=== PATIENT | male | born 1950 | race Caucasian/White ===

== ENCOUNTER → 2018-08-10 | Outpatient (CLI) | payer MEDICARE, OTHER ==
[~2018-08-10] MED LIST: ASPIRIN81 MG PO; CLOPIDOGREL75 MG PO; COMBIVENT RESPIM4 GM INH; COUMADIN3 MG PO; COUMADIN5 MG PO; DOXYCYCLINE HY100 MG PO; ELEQUIS PO; ISOSORBIDE DINI20 MG PO; LEVOTHYROXINE0.5 GM PO; LEVOTHYROXINE125 MCG PO; LOSARTAN POTASS25 MG PO; LYRICA25 MG PO; METFORMIN HCL500 MG PO; METOCLOPRAMIDE10 MG PO; METOPROLOL TART50 MG PO; MULTI-VITAMIN1 EACH PO; NORVASC5 MG PO; PANTOPRAZOLE SO40 MG PO; PLAVIX75 MG PO; POTASSIUM 25 M25 MEQ PO; POTASSIUM GLUCONATE PO; RAPAFLO8 MG PO; SIMVASTATIN20 MG PO; SPIRIVA18 MCG INH; VITAMIN D34000 UNIT PO; WARFARIN SODIUM5 MG PO
--- NOTE | 2018-08-10 15:03 | Diagnostic Imaging Report ---
EXAMINATION: Renal ultrasound. CLINICAL HISTORY :Hematuria COMPARISON: July 29 2016 TECHNIQUE: Grayscale and color Doppler evaluation of the kidneys and bladder was performed in transverse and longitudinal planes. DISCUSSION: RIGHT KIDNEY: The right kidney measures 12 cm in length and shows normal echogenicity. No hydronephrosis, shadowing calculi or solid mass lesions. LEFT KIDNEY: The left kidney measures 13.4 cm in length and shows normal echogenicity. No hydronephrosis. Left renal 2.4 cm hypoechoic lesion in the interpolar region is indeterminate. Does not appear simple and not present on prior CT of the abdomen and pelvis. BLADDER: Unremarkable. IMPRESSION: Left renal 2.4 cm indeterminate hypoechoic lesion. Recommend CT or MRI of the abdomen with and without contrast. Signed by: Dr. Dereje Elias M.D. on 08/10/2018 3:00 PM
== END ==
LOC: US 11:14
PROVIDERS: ATTEND Urology
DX: R31.29 Other microscopic hematuria (principal)
CPT/HCPCS: 76770

== ENCOUNTER → 2018-08-24 | Outpatient (CLI) | payer MEDICARE, OTHER ==
[~2018-08-24] MED LIST changes: +IOPAMIDOL 370 MG/ML 200 ML INFUS..BTL INJ ONE; +SODIUM CHLORIDE 0.9% 50ML 50 ML ONE
[2018-08-24 09:26] LABS: BLOOD UREA NITROGEN 16 mg/dL (8-26); BUN/CREATININE RATIO 20 (6-25); CREATININE, SERUM 0.8 mg/dL (0.9-1.3); EST GLOMERULAR FILTRATION RATE > 60 ML/MIN (60-)
--- NOTE | 2018-08-24 11:19 | Diagnostic Imaging Report ---
EXAM: CT Abdomen and Pelvis WITHOUT and WITH contrast INDICATION: Indeterminate left renal mass on recent ultrasound examination. COMPARISON: Correlation with ultrasound kidneys dated 08/10/2018. TECHNIQUE: Abdomen and pelvis were scanned utilizing a multidetector helical scanner from the lung base to the pubic symphysis before and after administration of IV contrast. Coronal and sagittal reformations were obtained. Renal mass protocol was performed. Scan was performed pre-, nephrographic, and 4 minute delayed phase. IV CONTRAST: 100 cc Isovue-300 ORAL CONTRAST: Water RADIATION DOSE: Total DLP: 1693.48 mGy*cm Estimated effective dose: (DLP x 0.015 x size factor) mSv COMPLICATIONS: None FINDINGS: LINES and TUBES: None. LOWER THORAX: Irregular density in the right middle lobe anterolaterally and to lesser degree lingula, suggestive of pleural parenchymal scarring. HEPATOBILIARY: No focal hepatic lesions. No biliary ductal dilation. GALLBLADDER: No radio-opaque stones or sludge. No wall thickening. SPLEEN: No splenomegaly. PANCREAS: No focal masses or ductal dilatation. ADRENALS: No adrenal nodules KIDNEYS/URETERS: Kidneys enhance symmetrically. No hydronephrosis. No cystic or solid mass lesions, in particular, there is no mass lesion in the lower pole of the left kidney to correspond to finding of the ultrasound examination. There is however a normal variation of venous drainage of the left kidney, with venous branches draining the lower pole, extending to the left lower pole as seen on sagittal image 60. Coronal No stones. GI TRACT: No abnormal distention, wall thickening, or evidence of bowel obstruction. Scattered descending sigmoid colon diverticula without CT evidence of diverticulitis. Appendix is not visualized possibly out of field of view. 5.0 cm diverticulum off the second portion of the duodenum. PELVIC ORGANS/BLADDER: Unremarkable. LYMPH NODES: No lymphadenopathy. VESSELS: There is moderate atherosclerotic disease in the aorta and major arterial branches. PERITONEUM / RETROPERITONEUM: No free air or fluid. BONES: No suspicious lesions. SOFT TISSUES: Unremarkable. IMPRESSION: 1. No renal mass identified, particularly in the lower pole of the left kidney as suspected on prior ultrasound examination. 2. Colonic diverticulosis without diverticulitis. Signed by: Dr. Shankar Hogan M.D. on 08/24/2018 11:16 AM
== END ==
LOC: CT 07:11
PROVIDERS: ATTEND Urology
DX: N28.89 Other specified disorders of kidney and ureter (principal)
CPT/HCPCS: 36415; 74170; 82565; 84520; Q9967

== ENCOUNTER → 2018-12-01 | Day surgery (SDC) | payer MEDICARE, OTHER ==
[2018-11-25 10:38] LABS: BASOPHILS % 0.5 % (0.0-1.0); EOSINOPHILS # (AUTO) 0.1 (0.0-0.4); EOSINOPHILS % 2.4 % (0.0-6.0); HEMATOCRIT 38.8 % (38.2-49.6); HEMOGLOBIN 13.1 g/dL (14.0-18.0); LYMPHOCYTES # (AUTO) 1.1 (1.0-3.2); MEAN CORPUSCULAR HEMOGLOBIN 31.1 pg (28-32); MEAN CORPUSCULAR HGB CONC 33.8 g/dL (31-35); MEAN CORPUSCULAR VOLUME 92.2 fL (81-99); MONOCYTES # (AUTO) 0.4 (0.2-0.8); MONOCYTES % 11.9 % (4.4-11.3); NEUTROPHILS % 54.7 % (38.7-80.0); PLATELET COUNT 152 x10e3/uL (140-360); RED BLOOD COUNT 4.21 x10e6/uL (4.3-5.7); RED CELL DISTRIBUTION WIDTH 14.6 % (11.7-14.4)
[~2018-12-01] MED LIST changes: -IOPAMIDOL 370 MG/ML 200 ML INFUS..BTL INJ ONE; +KETAMINE HCL INJ 50 MG/ML 10 ML VIAL ONE; +LIDOCAINE HCL 2% LOCAL INJ 5 ML SDV VIAL INJ ONE; +PROPOFOL IV EMULSION 10 MG/ML 50 ML VIAL ONE; -SODIUM CHLORIDE 0.9% 50ML 50 ML ONE
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
--- OUTSIDE RECORDS SUMMARY | 2018-12-01 05:52 | XMS REPORT | Continuity of Care Document ---
Author Author [facility] Interface Address Unknown Phone Unavailable Problems Problem Status Onset Date Classification Date Reported Comments Source LUMBAR RADICULOPATHY Active 11/12/2018 [facility] DISORDERS OF SACRUM, LUMBOSACRAL SPONDYL Active 09/29/2018 [facility] DISORDER OF SACRUM Active 08/13/2018 [facility] SPONDYLOSIS OF LUMBOSACRAL REGION WITHOU Active 06/08/2018 [facility] LUMBAR SPONDYLOSIS OF LUMBOSACRAL REGION Active 05/31/2018 [facility] 2 WEEKS FOLLOW UP Active 11/26/2017 [facility] CCL/PFO CLOSURE Active 11/17/2017 [facility] PFO Active 07/20/2017 [facility] M54.16 RADICULOPATHY, LUMBAR REGION Active 07/17/2017 [facility] GAMMUNEX 56 GMS / [id number] / [id number] / DX: G6 Active 06/26/2017 [facility] 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 Active 08/14/2016 [facility] SOB Active 07/25/2016 [facility] G89.4 - CHRONIC PAIN SYNDROME Active 03/04/2016 [facility] M25.512 - PAIN IN LEFT SHOULDER Active 10/29/2015 [facility] Discharge Diagnosis: Bite from dog 07/17/2015 07/20/2015 [facility] Discharge Diagnosis: Acute foreign body of hand 07/17/2015 07/20/2015 [facility] BITES - DOG Active 07/17/2015 [facility] UNK Active 05/15/2015 [facility] R13.10 R10.13 Active 05/15/2015 [facility] CHEST PAIN Active 04/23/2015 [facility] Discharge Diagnosis: Acute low back pain 02/10/2015 02/14/2015 [facility] BACK PAIN Active 02/10/2015 [facility] Discharge Diagnosis: Back pain 02/04/2015 02/07/2015 [facility] Discharge Diagnosis: Muscle spasm 02/04/2015 02/07/2015 [facility] Discharge Diagnosis: Hemarthrosis 11/21/2014 11/24/2014 [facility] ELBOW INJURY Active 11/21/2014 [facility] MEDICATION REACTION Active 02/22/2014 [facility] INTENSE MUSCLE PAIN, SPASM, CONCERN FOR Active 02/22/2014 [facility] Discharge Diagnosis: Acute neck pain 11/20/2013 11/22/2013 [facility] NECK PAIN Active 11/20/2013 [facility] 723.0 Active 10/25/2013 [facility] 723.0-LAMINECTOMY Active 10/25/2013 [facility] FEVER, SEPSIS Active 10/02/2013 [facility] Acute CHF Resolved Problem 04/26/2015 [facility] acid reflux Active Problem 03/02/2014 [facility] atrial fibrillation Resolved Problem 03/02/2014 [facility] COPD Active Problem 03/02/2014 [facility] heart attack Resolved Problem 03/02/2014 [facility] hypercholesteremia Active Problem 03/02/2014 [facility] hypertension Active Problem 03/02/2014 [facility] hyperthyroid Active Problem 03/02/2014 [facility] numbness,weakness of legs Active Problem 03/02/2014 [facility] stroke Resolved Problem 03/02/2014 [facility] PE (<span ID="[id number]">Confirmed</span>) Resolved Problem 03/17/2015 [facility] PE (<span ID="[id number]">Confirmed</span>) Resolved Problem 04/26/2015 [facility] Acute CHF Resolved Problem 11/20/2017 [facility], [facility] CAD (<span ID="[id number]">Confirmed</span>) Resolved Problem 11/20/2017 [facility], [facility] Cervical myelopathy Active Problem 11/20/2017 [facility] [place], [facility] [place] Hypertension Active Problem 11/20/2017 [facility], [facility] [place], [facility] Neuropathy Active Problem 11/20/2017 [facility] [place], [facility] [place], [facility] PE (<span [id number]">Confirmed</span>) Resolved Problem 11/20/2017 [facility], [facility] [place] SOBOE - Shortness of breath on exertion Active Problem 11/20/2017 [facility] [place], [facility] [place],[facility] Heart Failure Acute CHF Resolved Problem 12/11/2017 [facility], [facility] [place],[facility] CAD (<span ID="[id number]">Confirmed</span>) Resolved Problem 12/11/2017 [facility] [place], [facility] [place],[facility] Cervical myelopathy Active Problem 12/11/2017 [facility], [facility] [place], [facility] [place],[facility] Hypertension Active Problem 12/11/2017 [facility], [facility] [place], [facility] [place],[facility] Neuropathy Active Problem 12/11/2017 [facility], [facility] [place], [facility] [place],[facility] PE (<span ID="[id number]">Confirmed</span>) Resolved Problem 12/11/2017 [facility], [facility] [place],[facility] SOBOE - Shortness of breath on exertion Active Problem 12/11/2017 [facility], [facility] [place], [facility] [place],[facility] Acute CHF Resolved Problem 11/27/2018 [facility], [facility] [place], [facility] CAD (<span ID="[id number]">Confirmed</span>) Resolved Problem 11/27/2018 [facility], [facility] [place], [facility] [place], [facility] Stroke<sup>1</sup> Resolved Problem 11/27/2018 X2 2008,2009 [facility] Cervical myelopathy Active Problem 11/27/2018 [facility], [facility] [place], [facility] [place], [facility] 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>) Active Problem 11/27/2018 [facility] COPD (<span ID="[id number]">Confirmed</span>) Active Problem 11/27/2018 [facility] Diabetes Active Problem 11/27/2018 [facility] GERD (<span ID="[id number]">Confirmed</span>) Active Problem 11/27/2018 [facility] Hypertension Active Problem 11/27/2018 [facility], [facility] [place], [facility] [place], [facility] Hyperthyroidism Active Problem 11/27/2018 [facility] Enlarged prostate Active Problem 11/27/2018 [facility] Heart attack<sup>2, 3</sup> Resolved Problem 11/27/2018 [facility] Neuropathy Active Problem 11/27/2018 [facility], [facility] [place], [facility] PE (<span ID="[id number]">Confirmed</span>) Resolved Problem 11/27/2018 [facility], [facility] [place], [facility] SOBOE - Shortness of breath on exertion Active Problem 11/27/2018 [facility], [facility] [place], [facility] TIA (<span ID="[id number]">Confirmed</span>) Resolved Problem 11/27/2018 [facility] CERVICAL SPINAL STENOSIS Active [facility] FEVER NOS Active [facility] SEPTICEMIA NOS Active [facility] PAIN IN LIMB Active [facility] LOW BACK PAIN Active [facility] DYSPHAGIA, UNSPECIFIED Active [facility] EPIGASTRIC PAIN Active [facility] PAIN Active [facility] SECONDARY POLYCYTHEMIA Active [facility] RADICULOPATHY, LUMBAR REGION Active [facility] Medications Medication Details Route Status Patient Instructions Ordering Provider Order Date Source Heparin Lock 100 units/mL INJ solution 500 unit, 5 mL, Route: INJ, Drug Form: INJ, Dosing Weight 112.727, kg, ONCE, PRN Other -See Comment, Start date: 11/25/18 13:58:00 CDTNotes: (Same as: Heparin Lock Flush) Inactive 11/25/2018 [facility] Lactated Ringers IV 1,000 mL 1,000 mL, Rate: 40 ml/hr, Infuse over: 25 hr, Route: IV, Dosing Weight 112.727 kg, Total Volume: 1,000, Start date: 11/25/18 12:27:00 CDT, Duration: 30 day, Stop date: 12/25/18 12:26:00 CDT, 2.52, m2 No Longer Active 11/25/2018 [facility] Lactated Ringers IV 1,000 mL 1,000 mL, Rate: 40 ml/hr, Infuse over: 25 hr, Route: IV, Dosing Weight 112.727 kg, Total Volume: 1,000, Start date: 10/07/18 16:08:00 CDT, Duration: 30 day, Stop date: 11/06/18 16:07:00 CDT, 2.52, m2 No Longer Active 10/07/2018 [facility] Lactated Ringers IV 1,000 mL 1,000 mL, Rate: 40 ml/hr, Infuse over: 25 hr, Route: IV, Dosing Weight 110.909 kg, Total Volume: 1,000, Start date: 09/02/18 13:38:00 PATIENT OFFICE REP, Duration: 30 day, Stop date: 10/02/18 13:37:00 CDT, 2.5, m2 No Longer Active 09/02/2018 [facility] clopidogrel 75 mg oral tablet 75 mg=1 tab, PO, Daily, # 90 tab, 0 Refill(s) Active 11/26/2017 [facility] clopidogrel 75 mg, 1 tab, Route: PO, Drug form: TAB, Daily, Dosing Weight 109.545, kg, Start date: 11/26/17 9:00:00 CDT, Duration: 30 day, Stop date: 12/25/17 9:00:00 CDTNotes: (Same As: Plavix) Inactive 11/26/2017 [facility] Aspirin 81 mg, 1 tab, Route: PO, Drug form: ECTAB, Daily, Dosing Weight 109.545, kg, Start date: 11/26/17 9:00:00 CDT, Duration: 30 day, Stop date: 12/25/17 9:00:00 CDTNotes: Do not crush or chew. (Same As: Ecotrin) Inactive 11/26/2017 [facility] Fentanyl 25 microgram, Route: IV, Drug form: ERFILM, ONCE, Dosing Weight 109.545, kg, Start date: 11/26/17 2:48:00 CDT, Stop date: 11/26/17 2:48:00 CDTNotes: (Same as: Duragesic) Check for product integrity. Ap ply to intact skin "Remove old patch before application of new patch" Inactive 11/26/2017 [facility] Acetaminophen 325 MG / Hydrocodone Bitartrate 5 MG Oral Tablet [Estero 5/325] 1 tab, Route: PO, Drug Form: TAB, Dosing Weight 109.545, kg, Q6H, PRN Pain Score 1-3, Start date: 11/25/17 19:21:00 CDT, Duration: 30 day, Stop date: 12/25/17 19:20:00 CDTNotes: (Same as: Estero 325/5) Do not exceed 4gm/day of acetaminophen. No Longer Active 11/26/2017 [facility] Fentanyl 50 microgram, 1 mL, Route: IV, Drug form: INJ, ONCE, Dosing Weight 109.545, kg, Start date: 11/25/17 19:21:00 CDT, Stop date: 11/25/17 19:21:00 CDTNotes: (Same as: Sublimaze) Preservative free. Inactive 11/26/2017 [facility] Fentanyl 50 microgram, Route: IV, ONCE, Dosing Weight 109.545, kg, Start date: 11/25/17 17:04:00 CDT, Stop date: 11/25/17 17:04:00 CDT Inactive 11/25/2017 [facility] Aspirin 81 MG Enteric Coated Tablet 81 mg, Route: PO, Drug form: ECTAB, ONCE, Dosing Weight 109.545, kg, Start date: 11/25/17 16:07:00 CDT, Stop date: 11/25/17 16:07:00 CDT Inactive 11/25/2017 [facility] Plavix 300 mg, Route: PO, Drug form: TAB, ONCE, Dosing Weight 109.545, kg, Start date: 11/25/17 16:07:00 CDT, Stop date: 11/25/17 16:07:00 CDT Inactive 11/25/2017 [facility] Sodium Chloride 0.9% IV 750 mL 750 mL, Rate: 75 ml/hr, Infuse over: 10 hr, Route: IV, Dosing Weight 109.545 kg, Total Volume: 750, Start date: 11/25/17 15:20:00 CDT, Duration: 10 hr, Stop date: 11/26/17 1:19:00 CDT, 2.49, m2 No Longer Active 11/25/2017 [facility] Amoxicillin 875 MG / Clavulanate 125 MG Oral Tablet [Augmentin 875-mg] 875 mg=1 tab, PO, Q12H, X 7 day, # 14 tab, 0 Refill(s) Active 07/17/2015 [facility] Morphine 4 mg, Route: IM, Drug form: INJ, ONCE, Dosing Weight 77.273, kg, Priority: STAT, Start date: 07/17/15 16:27:00, Stop date: 07/17/15 16:27:00 Inactive 07/17/2015 [facility] Thyroxine Daily, 0 Refill(s) Active 05/23/2015 [facility] [place] PO, Daily, 0 Refill(s) Active 05/23/2015 [facility] Metformin PO, 0 Refill(s) Active 05/23/2015 [facility] Acetaminophen 325 MG / Hydrocodone Bitartrate 10 MG Oral Tablet [Estero 10/325] 1 tab, Route: PO, Drug Form: TAB, Dosing Weight 114.545, kg, ONCE, STAT, Start date: 02/10/15 19:27:00, Stop date: 02/10/15 19:27:00 Inactive 02/11/2015 [facility] Dilaudid 1 mg, Route: IVP, ONCE, Dosing Weight 114.545, kg, Priority: STAT, Start date: 02/10/15 15:06:00, Stop date: 02/10/15 15:06:00 Inactive 02/10/2015 [facility] Ondansetron 4 mg, Route: IVP, Drug form: INJ, ONCE, Dosing Weight 114.545, kg, Priority: STAT, Start date: 02/10/15 10:48:00, Stop date: 02/10/15 10:48:00 Inactive 02/10/2015 [facility] Dilaudid 1 mg, Route: IVP, ONCE, Dosing Weight 114.545, kg, Priority: STAT, Start date: 02/10/15 10:48:00, Stop date: 02/10/15 10:48:00 Inactive 02/10/2015 [facility] POLYETHYLENE GLYCOL 3350 142 MG/ML Oral Solution [Miralax] 17 gm, PO, Daily, X 15 day, # 255 gm, 0 Refill(s) Active 02/04/2015 [facility] Cyclobenzaprine hydrochloride 10 MG Oral Tablet [Flexeril] 10 mg, PO, TID, PRN Muscle Spasm, X 10 day, # 30 tab, 0 Refill(s) Active 02/04/2015 [facility] Ketorolac 30 mg, 1 mL, Route: IVP, Drug form: INJ, ONCE, Dosing Weight 114.545, kg, Priority: STAT, Start date: 02/04/15 14:08:00, Stop date: 02/04/15 14:08:00Notes: (Same as:Toradol) IV bolus must be given >15 seconds. Give IM administration slowly and deeply into the muscle. Not for use > 4 days MEDICATION WASTE Product Size: 30 mg Product Wasted: ___ mg Inactive 02/04/2015 [facility] Dilaudid 0.5 mg, Route: IVP, ONCE, Dosing Weight 114.545, kg, Priority: STAT, Start date: 02/04/15 11:35:00, Stop date: 02/04/15 11:35:00 Inactive 02/04/2015 [facility] Flexeril 10 mg, 1 tab, Route: PO, Drug form: TAB, ONCE, Dosing Weight 114.545, kg, Priority: STAT, Start date: 02/04/15 10:07:00, Stop date: 02/04/15 10:07:00Notes: (Same As: Flexeril) Inactive 02/04/2015 [facility] Acetaminophen 325 MG / Hydrocodone Bitartrate 5 MG Oral Tablet 1 tab, Route: PO, Drug Form: TAB, Dosing Weight 114.545, kg, ONCE, STAT, Start date: 02/04/15 10:06:00, Stop date: 02/04/15 10:06:00Notes: (Same as: [place] 325/5) Do not exceed 4gm/day of acetaminophen. Inactive 02/04/2015 [facility] Ondansetron 4 MG Oral Tablet [Zofran] 4 mg=1 tab, PO, TID, X 5 day, # 15 tab, 0 Refill(s) Active 11/22/2014 [facility] Acetaminophen 325 MG / Hydrocodone Bitartrate 10 MG Oral Tablet 1 tab, PO, Q4H, PRN Pain, X 3 day, # 18 tab, 0 Refill(s) Active 11/22/2014 [facility] Zofran 4 mg, Route: IVP, Drug form: INJ, ONCE, Dosing Weight 121.818, kg, Priority: STAT, Start date: 11/21/14 21:35:00, Stop date: 11/21/14 21:35:00 Inactive 11/22/2014 [facility] Potassium Chloride 20 MEQ Extended Release Tablet 40 mEq, 2 tab, Route: PO, Drug form: ERTAB, ONCE, Dosing Weight 121.818, kg, Priority: STAT, Start date: 11/21/14 21:15:00, Stop date: 11/21/14 21:15:00 Inactive 11/22/2014 [facility] potassium chloride 10 mEq, 100 mL, Route: IVPB, Drug form: INJ, Q1H, Start date: 11/21/14 20:00:00, Duration: 4 doses or times, Stop date: 11/21/14 23:00:00Notes: Infuse at a rate of 10 mEq/hr. (Same as: KCL) Inactive 11/22/2014 [facility] Calcium Chloride 1,000 mg, 10 mL, Route: IVP, Drug form: INJ, ONCE, Dosing Weight 121.818, kg, Priority: STAT, Start date: 11/21/14 19:53:00, Stop date: 11/21/14 19:53:00Notes: calcium CHLORIDE calcium CHLORIDE calcium CHLORIDE Inactive 11/22/2014 [facility] potassium chloride 40 mEq, Route: IVPB, ONCE, Dosing Weight 121.818, kg, Start date: 11/21/14 19:50:00, Stop date: 11/21/14 19:50:00 Inactive 11/22/2014 [facility] Zofran 4 mg, Route: IVP, Drug form: INJ, ONCE, Dosing Weight 121.818, kg, Priority: STAT, Start date: 11/21/14 18:30:00, Stop date: 11/21/14 18:30:00 Inactive 11/21/2014 [facility] Morphine 4 mg, 2 mL, Route: IVP, Drug form: INJ, ONCE, Dosing Weight 121.818, kg, Priority: STAT, Start date: 11/21/14 18:30:00, Stop date: 11/21/14 18:30:00Notes: (Same as:MORPhine Sulfate) Inactive 11/21/2014 [facility] Zofran ODT 4 mg, Route: PO, Drug form: TABDIS, ONCE, Dosing Weight 121.818, kg, Priority: STAT, Start date: 11/21/14 18:09:00, Stop date: 11/21/14 18:09:00 Inactive 11/21/2014 [facility] Acetaminophen 325 MG / Hydrocodone Bitartrate 10 MG Oral Tablet [Estero 10/325] 1 tab, Route: PO, Drug Form: TAB, Dosing Weight 121.818, kg, ONCE, STAT, Start date: 11/21/14 17:47:00, Stop date: 11/21/14 17:47:00 Inactive 11/21/2014 [facility] sodium chloride 10 mL, Route: IVP, Start date: 03/01/14 0:00:00, Duration: 30 day, Stop date: 03/30/14 16:00:00Notes: preservative free. No Longer Active 03/01/2014 [facility] heparin flush 500 unit, 5 mL, Route: IVP, Drug form: SOLN, Q30D, PRN Other -See Comment, Start date: 02/28/14 18:54:00, Duration: 30 day, Stop date: 03/30/14 18:53:00Notes: (Same as: Heparin Lock Flush) Inactive 02/28/2014 [facility] sodium chloride 20 mL, Route: IVP, Start date: 02/28/14 18:53:00, Duration: 30 day, Stop date: 03/30/14 18:52:00, PRN Other -See CommentNotes: preservative free. Inactive 02/28/2014 [facility] sodium chloride 20 mL, Route: IVP, Start date: 02/28/14 17:06:00, Duration: 30 day, Stop date: 03/30/14 17:05:00, PRN Other -See CommentNotes: preservative free. Inactive 02/28/2014 [facility] sodium chloride 10 mL, Route: IVP, Start date: 02/28/14 17:05:00, Duration: 30 day, Stop date: 03/30/14 17:04:00, PRN Line FlushNotes: preservative free. Inactive 02/28/2014 [facility] methocarbamol 500 mg oral tablet 500 mg=1 tab, PO, TID, Spasm, # 30 tab, 0 Refill(s) Active 02/28/2014 [facility] Acetaminophen 325 MG / Hydrocodone Bitartrate 10 MG Oral Tablet 1 tab, PO, Q4H, Pain Score 4-6, # 10 tab, 0 Refill(s) Active 02/28/2014 [facility] levothyroxine 125 mcg (0.125 mg) oral tablet 125 microgram=1 tab, PO, Daily, # 30 tab, 0 Refill(s) Active 02/28/2014 [facility] Thyroxine 125 microgram, 1 tab, Route: PO, Drug form: TAB, Daily, Dosing Weight 125.028, kg, Start date: 02/28/14 9:00:00, Duration: 30 day, Stop date: 03/29/14 9:00:00Notes: Take 1 hour before or 2 hours after meal; Enteral feeds may interefere with the absorption of this medication. (Same as:Levothroid) Inactive 02/28/2014 [facility] Insulin, Aspart, Human 4 unit, 0.04 mL, Route: SUB-Q, Drug form: SOLN, TID-Before Meals, Dosing Weight 125.028, kg, PRN Blood Glucose Results, Start date: 02/24/14 7:48:00, Duration: 30 day, Stop date: 03/26/14 7:47:00Notes: Roll in palms of hands gently; Do not shake vigorously. (Same as: NovoLOG) "single patient use only" Stable for 28 days at room temperature. Expires in days from Date No Longer Active 02/24/2014 [facility] Glucagon 1 mg, Route: IM, Drug form: PDR/INJ, PRN, Dosing Weight 125.028, kg, PRN Blood Glucose Results, Start date: 02/24/14 7:48:00, Duration: 30 day, Stop date: 03/26/14 7:47:00 No Longer Active 02/24/2014 [facility] Dextrose 50% Syringe 12.5 gm, 25 mL, Route: IVP, Drug Form: INJ, Dosing Weight 125.028, kg, PRN, PRN Blood Glucose Results, Start date: 02/24/14 7:48:00, Duration: 30 day, Stop date: 03/26/14 7:47:00 No Longer Active 02/24/2014 [facility] Temazepam 15 mg, 1 cap, Route: PO, Drug form: CAP, Bedtime, Dosing Weight 125.028, kg, PRN Sleep, Start date: 02/23/14 19:30:00, Duration: 30 day, Stop date: 03/25/14 19:29:00Notes: (Same As: Restoril) No Longer Active 02/24/2014 [facility] normal saline 0.9% IV 1,000 mL 1,000 mL, Rate: 100 ml/hr, Infuse over: 10 hr, Route: IV, Dosing Weight 125.028 kg, Total Volume: 1,000, Start date: 02/23/14 19:30:00, Duration: 30 day, Stop date: 03/25/14 19:29:00 No Longer Active 02/24/2014 [facility] metoprolol tartrate 25 mg, 1 tab, Route: PO, Drug form: TAB, QPM, Dosing Weight 125.028, kg, Start date: 02/23/14 17:00:00, Duration: 30 day, Stop date: 03/24/14 17:00:00Notes: (Same as: Lopressor) No Longer Active 02/23/2014 [facility] Coumadin 5 mg, 1 tab, Route: PO, Drug form: TAB, Daily, Dosing Weight 125.028, kg, Start date: 02/23/14 17:00:00, Duration: 30 day, Stop date: 03/24/14 17:00:00Notes: Nurse to ensure documentation of patient edu cation per anticoagulation policy. Avoid large intake of vitamin-K containing foods diet. (Same As: Coumadin) No Longer Active 02/23/2014 [facility] Methocarbamol 500 mg, 1 tab, Route: PO, Drug form: TAB, TID, Dosing Weight 125.028, kg, PRN Spasm, Start date: 02/23/14 15:01:00, Duration: 30 day, Stop date: 03/25/14 15:00:00Notes: (Same as:Robaxin) No Longer Active 02/23/2014 [facility] Methylprednisolone 1 gm, Route: IV, Drug form: INJ, ONCE, Dosing Weight 125.028, kg, Start date: 02/23/14 15:00:00, Stop date: 02/23/14 15:00:00Notes: (Same as:Solu-MEDROL, A-Methapred) Inactive 02/23/2014 [facility] albuterol-ipratropium 1 puff, Route: INHALER, Drug Form: AERO, QID, Start date: 02/23/14 13:00:00, Duration: 30 day, Stop date: 03/25/14 9:00:00 No Longer Active 02/23/2014 [facility] multivitamin 1 tab, Route: PO, Drug Form: TAB, Daily, Start date: 02/23/14 11:00:00, Duration: 30 day, Stop date: 03/25/14 9:00:00Notes: (Same as:One Tab Daily, Tab-A-Eb + Beta Carotene) Give with food. No Longer Active 02/23/2014 [facility] metoprolol tartrate 50 mg, 1 tab, Route: PO, Drug form: TAB, QAM, Dosing Weight 125.028, kg, Start date: 02/23/14 9:00:00, Duration: 30 day, Stop date: 03/24/14 9:00:00Notes: (Same as: Lopressor) No Longer Active 02/23/2014 [facility] Hydrochlorothiazide 12.5 MG Oral Capsule 12.5 mg, 1 cap, Route: PO, Drug form: CAP, Daily, Dosing Weight 125.028, kg, Start date: 02/23/14 9:00:00, Duration: 30 day, Stop date: 03/24/14 9:00:00Notes: (Same as: Microzide) With food. No Longer Active 02/23/2014 [facility] clopidogrel 75 mg, 1 tab, Route: PO, Drug form: TAB, Daily, Dosing Weight 125.028, kg, Start date: 02/23/14 9:00:00, Duration: 30 day, Stop date: 03/24/14 9:00:00Notes: (Same As: Plavix) No Longer Active 02/23/2014 [facility] Cholecalciferol 4,000 IntlUnit, 4 tab, Route: PO, Drug form: TAB, Daily, Dosing Weight 125.028, kg, Start date: 02/23/14 9:00:00, Duration: 30 day, Stop date: 03/24/14 9:00:00Notes: Same as : Vitamin D3 No Longer Active 02/23/2014 [facility] Aspirin 81 MG Enteric Coated Tablet 81 mg, 1 tab, Route: PO, Drug form: ECTAB, Daily, Dosing Weight 125.028, kg, Start date: 02/23/14 9:00:00, Duration: 30 day, Stop date: 03/24/14 9:00:00Notes: Do not crush or chew. (Same As: Ecotrin) No Longer Active 02/23/2014 [facility] 200 ACTUAT Albuterol 0.09 MG/ACTUAT / Ipratropium [place] 0.018 MG/ACTUAT Metered Dose Inhaler [Combivent] 2 puff, Route: INHALATION, Drug Form: AERO/A, Dosing Weight 125.028, kg, QID, Start date: 02/23/14 9:00:00, Duration: 30 day, Stop date: 03/24/14 21:00:00 Inactive 02/23/2014 [facility] Enoxaparin 40 mg, Route: SUB-Q, Drug form: INJ, [id number], Dosing Weight 125.028, kg, Start date: 02/23/14 9:00:00, Duration: 30 day, Stop date: 03/24/14 9:00:00 Inactive 02/23/2014 [facility] Warfarin 5 mg, 1 tab, Route: PO, Drug form: TAB, Daily, Dosing Weight 125.028, kg, Start date: 02/23/14 9:00:00, Duration: 30 day, Stop date: 03/24/14 9:00:00Notes: Nurse to ensure documentation of patient education per anticoagulation policy. Avoid large intake of vitamin-K containing foods diet. (Same As: Coumadin) Inactive 02/23/2014 [facility] tiotropium 0.018 MG/ACTUAT Inhalant Powder [Spiriva] 18 microgram, 1 inhalation, Route: PO, Drug form: CAP, Daily, Dosing Weight 125.028, kg, Start date: 02/23/14 9:00:00, Duration: 30 day, Stop date: 03/24/14 9:00:00Notes: (Same As: Spiriva). No Longer Active 02/23/2014 [facility] tamsulosin 0.4 mg, 1 cap, Route: PO, Drug form: CAP, Daily, Dosing Weight 125.028, kg, Start date: 02/23/14 9:00:00, Duration: 30 day, Stop date: 03/24/14 9:00:00Notes: (Same As: Flomax) "Do Not Crush" No Longer Active 02/23/2014 [facility] Propylthiouracil 50 mg, 1 tab, Route: PO, Drug form: TAB, Daily, Dosing Weight 125.028, kg, Start date: 02/23/14 9:00:00, Duration: 30 day, Stop date: 03/24/14 9:00:00Notes: Propylthiouracil is associated with risk of serious liver damage. Patient should be monitored for symptoms of liver injury. No Longer Active 02/23/2014 [facility] Lyrica 100 mg, 2 cap, Route: PO, Drug form: CAP, TID, Dosing Weight 125.028, kg, Start date: 02/23/14 9:00:00, Duration: 30 day, Stop date: 03/24/14 17:00:00Notes: Same as Lyrica No Longer Active 02/23/2014 [facility] pantoprazole 40 mg, 1 tab, Route: PO, Drug form: ECTAB, Daily, Dosing Weight 125.028, kg, Start date: 02/23/14 9:00:00, Duration: 30 day, Stop date: 03/24/14 9:00:00Notes: Tablet should not be chewed or crushed. (Same as: Protonix) No Longer Active 02/23/2014 [facility] Potassium gluconate 550 mg, Route: PO, Drug form: TAB, Daily, Dosing Weight 125.028, kg, Start date: 02/23/14 9:00:00, Duration: 30 day, Stop date: 03/24/14 9:00:00 Inactive 02/23/2014 [facility] Ascorbic Acid / Biotin / Folic Acid / Niacin / pantothenate / pyridoxine / Riboflavin / Thiamine / Vitamin B 12 1 tab, Route: PO, Drug Form: TAB, Dosing Weight 125.028, kg, Daily, Start date: 02/23/14 9:00:00, Duration: 30 day, Stop date: 03/24/14 9:00:00 Inactive 02/23/2014 [facility] Hydromorphone 1 mg, 1 mL, Route: IV, Drug form: INJ, Q2H, Dosing Weight 125.028, kg, PRN as needed for pain, Start date: 02/23/14 4:07:00, Duration: 30 day, Stop date: 03/25/14 4:06:00 No Longer Active 02/23/2014 [facility] Docusate 100 mg, 1 cap, Route: PO, Drug form: CAP, BID, Dosing Weight 122.727, kg, PRN Constipation, Start date: 02/23/14 0:14:00, Duration: 30 day, Stop date: 03/25/14 0:13:00Notes: (Same as: Colace) (Do Not Crush) No Longer Active 02/23/2014 [facility] Acetaminophen 325 MG / Hydrocodone Bitartrate 10 MG Oral Tablet 1 tab, Route: PO, Drug Form: TAB, Dosing Weight 122.727, kg, Q4H, PRN Pain Score 4-6, Start date: 02/23/14 0:14:00, Duration: 30 day, Stop date: 03/25/14 0:13:00Notes: Do not exceed 4gm/day of acetaminophen. (Same as: [place] 325/10) No Longer Active 02/23/2014 [facility] Ondansetron 4 mg, 2 mL, Route: IVP, Drug form: INJ, Q8H, Dosing Weight 122.727, kg, PRN Nausea & Vomiting, Start date: 02/23/14 0:14:00, Duration: 30 day, Stop date: 03/25/14 0:13:00Notes: (Same as: Zofran) No Longer Active 02/23/2014 [facility] tamsulosin 0.4 mg oral capsule 0.4 mg=1 cap, PO, Daily, 0 Refill(s) Active 02/23/2014 [facility] warfarin 5 mg oral tablet 5 mg=1 tab, PO, Daily, 0 Refill(s) Active 02/23/2014 [facility] metoprolol tartrate 25 mg oral tablet 50 mg=2 tab, PO, QAM Active 02/23/2014 [facility] clopidogrel 75 mg oral tablet 75 mg=1 tab, PO, Daily Active 02/23/2014 [facility] Aspirin 81 MG Enteric Coated Tablet 81 mg=1 tab, PO, Daily Active 02/23/2014 [facility] Dilaudid 1 mg, 1 mL, Route: IVP, Drug form: INJ, Q2H, Dosing Weight 122.727, kg, Priority: STAT, Start date: 02/22/14 21:23:00, Duration: 2 doses or times, Stop date: 02/22/14 23:23:00 Inactive 02/23/2014 [facility] Benadryl 25 mg, 0.5 mL, Route: IVP, Drug form: INJ, ONCE, Dosing Weight 122.727, kg, Priority: STAT, Start date: 02/22/14 19:07:00, Stop date: 02/22/14 19:07:00Notes: (Same as: Benadryl) Inactive 02/23/2014 [facility] Dexamethasone 8 mg, 2 mL, Route: IVP, Drug form: INJ, ONCE, Dosing Weight 122.727, kg, Priority: STAT, Start date: 02/22/14 19:06:00, Stop date: 02/22/14 19:06:00Notes: Concentration: 4mg/ml Inactive 02/23/2014 [facility] Pepcid 40 mg, 2 tab, Route: PO, Drug form: TAB, ONCE, Dosing Weight 122.727, kg, Start date: 02/22/14 19:06:00, Stop date: 02/22/14 19:06:00Notes: (Same as: Pepcid) Inactive 02/23/2014 [facility] Sodium Chloride 0.154 MEQ/ML Injectable Solution 1,000 mL, 1,000 ml/hr, Infuse Over: 1 hr, Route: IV, 1,000, Drug form: INJ, ONCE, Priority: STAT, Dosing Weight 122.727 kg, Start date: 02/22/14 19:05:00, Duration: 1 doses or times, Stop date: 02/22/14 19:05:00 Inactive 02/23/2014 [facility] Dilaudid 0.5 mg, Route: IV, ONCE, Dosing Weight 120.455, kg, Start date: 11/20/13 18:49:00, Stop date: 11/20/13 18:49:00 Inactive 11/20/2013 [facility] heparin flush 500 unit, 5 mL, Route: IVP, Drug form: SOLN, Q30D, Start date: 11/01/13 12:00:00, Duration: 30 day, Stop date: 12/01/13 9:00:00Notes: (Same as: Heparin Lock Flush) Inactive 11/01/2013 [facility] sodium chloride 20 mL, Route: IVP, Start date: 11/01/13 11:11:00, Duration: 30 day, Stop date: 12/01/13 11:10:00, PRN Line FlushNotes: preservative free. Inactive 11/01/2013 [facility] sodium chloride 10 mL, Route: IVP, Start date: 11/01/13 11:10:00, Duration: 30 day, Stop date: 12/01/13 11:09:00, PRN Line FlushNotes: preservative free. Inactive 11/01/2013 [facility] clopidogrel 75 mg oral tablet 75 mg=1 tab, PO, Daily, # 60 tab, 1 Refill(s) Active 10/31/2013 [facility] pantoprazole 40 mg, Route: PO, Drug form: TAB, Daily, Dosing Weight 122.727, kg, Start date: 10/31/13 9:00:00, Duration: 30 day, Stop date: 11/29/13 9:00:00 No Longer Active 10/31/2013 [facility] clopidogrel 75 mg, 1 tab, Route: PO, Drug form: TAB, Daily, Dosing Weight 122.727, kg, Start date: 10/31/13 9:00:00, Duration: 30 day, Stop date: 11/29/13 9:00:00Notes: (Same As: Plavix) No Longer Active 10/31/2013 [facility] Saline Flush 0.9% 5 ml, Route: IVP, Drug Form: INJ, Dosing Weight 122.727, kg, Q12H, Start date: 10/30/13 21:00:00, Duration: 30 day, Stop date: 11/29/13 9:00:00Notes: preservative free. No Longer Active 10/31/2013 [facility] Sodium Chloride 0.154 MEQ/ML Injectable Solution 1,000 mL, Rate: 50 ml/hr, Infuse over: 20 hr, Route: IV, Dosing Weight 122.727 kg, Total Volume: 1,000, Start date: 10/30/13 12:08:00, Duration: 6 hr, Stop date: 10/30/13 18:07:00 Inactive 10/30/2013 [facility] Saline Flush 0.9% 5 ml, Route: IVP, Drug Form: INJ, Dosing Weight 122.727, kg, PRN, PRN Line Flush, Start date: 10/30/13 12:08:00, Duration: 30 day, Stop date: 11/29/13 12:07:00Notes: preservative free. No Longer Active 10/30/2013 [facility] Acetaminophen 650 mg, 2 tab, Route: PO, Drug form: TAB, Q4H, Dosing Weight 122.727, kg, PRN Headache 1-5, Start date: 10/30/13 12:08:00, Duration: 30 day, Stop date: 11/29/13 12:07:00Notes: Do not exceed 4 gm/day. (Same as: Tylenol) No Longer Active 10/30/2013 [facility] Ondansetron 4 mg, 1 tab, Route: PO, Drug form: TAB, Q8H, Dosing Weight 122.727, kg, PRN Nausea & Vomiting, Start date: 10/30/13 12:08:00, Duration: 30 day, Stop date: 11/29/13 12:07:00Notes: (Same as: Zofran) No Longer Active 10/30/2013 [facility] Morphine 2 mg, 1 mL, Route: IVP, Drug form: INJ, Q15Min, Dosing Weight 122.727, kg, PRN Chest Pain, Start date: 10/30/13 12:08:00, Duration: 2 doses or times, Stop date: Limited # of timesNotes: (Same as:MORP ainsley Sulfate) No Longer Active 10/30/2013 [facility] aspirin 325 mg tablet 325 mg, 1 tab, Route: PO, Drug form: TAB, ONCE, Dosing Weight 122.727, kg, Start date: 10/30/13 12:08:00, Stop date: 10/30/13 12:08:00Notes: Take with food. Inactive 10/30/2013 [facility] Nitroglycerin 0.4 mg, 1 tab, Route: SL, Drug form: TAB, Q5Min, Dosing Weight 122.727, kg, PRN Chest Pain, Start date: 10/30/13 12:08:00, Duration: 3 doses or times, Stop date: Limited # of timesNotes: (Same as:Nitroquick, Nitrostat) "Do Not Crush" Sublingual tablet No Longer Active 10/30/2013 [facility] Furosemide 40 MG Oral Tablet [Lasix] 40 mg, 1 tab, Route: PO, Drug form: TAB, Daily, Dosing Weight 122.727, kg, Start date: 10/30/13 9:00:00, Duration: 30 day, Stop date: 11/28/13 9:00:00Notes: (Same as: Lasix) May cause GI upset. Give with food or milk. No Longer Active 10/30/2013 [facility] Nitroglycerin 0.4 MG Sublingual Tablet [Nitrostat] 0.4 mg, 1 tab, Route: SL, Drug form: TAB, Q5Min, Dosing Weight 122.727, kg, PRN Chest Pain, Start date: 10/30/13 8:19:00, Duration: 3 doses or times, Stop date: Limited # of timesNotes: (Same as:Nitroquick, Nitrostat) "Do Not Crush" Sublingual tablet Inactive 10/30/2013 [facility] Lasix 40 mg, 4 mL, Route: IVP, Drug form: INJ, ONCE, Dosing Weight 122.727, kg, Start date: 10/29/13 16:46:00, Stop date: 10/29/13 16:46:00Notes: (Same as: Lasix) Inactive 10/29/2013 [facility] 24 HR Metoprolol Tartrate 50 MG Extended Release Tablet [Toprol] 50 mg, 1 tab, Route: PO, Drug form: ERTAB, Daily, Start date: 10/29/13 9:00:00, Duration: 30 day, Stop date: 11/27/13 9:00:00Notes: (Same as: Toprol XL) May split tab, but do not crush. No Longer Active 10/29/2013 [facility] tiotropium 0.018 MG/ACTUAT Inhalant Powder [Spiriva] 18 microgram, 1 inhalation, Route: INHALATION, Drug form: CAP, Daily, Dosing Weight 122.727, kg, Start date: 10/29/13 9:00:00, Duration: 30 day, Stop date: 11/27/13 9:00:00Notes: (Same As: Spiriva). No Longer Active 10/29/2013 [facility] Cyclobenzaprine hydrochloride 10 MG Oral Tablet [Flexeril] 10 mg, PO, TID, Muscle Spasm, # 60 tab, 2 Refill(s) Active 10/29/2013 [facility] Acetaminophen 325 MG / Hydrocodone Bitartrate 10 MG Oral Tablet 1 tab, PO, Q4H, Pain, # 60 tab, 2 Refill(s) Active 10/29/2013 [facility] Simvastatin 40 mg, 1 tab, Route: PO, Drug form: TAB, Bedtime, Dosing Weight 122.727, kg, Start date: 10/28/13 21:00:00, Duration: 30 day, Stop date: 11/26/13 21:00:00Notes: (Same as: Zocor) No Longer Active 10/29/2013 [facility] Docusate Sodium 100 MG Oral Capsule 100 mg, 1 cap, Route: PO, Drug form: CAP, BID, Dosing Weight 122.727, kg, Start date: 10/28/13 17:00:00, Duration: 30 day, Stop date: 11/27/13 9:00:00Notes: (Same as: Colace) (Do Not Crush) No Longer Active 10/28/2013 [facility] 200 ACTUAT Albuterol 0.09 MG/ACTUAT / Ipratropium [place] 0.018 MG/ACTUAT Metered Dose Inhaler [Combivent] 2 puff, Route: INHALATION, Drug Form: AERO, Dosing Weight 122.727, kg, QID, Start date: 10/28/13 17:00:00, Duration: 30 day, Stop date: 11/27/13 13:00:00Notes: Same as: Combivent Respimat No Longer Active 10/28/2013 [facility] Lyrica 100 mg, 2 cap, Route: PO, Drug form: CAP, TID, Dosing Weight 122.727, kg, Start date: 10/28/13 17:00:00, Duration: 30 day, Stop date: 11/27/13 13:00:00Notes: Same as Lyrica No Longer Active 10/28/2013 [facility] pantoprazole 40 mg, 1 tab, Route: PO, Drug form: ECTAB, Before Dinner, Dosing Weight 122.727, kg, Start date: 10/28/13 16:30:00, Duration: 30 day, Stop date: 11/26/13 16:30:00Notes: Tablet should not be chewed or crushed. (Same as: Protonix) No Longer Active 10/28/2013 [facility] ceFAZolin + Sodium Chloride 0.9% IV 100 mL 1 gm, Route: IVPB, [id number], Start date: 10/28/13 16:00:00, Duration: 2 doses or times, Stop date: 10/29/13 0:00:00Notes: (Same As: Ancef, Kefzol) No Longer Active 10/28/2013 [facility] Propylthiouracil 50 mg, 1 tab, Route: PO, Drug form: TAB, Q8H, Dosing Weight 122.727, kg, Start date: 10/28/13 16:00:00, Duration: 30 day, Stop date: 11/27/13 8:00:00Notes: Propylthiouracil is associated with risk of serious liver damage. Patient should be monitored for symptoms of liver injury. No Longer Active 10/28/2013 [facility] Clonidine Hydrochloride 0.1 MG Oral Tablet 0.1 mg, 1 tab, Route: PO, Drug form: TAB, Q8H, Dosing Weight 122.727, kg, PRN Other -See Comment, Start date: 10/28/13 14:58:00, Duration: 30 day, Stop date: 11/27/13 14:57:00, SBP >160Notes: (Same As: Catapres) No Longer Active 10/28/2013 [facility] Zofran 4 mg, 2 mL, Route: IVP, Drug form: INJ, Q8H, Dosing Weight 122.727, kg, PRN as needed for nausea/vomiting, Priority: STAT, Start date: 10/28/13 14:57:00, Duration: 30 day, Stop date: 11/27/13 14:56:00Notes: (Same as: Zofran) No Longer Active 10/28/2013 [facility] NS 1,000 mL 1,000 mL, Rate: 100 ml/hr, Infuse over: 10 hr, Route: IV, Dosing Weight 122.727 kg, Total Volume: 1,000, Start date: 10/28/13 14:57:00, Duration: 30 day, Stop date: 11/27/13 14:56:00 No Longer Active 10/28/2013 [facility] Phenergan + Sodium Chloride 0.9% IV 50 mL 25 mg, 1 mL, Route: IVPB, Q4H, PRN Nausea & Vomiting, Start date: 10/28/13 14:49:00, Duration: 30 day, Stop date: 11/27/13 14:48:00Notes: Do not give IV push. (Same as: Phenergan) No Longer Active 10/28/2013 [facility] acetaminophen-hydrocodone 325 mg-10 mg oral tablet 2 tab, Route: PO, Drug Form: TAB, Q4H, PRN Pain, Start date: 10/28/13 14:49:00, Duration: 30 day, Stop date: 11/27/13 14:48:00Notes: Do not exceed 4gm/day of acetaminophen. (Same as: [place] 325/10) No Longer Active 10/28/2013 [facility] acetaminophen-hydrocodone 325 mg-10 mg oral tablet 1 tab, Route: PO, Drug Form: TAB, Q4H, PRN Pain, Start date: 10/28/13 14:48:00, Duration: 30 day, Stop date: 11/27/13 14:47:00Notes: Do not exceed 4gm/day of acetaminophen. (Same as: [place] 325/10) No Longer Active 10/28/2013 [facility] morphine Sulfate 4 mg, 2 mL, Route: IV, Drug form: INJ, Q2H, PRN Severe Pain, Start date: 10/28/13 14:48:00, Duration: 30 day, Stop date: 11/27/13 14:47:00Notes: (Same as:MORPhine Sulfate) No Longer Active 10/28/2013 [facility] morphine Sulfate 2 mg, 1 mL, Route: IV, Drug form: INJ, Q2H, PRN Severe Pain, Start date: 10/28/13 14:47:00, Duration: 30 day, Stop date: 11/27/13 14:46:00Notes: (Same as:MORPhine Sulfate) No Longer Active 10/28/2013 [facility] Reglan 10 mg, Route: IVP, Drug form: INJ, ONCE, Dosing Weight 122.727, kg, Start date: 10/28/13 13:26:00, Stop date: 10/28/13 13:26:00 Inactive 10/28/2013 [facility] Acetaminophen 325 MG / Hydrocodone Bitartrate 10 MG Oral Tablet [Estero 10/325] 1 tab, Route: PO, Drug Form: TAB, Dosing Weight 122.727, kg, Q4H, PRN Pain, Start date: 10/28/13 11:07:00, Duration: 30 day, Stop date: 11/27/13 11:06:00 Inactive 10/28/2013 [facility] Ofirmev 1,000 mg, Route: IV, Drug form: INJ, ONCE, Dosing Weight 122.727, kg, PRN Pain, for > or=50 kg, Start date: 10/28/13 11:07:00 Inactive 10/28/2013 [facility] Ondansetron 4 mg, Route: IVP, ONCE, Dosing Weight 122.727, kg, PRN Nausea & Vomiting, Start date: 10/28/13 11:07:00 Inactive 10/28/2013 [facility] Hydromorphone 0.5 mg, Route: IVP, Q5Min, Dosing Weight 122.727, kg, PRN Pain Score 7-10, Start date: 10/28/13 11:07:00, Duration: 4 doses or times, Stop date: Limited # of times Inactive 10/28/2013 [facility] Oxycodone 5 mg, Route: PO, Drug form: TAB, Q4H, Dosing Weight 122.727, kg, PRN Pain Score 4-6, Start date: 10/28/13 11:07:00, Duration: 30 day, Stop date: 11/27/13 11:06:00 Inactive 10/28/2013 [facility] Naloxone 0.04 mg, Route: IVP, Q2MIN, Dosing Weight 122.727, kg, PRN Narcotic Reversal, Start date: 10/28/13 11:07:00, Duration: 8 doses or times, Stop date: Limited # of times Inactive 10/28/2013 [facility] Meperidine 12.5 mg, Route: IVP, Q30Min, Dosing Weight 122.727, kg, PRN Other -See Comment, For shivering, Start date: 10/28/13 11:07:00, Duration: 2 doses or times, Stop date: Limited # of times Inactive 10/28/2013 [facility] Flumazenil 0.2 mg, Route: IVP, PRN, Dosing Weight 122.727, kg, PRN Benzodiazepine Reversal, Initial dose, Start date: 10/28/13 11:07:00, Duration: 30 day, Stop date: 11/27/13 11:06:00 Inactive 10/28/2013 [facility] Fentanyl 25 microgram, Route: IVP, Q5Min, Dosing Weight 122.727, kg, PRN Pain Score 4-6, Start date: 10/28/13 11:07:00, Duration: 4 doses or times, Stop date: Limited # of times Inactive 10/28/2013 [facility] Ancef 2 gm, 100 mL, Route: IVPB, Drug form: INJ, ONCE, Dosing Weight 122.727, kg, Start date: 10/28/13 8:57:00, Stop date: 10/28/13 8:57:00Notes: Same as: Ancef Inactive 10/28/2013 [facility] Lactated Ringers IV 500 mL 500 mL, Rate: 25 ml/hr, Infuse over: 20 hr, Route: IV, Dosing Weight 122.727 kg, Total Volume: 500, Start date: 10/28/13 8:49:00, Duration: 1 day, Stop date: 10/29/13 8:48:00 No Longer Active 10/28/2013 [facility] Calcium Chloride 0.0014 MEQ/ML / Potassium Chloride 0.004 MEQ/ML / Sodium Chloride 0.103 MEQ/ML / Sodium Lactate 0.028 MEQ/ML Injectable Solution 500 mL, Rate: 25 ml/hr, Infuse over: 20 hr, Route: IV, Dosing Weight 122.727 kg, Total Volume: 500, Start date: 10/28/13 7:31:00, Duration: 1 day, Stop date: 10/29/13 7:30:00 Inactive 10/28/2013 [facility] Aspirin Low Dose 81 mg oral tablet =1 tab, PO, Daily, 0 Refill(s) Active 10/26/2013 [facility] hydrochlorothiazide 12.5 mg oral tablet 12.5 mg=1 tab, PO, Daily, # 30 tab, 0 Refill(s) Active 10/26/2013 [facility] sodium chloride 20 mL, Route: IVP, Start date: 10/05/13 13:05:00, Duration: 30 day, Stop date: 11/04/13 13:04:00, PRN Line Flushpreservative free. Inactive 10/05/2013 [facility] heparin flush 500 unit, 5 mL, Route: IVP, Drug form: SOLN, Q30D, PRN Line Flush, Start date: 10/05/13 13:05:00, Duration: 30 day, Stop date: 11/04/13 13:04:00(Same as: Heparin Lock Flush) Inactive 10/05/2013 [facility] sodium chloride 10 mL, Route: IVP, Start date: 10/05/13 13:04:00, Duration: 30 day, Stop date: 11/04/13 13:03:00, PRN Line Flushpreservative free. Inactive 10/05/2013 [facility] NS 1,000 mL 1,000 mL, Rate: 100 ml/hr, Infuse over: 10 hr, Route: IV, Dosing Weight 125.142 kg, Total Volume: 1,000, Start date: 10/04/13 16:54:00, Duration: 30 day, Stop date: 11/03/13 16:53:00 No Longer Active 10/04/2013 [facility] Ambien 5 mg, 1 tab, Route: PO, Drug form: TAB, Bedtime, Dosing Weight 125.142, kg, PRN Insomnia, Start date: 10/04/13 7:31:00, Duration: 30 day, Stop date: 11/03/13 7:30:00(Same As: Ambien) No Longer Active 10/04/2013 [facility] Protonix 40 mg, 1 tab, Route: PO, Drug form: ECTAB, Before Breakfast, Start date: 10/04/13 7:30:00, Duration: 30 day, Stop date: 11/02/13 7:30:00Tablet should not be chewed or crushed. (Same as: Protonix) No Longer Active 10/04/2013 [facility] Azithromycin 500 mg, Route: IVPB, [id number], Dosing Weight 127.273, kg, Priority: Routine, Start date: 10/04/13 2:00:00, Duration: 30 day, Stop date: 11/02/13 2:00:00(Same As: Zithromax IV) No Longer Active 10/04/2013 [facility] Ceftriaxone 1 gm, Route: IVPB, [id number], Dosing Weight 127.273, kg, Priority: Routine, Start date: 10/04/13 1:00:00, Duration: 30 day, Stop date: 11/02/13 1:00:00(Same As: Rocephin). Use with 100ml NS mini-bag PLUS and infuse over 30 min No Longer Active 10/04/2013 [facility] Simvastatin 20 mg, 1 tab, Route: PO, Drug form: TAB, Bedtime, Dosing Weight 125.142, kg, Start date: 10/03/13 21:00:00, Duration: 30 day, Stop date: 11/01/13 21:00:00(Same as: Zocor) No Longer Active 10/04/2013 [facility] metoprolol tartrate 25 mg, 1 tab, Route: PO, Drug form: TAB, Q12H, Dosing Weight 125.142, kg, Start date: 10/03/13 9:00:00, Duration: 30 day, Stop date: 11/01/13 21:00:00(Same as: Lopressor) No Longer Active 10/03/2013 [facility] Lyrica 100 mg, 2 cap, Route: PO, Drug form: CAP, TID, Dosing Weight 125.142, kg, Start date: 10/03/13 9:00:00, Duration: 30 day, Stop date: 11/01/13 21:00:00Same as Lyrica No Longer Active 10/03/2013 [facility] Lisinopril 5 mg, 1 tab, Route: PO, Drug form: TAB, BID, Dosing Weight 125.142, kg, Start date: 10/03/13 9:00:00, Duration: 30 day, Stop date: 11/01/13 17:00:00(Same as: Prinivil, Zestril) No Longer Active 10/03/2013 [facility] Docusate Sodium 100 MG Oral Capsule 100 mg, 1 cap, Route: PO, Drug form: CAP, BID, Dosing Weight 125.142, kg, Start date: 10/03/13 9:00:00, Duration: 30 day, Stop date: 11/01/13 17:00:00(Same as: Colace) (Do Not Crush) No Longer Active 10/03/2013 [facility] 200 ACTUAT Albuterol 0.09 MG/ACTUAT / Ipratropium [place] 0.018 MG/ACTUAT Metered Dose Inhaler [Combivent] 1 puff, Route: INHALATION, Drug Form: AERO, Dosing Weight 125.142, kg, QID, Start date: 10/03/13 9:00:00, Duration: 30 day, Stop date: 11/01/13 21:00:00Same as: Combivent Respimat No Longer Active 10/03/2013 [facility] pantoprazole 40 mg, Route: IVP, Drug form: INJ, Daily, Dosing Weight 125.142, kg, Priority: Routine, Start date: 10/03/13 9:00:00, Duration: 30 day, Stop date: 11/01/13 9:00:00For IV push reconstitute with 10 ml 0.9% sodium chloride and push over 2 minutes. (Same as: Protonix) Inactive 10/03/2013 [facility] Propylthiouracil 50 mg, 1 tab, Route: PO, Drug form: TAB, Q8H, Dosing Weight 125.142, kg, Start date: 10/03/13 8:00:00, Duration: 30 day, Stop date: 11/02/13 0:00:00Propylthiouracil is associated with risk of serious liver damage. Patient should be monitored for symptoms of liver injury. No Longer Active 10/03/2013 [facility] Lovenox 40 mg, 0.4 mL, Route: SUB-Q, Drug form: INJ, Q24H, Dosing Weight 125.142, kg, Start date: 10/03/13 7:00:00, Duration: 30 day, Stop date: 11/01/13 7:00:00(Same as: Lovenox) No Longer Active 10/03/2013 [facility] Aspirin 325 MG Enteric Coated Tablet 325 mg, 1 tab, Route: PO, Drug form: ECTAB, Q24H, Dosing Weight 125.142, kg, Start date: 10/03/13 5:00:00, Duration: 30 day, Stop date: 11/01/13 5:00:00(Do Not Crush) Do not crush or chew. No Longer Active 10/03/2013 [facility] Morphine 4 mg, 2 mL, Route: IVP, Drug form: INJ, Q4H, Dosing Weight 125.142, kg, PRN Pain Score 7-10, Start date: 10/03/13 4:42:00, Duration: 30 day, Stop date: 11/02/13 4:41:00(Same as:MORPhine Sulfate) No Longer Active 10/03/2013 [facility] Simvastatin 20 mg, 1 tab, Route: PO, Drug form: TAB, ONCE, Dosing Weight 125.142, kg, Start date: 10/03/13 4:37:00, Stop date: 10/03/13 4:37:00(Same as: Zocor) Inactive 10/03/2013 [facility] Ativan 1 mg, 0.5 mL, Route: IV, Drug form: INJ, Q4H, Dosing Weight 125.142, kg, PRN as needed for anxiety, Start date: 10/03/13 4:33:00, Duration: 30 day, Stop date: 11/02/13 4:32:00(Same as: Ativan) No Longer Active 10/03/2013 [facility] Morphine 4 mg, 2 mL, Route: IV, Drug form: INJ, Q3H, Dosing Weight 125.142, kg, PRN Pain Score 7-10, Start date: 10/03/13 4:33:00, Duration: 30 day, Stop date: 11/02/13 4:32:00(Same as:MORPhine Sulfate) Inactive 10/03/2013 [facility] Acetaminophen 325 MG / Hydrocodone Bitartrate 7.5 MG Oral Tablet [Estero 7.5/325] 1 tab, Route: PO, Drug Form: TAB, Dosing Weight 125.142, kg, Q4H, PRN Pain Score 4-6, Start date: 10/03/13 4:32:00, Duration: 30 day, Stop date: 11/02/13 4:31:00Same as [place] 325-7.5mg Do not exceed 4gm/day of acetaminophen. No Longer Active 10/03/2013 [facility] Zofran 4 mg, 2 mL, Route: IV, Drug form: INJ, Q4H, Dosing Weight 125.142, kg, PRN as needed for nausea/vomiting, Start date: 10/03/13 4:32:00, Duration: 30 day, Stop date: 11/02/13 4:31:00(Same as: Zofran) No Longer Active 10/03/2013 [facility] Acetaminophen 650 mg, 2 tab, Route: PO, Drug form: TAB, Q6H, Dosing Weight 125.142, kg, PRN Pain, Start date: 10/03/13 4:32:00, Duration: 30 day, Stop date: 11/02/13 4:31:00Do not exceed 4 gm/day. (Same as: Tylenol) No Longer Active 10/03/2013 [facility] Saline Flush 0.9% 5 ml, Route: IVP, Drug Form: INJ, Dosing Weight 127.273, kg, PRN, PRN Line Flush, Start date: 10/03/13 2:34:00, Duration: 30 day, Stop date: 11/02/13 2:33:00Same as: BD Posiflush Sterile No Longer Active 10/03/2013 [facility] Sodium Chloride 0.154 MEQ/ML Injectable Solution 1,000 mL, Rate: 90 ml/hr, Infuse over: 11.1 hr, Route: IV, Dosing Weight 127.273 kg, Total Volume: 1,000, Start date: 10/03/13 2:34:00, Duration: 30 day, Stop date: 11/02/13 2:33:00 Inactive 10/03/2013 [facility] Albuterol 0.83 MG/ML Inhalant Solution 2.49 mg, 3 mL, Route: NEB, Drug form: SOLN, PRN, Dosing Weight 127.273, kg, PRN Respiratory Protocol, Start date: 10/03/13 2:34:00, Duration: 30 day, Stop date: 11/02/13 2:33:00SEE RT DOCUMENTATION (Same as: Proventil) No Longer Active 10/03/2013 [facility] Ondansetron 4 mg, 2 mL, Route: IVP, Drug form: INJ, Q6H, Dosing Weight 127.273, kg, PRN Nausea & Vomiting, Start date: 10/03/13 2:34:00, Duration: 30 day, Stop date: 11/02/13 2:33:00(Same as: Zofran) No Longer Active 10/03/2013 [facility] Guaifenesin 200 mg, 10 mL, Route: PO, Drug form: LIQ, Q4H, Dosing Weight 127.273, kg, PRN Cough, Start date: 10/03/13 2:34:00, Duration: 30 day, Stop date: 11/02/13 2:33:00(Same as: Robitussin) No Longer Active 10/03/2013 [facility] Ativan 1 mg, Route: IVP, Drug form: INJ, ONCE, Dosing Weight 127.273, kg, PRN Anxiety, Start date: 10/03/13 1:16:00 Inactive 10/03/2013 [facility] Morphine 2 mg, Route: IVP, ONCE, Dosing Weight 127.273, kg, Start date: 10/03/13 1:16:00, Stop date: 10/03/13 1:16:00 Inactive 10/03/2013 [facility] Azithromycin 500 mg, Route: IVPB, ONCE, Dosing Weight 127.273, kg, Priority: STAT, Start date: 10/02/13 23:43:00, Stop date: 10/02/13 23:43:00 No Longer Active 10/03/2013 [facility] Lyrica 100 mg, 2 cap, Route: PO, Drug form: CAP, ONCE, Dosing Weight 127.273, kg, Start date: 10/02/13 23:42:00, Stop date: 10/02/13 23:42:00Same as Lyrica No Longer Active 10/03/2013 [facility] Morphine 2 mg, Route: IVP, Drug form: INJ, ONCE, Dosing Weight 127.273, kg, Priority: STAT, Start date: 10/02/13 23:18:00, Stop date: 10/02/13 23:18:00 Inactive 10/03/2013 [facility] Ceftriaxone 1 gm, Route: IVPB, ONCE, Dosing Weight 127.273, kg, Priority: STAT, Start date: 10/02/13 22:30:00, Stop date: 10/02/13 22:30:00(Same As: Rocephin). Use with 100ml NS mini-bag PLUS and infuse over 30 min No Longer Active 10/03/2013 [facility] Morphine 4 mg, Route: IVP, Drug form: INJ, ONCE, Dosing Weight 127.273, kg, Priority: STAT, Start date: 10/02/13 20:58:00, Stop date: 10/02/13 20:58:00 Inactive 10/03/2013 [facility] Tylenol 650 mg, 2 tab, Route: PO, Drug form: TAB, ONCE, Dosing Weight 127.273, kg, Priority: STAT, Start date: 10/02/13 19:01:00, Stop date: 10/02/13 19:01:00Do not exceed 4 gm/day. (Same as: Tylenol) Inactive 10/03/2013 [facility] Zofran 4 mg, 2 mL, Route: IVP, Drug form: INJ, ONCE, Dosing Weight 127.273, kg, Priority: STAT, Start date: 10/02/13 19:01:00, Stop date: 10/02/13 19:01:00(Same as: Zofran) No Longer Active 10/03/2013 [facility] Sodium Chloride 0.9% (Bolus) IV 500 mL 500 mL, Rate: 500 ml/hr, Infuse over: 1 hr, Route: IV, Dosing Weight 127.273 kg, Total Volume: 500, Priority: STAT, Start date: 10/02/13 19:01:00, Duration: 1 doses or times, Stop date: 10/02/13 20:00:00, Bolus DoseBolus Dose Inactive 10/03/2013 [facility] Ondansetron 4 mg, Route: IVP, ONCE, Dosing Weight 127.273, kg, Priority: STAT, Start date: 10/02/13 18:54:00, Stop date: 10/02/13 18:54:00 Inactive 10/02/2013 [facility] Saline Flush 0.9% 5 mL, Route: IVP, Drug Form: INJ, Dosing Weight 127.273, kg, PRN, PRN Line Flush, Start date: 10/02/13 18:54:00, Duration: 30 day, Stop date: 11/01/13 18:53:00Same as: BD Posiflush Sterile No Longer Active 10/02/2013 [facility] Allergies, Adverse Reactions, Alerts Substance Category Reaction Severity Reaction type Status Date Reported Comments Source CODEINE Assertion nausea, vomitting,fever Drug allergy Active [facility] Immunizations Immunization Date Given Site Status Last Updated Comments Source diphtheria/pertussis, acel/tetanus adult 07/17/2015 Right deltoid completed [facility], [facility] Heart Failure diphtheria/pertussis, acel/tetanus adult 07/17/2015 Right deltoid completed [facility] diphtheria/pertussis, acel/tetanus adult 07/17/2015 Right deltoid completed [facility], [facility] influenza virus vaccine, inactivated 04/07/2013 Right Deltoid completed [facility] influenza virus vaccine, inactivated 04/07/2013 Right Deltoid completed [facility] influenza virus vaccine, inactivated 04/07/2013 Right Deltoid completed [facility], [facility] pneumococcal 23-valent vaccine 03/24/2008 Left Arm completed [facility] pneumococcal 23-valent vaccine 03/24/2008 Left Arm completed [facility] pneumococcal 23-valent vaccine 03/24/2008 Left Arm completed [facility], [facility] Results Order Name Results Value Reference Range Date Interpretation Comments Source HEMATOLOGY INR 0.98 0.85 - 1.17 11/25/2018 [facility] HEMATOLOGY PROTIME 12.8 s 12.0 - 14.7 11/25/2018 [facility] HEMATOLOGY aPTT 37.0 s 22.9 - 35.8 11/25/2018 [facility] CHEM PANEL eGFR 83 mL/min/1.73m2 11/26/2017 Result Comment: The eGFR is calculated using the [...] from the National Kidney Disease Education Program (NKDEP) which additionally recommends that when the eGFR is used in patients with extremes of body mass index for purposes of drug dosing, the eGFR should be multiplied by the estimated BMI. [facility] CHEM PANEL Creatinine Lvl 0.95 mg/dL 0.50 - 1.40 11/26/2017 [facility] CHEM PANEL Glucose Lvl 159 mg/dL 70 - 99 11/26/2017 [facility] CHEM PANEL BUN 18 mg/dL 7 - 22 11/26/2017 [facility] CHEM PANEL CO2 27 meq/L 24 - 32 11/26/2017 [facility] CHEM PANEL Calcium Lvl 8.6 mg/dL 8.5 - 10.5 11/26/2017 [facility] CHEM PANEL Chloride Lvl 109 meq/L 95 - 109 11/26/2017 [facility] CHEM PANEL Potassium Lvl 4.2 meq/L 3.5 - 5.1 11/26/2017 [facility] CHEM PANEL Sodium Lvl 141 meq/L 135 - 145 11/26/2017 [facility] CHEM PANEL AGAP 9.2 meq/L 10.0 - 20.0 11/26/2017 [facility] HEMATOLOGY Hgb 11.1 g/dL 14.0 - 18.0 11/26/2017 [facility] Chest 2 views DX Chest 2 views DX EXAM: XR CHEST 2 VIEWS DATE: 11/26/2017 3:00 AM CDT INDICATION: Chest pain - Status post PFO/ASD Closure COMPARISON: 11/21/2014 TECHNIQUE: AP and lateral chest radiographs IMPRESSION: 1. Status post Amplatzer closure device placement for closure of PFO or ASD. Cardiomediastinal silhouette is normal for technique. Aortic atherosclerotic disease. 2. Left subclavian Port-A-Cath with tip projects over the distal SVC. 3. Implantable loop recorder is seen overlaying the left chest wall. 4. Lungs are clear. 5. Costophrenic sulci are sharp. 6. Osseous structures are stable. 11/26/2017 - - Read by: Ck Miller MD Dictated Date/time: 11/26/17 09:46 Electronically Signed by: Ck Miller MD 11/26/17 09:48 FINAL REPORT [facility] CHEM PANEL Magnesium Lvl 2.0 mg/dL 1.8 - 2.4 11/25/2017 [facility] CHEM PANEL eGFR 89 mL/min/1.73m2 11/25/2017 Result Comment: The eGFR is calculated using the [...] from the National Kidney Disease Education Program (NKDEP) which additionally recommends that when the eGFR is used in patients with extremes of body mass index for purposes of drug dosing, the eGFR should be multiplied by the estimated BMI. [facility] CHEM PANEL Sodium Lvl 142 meq/L 135 - 145 11/25/2017 [facility] CHEM PANEL Creatinine Lvl 0.89 mg/dL 0.50 - 1.40 11/25/2017 [facility] CHEM PANEL Potassium Lvl 3.8 meq/L 3.5 - 5.1 11/25/2017 [facility] CHEM PANEL Chloride Lvl 107 meq/L 95 - 109 11/25/2017 [facility] CHEM PANEL Calcium Lvl 9.5 mg/dL 8.5 - 10.5 11/25/2017 [facility] CHEM PANEL CO2 26 meq/L 24 - 32 11/25/2017 [facility] CHEM PANEL BUN 16 mg/dL 7 - 22 11/25/2017 [facility] CHEM PANEL Glucose Lvl 95 mg/dL 70 - 99 11/25/2017 [facility] CHEM PANEL AGAP 12.8 meq/L 10.0 - 20.0 11/25/2017 [facility] CHEM PANEL Phosphorus 4.0 mg/dL 2.5 - 4.5 11/25/2017 [facility] HEMATOLOGY INR 1.11 0.85 - 1.17 11/25/2017 [facility] HEMATOLOGY PT 14.3 s 12.0 - 14.7 11/25/2017 [facility] HEMATOLOGY PTT 25.9 s 22.9 - 35.8 11/25/2017 [facility] HEMATOLOGY MPV 8.2 fL 7.4 - 10.4 11/25/2017 [facility] HEMATOLOGY Platelet 134 K/CMM 133 - 450 11/25/2017 [facility] HEMATOLOGY RBC 4.19 M/CMM 4.70 - 6.10 11/25/2017 [facility] HEMATOLOGY WBC 4.4 K/CMM 3.7 - 10.4 11/25/2017 [facility] HEMATOLOGY Hgb 12.3 g/dL 14.0 - 18.0 11/25/2017 [facility] HEMATOLOGY MCHC 33.6 g/dL 32.0 - 36.0 11/25/2017 [facility] HEMATOLOGY RDW 15.1 % 11.5 - 14.5 11/25/2017 [facility] HEMATOLOGY Hct 36.5 % 42.0 - 54.0 11/25/2017 [facility] HEMATOLOGY MCH 29.2 pg 27.0 - 31.0 11/25/2017 [facility] HEMATOLOGY MCV 87.1 fL 80.0 - 94.0 11/25/2017 [facility] HEMATOLOGY Segs-Bands # 2.6 K/CMM 1.5 - 8.1 11/25/2017 [facility] HEMATOLOGY Basophils 0.4 % 0.0 - 1.0 11/25/2017 [facility] HEMATOLOGY Eosinophils 1.9 % 0.0 - 4.0 11/25/2017 [facility] HEMATOLOGY Monocytes 8.4 % 2.0 - 12.0 11/25/2017 [facility] HEMATOLOGY Eosinophils # 0.1 K/CMM 0.0 - 0.5 11/25/2017 [facility] HEMATOLOGY Monocytes # 0.4 K/CMM 0.0 - 0.8 11/25/2017 [facility] HEMATOLOGY Lymphocytes # 1.3 K/CMM 1.0 - 5.5 11/25/2017 [facility] HEMATOLOGY Lymphocytes 29.2 % 20.0 - 40.0 11/25/2017 [facility] HEMATOLOGY Segs 60.1 % 45.0 - 75.0 11/25/2017 [facility] Shoulder wo contrast MRI Shoulder wo contrast MRI MR LEFT SHOULDER WITHOUT CONTRAST HISTORY: M25.512 Pain in left shoulder, 65-year-old male reports left shoulder pain, mechanical symptoms, stiffness, and weakness for approximately 2 weeks after shoulder injury during fall, painful range of motion, history of rotator cuff repair 20 years ago COMPARISON: None available TECHNIQUE: Axial, oblique coronal, and oblique sagittal MR images of the shoulder. FINDINGS: ROTATOR CUFF: 1. Moderate to severe tendinopathy of the distal supraspinatus insertion anteriorly. Low-grade concealed intrasubstance tear in the supraspinatus myotendinous junction measures approximately 4 x 8 mm in sagittal cross section and 12 mm in length (sagittal series 7 image 12). No high-grade supraspinatus tear or supraspinatus retraction. 2. Normal infraspinatus. 3. Normal subscapularis. 4. No rotator cuff muscle atrophy. 5. Mild subacromial/subdeltoid bursitis. LABRUM AND BICEPS TENDON: 6. SLAP tear of the superior labrum with posterior extension. 7. Postoperative changes in the anterior glenoid likely related to prior anterior labral repair. 8. Abnormal signal at the base of the anterior inferior glenoid labrum may represent postoperative scarring or possible anterior-inferior labral tear. 9. Long head of the biceps tendon is not visualized compatible with tear and retraction. OSSEOUS/ARTICULAR: 10. Mild hypertrophic acromioclavicular arthropathy with minimal inferior spurring. 11. Glenohumeral joint cartilage grossly preserved. 12. No fracture or bone contusion. IMPRESSION: 1. Moderate to severe tendinopathy of the supraspinatus insertion anteriorly. 2. Low-grade concealed intrasubstance tear in the distal supraspinatus myotendinous junction. 3. No high-grade rotator cuff tear or tendon retraction. 4. Surgical changes in the anterior glenoid likely related to prior labral repair. 5. SLAP tear of the superior labrum with posterior extension. 6. Abnormal signal at the base of the anterior inferior labrum may represent postoperative scarring or tear. If indicated, MR arthrography of the shoulder may provide further evaluation. 7. Complete tear of the long head of the biceps tendon with retraction. Thank you referring your patient to [facility] and [facility]. SL: [id number] 11/02/2015 - - Read by: Dereje Bowers MD Dictated Date/time: 11/02/15 16:01 Electronically Signed by: Dereje Bowers MD 11/02/15 16:11 FINAL REPORT [facility] [place] Hand 3 views DX Hand 3 views DX NAME: SIVAN PETERSON : 1950 SEX: M Ordering Physician: Max Santacruz Three-view examination of the left hand : Jul 17, 2015 04:40:00 PM. CLINICAL INDICATION: Left hand pain and swelling. Comparison Examination: None. FINDINGS: Soft tissue swelling seen about the left hand. There appear to be foci of air in the dorsal soft tissues at the level of the metacarpals that may represent infectious change within this soft tissue swelling. There is a 4 mm rounded density dorsal to the mid shafts of the metacarpals that may represent nonspecific calcification or small radiopaque foreign body. Small radiopaque foreign body is noted just ulnar to the mid shaft of the left first proximal phalanx. Old healed fracture of the left distal ulnar diaphyseal and metaphyseal region noted. No acute fracture or dislocation. SL: 14 07/17/2015 - - Read by: Dave Adams MD Dictated Date/time: 07/17/15 16:46 Electronically Signed by: Dave Adams MD 07/17/15 16:50 FINAL REPORT [facility] Hip 2 views DX Hip 2 views DX PROCEDURE: Hip min 2 views CLINICAL INFORMATION M16.9 Osteoarthritis of hip, unspecified COMPARISON: None. Two views right. Maintained right femoral acetabular joint. Maintained right femoral head contour. No displaced fracture or aggressive osseous process. SL: 13 05/31/2015 - - Read by: Sher Guardado MD Dictated Date/time: 05/31/15 15:17 Electronically Signed by: Sher Guardado MD 05/31/15 15:19 FINAL REPORT [facility] Spine lumbar wo contrast MRI Spine lumbar wo contrast MRI MR LUMBAR SPINE INDICATION: Backache TECHNIQUE: Sagittal T1,T2 FRFSE and axial T1 and T2 FSE sequences are obtained. Oblique axial T2 slices are obtained through the lumbar disc spaces. FINDINGS: L5-S1: Mild generalized is bulge. No significant stenosis. L4-L5: Mild disc bulges associated with some facet arthropathy and hypertrophy result in moderate bilateral foraminal stenoses at L4-L5. Thickening of the ligamentum flavum contributes to foraminal narrowings. There is facet arthropathy with hypertrophy bilaterally at this level. Mild generalized is bulge. Axial view suggests a small focal herniation into the lateral aspect of the right-sided L4-L5 neural foramen (series 7 image 13). L3-L4: Mild facet arthropathy. No significant stenosis. L2-L3: Unremarkable. L1-L2: Unremarkable. The conus is visualized and is grossly normal. IMPRESSION: 1. Bilateral foraminal narrowings at L4-L5 due to combination of disc bulge, endplate spurring, thickening of the ligamentum flavum and bilateral facet arthropathy with hypertrophy. 2. Small herniation also suspected in the lateral aspect of the neural foramen at the L4-L5 level on the right. 3. Lesser degenerative changes at L3-L4 and L5-S1 associated with facet arthropathy and mild spondylosis. SL: 02/10/2015 - - Read by: Vineet Naqvi MD Dictated Date/time: 02/10/15 19:12 Electronically Signed by: Vineet Naqvi MD 02/10/15 19:18 FINAL REPORT [facility] Spine Thoracic wo contrast MRI Spine Thoracic wo contrast MRI MRI THORACIC SPINE: HISTORY: Backache TECHNIQUE: A multiplanar MRI of the thoracic spine was performed on a 1.5 travis magnet. Multiple imaging sequences were obtained including sagittal T1, sagittal T2 FSE fat-suppressed and axial T2 FSE. FINDINGS: There is mild spondylosis in the thoracic region and mild signal loss intervertebral disc spaces. There is no evidence of compression deformity or compromise the spinal canal. No significant foraminal obstruction identified. IMPRESSION: Unremarkable MRI thoracic spine. SL: 02/10/2015 - - Read by: Vineet Naqvi MD Dictated Date/time: 02/10/15 18:31 Electronically Signed by: Vineet Naqvi MD 02/10/15 18:35 FINAL REPORT [facility] ELECTROLYTES AGAP 10.9 meq/L 10.0 - 20.0 02/10/2015 [facility] ELECTROLYTES eGFR 71 mL/min/1.73m2 02/10/2015 Result Comment: The eGFR is calculated using the [...] from the National Kidney Disease Education Program (NKDEP) which additionally recommends that when the eGFR is used in patients with extremes of body mass index for purposes of drug dosing, the eGFR should be multiplied by the estimated BMI. [facility] ELECTROLYTES Calcium Lvl 8.8 mg/dL 8.5 - 10.5 02/10/2015 [facility] ELECTROLYTES CO2 25 meq/L 24 - 32 02/10/2015 [facility] ELECTROLYTES Chloride Lvl 107 meq/L 95 - 109 02/10/2015 [facility] ELECTROLYTES Glucose Lvl 88 mg/dL 70 - 99 02/10/2015 [facility] ELECTROLYTES BUN 24 mg/dL 7 - 22 02/10/2015 [facility] ELECTROLYTES Sodium Lvl 139 meq/L 135 - 145 02/10/2015 [facility] ELECTROLYTES Creatinine Lvl 1.1 mg/dL 0.5 - 1.4 02/10/2015 [facility] ELECTROLYTES Potassium Lvl 3.9 meq/L 3.5 - 5.1 02/10/2015 [facility] PTT 28.4 s 22.9 - 35.8 02/10/2015 [facility] INR 1.36 0.85 - 1.17 02/10/2015 [facility] PT 16.9 s 12.0 - 14.7 02/10/2015 [facility] Hgb 16.1 g/dL 14.0 - 18.0 02/10/2015 [facility] Hct 47.6 % 42.0 - 54.0 02/10/2015 [facility] RDW 17.1 % 11.5 - 14.5 02/10/2015 [facility] MCH 29.9 pg 27.0 - 31.0 02/10/2015 [facility] MCHC 33.9 g/dL 32.0 - 36.0 02/10/2015 [facility] MCV 88.2 fL 80.0 - 94.0 02/10/2015 [facility] WBC 6.0 K/CMM 3.7 - 10.4 02/10/2015 [facility] RBC 5.39 M/CMM 4.70 - 6.10 02/10/2015 [facility] Platelet 136 K/CMM 133 - 450 02/10/2015 [facility] MPV 8.4 fL 7.4 - 10.4 02/10/2015 [facility] Eosinophils # 0.1 K/CMM 0.0 - 0.5 02/10/2015 [facility] HEMATOLOGY Lymphocytes # 1.3 K/CMM 1.0 - 5.5 02/10/2015 [facility] HEMATOLOGY Basophils 0.4 % 0.0 - 1.0 02/10/2015 [facility] HEMATOLOGY Segs-Bands # 4.1 K/CMM 1.5 - 8.1 02/10/2015 [facility] HEMATOLOGY Monocytes # 0.6 K/CMM 0.0 - 0.8 02/10/2015 [facility] HEMATOLOGY Segs 68.0 % 45.0 - 75.0 02/10/2015 [facility] HEMATOLOGY Lymphocytes 20.8 % 20.0 - 40.0 02/10/2015 [facility] HEMATOLOGY Monocytes 9.6 % 2.0 - 12.0 02/10/2015 [facility] HEMATOLOGY Eosinophils 1.2 % 0.0 - 4.0 02/10/2015 [facility] URINE AND STOOL UA Urobilinogen <=1.0 mg/dL 0.1 - 1.0 02/10/2015 [facility]INE [facility] STOOL UA Sq Epi None Seen 02/10/2015 [facility]INE [facility]A Bacteria Occasional /HPF None Seen /HPF 02/10/2015 [facility]INE [facility] STO[facility] UA RBC 3 /HPF 0 - 2 02/10/2015 [facility]INE [facility] STOOL UA WBC null 0 - 5 02/10/2015 [facility]INE [facility] STOOL UA Leuk Est Negative (02/10/15 12:00 PM) Negative 02/10/2015 [facility] URINE AND STOOL UA Nitrite Negative (02/10/15 12:00 PM) Negative 02/10/2015 [facility] URINE AND STOOL UA Bili Negative *NA* (02/10/15 12:00 PM) Negative 02/10/2015 [facility] URINE AND STOOL UA Ketones Negative mg/dL Negative mg/dL 02/10/2015 [facility]INE AND STOOL UA Blood Negative (02/10/15 12:00 PM) Negative 02/10/2015 [facility] URINE AND STOOL UA Color Yellow *NA* (02/10/15 12:00 PM) Yellow 02/10/2015 [facility] URINE AND STOOL UA Spec Grav 1.018 <=1.030 02/10/2015 [facility] URINE AND STOOL UA Turbidity Clear (02/10/15 12:00 PM) Clear 02/10/2015 [facility] URINE AND STOOL UA pH 6.0 5.0 - 8.0 02/10/2015 [facility] URINE AND STOOL UA Glucose Negative mg/dL Negative mg/dL 02/10/2015 [facility] URINE AND STOOL UA Protein Negative mg/dL Negative mg/dL 02/10/2015 [facility] CARDIAC ENZYMES Total CK 88 unit/L 12 - 191 02/04/2015 [facility] CARDIAC ENZYMES CK MB 1.5 ng/mL 0.5 - 3.6 02/04/2015 [facility] CARDIAC ENZYMES Troponin-I null 0.00 - 0.40 02/04/2015 [facility] CARDIAC ENZYMES CK MB Index 1.7 0.0 - 2.5 02/04/2015 [facility] CHEM PANEL Magnesium Lvl 2.0 mg/dL 1.8 - 2.4 02/04/2015 [facility] CHEM PANEL Phosphorus 2.4 mg/dL 2.5 - 4.5 02/04/2015 [facility] CHEM PANEL Amylase Lvl 55 unit/L 25 - 115 02/04/2015 [facility] CHEM PANEL Lipase Lvl 120 unit/L 73 - 393 02/04/2015 [facility] ELECTROLYTES Chloride Lvl 105 meq/L 95 - 109 02/04/2015 [facility] ELECTROLYTES Sodium Lvl 140 meq/L 135 - 145 02/04/2015 [facility] ELECTROLYTES Potassium Lvl 3.9 meq/L 3.5 - 5.1 02/04/2015 [facility] ELECTROLYTES eGFR 64 mL/min/1.73m2 02/04/2015 Result Comment: The eGFR is calculated using the [...] from the National Kidney Disease Education Program (NKDEP) which additionally recommends that when the eGFR is used in patients with extremes of body mass index for purposes of drug dosing, the eGFR should be multiplied by the estimated BMI. [facility] ELECTROLYTES Creatinine Lvl 1.2 mg/dL 0.5 - 1.4 02/04/2015 [facility] ELECTROLYTES CO2 25 meq/L 24 - 32 02/04/2015 [facility] ELECTROLYTES Bili Total 1.4 mg/dL 0.2 - 1.3 02/04/2015 [facility] ELECTROLYTES Alk Phos 58 unit/L 39 - 136 02/04/2015 [facility] ELECTROLYTES ALT 36 unit/L 0 - 65 02/04/2015 [facility] ELECTROLYTES AST 23 unit/L 0 - 37 02/04/2015 [facility] ELECTROLYTES BUN 21 mg/dL 7 - 22 02/04/2015 [facility] ELECTROLYTES Glucose Lvl 109 mg/dL 70 - 99 02/04/2015 [facility] ELECTROLYTES A/G Ratio 0.9 0.7 - 1.6 02/04/2015 [facility] ELECTROLYTES Albumin Lvl 3.5 g/dL 3.5 - 5.0 02/04/2015 [facility] ELECTROLYTES Total Protein 7.5 g/dL 6.4 - 8.4 02/04/2015 [facility] ELECTROLYTES Calcium Lvl 8.9 mg/dL 8.5 - 10.5 02/04/2015 [facility] ELECTROLYTES B/C Ratio 18 6 - 25 02/04/2015 [facility] ELECTROLYTES AGAP 13.9 meq/L 10.0 - 20.0 02/04/2015 [facility] ELECTROLYTES Globulin 4.0 g/dL 2.0 - 4.0 02/04/2015 [facility] HEMATOLOGY MPV 8.2 fL 7.4 - 10.4 02/04/2015 [facility] HEMATOLOGY Platelet 128 K/CMM 133 - 450 02/04/2015 [facility] HEMATOLOGY RDW 16.8 % 11.5 - 14.5 02/04/2015 [facility] HEMATOLOGY MCHC 33.7 g/dL 32.0 - 36.0 02/04/2015 [facility] HEMATOLOGY Hgb 16.1 g/dL 14.0 - 18.0 02/04/2015 [facility] HEMATOLOGY MCH 29.4 pg 27.0 - 31.0 02/04/2015 [facility] HEMATOLOGY MCV 87.4 fL 80.0 - 94.0 02/04/2015 [facility] HEMATOLOGY Hct 47.8 % 42.0 - 54.0 02/04/2015 [facility] HEMATOLOGY WBC 5.4 K/CMM 3.7 - 10.4 02/04/2015 [facility] HEMATOLOGY RBC 5.47 M/CMM 4.70 - 6.10 02/04/2015 [facility] HEMATOLOGY PTT 35.4 s 22.9 - 35.8 02/04/2015 [facility] HEMATOLOGY PT 19.9 s 12.0 - 14.7 02/04/2015 [facility] HEMATOLOGY INR 1.66 0.85 - 1.17 02/04/2015 [facility] HEMATOLOGY Eosinophils # 0.1 K/CMM 0.0 - 0.5 02/04/2015 [facility] HEMATOLOGY Segs-Bands # 3.5 K/CMM 1.5 - 8.1 02/04/2015 [facility] HEMATOLOGY Lymphocytes # 1.4 K/CMM 1.0 - 5.5 02/04/2015 [facility] HEMATOLOGY Eosinophils 1.4 % 0.0 - 4.0 02/04/2015 [facility] HEMATOLOGY Basophils 0.4 % 0.0 - 1.0 02/04/2015 [facility] HEMATOLOGY Monocytes # 0.5 K/CMM 0.0 - 0.8 02/04/2015 [facility] HEMATOLOGY Segs 63.8 % 45.0 - 75.0 02/04/2015 [facility] HEMATOLOGY Lymphocytes 25.4 % 20.0 - 40.0 02/04/2015 [facility] HEMATOLOGY Monocytes 9.0 % 2.0 - 12.0 02/04/2015 [facility] URINE AND STOOL UA Leuk Est Negative (02/04/15 10:24 AM) Negative 02/04/2015 [facility] URINE AND STOOL UA Nitrite Negative (02/04/15 10:24 AM) Negative 02/04/2015 [facility] URINE AND STOOL UA Urobilinogen 0.2 EU/dL 0.1 - 1.0 02/04/2015 [facility] URINE AND STOOL UA Sq Epi None Seen (02/04/15 10:24 AM) Few 02/04/2015 [facility] URINE AND STOOL UA Ketones Negative *NA* (02/04/15 10:24 AM) Negative 02/04/2015 [facility] URINE AND STOOL UA Bili Negative *NA* (02/04/15 10:24 AM) Negative 02/04/2015 [facility] URINE AND STOOL UA Blood Trace *ABN* (02/04/15 10:24 AM) Negative 02/04/2015 [facility] URINE AND STOOL UA Color Yellow *NA* (02/04/15 10:24 AM) Yellow 02/04/2015 [facility] URINE AND STOOL UA Spec Grav 1.010 <=1.030 02/04/2015 [facility] URINE AND STOOL UA Glucose Negative (02/04/15 10:24 AM) Negative 02/04/2015 [facility] URINE AND STOOL UA pH 6.5 5.0 - 8.0 02/04/2015 [facility] URINE AND STOOL UA Protein Negative (02/04/15 10:24 AM) Negative 02/04/2015 [facility] URINE AND STOOL UA Turbidity Clear (02/04/15 10:24 AM) Clear 02/04/2015 [facility] URINE AND STOOL UA WBC null 0 - 5 02/04/2015 [facility] URINE AND STOOL UA RBC 3 /HPF 0 - 2 02/04/2015 [facility] Spine lumbar 2 or 3 views DX Spine lumbar 2 or 3 views DX Examination: Lumbar spine, 3 views History: Backache Comparison: None. Findings: Multiple views of the lumbar spine show 5 nonrib bearing lumbar vertebra. No acute compression fracture or subluxation is seen. Mild marginal osteophytes with mild disc height loss throughout the lumbar spine are seen, compatible with mild degenerative disc disease. Arterial calcifications are seen. Small amount of contrast in the renal collecting systems, ureters, and bladder are seen. IMPRESSION: Mild degenerative change of the lumbar spine without acute bony abnormality. SL: 16 02/04/2015 - - Read by: Tony Barrett MD Dictated Date/time: 02/04/15 14:14 Electronically Signed by: Tony Barrett MD 02/04/15 14:15 FINAL REPORT [facility] ED Abdomen/Pelvis IV contrast only CT ED Abdomen/Pelvis IV contrast only CT I. CT SCAN of the ABDOMEN with CONTRAST II. CT SCAN of the PELVIS with CONTRAST HISTORY: Abdominal pain. A prior study of 10/03/[address] SCAN of the ABDOMEN with CONTRAST TECHNIQUE: Helical CT images were obtained from the domes the diaphragms to the iliac crests following the administration of nonionic iodinated intravenous contrast. Oral contrast was not provided. II. CT SCAN of the PELVIS with CONTRAST TECHNIQUE: Helical CT images were obtained from the iliac crests to the pubic symphysis following the administration of nonionic iodinated intravenous contrast. Oral contrast was not provided. Sagittal and coronal reconstructions were provided. FINDINGS: There is no free intraperitoneal gas, abscess, focal inflammation, or other evidence of an acute intra-abdominal process. The liver, spleen, pancreas, and adrenal glands are normal in appearance. The kidneys show good, symmetrical excretion without hydronephrosis. The kidneys are normal in size. There is a tiny right upper pole renal calculus which is unchanged. There is extensive sigmoid diverticulosis. There is moderate diverticulosis of the descending colon. There is no evidence of diverticulitis. There is a moderate amount of fecal material within the colon (constipation). The gastrointestinal structures are otherwise unremarkable. There is no evidence of obstruction or ileus. The appendix is not definitely visualized. There is no evidence of appendicitis. Evaluation the gastrointestinal structures is limited due to lack of oral contrast. No mass or adenopathy is seen within the abdomen or pelvis. There is no ascites or other fluid collection. There are extensive vascular calcifications about the abdominal aorta and iliac arteries. There is no aneurysm. The inguinal rings are slightly prominent, greater on the right probable small inguinal hernias. This is unchanged the prior study. There are very mild scattered degenerative changes involving the lumbar spine. The osseous structures are otherwise unremarkable. No blastic or destructive lesions are seen. CONCLUSION: 1. No evidence of an acute intra-abdominal process. 2. Extensive sigmoid diverticulosis. There is also moderate diverticulosis of the descending colon. There is no evidence of diverticulitis. 3. Constipation. 4. Tiny right upper pole renal calculus. 5. Atherosclerosis. 6. Prominent inguinal rings, probable small inguinal hernias, unchanged the prior study. Coding: Abdomen/Pelvis w contrast CT SL: 13 Dickson Yanez M.D. 02/04/2015 - - Read by: Dickson Yanez MD Dictated Date/time: 02/04/15 12:55 Electronically Signed by: Dickson Yanez MD 02/04/15 13:03 FINAL REPORT [facility] CARDIAC ENZYMES Troponin-I 0.02 ng/mL 0.00 - 0.40 11/21/2014 [facility] CARDIAC ENZYMES CK MB 3.7 ng/mL 0.5 - 3.6 11/21/2014 [facility] ELECTROLYTES Sodium Lvl 142 meq/L 135 - 145 11/21/2014 [facility] ELECTROLYTES Chloride Lvl 116 meq/L 95 - 109 11/21/2014 [facility] ELECTROLYTES Potassium Lvl 3.0 meq/L 3.5 - 5.1 11/21/2014 1Result Comment: Critical Result(s) called to enedelia mane at 11/21/2014 19:36_ byAN_. Read back OK. [facility] ELECTROLYTES eGFR 80 mL/min/1.73m2 11/21/2014 2Result Comment: The eGFR is calculated using [...] from the National Kidney Disease Education Program (NKDEP) which additionally recommends that when the eGFR is used in patients with extremes of body mass index for purposes of drug dosing, the eGFR should be multiplied by the estimated BMI. [facility] ELECTROLYTES BUN 15 mg/dL 7 - 22 11/21/2014 [facility] ELECTROLYTES Creatinine Lvl 1.0 mg/dL 0.5 - 1.4 11/21/2014 [facility] ELECTROLYTES CO2 19 meq/L 24 - 32 11/21/2014 [facility] ELECTROLYTES Calcium Lvl 6.7 mg/dL 8.5 - 10.5 11/21/2014 4Result Comment: Critical Result(s) called to KORI MANE at 11/21/2014 19:48 by CV. Read back OK. [facility] ELECTROLYTES AGAP 10.0 meq/L 10.0 - 20.0 11/21/2014 [facility] ELECTROLYTES Glucose Lvl 66 mg/dL 70 - 99 11/21/2014 3Interpretive Data: Adult reference range values reflect the clinical guidelines of the [place] [employer]. [facility] HEMATOLOGY Lymphocytes 20.2 % 20.0 - 40.0 11/21/2014 [facility] HEMATOLOGY Segs 67.2 % 45.0 - 75.0 11/21/2014 [facility] HEMATOLOGY Basophils 0.4 % 0.0 - 1.0 11/21/2014 [facility] HEMATOLOGY Eosinophils 1.2 % 0.0 - 4.0 11/21/2014 [facility] HEMATOLOGY Monocytes 11.0 % 2.0 - 12.0 11/21/2014 [facility] HEMATOLOGY Lymphocytes # 1.2 K/CMM 1.0 - 5.5 11/21/2014 [facility] HEMATOLOGY Segs-Bands # 4.0 K/CMM 1.5 - 8.1 11/21/2014 [facility] HEMATOLOGY Eosinophils # 0.1 K/CMM 0.0 - 0.5 11/21/2014 [facility] HEMATOLOGY Monocytes # 0.7 K/CMM 0.0 - 0.8 11/21/2014 [facility] INR 2.06 0.85 - 1.17 11/21/2014 5Interpretive Data: RECOMMENDED RANGES FOR PROTIME INR: 2.0-3.0 for most medical and surgical thromboembolic states. 2.5-3.5 for artificial heart valves and recurrent embolism. INR SHOULD BE USED ONLY FOR PATIENTS ON STABLE ANTICOAGULANT THERAPY. [facility] PT 23.8 s 12.0 - 14.7 11/21/2014 [facility] PTT 39.2 s 22.9 - 35.8 11/21/2014 6Interpretive Data: Heparin Therapeutic Range: 57 - 92 Seconds [facility] RBC 5.15 M/CMM 4.70 - 6.10 11/21/2014 [facility] Hgb 15.5 g/dL 14.0 - 18.0 11/21/2014 [facility] Hct 46.0 % 42.0 - 54.0 11/21/2014 [facility] WBC 6.0 K/CMM 3.7 - 10.4 11/21/2014 [facility] MCH 30.2 pg 27.0 - 31.0 11/21/2014 [facility] MCHC 33.8 g/dL 32.0 - 36.0 11/21/2014 [facility] MCV 89.4 fL 80.0 - 94.0 11/21/2014 [facility] Platelet 135 K/CMM 133 - 450 11/21/2014 [facility] MPV 9.1 fL 7.4 - 10.4 11/21/2014 [facility] RDW 14.6 % 11.5 - 14.5 11/21/2014 [facility] Elbow 3 views DX Elbow 3 views DX EXAM: Right elbow HISTORY: Pain and swelling right elbow, possible effusion. COMPARISON: None. TECHNIQUE: Three views right elbow FINDINGS: Moderate to marked soft tissue swelling of the elbow may reflect olecranon bursitis. No fracture is seen. SL: 14 11/21/2014 - - Read by: Mello Madrigal MD Dictated Date/time: 11/21/14 18:40 Electronically Signed by: Mello Madrigal MD 11/21/14 18:42 FINAL REPORT [facility] Chest 1view DX Chest 1view DX EXAM: Portable chest x-ray. HISTORY: Chest pain. COMPARISON: 02/22/2014 at 1950 hours. TECHNIQUE: Portable frontal view of the chest. FINDINGS: COPD. No appreciable pneumonia, edema or pleural effusion. Heart size upper normal. Stable right subclavian Port-A-Cath. SL: 14 11/21/2014 - - Read by: Mello Madrigal MD Dictated Date/time: 11/21/14 18:42 Electronically Signed by: Mello Madrigal MD 11/21/14 18:46 FINAL REPORT [facility] ELECTROLYTES AGAP 9.7 meq/L 10.0 - 20.0 02/27/2014 [facility] ELECTROLYTES eGFR 80 mL/min/1.73m2 02/27/2014 1Result Comment: The eGFR is calculated using [...] from the National Kidney Disease Education Program (NKDEP) which additionally recommends that when the eGFR is used in patients with extremes of body mass index for purposes of drug dosing, the eGFR should be multiplied by the estimated BMI. [facility] ELECTROLYTES BUN 20 mg/dL 7 - 22 02/27/2014 [facility] ELECTROLYTES Creatinine Lvl 1.0 mg/dL 0.5 - 1.4 02/27/2014 [facility] ELECTROLYTES Sodium Lvl 136 meq/L 135 - 145 02/27/2014 [facility] ELECTROLYTES Potassium Lvl 3.7 meq/L 3.5 - 5.1 02/27/2014 [facility] ELECTROLYTES CO2 30 meq/L 24 - 32 02/27/2014 [facility] ELECTROLYTES Chloride Lvl 100 meq/L 95 - 109 02/27/2014 [facility] ELECTROLYTES Calcium Lvl 9.0 mg/dL 8.5 - 10.5 02/27/2014 [facility] ELECTROLYTES Glucose Lvl 120 mg/dL 70 - 99 02/27/2014 4Interpretive Data: Adult reference range values reflect the clinical guidelines of the [place] [employer]. [facility] HEMATOLOGY Platelet 133 K/CMM 133 - 450 02/27/2014 [facility] HEMATOLOGY MPV 7.6 fL 7.4 - 10.4 02/27/2014 [facility] RDW 17.5 % 11.5 - 14.5 02/27/2014 [facility] RBC 5.34 M/CMM 4.70 - 6.10 02/27/2014 [facility] Hgb 15.7 g/dL 14.0 - 18.0 02/27/2014 [facility] WBC 6.6 K/CMM 3.7 - 10.4 02/27/2014 [facility] MCV 87.6 fL 80.0 - 94.0 02/27/2014 [facility] MCH 29.3 pg 27.0 - 31.0 02/27/2014 [facility] Hct 46.8 % 42.0 - 54.0 02/27/2014 [facility] MCHC 33.5 g/dL 32.0 - 36.0 02/27/2014 [facility] INR 2.27 0.85 - 1.17 02/27/2014 7Interpretive Data: RECOMMENDED RANGES FOR PROTIME INR: 2.0-3.0 for most medical and surgical thromboembolic states. 2.5-3.5 for artificial heart valves and recurrent embolism. INR SHOULD BE USED ONLY FOR PATIENTS ON STABLE ANTICOAGULANT THERAPY. [facility] PT 24.6 s 12.0 - 14.7 02/27/2014 [facility] Monocytes # 0.5 K/CMM 0.0 - 0.8 02/27/2014 [facility] HEMATOLOGY Eosinophils # 0.3 K/CMM 0.0 - 0.5 02/27/2014 [facility] Eosinophils 4.0 % 0.0 - 4.0 02/27/2014 [facility] Lymphocytes # 1.3 K/CMM 1.0 - 5.5 02/27/2014 [facility] Monocytes 8.1 % 2.0 - 12.0 02/27/2014 [facility] HEMATOLOGY Segs 68.1 % 45.0 - 75.0 02/27/2014 [facility] Lymphocytes 19.4 % 20.0 - 40.0 02/27/2014 [facility] Segs-Bands # 4.5 K/CMM 1.5 - 8.1 02/27/2014 [facility] Basophils 0.4 % 0.0 - 1.0 02/27/2014 [facility] THYROID PANEL TSH 9.650 uIU/mL 0.360 - 3.740 02/27/2014 [facility] HEMATOLOGY PT 25.7 s 12.0 - 14.7 02/26/2014 [facility] HEMATOLOGY INR 2.40 0.85 - 1.17 02/26/2014 8Interpretive Data: RECOMMENDED RANGES FOR PROTIME INR: 2.0-3.0 for most medical and surgical thromboembolic states. 2.5-3.5 for artificial heart valves and recurrent embolism. INR SHOULD BE USED ONLY FOR PATIENTS ON STABLE ANTICOAGULANT THERAPY. [facility] CHEM PANEL eGFR 64 mL/min/1.73m2 02/25/2014 2Result Comment: The eGFR is calculated using [...] from the National Kidney Disease Education Program (NKDEP) which additionally recommends that when the eGFR is used in patients with extremes of body mass index for purposes of drug dosing, the eGFR should be multiplied by the estimated BMI. [facility] CHEM PANEL Potassium Lvl 3.8 meq/L 3.5 - 5.1 02/25/2014 [facility] CHEM PANEL Glucose Lvl 152 mg/dL 70 - 99 02/25/2014 5Interpretive Data: Adult reference range values reflect the clinical guidelines of the [place] [employer]. [facility] CHEM PANEL BUN 24 mg/dL 7 - 22 02/25/2014 [facility] CHEM PANEL Creatinine Lvl 1.2 mg/dL 0.5 - 1.4 02/25/2014 [facility] CHEM PANEL Sodium Lvl 137 meq/L 135 - 145 02/25/2014 [facility] CHEM PANEL Chloride Lvl 104 meq/L 95 - 109 02/25/2014 [facility] CHEM PANEL CO2 27 meq/L 24 - 32 02/25/2014 [facility] CHEM PANEL AGAP 9.8 meq/L 10.0 - 20.0 02/25/2014 [facility] CHEM PANEL Calcium Lvl 8.9 mg/dL 8.5 - 10.5 02/25/2014 [facility] HEMATOLOGY INR 3.13 0.85 - 1.17 02/25/2014 9Interpretive Data: RECOMMENDED RANGES FOR PROTIME INR: 2.0-3.0 for most medical and surgical thromboembolic states. 2.5-3.5 for artificial heart valves and recurrent embolism. INR SHOULD BE USED ONLY FOR PATIENTS ON STABLE ANTICOAGULANT THERAPY. [facility] PT 31.5 s 12.0 - 14.7 02/25/2014 [facility] Lymphocytes 13.0 % 20.0 - 40.0 02/25/2014 [facility] Monocytes 9.0 % 2.0 - 12.0 02/25/2014 [facility] HEMATOLOGY Segs 77.9 % 45.0 - 75.0 02/25/2014 [facility] Lymphocytes # 1.3 K/CMM 1.0 - 5.5 02/25/2014 [facility] Basophils 0.1 % 0.0 - 1.0 02/25/2014 [facility] Segs-Bands # 7.9 K/CMM 1.5 - 8.1 02/25/2014 [facility] Monocytes # 0.9 K/CMM 0.0 - 0.8 02/25/2014 [facility] WBC 10.1 K/CMM 3.7 - 10.4 02/25/2014 [facility] RBC 5.03 M/CMM 4.70 - 6.10 02/25/2014 [facility] Hgb 14.7 g/dL 14.0 - 18.0 02/25/2014 [facility] MCH 29.1 pg 27.0 - 31.0 02/25/2014 [facility] MCV 88.1 fL 80.0 - 94.0 02/25/2014 [facility] Hct 44.3 % 42.0 - 54.0 02/25/2014 [facility] RDW 18.0 % 11.5 - 14.5 02/25/2014 [facility] MCHC 33.1 g/dL 32.0 - 36.0 02/25/2014 [facility] Platelet 141 K/CMM 133 - 450 02/25/2014 [facility] MPV 8.3 fL 7.4 - 10.4 02/25/2014 [facility] CARDIAC ENZYMES Total CK 172 unit/L 12 - 191 02/24/2014 [facility] CHEM PANEL eGFR 58 mL/min/1.73m2 02/24/2014 3Result Comment: The eGFR is calculated using the [...] from the National Kidney Disease Education Program (NKDEP) which additionally recommends that when the eGFR is used in patients with extremes of body mass index for purposes of drug dosing, the eGFR should be multiplied by the estimated BMI. [facility] CHEM PANEL CO2 27 meq/L 24 - 32 02/24/2014 [facility] CHEM PANEL Calcium Lvl 9.1 mg/dL 8.5 - 10.5 02/24/2014 [facility] CHEM PANEL Glucose Lvl 275 mg/dL 70 - 99 02/24/2014 6Interpretive Data: Adult reference range values reflect the clinical guidelines of the [place] [employer]. [facility] CHEM PANEL BUN 22 mg/dL 7 - 22 02/24/2014 [facility] CHEM PANEL Creatinine Lvl 1.3 mg/dL 0.5 - 1.4 02/24/2014 [facility] CHEM PANEL Potassium Lvl 4.1 meq/L 3.5 - 5.1 02/24/2014 [facility] CHEM PANEL Sodium Lvl 135 meq/L 135 - 145 02/24/2014 [facility] CHEM PANEL Chloride Lvl 102 meq/L 95 - 109 02/24/2014 [facility] CHEM PANEL AGAP 10.1 meq/L 10.0 - 20.0 02/24/2014 [facility] HEMATOLOGY Hct 46.5 % 42.0 - 54.0 02/24/2014 [facility] MCH 29.7 pg 27.0 - 31.0 02/24/2014 [facility] MCV 88.1 fL 80.0 - 94.0 02/24/2014 [facility] RDW 17.8 % 11.5 - 14.5 02/24/2014 [facility] MCHC 33.7 g/dL 32.0 - 36.0 02/24/2014 [facility] WBC 6.4 K/CMM 3.7 - 10.4 02/24/2014 [facility] Hgb 15.7 g/dL 14.0 - 18.0 02/24/2014 [facility] RBC 5.28 M/CMM 4.70 - 6.10 02/24/2014 [facility] Platelet 146 K/CMM 133 - 450 02/24/2014 [facility] MPV 8.2 fL 7.4 - 10.4 02/24/2014 [facility] HEMATOLOGY Segs 85.9 % 45.0 - 75.0 02/24/2014 [facility] Monocytes 2.7 % 2.0 - 12.0 02/24/2014 [facility] Monocytes # 0.2 K/CMM 0.0 - 0.8 02/24/2014 [facility] Lymphocytes # 0.7 K/CMM 1.0 - 5.5 02/24/2014 [facility] Lymphocytes 11.3 % 20.0 - 40.0 02/24/2014 [facility] Basophils 0.1 % 0.0 - 1.0 02/24/2014 [facility] Segs-Bands # 5.5 K/CMM 1.5 - 8.1 02/24/2014 [facility] PTT 31.7 s 22.9 - 35.8 02/23/2014 10Interpretive Data: Heparin Therapeutic Range: 57 - 92 Seconds [facility] CARDIAC ENZYMES Total CK 392 unit/L 12 - 191 02/23/2014 [facility] CARDIAC ENZYMES Troponin-I null 0.00 - 0.40 02/23/2014 [facility] CHEM PANEL Magnesium Lvl 2.1 mg/dL 1.8 - 2.4 02/23/2014 [facility] Eosinophils 0.9 % 0.0 - 4.0 02/23/2014 [facility] Chest 2 views Chest 2 views CHEST, TWO VIEWS HISTORY: Chest pain. COMPARISON: 10/02/2013 FINDINGS: Port-A-Cath remains in place. The lungs are clear. No pleural effusion. No pneumothorax. Heart size normal. No acute osseous abnormality. SL: 14 02/22/2014 - - Read by: Dereje Bowers MD Dictated Date/time: 02/22/14 20:13 Electronically Signed by: Dereje Bowers MD 02/22/14 20:13 FINAL REPORT [facility] CHEM PANEL eGFR 64 mL/min/1.73m2 11/20/2013 1Result Comment: The eGFR is calculated using [...] from the National Kidney Disease Education Program (NKDEP) which additionally recommends that when the eGFR is used in patients with extremes of body mass index for purposes of drug dosing, the eGFR should be multiplied by the estimated BMI. [facility] CHEM PANEL Potassium Lvl 3.5 meq/L 3.5 - 5.1 11/20/2013 [facility] CHEM PANEL AST 24 unit/L 0 - 37 11/20/2013 [facility] CHEM PANEL ALT 28 unit/L 0 - 65 11/20/2013 [facility] CHEM PANEL Albumin Lvl 3.7 g/dL 3.5 - 5.0 11/20/2013 [facility] CHEM PANEL Alk Phos 52 unit/L 39 - 136 11/20/2013 [facility] CHEM PANEL Total Protein 7.5 g/dL 6.4 - 8.4 11/20/2013 [facility] CHEM PANEL BUN 14 mg/dL 7 - 22 11/20/2013 [facility] CHEM PANEL CO2 25 meq/L 24 - 32 11/20/2013 [facility] CHEM PANEL Chloride Lvl 104 meq/L 95 - 109 11/20/2013 [facility] CHEM PANEL Creatinine Lvl 1.2 mg/dL 0.5 - 1.4 11/20/2013 [facility] CHEM PANEL Sodium Lvl 138 meq/L 135 - 145 11/20/2013 [facility] CHEM PANEL Glucose Lvl 132 mg/dL 70 - 99 11/20/2013 2Interpretive Data: Adult reference range values reflect the clinical guidelines of the [place] [employer]. [facility] CHEM PANEL Calcium Lvl 8.8 mg/dL 8.5 - 10.5 11/20/2013 [facility] CHEM PANEL Bili Total 0.8 mg/dL 0.2 - 1.3 11/20/2013 [facility] CHEM PANEL Globulin 3.8 g/dL 2.0 - 4.0 11/20/2013 [facility] CHEM PANEL B/C Ratio 12 6 - 25 11/20/2013 [facility] CHEM PANEL AGAP 12.5 meq/L 10.0 - 20.0 11/20/2013 [facility] CHEM PANEL A/G Ratio 1.0 0.7 - 1.6 11/20/2013 [facility] HEMATOLOGY Sed Rate 17 mm/h 0 - 15 11/20/2013 [facility] HEMATOLOGY Basophils # 0.0 K/CMM 0.0 - 0.2 11/20/2013 [facility] HEMATOLOGY Eosinophils # 0.1 K/CMM 0.0 - 0.5 11/20/2013 [facility] HEMATOLOGY Segs-Bands # 3.7 K/CMM 1.5 - 8.1 11/20/2013 [facility] HEMATOLOGY Lymphocytes # 1.6 K/CMM 1.0 - 5.5 11/20/2013 [facility] HEMATOLOGY Monocytes # 0.5 K/CMM 0.0 - 0.8 11/20/2013 [facility] HEMATOLOGY Eosinophils 2.0 % 0.0 - 4.0 11/20/2013 [facility] HEMATOLOGY Basophils 0.4 % 0.0 - 1.0 11/20/2013 [facility] Monocytes 9.2 % 2.0 - 12.0 11/20/2013 [facility] Lymphocytes 26.9 % 20.0 - 40.0 11/20/2013 [facility] Segs 61.5 % 45.0 - 75.0 11/20/2013 [facility] RDW 16.7 % 11.5 - 14.5 11/20/2013 [facility] Platelet 175 K/CMM 133 - 450 11/20/2013 [facility] MCHC 33.6 g/dL 32.0 - 36.0 11/20/2013 [facility] MPV 8.2 fL 7.4 - 10.4 11/20/2013 [facility] RBC 5.25 M/CMM 4.70 - 6.10 11/20/2013 [facility] WBC 6.0 K/CMM 3.7 - 10.4 11/20/2013 [facility] HEMATOLOGY MCV 85.5 fL 80.0 - 94.0 11/20/2013 [facility] HEMATOLOGY Hct 44.9 % 42.0 - 54.0 11/20/2013 [facility] Hgb 15.1 g/dL 14.0 - 18.0 11/20/2013 [facility] HEMATOLOGY MCH 28.7 pg 27.0 - 31.0 11/20/2013 [facility] IMMUNOLOGY C-REACTIVE PROTEIN 7.6 mg/L <=2.9 mg/L 11/20/2013 [facility] CHEM PANEL eGFR 72 mL/min/1.73m2 10/31/2013 1Result Comment: The eGFR is calculated using [...] from the National Kidney Disease Education Program (NKDEP) which additionally recommends that when the eGFR is used in patients with extremes of body mass index for purposes of drug dosing, the eGFR should be multiplied by the estimated BMI. [facility] CHEM PANEL BUN 16 mg/dL 7 - 22 10/31/2013 [facility] CHEM PANEL Creatinine Lvl 1.1 mg/dL 0.5 - 1.4 10/31/2013 [facility] CHEM PANEL Sodium Lvl 141 meq/L 135 - 145 10/31/2013 [facility] CHEM PANEL Glucose Lvl 118 mg/dL 70 - 99 10/31/2013 4Interpretive Data: Adult reference range values reflect the clinical guidelines of the [place] [employer]. [facility] CHEM PANEL AGAP 11.1 meq/L 10.0 - 20.0 10/31/2013 [facility] CHEM PANEL Calcium Lvl 8.2 mg/dL 8.5 - 10.5 10/31/2013 [facility] CHEM PANEL Chloride Lvl 107 meq/L 95 - 109 10/31/2013 [facility] CHEM PANEL Potassium Lvl 4.1 meq/L 3.5 - 5.1 10/31/2013 [facility] CHEM PANEL CO2 27 meq/L 24 - 32 10/31/2013 [facility] HEMATOLOGY Eosinophils 1.3 % 0.0 - 4.0 10/31/2013 [facility] HEMATOLOGY Basophils 0.4 % 0.0 - 1.0 10/31/2013 [facility] HEMATOLOGY Monocytes 9.5 % 2.0 - 12.0 10/31/2013 [facility] HEMATOLOGY Segs 70.1 % 45.0 - 75.0 10/31/2013 [facility] HEMATOLOGY Lymphocytes 18.7 % 20.0 - 40.0 10/31/2013 [facility] HEMATOLOGY Lymphocytes # 1.5 K/CMM 1.0 - 5.5 10/31/2013 [facility] HEMATOLOGY Basophils # 0.0 K/CMM 0.0 - 0.2 10/31/2013 [facility] HEMATOLOGY Monocytes # 0.8 K/CMM 0.0 - 0.8 10/31/2013 [facility] HEMATOLOGY Eosinophils # 0.1 K/CMM 0.0 - 0.5 10/31/2013 [facility] HEMATOLOGY Segs-Bands # 5.7 K/CMM 1.5 - 8.1 10/31/2013 [facility] HEMATOLOGY Hct 45.4 % 42.0 - 54.0 10/31/2013 [facility] HEMATOLOGY MCV 87.0 fL 80.0 - 94.0 10/31/2013 [facility] Hgb 15.3 g/dL 14.0 - 18.0 10/31/2013 [facility] WBC 8.1 K/CMM 3.7 - 10.4 10/31/2013 [facility] RBC 5.22 M/CMM 4.70 - 6.10 10/31/2013 [facility] Platelet 145 K/CMM 133 - 450 10/31/2013 [facility] MPV 8.0 fL 7.4 - 10.4 10/31/2013 [facility] RDW 16.3 % 11.5 - 14.5 10/31/2013 [facility] MCH 29.2 pg 27.0 - 31.0 10/31/2013 [facility] MCHC 33.6 g/dL 32.0 - 36.0 10/31/2013 [facility] CARDIAC ENZYMES Troponin-I null 0.00 - 0.40 10/30/2013 [facility] CARDIAC ENZYMES CK MB Index 1.2 0.0 - 2.5 10/30/2013 [facility] CARDIAC ENZYMES CK MB 1.2 ng/mL 0.5 - 3.6 10/30/2013 [facility] CARDIAC ENZYMES Total CK 97 unit/L 12 - 191 10/30/2013 [facility] CHEM PANEL Globulin 3.5 g/dL 2.0 - 4.0 10/30/2013 [facility] CHEM PANEL A/G Ratio 1.0 0.7 - 1.6 10/30/2013 [facility] CHEM PANEL AGAP 9.0 meq/L 10.0 - 20.0 10/30/2013 [facility] CHEM PANEL B/C Ratio 16 6 - 25 10/30/2013 [facility] CHEM PANEL ALT 27 unit/L 0 - 65 10/30/2013 [facility] CHEM PANEL Albumin Lvl 3.4 g/dL 3.5 - 5.0 10/30/2013 [facility] CHEM PANEL AST 22 unit/L 0 - 37 10/30/2013 [facility] CHEM PANEL Bili Total 0.8 mg/dL 0.2 - 1.3 10/30/2013 [facility] CHEM PANEL Total Protein 6.9 g/dL 6.4 - 8.4 10/30/2013 [facility] CHEM PANEL CO2 28 meq/L 24 - 32 10/30/2013 [facility] CHEM PANEL Calcium Lvl 8.3 mg/dL 8.5 - 10.5 10/30/2013 [facility] CHEM PANEL Potassium Lvl 4.0 meq/L 3.5 - 5.1 10/30/2013 [facility] CHEM PANEL Chloride Lvl 104 meq/L 95 - 109 10/30/2013 [facility] CHEM PANEL Creatinine Lvl 1.1 mg/dL 0.5 - 1.4 10/30/2013 [facility] CHEM PANEL Sodium Lvl 137 meq/L 135 - 145 10/30/2013 [facility] CHEM PANEL Alk Phos 45 unit/L 39 - 136 10/30/2013 [facility] CHEM PANEL Glucose Lvl 181 mg/dL 70 - 99 10/30/2013 5Interpretive Data: Adult reference range values reflect the clinical guidelines of the [place] [employer]. [facility] CHEM PANEL BUN 18 mg/dL 7 - 22 10/30/2013 [facility] CHEM PANEL eGFR 72 mL/min/1.73m2 10/30/2013 2Result Comment: The eGFR is calculated using [...] from the National Kidney Disease Education Program (NKDEP) which additionally recommends that when the eGFR is used in patients with extremes of body mass index for purposes of drug dosing, the eGFR should be multiplied by the estimated BMI. [facility] HEMATOLOGY Basophils # 0.0 K/CMM 0.0 - 0.2 10/30/2013 [facility] HEMATOLOGY Lymphocytes # 1.4 K/CMM 1.0 - 5.5 10/30/2013 [facility] HEMATOLOGY Eosinophils # 0.1 K/CMM 0.0 - 0.5 10/30/2013 [facility] Monocytes # 0.8 K/CMM 0.0 - 0.8 10/30/2013 [facility] Lymphocytes 15.7 % 20.0 - 40.0 10/30/2013 [facility] Monocytes 8.8 % 2.0 - 12.0 10/30/2013 [facility] HEMATOLOGY Segs-Bands # 6.7 K/CMM 1.5 - 8.1 10/30/2013 [facility] Eosinophils 0.7 % 0.0 - 4.0 10/30/2013 [facility] Basophils 0.5 % 0.0 - 1.0 10/30/2013 [facility] Segs 74.3 % 45.0 - 75.0 10/30/2013 [facility] INR 1.00 0.85 - 1.17 10/30/2013 7Interpretive Data: RECOMMENDED RANGES FOR PROTIME INR: 2.0-3.0 for most medical and surgical thromboembolic states. 2.5-3.5 for artificial heart valves and recurrent embolism. INR SHOULD BE USED ONLY FOR PATIENTS ON STABLE ANTICOAGULANT THERAPY. [facility] PT 13.1 s 12.0 - 14.7 10/30/2013 [facility] WBC 9.0 K/CMM 3.7 - 10.4 10/30/2013 [facility] RBC 5.10 M/CMM 4.70 - 6.10 10/30/2013 [facility] Hgb 15.1 g/dL 14.0 - 18.0 10/30/2013 [facility] RDW 15.9 % 11.5 - 14.5 10/30/2013 [facility] Platelet 154 K/CMM 133 - 450 10/30/2013 [facility] MCV 86.7 fL 80.0 - 94.0 10/30/2013 [facility] MCH 29.5 pg 27.0 - 31.0 10/30/2013 [facility] Hct 44.3 % 42.0 - 54.0 10/30/2013 [facility] MPV 8.0 fL 7.4 - 10.4 10/30/2013 [facility] HEMATOLOGY MCHC 34.0 g/dL 32.0 - 36.0 10/30/2013 [facility] CARDIAC ENZYMES Troponin-I null 0.00 - 0.40 10/30/2013 [facility] CARDIAC ENZYMES CK MB 1.4 ng/mL 0.5 - 3.6 10/30/2013 [facility] CARDIAC ENZYMES Total CK 126 unit/L 12 - 191 10/30/2013 [facility] CARDIAC ENZYMES CK MB Index 1.1 0.0 - 2.5 10/30/2013 [facility] Chest w contrast CT Chest w contrast CT HISTORY: Shortness of breath. Chest CT with IV contrast. No CT evidence for pulmonary embolus. No aortic aneurysm or dissection. Heart is enlarged. Pulmonary vasculature appears to be congested. Mild basilar atelectasis. There is right perihilar upper lobe infiltrate as well. Correlate clinically for superimposed pneumonia. No pleural or pericardial effusion. Right chest MediPort with the catheter in the superior vena cava. IMPRESSION: No CT evidence for pulmonary embolus. Consider CHF, volume overload. Correlate clinically for superimposed pneumonia. SL: 14 10/29/2013 - - Read by: Ronald Amador Dictated Date/time: 10/29/13 16:19 Electronically Signed by: Ronald Amador MD 10/29/13 16:22 FINAL REPORT [facility] ELECTROLYTES AGAP 10.2 meq/L 10.0 - 20.0 10/29/2013 [facility] ELECTROLYTES eGFR 72 mL/min/1.73m2 10/29/2013 3Result Comment: The eGFR is calculated using the [...] from the National Kidney Disease Education Program (NKDEP) which additionally recommends that when the eGFR is used in patients with extremes of body mass index for purposes of drug dosing, the eGFR should be multiplied by the estimated BMI. [facility] ELECTROLYTES Calcium Lvl 9.1 mg/dL 8.5 - 10.5 10/29/2013 [facility] ELECTROLYTES CO2 27 meq/L 24 - 32 10/29/2013 [facility] ELECTROLYTES Creatinine Lvl 1.1 mg/dL 0.5 - 1.4 10/29/2013 [facility] ELECTROLYTES Chloride Lvl 104 meq/L 95 - 109 10/29/2013 [facility] ELECTROLYTES Potassium Lvl 4.2 meq/L 3.5 - 5.1 10/29/2013 [facility] ELECTROLYTES Glucose Lvl 123 mg/dL 70 - 99 10/29/2013 6Interpretive Data: Adult reference range values reflect the clinical guidelines of the [place] [employer]. [facility] ELECTROLYTES Sodium Lvl 137 meq/L 135 - 145 10/29/2013 [facility] ELECTROLYTES BUN 19 mg/dL 7 - 22 10/29/2013 [facility] HEMATOLOGY Basophils 0.1 % 0.0 - 1.0 10/29/2013 [facility] HEMATOLOGY Monocytes 8.1 % 2.0 - 12.0 10/29/2013 [facility] HEMATOLOGY Segs-Bands # 6.8 K/CMM 1.5 - 8.1 10/29/2013 [facility] HEMATOLOGY Lymphocytes # 1.0 K/CMM 1.0 - 5.5 10/29/2013 [facility] HEMATOLOGY Monocytes # 0.7 K/CMM 0.0 - 0.8 10/29/2013 [facility] HEMATOLOGY Eosinophils # 0.0 K/CMM 0.0 - 0.5 10/29/2013 [facility] HEMATOLOGY Basophils # 0.0 K/CMM 0.0 - 0.2 10/29/2013 [facility] Lymphocytes 11.8 % 20.0 - 40.0 10/29/2013 [facility] HEMATOLOGY Eosinophils 0.0 % 0.0 - 4.0 10/29/2013 [facility] HEMATOLOGY Segs 80.0 % 45.0 - 75.0 10/29/2013 [facility] Hgb 15.3 g/dL 14.0 - 18.0 10/29/2013 [facility] HEMATOLOGY Hct 45.8 % 42.0 - 54.0 10/29/2013 [facility] MCV 87.9 fL 80.0 - 94.0 10/29/2013 [facility] MCHC 33.3 g/dL 32.0 - 36.0 10/29/2013 [facility] Platelet 150 K/CMM 133 - 450 10/29/2013 [facility] MCH 29.3 pg 27.0 - 31.0 10/29/2013 [facility] RDW 16.3 % 11.5 - 14.5 10/29/2013 [facility] MPV 8.1 fL 7.4 - 10.4 10/29/2013 [facility] RBC 5.21 M/CMM 4.70 - 6.10 10/29/2013 [facility] WBC 8.6 K/CMM 3.7 - 10.4 10/29/2013 [facility] INR 1.19 0.85 - 1.17 10/26/2013 8Interpretive Data: RECOMMENDED RANGES FOR PROTIME INR: 2.0-3.0 for most medical and surgical thromboembolic states. 2.5-3.5 for artificial heart valves and recurrent embolism. INR SHOULD BE USED ONLY FOR PATIENTS ON STABLE ANTICOAGULANT THERAPY. [facility] PT 15.0 s 12.0 - 14.7 10/26/2013 [facility] PTT 28.6 s 22.9 - 35.8 10/26/2013 9Interpretive Data: Heparin Therapeutic Range: 57 - 92 Seconds [facility] CHEM PANEL eGFR 80 mL/min/1.73m2 10/05/2013 1Result Comment: The eGFR is calculated using [...] from the National Kidney Disease Education Program (NKDEP) which additionally recommends that when the eGFR is used in patients with extremes of body mass index for purposes of drug dosing, the eGFR should be multiplied by the estimated BMI. [facility] CHEM PANEL Calcium Lvl 8.6 mg/dL 8.5 - 10.5 10/05/2013 [facility] CHEM PANEL CO2 27 meq/L 24 - 32 10/05/2013 [facility] CHEM PANEL Creatinine Lvl 1.0 mg/dL 0.5 - 1.4 10/05/2013 [facility] CHEM PANEL Chloride Lvl 109 meq/L 95 - 109 10/05/2013 [facility] CHEM PANEL BUN 12 mg/dL 7 - 22 10/05/2013 [facility] CHEM PANEL Glucose Lvl 115 mg/dL 70 - 99 10/05/2013 4Interpretive Data: Adult reference range values reflect the clinical guidelines of the [place] [employer]. [facility] CHEM PANEL Potassium Lvl 3.5 meq/L 3.5 - 5.1 10/05/2013 [facility] CHEM PANEL Sodium Lvl 141 meq/L 135 - 145 10/05/2013 [facility] CHEM PANEL AGAP 8.5 meq/L 10.0 - 20.0 10/05/2013 [facility] HEMATOLOGY Eosinophils # 0.1 K/CMM 0.0 - 0.5 10/05/2013 [facility] HEMATOLOGY Basophils # 0.0 K/CMM 0.0 - 0.2 10/05/2013 [facility] HEMATOLOGY Monocytes # 0.4 K/CMM 0.0 - 0.8 10/05/2013 [facility] HEMATOLOGY Lymphocytes # 1.0 K/CMM 1.0 - 5.5 10/05/2013 [facility] HEMATOLOGY Segs-Bands # 2.3 K/CMM 1.5 - 8.1 10/05/2013 [facility] HEMATOLOGY Basophils 0.7 % 0.0 - 1.0 10/05/2013 [facility] HEMATOLOGY Eosinophils 3.8 % 0.0 - 4.0 10/05/2013 [facility] HEMATOLOGY Segs 60.1 % 45.0 - 75.0 10/05/2013 [facility] HEMATOLOGY Monocytes 10.7 % 2.0 - 12.0 10/05/2013 [facility] Lymphocytes 24.7 % 20.0 - 40.0 10/05/2013 [facility] HEMATOLOGY MPV 8.4 fL 7.4 - 10.4 10/05/2013 [facility] Platelet 145 K/CMM 133 - 450 10/05/2013 [facility] HEMATOLOGY RDW 16.1 % 11.5 - 14.5 10/05/2013 [facility] HEMATOLOGY Hct 42.0 % 42.0 - 54.0 10/05/2013 [facility] MCH 29.1 pg 27.0 - 31.0 10/05/2013 [facility] HEMATOLOGY MCV 88.4 fL 80.0 - 94.0 10/05/2013 [facility] HEMATOLOGY WBC X 10x3 3.9 K/CMM 3.7 - 10.4 10/05/2013 [facility] Hgb 13.8 g/dL 14.0 - 18.0 10/05/2013 [facility] HEMATOLOGY RBC X 10x6 4.75 M/CMM 4.70 - 6.10 10/05/2013 [facility] HEMATOLOGY MCHC 32.9 g/dL 32.0 - 36.0 10/05/2013 [facility] CHEM PANEL Phosphorus 2.3 mg/dL 2.5 - 4.5 10/04/2013 [facility] CHEM PANEL Magnesium Lvl 2.1 mg/dL 1.8 - 2.4 10/04/2013 [facility] HEMATOLOGY Sed Rate 20 mm/h 0 - 15 10/03/2013 [facility] CHEM PANEL A/G Ratio 1.1 0.7 - 1.6 10/03/2013 [facility] CHEM PANEL B/C Ratio 15 6 - 25 10/03/2013 [facility] CHEM PANEL Globulin 3.1 g/dL 2.0 - 4.0 10/03/2013 [facility] CHEM PANEL AGAP 12.6 meq/L 10.0 - 20.0 10/03/2013 [facility] CHEM PANEL eGFR 58 mL/min/1.73m2 10/03/2013 2Result Comment: The eGFR is calculated using [...] from the National Kidney Disease Education Program (NKDEP) which additionally recommends that when the eGFR is used in patients with extremes of body mass index for purposes of drug dosing, the eGFR should be multiplied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
--- OUTSIDE RECORDS SUMMARY | 2018-12-01 05:52 | XMS REPORT | Summary of Care ---
Author Author [facility] Organization [facility] Address Unknown Phone Unavailable Encounter TOM Quinn(NICOLE) [id number] Date(s): 11/25/18 - 11/25/18 [facility] Orthopedic [facility] Spine [address] [address]- [phone] Discharge Disposition: Home or Self Care Attending Physician: Ted Erwin MD Referring Physician: Ted Erwin MD Vital Signs 1 2 3 Most recent to oldest [Reference Range]: 203.2 cm (11/15/18 3:39 PM) Height 124/73 mmHg (11/25/18 1:27 PM) 110/63 mmHg (11/25/18 1:14 PM) 150/73 mmHg *HI* (11/25/18 12:19 PM) Blood Pressure [90-140/60-90 mmHg] 16 BRMIN (11/25/18 1:27 PM) 16 BRMIN (11/25/18 1:14 PM) 18 BRMIN (11/25/18 12:19 PM) Respiratory Rate [14-20 BRMIN] 112.727 kg (11/15/18 3:39 PM) Weight 27.3 m2 (11/15/18 3:39 PM) Body Mass Index Problem List Condition [...] TIA (transient Resolved ischemic attack)(Confirmed) 1X2 2008,2010 73683 3X2 Allergies, Adverse Reactions, Alerts Substance Reaction Severity Status CODEINE nausea, vomitting,fever Active Medications Heparin Lock 100 units/mL INJ solution 500 unit, 5 mL, Route: INJ, Drug Form: INJ, Dosing Weight 112.727, kg, ONCE, PRN Other -See Comment, Start date: 11/25/18 13:58:00 CDT Notes: (Same as: Heparin Lock Flush) Start Date: 11/25/18 Stop Date: 11/25/18 Status: Completed Lactated Ringers IV 1,000 mL 1,000 mL, Rate: 40 ml/hr, Infuse over: 25 hr, Route: IV, Dosing Weight 112.727 k g, Total Volume: 1,000, Start date: 11/25/18 12:27:00 CDT, Duration: 30 day, Sto p date: 12/25/18 12:26:00 CDT, 2.52, m2 Start Date: 11/25/18 Stop Date: 11/26/18 Status: Discontinued Results Most recent to 1 oldest [Reference Range]: INR [0.85-1.17] 0.98 (11/25/18 12:28 PM) PT [12.0-14.7 12.8 seconds seconds] (11/25/18 12:28 PM) PTT [22.9-35.8 37.0 seconds seconds] *HI* (11/25/18 12:28 PM) Immunizations Given and Recorded Vaccine Date Status Refusal Reason diphtheria/pertussis, acel/tetanus adult 07/17/15 Given influenza virus vaccine, inactivated 04/07/13 Given pneumococcal 23-valent vaccine 03/24/08 Given Procedures Procedure Date Related Diagnosis Body Site Status 2012 Completed Appendectomy Completed Arthroscopy of knee2 Completed [...] Number of years: 51; 1 entered on: 11/25/18 1Quit smoking 7 years ago Assessment and Plan Extracted from: Title: Clinical Document Author: Ted Erwin MD Date: 11/25/18 LUMBAR/SACRAL TRANSFORAMINAL EPIDURAL STEROID INJECTION PROCEDURE: 1) Right L5/S1 transforaminal epidural steroid injection 2) Right S1 transforaminal epidural steroid injection 3) Fluoroscopic needle guidance OPERATIVE DIAGNOSIS: Lumbar radiculopathy PHYSICIAN: Ted Erwin MD MEDICATIONS INJECTED: 1 mL of Kennalog (40 mg/ml)+ 1 ml of 1% lidocaine + 3 ml normal saline per level ESTIMATED BLOOD LOSS: None COMPLICATIONS: None TECHNIQUE: Time-out was taken to identify the correct patient, procedure and side prior to starting the procedure. Lying in a prone position, the patient was prepped and draped in the usual sterile fashion using DuraPrep and a fenestrated drape. The area to be injected was determined under fluoroscopic guidance. Local anesthetic was given by raising a skin wheal and going down to the hub of a 27-gauge 1.25-inch needle. The 3.5-inch 25-gauge Quincke needle was advanced toward the 6 o clock position of the pedicle at each above-named nerve root level. The needle was advanced to the final position via a lateral fluoroscopic intermittent image. Omnipaque 240 was injected and showed epidural spread and there was no vascular runoff. After a negative aspiration, the medication was then injected. The procedure was completed without complications and was tolerated well. The patient was monitored after the procedure. The patient (or responsible alliance party) was given post-procedure and discharge instructions to follow at home. The patient was discharged in stable condition. A follow-up appointment was made.
--- OUTSIDE RECORDS SUMMARY | 2018-12-01 05:52 | XMS REPORT | Summary of Care ---
Author Author [facility] Organization [facility] Address Unknown Phone Unavailable Encounter TOM Quinn(NICOLE) [id number] Date(s): 11/16/17 - 11/17/17 [facility] [address], [address] [place], [place] [address] Vital Signs No data available for this [...]
--- OUTSIDE RECORDS SUMMARY | 2018-12-01 05:52 | XMS REPORT | Summary of Care ---
Author Author [facility] Organization [facility] Address Unknown Phone Unavailable Encounter TOM Quinn(NICOLE) [id number] Date(s): 11/02/17 - 11/02/17 [facility] [address], [address] [place], [place] [address] Discharge Disposition: Home or Self Care Attending Physician: Uzma Prince MD Referring Physician: Uzma Prince MD Vital Signs Most recent to 1 oldest [Reference Range]: Height 203.2 cm (11/02/17 8:33 AM) Blood Pressure 116/71 mmHg [90-140/60-90 mmHg] (11/02/17 8:33 AM) Respiratory Rate 18 BRMIN [14-20 BRMIN] (11/02/17 8:33 AM) Peripheral Pulse 70 bpm Rate [60-100 bpm] (11/02/17 8:33 AM) Weight 112.727 kg (11/02/17 8:33 AM) Body Mass Index 27.3 m2 (11/02/17 8:33 AM) Problem List Condition Effective Dates Status Health Status Informant Acute CHF(Confirmed) Resolved CAD (coronary artery Resolved disease)(Confirmed) Cervical Active myelopathy(Confirmed ) Hypertension(Confirm Active ed) Neuropathy(Confirmed Active ) PE (pulmonary Resolved embolism)(Confirmed) SOBOE - Shortness of Active breath on exertion(Confirmed) Allergies, Adverse Reactions, Alerts Substance Reaction Severity Status CODEINE Active Medications No Known Medications Results No data available for this section [...]
--- OUTSIDE RECORDS SUMMARY | 2018-12-01 05:52 | XMS REPORT | Summary of Care ---
Author Author [facility] Organization [facility] Address Unknown Phone Unavailable Encounter TOM Quinn(NICOLE) [id number] Date(s): 12/08/17 - 12/08/17 [facility] [address], [address] [place], [place] [address] Discharge Disposition: Home or Self Care Attending Physician: Uzma Prince MD Referring Physician: Uzma Prince MD Vital Signs Most recent to 1 oldest [Reference Range]: Height 203.2 cm (12/08/17 2:22 PM) Temperature Oral 97.5 DegF [96.4-99.1 DegF] (12/08/17 2:22 PM) Blood Pressure 124/70 mmHg [90-140/60-90 mmHg] (12/08/17 2:22 PM) Respiratory Rate 18 BRMIN [14-20 BRMIN] (12/08/17 2:22 PM) Peripheral Pulse 78 bpm Rate [60-100 bpm] (12/08/17 2:22 PM) Weight 109.773 kg (12/08/17 2:22 PM) Body Mass Index 26.59 m2 (12/08/17 2:22 PM) Problem List Condition Effective Dates Status Health [...] Number of years: 50; 1 entered on: 12/08/17 1Quit smoking 7 years ago Assessment and Plan No data available for this section
--- OUTSIDE RECORDS SUMMARY | 2018-12-01 05:53 | XMS REPORT | Summary of Care ---
Author Organization Unknown Address Unknown Phone Unavailable Encounter HQ Kai(NICOLE) [id number] Date(s): 11/20/13 - 11/20/13 [facility] [address] [address] - [facility] Discharge Diagnosis: Acute neck pain Discharge Disposition: Home Physician Attending: Anshu Lundberg MD Reason for Visit NECK PAIN Vital Signs 1 2 3 Most recent to oldest [Reference Range]: 203.2 cm (11/20/13 3:09 PM) Height 97.8 DegF (11/20/13 11:30 PM) 97.5 DegF (11/20/13 8:30 PM) 97.8 DegF (11/20/13 3:09 PM) Temperature Oral [96.4-99.1 DegF] 146 mmHg *HI* (11/20/13 11:30 PM) 147 mmHg *HI* (11/20/13 8:30 PM) 145 mmHg *HI* (11/20/13 3:09 PM) Systolic Blood Pressure [90-140 mmHg] 83 mmHg (11/20/13 11:30 PM) 85 mmHg (11/20/13 8:30 PM) 91 mmHg *HI* (11/20/13 3:09 PM) Diastolic Blood Pressure [60-90 mmHg] 20 BRMIN (11/20/13 11:30 PM) 24 BRMIN *HI* (11/20/13 8:30 PM) 20 BRMIN (11/20/13 3:09 PM) Respiratory Rate [14-20 BRMIN] 76 bpm (11/20/13 11:30 PM) 84 bpm (11/20/13 8:30 PM) 89 bpm (11/20/13 3:09 PM) Peripheral Pulse Rate [60-100 bpm] 120.455 kg (11/20/13 3:09 PM) Weight 29.17 m2 (11/20/13 3:09 PM) Body Mass Index Problem List Condition Effective Dates Status Health Status Informant acid Active reflux(Confirmed) Acute CHF(Confirmed) Resolved atrial Resolved fibrillation(Confirm ed) CAD (coronary artery Resolved disease)(Confirmed) Cervical Active myelopathy(Confirmed ) COPD(Confirmed) Active heart Resolved attack(Confirmed) hypercholesteremia(C Active onfirmed) hypertension(Confirm Active ed) Hypertension(Confirm Active ed) hyperthyroid(Confirm Active ed) Neuropathy(Confirmed Active ) numbness,weakness of Active legs(Confirmed) PE (pulmonary Resolved embolism)(Confirmed) SOBOE - Shortness of Active breath on exertion(Confirmed) stroke(Confirmed) Resolved Allergies, Adverse Reactions, Alerts Substance Reaction Severity Status CODEINE Active Medications Dilaudid 0.5 mg, Route: IV, ONCE, Dosing Weight 120.455, kg, Start date: 11/20/13 18:49:0 0, Stop date: 11/20/13 18:49:00 Start Date: 11/20/13 Stop Date: 11/20/13 Status: Completed Results ELECTROLYTES Most recent to 1 oldest [Reference Range]: Sodium Lvl [135-145 138 mEq/L mEq/L] (11/20/13 6:45 PM) Potassium Lvl 3.5 mEq/L [3.5-5.1 mEq/L] (11/20/13 6:45 PM) Chloride Lvl [95-109 104 mEq/L mEq/L] (11/20/13 6:45 PM) CO2 [24-32 mEq/L] 25 mEq/L (11/20/13 6:45 PM) AGAP [10.0-20.0 12.5 mEq/L mEq/L] (11/20/13 6:45 PM) CHEM PANEL Most recent to 1 oldest [Reference Range]: Creatinine Lvl 1.2 mg/dL [0.5-1.4 mg/dL] (11/20/13 6:45 PM) eGFR 64 mL/min/1.73m2 1 *NA* (11/20/13 6:45 PM) BUN [7-22 mg/dL] 14 mg/dL (11/20/13 6:45 PM) B/C Ratio [6-25] 12 (11/20/13 6:45 PM) Glucose Lvl [70-99 132 mg/dL 2 mg/dL] *HI* (11/20/13 6:45 PM) Total Protein 7.5 g/dL [6.4-8.4 g/dL] (11/20/13 6:45 PM) Albumin Lvl [3.5-5.0 3.7 g/dL g/dL] (11/20/13 6:45 PM) Globulin [2.0-4.0 3.8 g/dL g/dL] (11/20/13 6:45 PM) A/G Ratio [0.7-1.6] 1.0 (11/20/13 6:45 PM) Calcium Lvl 8.8 mg/dL [8.5-10.5 mg/dL] (11/20/13 6:45 PM) ALT [0-65 unit/L] 28 unit/L (11/20/13 6:45 PM) AST [0-37 unit/L] 24 unit/L (11/20/13 6:45 PM) Alk Phos [39-136 52 unit/L unit/L] (11/20/13 6:45 PM) Bili Total [0.2-1.3 0.8 mg/dL mg/dL] (11/20/13 6:45 PM) 1Result Comment: The eGFR is calculated [...] be mul tiplied by the estimated BMI. 2Interpretive Data: Adult reference range values reflect the clinical guidelines of the [place] [employer]. IMMUNOLOGY Most recent to 1 oldest [Reference Range]: CRP [<=2.9 mg/L] 7.6 mg/L *HI* (11/20/13 6:45 PM) HEMATOLOGY Most recent to 1 oldest [Reference Range]: WBC [3.7-10.4 K/CMM] 6.0 K/CMM (11/20/13 6:45 PM) RBC [4.70-6.10 5.25 M/CMM M/CMM] (11/20/13 6:45 PM) Hgb [14.0-18.0 g/dL] 15.1 g/dL (11/20/13 6:45 PM) Hct [42.0-54.0 %] 44.9 % (11/20/13 6:45 PM) MCV [80.0-94.0 fL] 85.5 fL (11/20/13 6:45 PM) MCH [27.0-31.0 pg] 28.7 pg (11/20/13 6:45 PM) MCHC [32.0-36.0 33.6 g/dL g/dL] (11/20/13 6:45 PM) RDW [11.5-14.5 %] 16.7 % *HI* (11/20/13 6:45 PM) Platelet [133-450 175 K/CMM K/CMM] (11/20/13 6:45 PM) MPV [7.4-10.4 fL] 8.2 fL (11/20/13 6:45 PM) Segs [45.0-75.0 %] 61.5 % (11/20/13 6:45 PM) Lymphocytes 26.9 % [20.0-40.0 %] (11/20/13 6:45 PM) Monocytes [2.0-12.0 9.2 % %] (11/20/13 6:45 PM) Eosinophils [0.0-4.0 2.0 % %] (11/20/13 6:45 PM) Basophils [0.0-1.0 0.4 % %] (11/20/13 6:45 PM) Segs-Bands # 3.7 K/CMM [1.5-8.1 K/CMM] (11/20/13 6:45 PM) Lymphocytes # 1.6 K/CMM [1.0-5.5 K/CMM] (11/20/13 6:45 PM) Monocytes # [0.0-0.8 0.5 K/CMM K/CMM] (11/20/13 6:45 PM) Eosinophils # 0.1 K/CMM [0.0-0.5 K/CMM] (11/20/13 6:45 PM) Basophils # [0.0-0.2 0.0 K/CMM K/CMM] (11/20/13 6:45 PM) Sed Rate [0-15 17 mm/hr mm/hr] *HI* (11/20/13 6:45 PM) Medications Administered During Your Visit No data available for this section Immunizations Vaccine Date Refusal Reason influenza virus vaccine, inactivated 04/07/13 pneumococcal 23-valent vaccine 03/24/08 Social History Social History Type Response Substance Abuse Use: Past, Type: Cocaine, Route Inhaled, IV drug use: No, Has drug use interfered with your work or home life? Yes, Ready to change: Yes, Concerns about substance abuse in household: No, Drug Cessation Education Provided Yes Sexual Sexually active: Yes Exercise Times per week: Daily, Self assessment: Excellent condition, Exercise type: Walking Alcohol Use: Past, Has alcohol use interfered with work or home life? No, Do you ever drink more than intended? No, Has anyone been hurt or at risk by your drinking? No, Ready to change: No, Concerns about alcohol use in household: No Smoking Status Former smoker, Previous treatment: None, Ready to change: Yes, Exposure to Tobacco Smoke None, Cigarette Smoking Last 365 Days Yes, Reg Smoking Cessation Counseling Yes
--- OUTSIDE RECORDS SUMMARY | 2018-12-01 05:53 | XMS REPORT | Summary of Care ---
Author Author Organization Address Unknown Phone Unavailable Encounter HQ Kai(NICOLE) [id number] Date(s): 02/04/15 - 02/04/15 [address] [place] [address]- Discharge Diagnosis: Back pain Discharge Diagnosis: Muscle spasm Discharge Disposition: Home Attending Physician: Regina Hawk DO Vital Signs 1 2 3 Most recent to oldest [Reference Range]: 203.2 cm (02/04/15 9:41 AM) Height 1 2 3 Most recent to oldest [Reference Range]: 97.8 DegF (02/04/15 3:07 PM) 97.8 DegF (02/04/15 1:22 PM) 97.8 DegF (02/04/15 9:49 AM) Temperature Oral [96.4-99.1 DegF] 1 2 3 Most recent to oldest [Reference Range]: 139/79 mmHg (02/04/15 3:07 PM) 137/85 mmHg (02/04/15 1:22 PM) Blood Pressure [90-140/60-90 mmHg] 170 mmHg *HI* (02/04/15 9:49 AM) Systolic Blood Pressure [90-140 mmHg] 1 2 3 Most recent to oldest [Reference Range]: 93 mmHg *HI* (02/04/15 9:49 AM) Diastolic Blood Pressure [60-90 mmHg] 1 2 3 Most recent to oldest [Reference Range]: 18 BRMIN (02/04/15 3:07 PM) 18 BRMIN (02/04/15 1:22 PM) 18 BRMIN (02/04/15 9:49 AM) Respiratory Rate [14-20 BRMIN] 1 2 3 Most recent to oldest [Reference Range]: 81 bpm (02/04/15 3:07 PM) 66 bpm (02/04/15 1:22 PM) 75 bpm (02/04/15 9:49 AM) Peripheral Pulse Rate [60-100 bpm] 1 2 3 Most recent to oldest [Reference Range]: 114.545 kg (02/04/15 9:41 AM) Weight 1 2 3 Most recent to oldest [Reference Range]: 27.74 m2 (02/04/15 9:41 AM) Body Mass Index Problem List Condition Effective Dates Status Health Status Informant Acute CHF(Confirmed) Resolved CAD (coronary artery Resolved disease)(Confirmed) Cervical Active myelopathy(Confirmed ) Hypertension(Confirm Active ed) Neuropathy(Confirmed Active ) PE (pulmonary Resolved embolism)(Confirmed) SOBOE - Shortness of Active breath on exertion(Confirmed) Allergies, Adverse Reactions, Alerts Substance Reaction Severity Status CODEINE Active Medications acetaminophen-hydrocodone 325 mg-5 mg oral tablet 1 tab, Route: PO, Drug Form: TAB, Dosing Weight 114.545, kg, ONCE, STAT, Start d ate: 02/04/15 10:06:00, Stop date: 02/04/15 10:06:00 Notes: (Same as: Warren 325/5) Do not exceed 4gm/day of acetaminophen. Start Date: 02/04/15 Stop Date: 02/04/15 Status: Completed Dilaudid 0.5 mg, Route: IVP, ONCE, Dosing Weight 114.545, kg, Priority: STAT, Start date: 02/04/15 11:35:00, Stop date: 02/04/15 11:35:00 Start Date: 02/04/15 Stop Date: 02/04/15 Status: Completed Flexeril 10 mg, 1 tab, Route: PO, Drug form: TAB, ONCE, Dosing Weight 114.545, kg, Priori ty: STAT, Start date: 02/04/15 10:07:00, Stop date: 02/04/15 10:07:00 Notes: (Same As: Flexeril) Start Date: 02/04/15 Stop Date: 02/04/15 Status: Completed Flexeril 10 mg oral tablet 10 mg, PO, TID, PRN Muscle Spasm, X 10 day, # 30 tab, 0 Refill(s) Start Date: 02/04/15 Stop Date: 02/14/15 Status: Ordered ketOROLAC 30 mg, 1 mL, Route: IVP, Drug form: INJ, ONCE, Dosing Weight 114.545, kg, Priori ty: STAT, Start date: 02/04/15 14:08:00, Stop date: 02/04/15 14:08:00 Notes: (Same as:Toradol) IV bolus must be given >15 seconds. Give IM administration slowly and deeply into the muscle.Not for use > 4 days MEDICATION WASTE Product Size: 30 mgProduct Wasted: ___ mg Start Date: 02/04/15 Stop Date: 02/04/15 Status: Completed MiraLax oral powder for reconstitution 17 gm, PO, Daily, X 15 day, # 255 gm, 0 Refill(s) Start Date: 02/04/15 Stop Date: 02/19/15 Status: Ordered Results ELECTROLYTES Most recent to 1 oldest [Reference Range]: Sodium Lvl [135-145 140 mEq/L mEq/L] (02/04/15 10:37 AM) Potassium Lvl 3.9 mEq/L [3.5-5.1 mEq/L] (02/04/15 10:37 AM) Chloride Lvl [95-109 105 mEq/L mEq/L] (02/04/15 10:37 AM) CO2 [24-32 mEq/L] 25 mEq/L (02/04/15 10:37 AM) AGAP [10.0-20.0 13.9 mEq/L mEq/L] (02/04/15 10:37 AM) CHEM PANEL Most recent to 1 oldest [Reference Range]: Creatinine Lvl 1.2 mg/dL [0.5-1.4 mg/dL] (02/04/15 10:37 AM) eGFR 64 mL/min/1.73m2 1 *NA* (02/04/15 10:37 AM) BUN [7-22 mg/dL] 21 mg/dL (02/04/15 10:37 AM) B/C Ratio [6-25] 18 (02/04/15 10:37 AM) Glucose Lvl [70-99 109 mg/dL mg/dL] *HI* (02/04/15 10:37 AM) Total Protein 7.5 g/dL [6.4-8.4 g/dL] (02/04/15 10:37 AM) Albumin Lvl [3.5-5.0 3.5 g/dL g/dL] (02/04/15 10:37 AM) Globulin [2.0-4.0 4.0 g/dL g/dL] (02/04/15 10:37 AM) A/G Ratio [0.7-1.6] 0.9 (02/04/15 10:37 AM) Calcium Lvl 8.9 mg/dL [8.5-10.5 mg/dL] (02/04/15 10:37 AM) Phosphorus [2.5-4.5 2.4 mg/dL mg/dL] *LOW* (02/04/15 10:37 AM) Magnesium Lvl 2.0 mg/dL [1.8-2.4 mg/dL] (02/04/15 10:37 AM) ALT [0-65 unit/L] 36 unit/L (02/04/15 10:37 AM) AST [0-37 unit/L] 23 unit/L (02/04/15 10:37 AM) Alk Phos [39-136 58 unit/L unit/L] (02/04/15 10:37 AM) Bili Total [0.2-1.3 1.4 mg/dL mg/dL] *HI* (02/04/15 10:37 AM) Amylase Lvl [25-115 55 unit/L unit/L] (02/04/15 10:37 AM) Lipase Lvl [73-393 120 unit/L unit/L] (02/04/15 10:37 AM) 1Result Comment: The eGFR is calculated using [...] be mul tiplied by the estimated BMI. CARDIAC ENZYMES Most recent to 1 oldest [Reference Range]: Total CK [12-191 88 unit/L unit/L] (02/04/15 10:37 AM) CK MB [0.5-3.6 1.5 ng/mL ng/mL] (02/04/15 10:37 AM) CK MB Index 1.7 [0.0-2.5] (02/04/15 10:37 AM) Troponin-I <0.02 ng/mL [0.00-0.40 ng/mL] (02/04/15 10:37 AM) URINE AND STOOL Most recent to 1 oldest [Reference Range]: UA Turbidity [Clear] Clear (02/04/15 10:24 AM) UA Color [Yellow] Yellow *NA* (02/04/15 10:24 AM) UA pH [5.0-8.0] 6.5 (02/04/15 10:24 AM) UA Spec Grav 1.010 [<=1.030] (02/04/15 10:24 AM) UA Glucose Negative [Negative] (02/04/15 10:24 AM) UA Blood [Negative] Trace *ABN* (02/04/15 10:24 AM) UA Ketones Negative [Negative] *NA* (02/04/15 10:24 AM) UA Protein Negative [Negative] (02/04/15 10:24 AM) UA Urobilinogen 0.2 EU/dL [0.1-1.0 EU/dL] (02/04/15 10:24 AM) UA Bili [Negative] Negative *NA* (02/04/15 10:24 AM) UA Leuk Est Negative [Negative] (02/04/15 10:24 AM) UA Nitrite Negative [Negative] (02/04/15 10:24 AM) UA WBC [0-5 /HPF] <1 /HPF (02/04/15 10:24 AM) UA RBC [0-2 /HPF] 3 /HPF *HI* (02/04/15 10:24 AM) UA Sq Epi [Few] None Seen (02/04/15 10:24 AM) HEMATOLOGY Most recent to 1 oldest [Reference Range]: WBC [3.7-10.4 K/CMM] 5.4 K/CMM (02/04/15 10:37 AM) RBC [4.70-6.10 5.47 M/CMM M/CMM] (02/04/15 10:37 AM) Hgb [14.0-18.0 g/dL] 16.1 g/dL (02/04/15 10:37 AM) Hct [42.0-54.0 %] 47.8 % (02/04/15 10:37 AM) MCV [80.0-94.0 fL] 87.4 fL (02/04/15 10:37 AM) MCH [27.0-31.0 pg] 29.4 pg (02/04/15 10:37 AM) MCHC [32.0-36.0 33.7 g/dL g/dL] (02/04/15 10:37 AM) RDW [11.5-14.5 %] 16.8 % *HI* (02/04/15 10:37 AM) Platelet [133-450 128 K/CMM K/CMM] *LOW* (02/04/15 10:37 AM) MPV [7.4-10.4 fL] 8.2 fL (02/04/15 10:37 AM) Segs [45.0-75.0 %] 63.8 % (02/04/15 10:37 AM) Lymphocytes 25.4 % [20.0-40.0 %] (02/04/15 10:37 AM) Monocytes [2.0-12.0 9.0 % %] (02/04/15 10:37 AM) Eosinophils [0.0-4.0 1.4 % %] (02/04/15 10:37 AM) Basophils [0.0-1.0 0.4 % %] (02/04/15 10:37 AM) Segs-Bands # 3.5 K/CMM [1.5-8.1 K/CMM] (02/04/15 10:37 AM) Lymphocytes # 1.4 K/CMM [1.0-5.5 K/CMM] (02/04/15 10:37 AM) Monocytes # [0.0-0.8 0.5 K/CMM K/CMM] (02/04/15 10:37 AM) Eosinophils # 0.1 K/CMM [0.0-0.5 K/CMM] (02/04/15 10:37 AM) PT [12.0-14.7 19.9 seconds seconds] *HI* (02/04/15 10:37 AM) INR [0.85-1.17] 1.66 *HI* (02/04/15 10:37 AM) PTT [22.9-35.8 35.4 seconds seconds] (02/04/15 10:37 AM) Immunizations Vaccine Date Refusal Reason influenza virus vaccine, inactivated 04/07/13 pneumococcal 23-valent vaccine 03/24/08 Procedures Procedure Date Related Diagnosis Body Site Ablation1 Appendectomy Arthroscopy of knee2 Catheterization of both left and right heart3 Colonoscopy Foot reconstruction4 Insertion of Port-a-cath Operation5 Replacement of left knee joint 1cardiac, for atrial fibrillation 2right,with fracture repair [...] alcohol concerns: No. Smoking Status Former smoker; Tobacco use per day: 8; Number of years: 50; Previous treatment: None; Ready to change: Yes; Exposure to Tobacco Smoke None; Cigarette Smoking Last 365 Days Yes; Reg Smoking Cessation Counseling Yes Assessment and Plan No data available for this section
--- OUTSIDE RECORDS SUMMARY | 2018-12-01 05:53 | XMS REPORT | Summary of Care ---
Author Organization Unknown Address Unknown Phone Unavailable Encounter Dates Location Diagnoses Discharge Providers Disposition 10/02/2013 [facility] [place], [facility] [place], [place] 10/05/2013 [id number] [address] , [place] Reason for Visit FEVER, SEPSIS Vital Signs 1 2 3 Most recent to oldest [Reference Range]: 203.2 cm (10/03/2013 03:21:00 /[place]) 187.96 cm (10/02/2013 18:32:00 /[place]) Height 97.6 DegF (10/05/2013 11:52:00 /[place]) 97.6 DegF (10/05/2013 07:45:00 /[place]) 97.5 DegF (10/05/2013 04:00:00 /[place]) Temperature Oral [96.4-99.1 DegF] 110 mmHg (10/05/2013 11:52:00 /[place]) 108 mmHg (10/05/2013 07:45:00 /[place]) 108 mmHg (10/05/2013 04:00:00 /[place]) Systolic Blood Pressure [90-140 mmHg] 67 mmHg (10/05/2013 11:52:00 /[place]) 70 mmHg (10/05/2013 07:45:00 /[place]) 69 mmHg (10/05/2013 04:00:00 /[place]) Diastolic Blood Pressure [60-90 mmHg] 18 BRMIN (10/05/2013 11:52:00 /[place]) 18 BRMIN (10/05/2013 07:45:00 /[place]) 18 BRMIN (10/05/2013 07:31:00 /[place]) Respiratory Rate [14-20 BRMIN] 82 bpm (10/05/2013 11:52:00 /[place]) 71 bpm (10/05/2013 07:45:00 /[place]) 75 bpm (10/05/2013 04:00:00 [facility]) Peripheral Pulse Rate [60-100 bpm] 125.142 kg (10/03/2013 03:21:00 [facility]) 127.273 kg (10/02/2013 18:32:00 [facility]) Weight 30.31 m2 (10/03/2013 03:21:00 [facility]) 36.03 m2 (10/02/2013 18:32:00 [facility]) Body Mass Index Problem List Condition Effective [...] exertion(Confirmed) stroke(Confirmed) Resolved Allergies, Adverse Reactions, Alerts Status Substance Reaction Severity Active CODEINE Medications Medication Instructions Start Date Stop Date Status acetaminophen 650 mg, 2 tab, Route: PO, Drug 10/03/2013 10/05/2013 Discontinued form: TAB, Q6H, Dosing Weight 125.142, kg, PRN Pain, Start date: 10/03/13 4:32:00, Duration: 30 day, Stop date: 11/02/13 4:31:00 Do not exceed 4 gm/day. (Same as: Tylenol) albuterol 0.083% 2.49 mg, 3 mL, Route: NEB, Drug 10/03/2013 10/05/2013 Discontinued inhalation solution form: SOLN, PRN, Dosing Weight 127.273, kg, PRN Respiratory Protocol, Start date: 10/03/13 2:34:00, Duration: 30 day, Stop date: 11/02/13 2:33:00 SEE RT DOCUMENTATION (Same as: Proventil) Ambien 5 mg, 1 tab, Route: PO, Drug form: 10/04/2013 10/05/2013 Discontinued TAB, Bedtime, Dosing Weight 125.142, kg, PRN Insomnia, Start date: 10/04/13 7:31:00, Duration: 30 day, Stop date: 11/03/13 7:30:00 (Same As: Ambien) aspirin 325 mg 325 mg, 1 tab, Route: PO, Drug 10/03/2013 10/05/2013 Discontinued tablet, enteric form: ECTAB, Q24H, Dosing Weight coated 125.142, kg, Start date: 10/03/13 5:00:00, Duration: 30 day, Stop date: 11/01/13 5:00:00 (Do Not Crush) Do not crush or chew. Ativan 1 mg, Route: IVP, Drug form: INJ, 10/03/2013 10/03/2013 Completed ONCE, Dosing Weight 127.273, kg, PRN Anxiety, Start date: 10/03/13 1:16:00 Ativan 1 mg, 0.5 mL, Route: IV, Drug form: 10/03/2013 10/05/2013 Discontinued INJ, Q4H, Dosing Weight 125.142, kg, PRN as needed for anxiety, Start date: 10/03/13 4:33:00, Duration: 30 day, Stop date: 11/02/13 4:32:00 (Same as: Ativan) azithromycin 500 mg, Route: IVPB, ONCE, Dosing 10/02/2013 10/03/2013 Completed Weight 127.273, kg, Priority: STAT, Start date: 10/02/13 23:43:00, Stop date: 10/02/13 23:43:00 azithromycin + 500 mg, Route: IVPB, [id number], 10/04/2013 10/03/2013 Canceled Sodium Chloride 0.9% Dosing Weight 127.273, kg, IV 250 mL Priority: Routine, Start date: 10/04/13 2:00:00, Duration: 30 day, Stop date: 11/02/13 2:00:00 (Same As: Zithromax IV) ceftriaxone + Sodium 1 gm, Route: IVPB, [id number], Dosing 10/04/2013 10/03/2013 Canceled Chloride 0.9% IV 100 Weight 127.273, kg, Priority: mL Routine, Start date: 10/04/13 1:00:00, Duration: 30 day, Stop date: 11/02/13 1:00:00 (Same As: Rocephin). Use with 100ml NS mini-bag PLUS and infuse over 30 min ceftriaxone + Sodium 1 gm, Route: IVPB, ONCE, Dosing 10/02/2013 10/03/2013 Completed Chloride 0.9% IV 100 Weight 127.273, kg, Priority: STAT, mL Start date: 10/02/13 22:30:00, Stop date: 10/02/13 22:30:00 (Same As: Rocephin). Use with 100ml NS mini-bag PLUS and infuse over 30 min Combivent inhalation 1 puff, Route: INHALATION, Drug 10/03/2013 10/05/2013 Discontinued aerosol with adapter Form: AERO, Dosing Weight 125.142, kg, QID, Start date: 10/03/13 9:00:00, Duration: 30 day, Stop date: 11/01/13 21:00:00 Same as: Combivent Respimat docusate sodium 100 100 mg, 1 cap, Route: PO, Drug 10/03/2013 10/05/2013 Discontinued mg oral capsule form: CAP, BID, Dosing Weight 125.142, kg, Start date: 10/03/13 9:00:00, Duration: 30 day, Stop date: 11/01/13 17:00:00 (Same as: Colace) (Do Not Crush) guaifenesin 200 mg, 10 mL, Route: PO, Drug 10/03/2013 10/05/2013 Discontinued form: LIQ, Q4H, Dosing Weight 127.273, kg, PRN Cough, Start date: 10/03/13 2:34:00, Duration: 30 day, Stop date: 11/02/13 2:33:00 (Same as: Robitussin) heparin flush 500 unit, 5 mL, Route: IVP, Drug 10/05/2013 10/05/2013 Discontinued form: SOLN, Q30D, PRN Line Flush, Start date: 10/05/13 13:05:00, Duration: 30 day, Stop date: 11/04/13 13:04:00 (Same as: Heparin Lock Flush) lisinopril 5 mg, 1 tab, Route: PO, Drug form: 10/03/2013 10/05/2013 Discontinued TAB, BID, Dosing Weight 125.142, kg, Start date: 10/03/13 9:00:00, Duration: 30 day, Stop date: 11/01/13 17:00:00 (Same as: Prinivil, Zestril) Lovenox 40 mg, 0.4 mL, Route: SUB-Q, Drug 10/03/2013 10/05/2013 Discontinued form: INJ, Q24H, Dosing Weight 125.142, kg, Start date: 10/03/13 7:00:00, Duration: 30 day, Stop date: 11/01/13 7:00:00 (Same as: Lovenox) Lyrica 100 mg, 2 cap, Route: PO, Drug 10/03/2013 10/05/2013 Discontinued form: CAP, TID, Dosing Weight 125.142, kg, Start date: 10/03/13 9:00:00, Duration: 30 day, Stop date: 11/01/13 21:00:00 Same as Lyrica Lyrica 100 mg, 2 cap, Route: PO, Drug 10/02/2013 10/03/2013 Completed form: CAP, ONCE, Dosing Weight 127.273, kg, Start date: 10/02/13 23:42:00, Stop date: 10/02/13 23:42:00 Same as Lyrica metoprolol tartrate 25 mg, 1 tab, Route: PO, Drug form: 10/03/2013 10/04/2013 Discontinued TAB, Q12H, Dosing Weight 125.142, kg, Start date: 10/03/13 9:00:00, Duration: 30 day, Stop date: 11/01/13 21:00:00 (Same as: Lopressor) morphine Sulfate 4 mg, Route: IVP, Drug form: INJ, 10/02/2013 10/02/2013 Completed ONCE, Dosing Weight 127.273, kg, Priority: STAT, Start date: 10/02/13 20:58:00, Stop date: 10/02/13 20:58:00 morphine Sulfate 4 mg, 2 mL, Route: IVP, Drug form: 10/03/2013 10/05/2013 Discontinued INJ, Q4H, Dosing Weight 125.142, kg, PRN Pain Score 7-10, Start date: 10/03/13 4:42:00, Duration: 30 day, Stop date: 11/02/13 4:41:00 (Same as:MORPhine Sulfate) morphine Sulfate 2 mg, Route: IVP, ONCE, Dosing 10/03/2013 10/03/2013 Completed Weight 127.273, kg, Start date: 10/03/13 1:16:00, Stop date: 10/03/13 1:16:00 morphine Sulfate 4 mg, 2 mL, Route: IV, Drug form: 10/03/2013 10/03/2013 Discontinued INJ, Q3H, Dosing Weight 125.142, kg, PRN Pain Score 7-10, Start date: 10/03/13 4:33:00, Duration: 30 day, Stop date: 11/02/13 4:32:00 (Same as:MORPhine Sulfate) morphine Sulfate 2 mg, Route: IVP, Drug form: INJ, 10/02/2013 10/02/2013 Completed ONCE, Dosing Weight 127.273, kg, Priority: STAT, Start date: 10/02/13 23:18:00, Stop date: 10/02/13 23:18:00 Dannemora 7.5/325 oral 1 tab, Route: PO, Drug Form: TAB, 10/03/2013 10/05/2013 Discontinued tablet Dosing Weight 125.142, kg, Q4H, PRN Pain Score 4-6, Start date: 10/03/13 4:32:00, Duration: 30 day, Stop date: 11/02/13 4:31:00 Same as Dannemora 325-7.5mg Do not exceed 4gm/day of acetaminophen. NS 1,000 mL 1,000 mL, Rate: 100 ml/hr, Infuse 10/04/2013 10/05/2013 Discontinued over: 10 hr, Route: IV, Dosing Weight 125.142 kg, Total Volume: 1,000, Start date: 10/04/13 16:54:00, Duration: 30 day, Stop date: 11/03/13 16:53:00 ondansetron 4 mg, 2 mL, Route: IVP, Drug form: 10/03/2013 10/05/2013 Discontinued INJ, Q6H, Dosing Weight 127.273, kg, PRN Nausea & Vomiting, Start date: 10/03/13 2:34:00, Duration: 30 day, Stop date: 11/02/13 2:33:00 (Same as: Zofran) ondansetron 4 mg, Route: IVP, ONCE, Dosing 10/02/2013 10/02/2013 Completed Weight 127.273, kg, Priority: STAT, Start date: 10/02/13 18:54:00, Stop date: 10/02/13 18:54:00 pantoprazole 40 mg, Route: IVP, Drug form: INJ, 10/03/2013 10/03/2013 Discontinued Daily, Dosing Weight 125.142, kg, Priority: Routine, Start date: 10/03/13 9:00:00, Duration: 30 day, Stop date: 11/01/13 9:00:00 For IV push reconstitute with 10 ml 0.9% sodium chloride and push over 2 minutes. (Same as: Protonix) propylthiouracil 50 mg, 1 tab, Route: PO, Drug form: 10/03/2013 10/05/2013 Discontinued TAB, Q8H, Dosing Weight 125.142, kg, Start date: 10/03/13 8:00:00, Duration: 30 day, Stop date: 11/02/13 0:00:00 Propylthiouracil is associated with risk of serious liver damage. Patient should be monitored for symptoms of liver injury. Protonix 40 mg, 1 tab, Route: PO, Drug form: 10/04/2013 10/05/2013 Discontinued ECTAB, Before Breakfast, Start date: 10/04/13 7:30:00, Duration: 30 day, Stop date: 11/02/13 7:30:00 Tablet should not be chewed or crushed.(Same as: Protonix) Saline Flush 0.9% 5 ml, Route: IVP, Drug Form: INJ, 10/03/2013 10/05/2013 Discontinued Dosing Weight 127.273, kg, PRN, PRN Line Flush, Start date: 10/03/13 2:34:00, Duration: 30 day, Stop date: 11/02/13 2:33:00 Same as: BD Posiflush Sterile Saline Flush 0.9% 5 mL, Route: IVP, Drug Form: INJ, 10/02/2013 10/03/2013 Discontinued Dosing Weight 127.273, kg, PRN, PRN Line Flush, Start date: 10/02/13 18:54:00, Duration: 30 day, Stop date: 11/01/13 18:53:00 Same as: BD Posiflush Sterile simvastatin 20 mg, 1 tab, Route: PO, Drug form: 10/03/2013 10/05/2013 Discontinued TAB, Bedtime, Dosing Weight 125.142, kg, Start date: 10/03/13 21:00:00, Duration: 30 day, Stop date: 11/01/13 21:00:00 (Same as: Zocor) simvastatin 20 mg, 1 tab, Route: PO, Drug form: 10/03/2013 10/03/2013 Completed TAB, ONCE, Dosing Weight 125.142, kg, Start date: 10/03/13 4:37:00, Stop date: 10/03/13 4:37:00 (Same as: Zocor) sodium chloride 20 mL, Route: IVP, Start date: 10/05/2013 10/05/2013 Discontinued 10/05/13 13:05:00, Duration: 30 day, Stop date: 11/04/13 13:04:00, PRN Line Flush preservative free. sodium chloride 10 mL, Route: IVP, Start date: 10/05/2013 10/05/2013 Discontinued 10/05/13 13:04:00, Duration: 30 day, Stop date: 11/04/13 13:03:00, PRN Line Flush preservative free. Sodium Chloride 0.9% 500 mL, Rate: 500 ml/hr, Infuse 10/02/2013 10/02/2013 Completed (Bolus) IV 500 mL over: 1 hr, Route: IV, Dosing Weight 127.273 kg, Total Volume: 500, Priority: STAT, Start date: 10/02/13 19:01:00, Duration: 1 doses or times, Stop date: 10/02/13 20:00:00, Bolus Dose Bolus Dose Sodium Chloride 0.9% 1,000 mL, Rate: 90 ml/hr, Infuse 10/03/2013 10/03/2013 Discontinued IV 1,000 mL over: 11.1 hr, Route: IV, Dosing Weight 127.273 kg, Total Volume: 1,000, Start date: 10/03/13 2:34:00, Duration: 30 day, Stop date: 11/02/13 2:33:00 Tylenol 650 mg, 2 tab, Route: PO, Drug 10/02/2013 10/02/2013 Completed form: TAB, ONCE, Dosing Weight 127.273, kg, Priority: STAT, Start date: 10/02/13 19:01:00, Stop date: 10/02/13 19:01:00 Do not exceed 4 gm/day. (Same as: Tylenol) Zofran 4 mg, 2 mL, Route: IVP, Drug form: 10/02/2013 10/03/2013 Completed INJ, ONCE, Dosing Weight 127.273, kg, Priority: STAT, Start date: 10/02/13 19:01:00, Stop date: 10/02/13 19:01:00 (Same as: Zofran) Zofran 4 mg, 2 mL, Route: IV, Drug form: 10/03/2013 10/05/2013 Discontinued INJ, Q4H, Dosing Weight 125.142, kg, PRN as needed for nausea/vomiting, Start date: 10/03/13 4:32:00, Duration: 30 day, Stop date: 11/02/13 4:31:00 (Same as: Zofran) Results ELECTROLYTES 1 2 3 Most recent to oldest [Reference Range]: 141 mEq/L (10/05/2013 06:30:00 /[place]) 138 mEq/L (10/03/2013 08:32:00 /[place]) 139 mEq/L (10/02/2013 19:50:00 /[place]) Sodium Lvl [135-145 mEq/L] 3.5 mEq/L (10/05/2013 06:30:00 /[place]) 3.6 mEq/L (10/03/2013 08:32:00 /[place]) 4.0 mEq/L (10/02/2013 19:50:00 /[place]) Potassium Lvl [3.5-5.1 mEq/L] 109 mEq/L (10/05/2013 06:30:00 /[place]) 105 mEq/L (10/03/2013 08:32:00 /[place]) 106 mEq/L (10/02/2013 19:50:00 /[place]) Chloride Lvl [95-109 mEq/L] 27 mEq/L (10/05/2013 06:30:00 /[place]) 24 mEq/L (10/03/2013 08:32:00 [facility]) 25 mEq/L (10/02/2013 [facility]50[facility] CO2 [24-32 mEq/L] 8.5 mEq/L *LOW* (10/05/2013 06:30:00 /[place]) 12.6 mEq/L (10/03/2013 08:32:00 /[place]) 12.0 mEq/L (10/02/2013 19:50:00 /[place]) AGAP [10.0-20.0 mEq/L] CHEM PANEL 1 2 3 Most recent to oldest [Reference Range]: 1.0 mg/dL (10/05/2013 06:30:00 /[place]) 1.3 mg/dL (10/03/2013 08:32:00 [facility]) 1.2 mg/dL (10/02/2013 19:50:00 /[place]) Creatinine Lvl [0.5-1.4 mg/dL] 80 mL/min/1.73m2 1 *NA* (10/05/2013 06:30:00 [facility]) 58 mL/min/1.73m2 2 *NA* (10/03/2013 08:32:00 [facility]) 64 mL/min/1.73m2 3 *NA* (10/02/2013 19:50:00 [facility]) eGFR 12 mg/dL (10/05/2013 06:30:00 /[place]) 19 mg/dL (10/03/2013 08:32:00 /[place]) 23 mg/dL *HI* (10/02/2013 19:50:00 [facility]) BUN [7-22 mg/dL] 15 (10/03/2013 08:32:00 /[place]) 19 (10/02/2013 19:50:00 /[place]) B/C Ratio [6-25] 115 mg/dL 4 *HI* (10/05/2013 06:30:00 /[place]) 134 mg/dL 5 *HI* (10/03/2013 08:32:00 /[place]) 106 mg/dL 6 *HI* (10/02/2013 19:50:00 /[place]) Glucose Lvl [70-99 mg/dL] 6.5 g/dL (10/03/2013 08:32:00 /[place]) 7.6 g/dL (10/02/2013 19:50:00 [facility]) Total Protein [6.4-8.4 g/dL] 3.4 g/dL *LOW* (10/03/2013 08:32:00 [facility]) 3.7 g/dL (10/02/2013 19:50:00 [facility]) Albumin Lvl [3.5-5.0 g/dL] 3.1 g/dL (10/03/2013 08:32:00 [facility]) 3.9 g/dL (10/02/2013 19:50:00 [facility]) Globulin [2.0-4.0 g/dL] 1.1 (10/03/2013 08:32:00 [facility]) 0.9 (10/02/2013 19:50:00 [facility]) A/G Ratio [0.7-1.6] 8.6 mg/dL (10/05/2013 06:30:00 [facility]) 7.6 mg/dL *LOW* (10/03/2013 08:32:00 [facility]) 8.5 mg/dL (10/02/2013 19:50:00 [facility]) Calcium Lvl [8.5-10.5 mg/dL] 2.3 mg/dL *LOW* (10/04/2013 07:10:00 [facility]) Phosphorus [2.5-4.5 mg/dL] 2.1 mg/dL (10/04/2013 07:10:00 [facility]) Magnesium Lvl [1.8-2.4 mg/dL] 29 unit/L (10/03/2013 08:32:00 [facility]) 34 unit/L (10/02/2013 19:50:00 [facility]) ALT [0-65 unit/L] 27 unit/L (10/03/2013 08:32:00 [facility]) 32 unit/L (10/02/2013 19:50:00 [facility]) AST [0-37 unit/L] 43 unit/L (10/03/2013 08:32:00 [facility]) 54 unit/L (10/02/2013 19:50:00 [facility]) Alk Phos [39-136 unit/L] 1.5 mg/dL *HI* (10/03/2013 08:32:00 /[place]) 1.2 mg/dL (10/02/2013 19:50:00 /[place]) Bili Total [0.2-1.3 mg/dL] 1.4 mMol/L (10/02/2013 19:50:00 /[place]) Lactic Acid Lvl [0.5-2.2 mMol/L] 1Result Comment: The eGFR is calculated using [...] be mul tiplied by the estimated BMI. 3Result Comment: The eGFR is calculated using [...] be mul tiplied by the estimated BMI. 4Interpretive Data: Adult reference range values reflect the clinical guidelines of the [place] [employer]. 5Interpretive Data: Adult reference range values reflect the clinical guidelines of the [place] [employer]. 6Interpretive Data: Adult reference range values reflect the clinical guidelines of the [place] [employer]. CARDIAC ENZYMES 1 2 3 Most recent to oldest [Reference Range]: 188 unit/L (10/02/2013 19:50:00 /[place]) Total CK [12-191 unit/L] 0.7 ng/mL (10/02/2013 19:50:00 [facility]) CK MB [0.5-3.6 ng/mL] 0.4 (10/02/2013 19:50:00 /[place]) CK MB Index [0.0-2.5] <0.02 ng/mL (10/02/2013 19:50:00 /[place]) Troponin-I [0.00-0.40 ng/mL] LIPIDS 1 2 3 Most recent to oldest [Reference Range]: 3.93 *LOW* (10/03/2013 08:32:00 /[place]) CHD Risk [4.00-7.30] 106 mg/dL (10/03/2013 08:32:00 [facility]) Chol [<=199 mg/dL] 147 mg/dL (10/03/2013 08:32:00 /[place]) Trig [<=149 mg/dL] 27 mg/dL *LOW* (10/03/2013 08:32:00 /[place]) HDL [>=61 mg/dL] 50 mg/dL (10/03/2013 08:32:00 [facility]) LDL (Calculated) [<=99 mg/dL] 29 *NA* (10/03/2013 08:32:00 [facility]) VLDL URINE AND STOOL 1 2 3 Most recent to oldest [Reference Range]: Clear (10/02/2013 23:15:00 [facility]) UA Turbidity [Clear] Yellow *NA* (10/02/2013 23:15:00 [facility]) UA Color [Yellow] 5.0 (10/02/2013 23:15:00 [facility]) UA pH [5.0-8.0] 1.014 (10/02/2013 23:15:00 [facility]) UA Spec Grav [<=1.030] Negative mg/dL *NA* (10/02/2013 23:15:00 [facility]) UA Glucose [Negative mg/dL] Small *ABN* (10/02/2013 23:15:00 [facility]) UA Blood [Negative] Negative mg/dL *NA* (10/02/2013 23:15:00 [facility]) UA Ketones [Negative mg/dL] Negative mg/dL (10/02/2013 23:15:00 [facility]) UA Protein [Negative mg/dL] <=1.0 mg/dL *NA* (10/02/2013 23:15:00 [facility]) UA Urobilinogen [0.1-1.0 mg/dL] Negative *NA* (10/02/2013 23:15:00 [facility]) UA Bili [Negative] Negative (10/02/2013 23:15:00 [facility]) UA Leuk Est [Negative] Negative (10/02/2013 23:15:00 [facility]) UA Nitrite [Negative] <1 /HPF (10/02/2013 23:15:00 [facility]) UA WBC [0-5 /HPF] 10 /HPF *HI* (10/02/2013 23:15:00 [facility]) UA RBC [0-2 /HPF] None Seen *NA* (10/02/2013 23:15:00 [facility]) UA Sq Epi Few /LPF *NA* (10/02/2013 23:15:00 [facility]) UA Mucus [None Seen /LPF] HEMATOLOGY 1 2 3 Most recent to oldest [Reference Range]: 3.9 K/CMM (10/05/2013 06:30:00 [facility]) 8.6 K/CMM (10/03/2013 08:32:00 [facility]) 11.5 K/CMM *HI* (10/02/2013 19:50:00 /[place]) WBC [3.7-10.4 K/CMM] 4.75 M/CMM (10/05/2013 06:30:00 /[place]) 4.99 M/CMM (10/03/2013 08:32:00 /[place]) 5.63 M/CMM (10/02/2013 19:50:00 [facility]) RBC [4.70-6.10 M/CMM] 13.8 g/dL *LOW* (10/05/2013 06:30:00 /[place]) 14.8 g/dL (10/03/2013 08:32:00 /[place]) 16.4 g/dL (10/02/2013 19:50:00 [facility]) Hgb [14.0-18.0 g/dL] 42.0 % (10/05/2013 06:30:00 /[place]) 44.2 % (10/03/2013 08:32:00 [facility]) 48.8 % (10/02/2013 19:50:00 [facility]) Hct [42.0-54.0 %] 88.4 fL (10/05/2013 06:30:00 /[place]) 88.5 fL (10/03/2013 08:32:00 [facility]) 86.7 fL (10/02/2013 19:50:00 [facility]) MCV [80.0-94.0 fL] 29.1 pg (10/05/2013 06:30:00 [facility]) 29.6 pg (10/03/2013 08:32:00 /[place]) 29.2 pg (10/02/2013 19:50:00 [facility]) MCH [27.0-31.0 pg] 32.9 g/dL (10/05/2013 06:30:00 /[place]) 33.4 g/dL (10/03/2013 08:32:00 /[place]) 33.7 g/dL (10/02/2013 19:50:00 [facility]) MCHC [32.0-36.0 g/dL] 16.1 % *HI* (10/05/2013 06:30:00 [facility]) 16.1 % *HI* (10/03/2013 08:32:00 /[place]) 15.8 % *HI* (10/02/2013 19:50:00 /[place]) RDW [11.5-14.5 %] 145 K/CMM (10/05/2013 06:30:00 /[place]) 132 K/CMM *LOW* (10/03/2013 08:32:00 /[place]) 170 K/CMM (10/02/2013 19:50:00 /[place]) Platelet [133-450 K/CMM] 8.4 fL (10/05/2013 06:30:00 /[place]) 8.2 fL (10/03/2013 08:32:00 /[place]) 8.6 fL (10/02/2013 19:50:00 /[place]) MPV [7.4-10.4 fL] 60.1 % (10/05/2013 06:30:00 /[place]) 82.8 % *HI* (10/03/2013 08:32:00 /[place]) 63.0 % (10/02/2013 19:50:00 /[place]) Segs [45.0-75.0 %] 23.0 % *HI* (10/02/2013 19:50:00 /[place]) Bands [0.0-11.0 %] 24.7 % (10/05/2013 06:30:00 /[place]) 7.9 % *LOW* (10/03/2013 08:32:00 /[place]) 8.0 % *LOW* (10/02/2013 19:50:00 /[place]) Lymphocytes [20.0-40.0 %] 2.0 % *HI* (10/02/2013 19:50:00 /[place]) Atypical Lymphs [<=0.0 %] 10.7 % (10/05/2013 06:30:00 /[place]) 9.2 % (10/03/2013 08:32:00 /[place]) 4.0 % (10/02/2013 19:50:00 /[place]) Monocytes [2.0-12.0 %] 3.8 % (10/05/2013 06:30:00 /[place]) 0.0 % (10/03/2013 08:32:00 [facility]/[place]) Eosinophils [0.0-4.0 %] 0.7 % (10/05/2013 06:30:00 [facility]/[place]) 0.1 % (10/03/2013 08:32:00 /[place]) Basophils [0.0-1.0 %] 2.3 K/CMM (10/05/2013 06:30:00 /[place]) 7.2 K/CMM (10/03/2013 08:32:00 /[place]) 9.9 K/CMM *HI* (10/02/2013 19:50:00 /[place]) Segs-Bands # [1.5-8.1 K/CMM] 1.0 K/CMM (10/05/2013 06:30:00 /[place]) 0.7 K/CMM *LOW* (10/03/2013 08:32:00 /[place]) 1.2 K/CMM (10/02/2013 19:50:00 /[place]) Lymphocytes # [1.0-5.5 K/CMM] 0.4 K/CMM (10/05/2013 06:30:00 /[place]) 0.8 K/CMM (10/03/2013 08:32:00 /[place]) 0.5 K/CMM (10/02/2013 19:50:00 /[place]) Monocytes # [0.0-0.8 K/CMM] 0.1 K/CMM (10/05/2013 06:30:00 /[place]) 0.0 K/CMM (10/03/2013 08:32:00 /[place]) Eosinophils # [0.0-0.5 K/CMM] 0.0 K/CMM (10/05/2013 06:30:00 /[place]) 0.0 K/CMM (10/03/2013 08:32:00 /[place]) Basophils # [0.0-0.2 K/CMM] See Note (10/02/2013 19:50:00 /[place]) RBC Morph Slight (10/02/2013 19:50:00 /[place]) Polychrom [None Seen] Normal (10/02/2013 19:50:00 /[place]) Plt Morph 20 mm/hr *HI* (10/03/2013 18:30:10 [facility]) Sed Rate [0-15 mm/hr] 20.3 seconds *HI* (10/02/2013 19:50:00 [facility]) PT [12.0-14.7 seconds] 1.77 7 *HI* (10/02/2013 19:50:00 [facility]) INR [0.85-1.17] 32.7 seconds 8 (10/02/2013 19:50:00 [facility]) PTT [22.9-35.8 seconds] 7Interpretive Data: RECOMMENDED RANGES FOR PROTIME INR: 2.0-3.0 for most medical and surgical thromboembolic states. 2.5-3.5 for artificial heart valves and recurrent embolism. INR SHOULD BE USED ONLY FOR PATIENTS ON STABLE ANTICOAGULANT THERAPY. 8Interpretive Data: Heparin Therapeutic Range: 57 - 92 Seconds VIRAL - SEROLOGY 1 2 3 Most recent to oldest [Reference Range]: Negative (10/03/2013 02:45:12 [facility]) Influ A [Negative] Negative 9 (10/03/2013 02:45:12 [facility]) Influ B [Negative] 9Interpretive Data: Influenza A&B Antigen: Due to the low sensitivity of this test a negative result does not exclude influ parris virus infection. A diagnosis of influenza should be considered based on a p atient's clinical presentation and empiric antiviral treatment should be conside red, if indicated. If more conclusive testing is desired, follow-up confirmatory testing with either viral culture or PCR is warranted. Medications Administered During Your Visit No data available for this section Immunizations Vaccine Date Refusal Reason influenza virus vaccine, inactivated 04/07/2013 pneumococcal 23-valent vaccine 03/24/2008 Procedures Procedure Type Body Site Date of Procedure Related Diagnosis Replacement of left knee joint Social History Social History Type Response Substance [...] No. Household alcohol concerns: No. Smoking Status Use: Former smoker. 8 per day. 50 year(s). Previous treatment: None. Ready to change: Yes. Tobacco smoke exposure: None. Did the Patient Smoke Cigarettes Anytime During the Last 365 Days? Yes. Cessation Counseling Provided? Yes. Assessment and Plan Extracted from: Title: Clinical Document Author: Abhayqwangel, Taras Date: 10/04/2013 Progress Daily [facility] SUBJECTIVE Pt is feeling nauseous and very weak and could not tolerate Physical therapy. denies abdominal pain, or vomiting OBJECTIVE Vitals Signs (last 24 hrs) Last Charted Minimum Maximum Temp 97.5 (OCT 04 07:02)96.9 (OCT 04 00:00)98.3 (OCT 03 11:52) Heart Rate 76 (OCT 04 09:00)74 (OCT 04 06:00)83 (OCT 03 19:00) Resp Rate 14 (OCT 04 09:00)L 12 (OCT 04 00:00)H 21 (OCT 03 13:21) SBP 100 (OCT 04 08:00)92 (OCT 04 06:00)130 (OCT 03 22:00) DBP L 50 (OCT 04 08:00)L 50 (OCT 04 06:00)74 (OCT 03 13:21) Labs (Last four charted values) WBC 8.6(SEP 17)H 11.5(SEP 16) Hgb 14.8(SEP 17)16.4(SEP 16) Hct 44.2(SEP 17)48.8(SEP 16) Plt L 132(SEP 17)170(SEP 16) Na 138(SEP 17)139(SEP 16) K 3.6(SEP 17)4.0(SEP 16) CO2 24(SEP 17)25(SEP 16) Cl 105(SEP 17)106(SEP 16) Cr 1.3(SEP 17)1.2(SEP 16) BUN 19(SEP 17)H 23(SEP 16) Glucose Random H 134(SEP 17)H 106(SEP 16) Mg 2.1(SEP 18) Phos L 2.3(SEP 18) Ca L 7.6(SEP 17)8.5(SEP 16) PT H 20.3(MAR 16) INR H 1.77(OCT 02) PTT 32.7(OCT 02) Troponin <0.02(OCT 02) CK MB 0.7(OCT 02) Total CK 188(OCT 02) Input/Output RecordInOutBal 09/1823hr Tot 2 0 2 09/1723hr Tot [id number] ASSESSMENT & EXAM Gen. Pt is AOX4 in no acute distress HEET: Normocephalic, nontraumatic. NECK: Supple, no JVD or Lymphadenopathy LUNGS: Clear on auscultation B/l with no wheezing or crackles HEART: S1, S2.RRR with no murmurs ABDOMEN: Soft,moderately distended CENTRAL NERVOUS SYSTEM: Patient moving all extremities grossly well. LOWER EXTREMITIES: No C/C/E PLAN & TREATMENT Pt with a hx of multiple CVA admitted with TUTTLE and slurred speech which has since improved -Appreciated Neurology consult -F/u with Brain MRI -F/u PT/OT consult -Will D/c ABX which might be making him nauseous DIAGNOSES & PROBLEMS headache Slurred speech TIA Vs CVA CAD COPD paroxysmal A-fib Hx Atrial thrombus HTN Obesity Scheduled Meds (10):albuterol-ipratropium (Combivent inhalation aerosol with adapter), aspirin (aspirin 325 mg tablet, enteric coated), docusate (docusate sodium 100 mg oral capsule), enoxaparin (Lovenox), lisinopril, metoprolol (metoprolol tartrate), pantoprazole (Protonix), pregabalin (Lyrica), propylthiouracil, simvastatin Unscheduled Meds: None PRN Meds (10):LORazepam (Ativan), acetaminophen-hydrocodone ([place] 7.5/325 oral tablet), acetaminophen, albuterol (albuterol 0.083% inhalation solution), guaifenesin, morphine Sulfate, ondansetron, ondansetron (Zofran), sodium chloride (Saline Flush 0.9%), zolpidem (Ambien) One Time Meds (5):(Completed) azithromycin, (Completed) morphine Sulfate, (Completed) morphine Sulfate, (Completed) pregabalin (Lyrica), (Completed) simvastatin Continuous Infusions: None Extracted from: Title: Neurologic Problem Admission Author: Gustavo Amador Date: 10/03/2013 H&P * Impression and Plan left hemisphere stroke ? 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
--- OUTSIDE RECORDS SUMMARY | 2018-12-01 05:53 | XMS REPORT | Summary of Care ---
Author Author [facility] Organization [facility] Address Unknown Phone Unavailable Encounter TOM Quinn(NICOLE) [id number] Date(s): 09/02/18 - 09/02/[address] [facility] [address] [address]- [phone] Discharge Disposition: Home or Self Care Attending Physician: Ted Erwin MD Referring Physician: Ted Erwin MD Vital Signs 1 2 3 Most recent to oldest [Reference Range]: 203.2 cm (08/18/18 2:35 PM) Height 128/63 mmHg (09/02/18 2:40 PM) 130/60 mmHg (09/02/18 2:30 PM) 132/68 mmHg (09/02/18 2:20 PM) Blood Pressure [90-140/60-90 mmHg] 15 BRMIN (09/02/18 2:40 PM) 14 BRMIN (09/02/18 2:30 PM) 15 BRMIN (09/02/18 2:23 PM) Respiratory Rate [14-20 BRMIN] 60 bpm (09/02/18 2:40 PM) 63 bpm (09/02/18 2:30 PM) 65 bpm (09/02/18 2:23 PM) Peripheral Pulse Rate [60-100 bpm] 110.909 kg (08/18/18 2:35 PM) Weight 26.86 m2 (08/18/18 2:35 PM) Body Mass Index Problem List Condition [...] exertion(Confirmed) TIA (transient Resolved ischemic attack)(Confirmed) 1X2 2008,2009 42245 3X2 Allergies, Adverse Reactions, Alerts Substance Reaction Severity Status CODEINE nausea, vomitting,fever Active Medications Lactated Ringers IV 1,000 mL 1,000 mL, Rate: 40 ml/hr, Infuse over: 25 hr, Route: IV, Dosing Weight 110.909 k g, Total Volume: 1,000, Start date: 09/02/18 13:38:00 [employer], Duration: 30 day, Sto p date: 10/02/18 13:37:00 CDT, 2.5, m2 Start Date: 09/02/18 Stop Date: 09/03/18 Status: Discontinued Results No data available for [...] Number of years: 51; 1 entered on: 09/02/18 1Quit smoking 7 years ago Assessment and Plan Extracted from: Title: Clinical Document Author: Ted Erwin MD Date: 09/02/18 SACROILIAC JOINT INJECTION WITH FLUOROSCOPY PROCEDURE: 1) Right sacroiliac joint injection 2) Fluoroscopic needle guidance REASON FOR PROCEDURE: Sacroiliac joint pain/sacroiliitis; Disorder of sacrum PHYSICIAN: Ted Erwin MD MEDICATIONS INJECTED: 1 mL Kenalog (40 mg) and 1 mL of 0.5% marcaine per side LOCAL ANESTHETIC INJECTED: 4 mL of 1% lidocaine per site ESTIMATED BLOOD LOSS: None COMPLICATIONS: None TECHNIQUE: Time-out was taken to identify the correct patient, procedure and side prior to starting the procedure. With the patient lying in the prone position, the patient was prepped and draped in the usual sterile fashion using DuraPrep and a fenestrated drape. The sacroiliac joint was determined under fluoroscopy. Local anesthetic was given by raising a skin wheal and going down to the hub of a 27-gauge 1.25-inch needle. The 3.5-inch 22-gauge Quincke needle was advanced into the above sacroiliac joint. After a negative aspirate to make sure that there was no intravascular placement, Omnipaque 240 was injected to confirm intraarticular spread, and confirm no vascular runoff. Medication was then injected slowly. The procedure was completed without complications and was tolerated well. The patient was monitored after the procedure. The patient (or responsible alliance party) was given post-procedure and discharge instructions to follow at home. The patient was discharged in stable condition. A follow-up appointment was made.
--- OUTSIDE RECORDS SUMMARY | 2018-12-01 05:53 | XMS REPORT | Summary of Care ---
Author Organization Unknown Address Unknown Phone Unavailable Encounter [facility](NICOLE) [id number] Date(s): 10/28/13 - 11/01/13 [facility] [address] [address] - [facility] Discharge Disposition: Home Physician Attending: Amauri Cadet Physician Admitting: Amauri Cadet Physician_Referring: Amauri Cadet Reason for Visit 723.0-LAMINECTOMY Vital Signs 1 2 3 Most recent to oldest [Reference Range]: 203.2 cm (10/26/13 12:47 PM) Height 97.6 DegF (11/01/13 4:00 PM) 97.6 DegF (11/01/13 12:00 PM) 97.9 DegF (11/01/13 8:00 AM) Temperature Oral [96.4-99.1 DegF] 124 mmHg (11/01/13 4:00 PM) 125 mmHg (11/01/13 12:00 PM) 124 mmHg (11/01/13 8:00 AM) Systolic Blood Pressure [90-140 mmHg] 73 mmHg (11/01/13 4:00 PM) 76 mmHg (11/01/13 12:00 PM) 79 mmHg (11/01/13 8:00 AM) Diastolic Blood Pressure [60-90 mmHg] 20 BRMIN (11/01/13 4:00 PM) 20 BRMIN (11/01/13 12:00 PM) 14 BRMIN (11/01/13 8:40 AM) Respiratory Rate [14-20 BRMIN] 81 bpm (11/01/13 4:00 PM) 82 bpm (11/01/13 12:00 PM) 76 bpm (11/01/13 8:00 AM) Peripheral Pulse Rate [60-100 bpm] 122.727 kg (10/26/13 12:47 PM) Weight 29.72 m2 (10/26/13 12:47 PM) Body Mass Index Problem List Condition [...] Substance Reaction Severity Status CODEINE Active Medications acetaminophen 650 mg, 2 tab, Route: PO, Drug form: TAB, Q4H, Dosing Weight 122.727, kg, PRN He adache 1-5, Start date: 10/30/13 12:08:00, Duration: 30 day, Stop date: 11/29/13 12:07:00 Notes: Do not exceed 4 gm/day. (Same as: Tylenol) Start Date: 10/30/13 Stop Date: 11/01/13 Status: Discontinued acetaminophen-hydrocodone 325 mg-10 mg oral tablet 1 tab, PO, Q4H, Pain, # 60 tab, 2 Refill(s) Start Date: 10/29/13 Status: Ordered acetaminophen-hydrocodone 325 mg-10 mg oral tablet 2 tab, Route: PO, Drug Form: TAB, Q4H, PRN Pain, Start date: 10/28/13 14:49:00, Duration: 30 day, Stop date: 11/27/13 14:48:00 Notes: Do not exceed 4gm/day of acetaminophen. (Same as: [place] 325/10) Start Date: 10/28/13 Stop Date: 11/01/13 Status: Discontinued acetaminophen-hydrocodone 325 mg-10 mg oral tablet 1 tab, Route: PO, Drug Form: TAB, Q4H, PRN Pain, Start date: 10/28/13 14:48:00, Duration: 30 day, Stop date: 11/27/13 14:47:00 Notes: Do not exceed 4gm/day of acetaminophen. (Same as: [place] 325/10) Start Date: 10/28/13 Stop Date: 11/01/13 Status: Discontinued Ancef 2 gm, 100 mL, Route: IVPB, Drug form: INJ, ONCE, Dosing Weight 122.727, kg, Star t date: 10/28/13 8:57:00, Stop date: 10/28/13 8:57:00 Notes: Same as: Ancef Start Date: 10/28/13 Stop Date: 10/28/13 Status: Completed aspirin 325 mg tablet 325 mg, 1 tab, Route: PO, Drug form: TAB, ONCE, Dosing Weight 122.727, kg, Start date: 10/30/13 12:08:00, Stop date: 10/30/13 12:08:00 Notes: Take with food. Start Date: 10/30/13 Stop Date: 10/30/13 Status: Completed Aspirin Low Dose 81 mg oral tablet =1 tab, PO, Daily, 0 Refill(s) Start Date: 10/26/13 Status: Ordered ceFAZolin + Sodium Chloride 0.9% IV 100 mL 1 gm, Route: IVPB, ABXQ8H, Start date: 10/28/13 16:00:00, Duration: 2 doses or t imes, Stop date: 10/29/13 0:00:00 Notes: (Same As: AncefTrevorfzol) Start Date: 10/28/13 Stop Date: 10/29/13 Status: Completed cloNIDine 0.1 mg oral tablet 0.1 mg, 1 tab, Route: PO, Drug form: TAB, Q8H, Dosing Weight 122.727, kg, PRN Ot her -See Comment, Start date: 10/28/13 14:58:00, Duration: 30 day, Stop date: 14:57:00, SBP >160 Notes: (Same As: Catapres) Start Date: 10/28/13 Stop Date: 11/01/13 Status: Discontinued clopidogrel 75 mg, 1 tab, Route: PO, Drug form: TAB, Daily, Dosing Weight 122.727, kg, Start date: 10/31/13 9:00:00, Duration: 30 day, Stop date: 11/29/13 9:00:00 Notes: (Same As: Plavix) Start Date: 10/31/13 Stop Date: 11/01/13 Status: Discontinued clopidogrel 75 mg oral tablet 75 mg=1 tab, PO, Daily, # 60 tab, 1 Refill(s) Start Date: 10/31/13 Status: Ordered Combivent inhalation aerosol with adapter 2 puff, Route: INHALATION, Drug Form: AERO, Dosing Weight 122.727, kg, QID, Star t date: 10/28/13 17:00:00, Duration: 30 day, Stop date: 11/27/13 13:00:00 Notes: Same as: Combivent Respimat Start Date: 10/28/13 Stop Date: 11/01/13 Status: Discontinued docusate sodium 100 mg oral capsule 100 mg, 1 cap, Route: PO, Drug form: CAP, BID, Dosing Weight 122.727, kg, Start date: 10/28/13 17:00:00, Duration: 30 day, Stop date: 11/27/13 9:00:00 Notes: (Same as: Colace) (Do Not Crush) Start Date: 10/28/13 Stop Date: 11/01/13 Status: Discontinued fentaNYL 25 microgram, Route: IVP, Q5Min, Dosing Weight 122.727, kg, PRN Pain Score 4-6, Start date: 10/28/13 11:07:00, Duration: 4 doses or times, Stop date: Limited # of times Start Date: 10/28/13 Stop Date: 10/28/13 Status: Discontinued Flexeril 10 mg oral tablet 10 mg, PO, TID, Muscle Spasm, # 60 tab, 2 Refill(s) Start Date: 10/29/13 Stop Date: 11/28/13 Status: Ordered flumazenil 0.2 mg, Route: IVP, PRN, Dosing Weight 122.727, kg, PRN Benzodiazepine Reversal, Initial dose, Start date: 10/28/13 11:07:00, Duration: 30 day, Stop date: 11/27 11:06:00 Start Date: 10/28/13 Stop Date: 10/28/13 Status: Discontinued heparin flush 500 unit, 5 mL, Route: IVP, Drug form: SOLN, Q30D, Start date: 11/01/13 12:00:00 , Duration: 30 day, Stop date: 12/01/13 9:00:00 Notes: (Same as: Heparin Lock Flush) Start Date: 11/01/13 Stop Date: 11/01/13 Status: Discontinued hydrochlorothiazide 12.5 mg oral tablet 12.5 mg=1 tab, PO, Daily, # 30 tab, 0 Refill(s) Start Date: 10/26/13 Status: Ordered hydromorphone 0.5 mg, Route: IVP, Q5Min, Dosing Weight 122.727, kg, PRN Pain Score 7-10, Start date: 10/28/13 11:07:00, Duration: 4 doses or times, Stop date: Limited # of ti mes Start Date: 10/28/13 Stop Date: 10/28/13 Status: Discontinued Lactated Ringers Injection IV 500 mL 500 mL, Rate: 25 ml/hr, Infuse over: 20 hr, Route: IV, Dosing Weight 122.727 kg, Total Volume: 500, Start date: 10/28/13 7:31:00, Duration: 1 day, Stop date: 7:30:00 Start Date: 10/28/13 Stop Date: 10/28/13 Status: Deleted Lactated Ringers IV 500 mL 500 mL, Rate: 25 ml/hr, Infuse over: 20 hr, Route: IV, Dosing Weight 122.727 kg, Total Volume: 500, Start date: 10/28/13 8:49:00, Duration: 1 day, Stop date: 8:48:00 Start Date: 10/28/13 Stop Date: 10/29/13 Status: Completed Lasix 40 mg, 4 mL, Route: IVP, Drug form: INJ, ONCE, Dosing Weight 122.727, kg, Start date: 10/29/13 16:46:00, Stop date: 10/29/13 16:46:00 Notes: (Same as: Lasix) Start Date: 10/29/13 Stop Date: 10/29/13 Status: Completed Lasix 40 mg oral tablet 40 mg, 1 tab, Route: PO, Drug form: TAB, Daily, Dosing Weight 122.727, kg, Start date: 10/30/13 9:00:00, Duration: 30 day, Stop date: 11/28/13 9:00:00 Notes: (Same as: Lasix) May cause GI upset. Give with food or milk. Start Date: 10/30/13 Stop Date: 11/01/13 Status: Discontinued Lyrica 100 mg, 2 cap, Route: PO, Drug form: CAP, TID, Dosing Weight 122.727, kg, Start date: 10/28/13 17:00:00, Duration: 30 day, Stop date: 11/27/13 13:00:00 Notes: Same as Lyrica Start Date: 10/28/13 Stop Date: 11/01/13 Status: Discontinued meperidine 12.5 mg, Route: IVP, Q30Min, Dosing Weight 122.727, kg, PRN Other -See Comment, For shivering, Start date: 10/28/13 11:07:00, Duration: 2 doses or times, Stop d ate: Limited # of times Start Date: 10/28/13 Stop Date: 10/28/13 Status: Discontinued morphine Sulfate 4 mg, 2 mL, Route: IV, Drug form: INJ, Q2H, PRN Severe Pain, Start date: 4 14:48:00, Duration: 30 day, Stop date: 11/27/13 14:47:00 Notes: (Same as:MORPhine Sulfate) Start Date: 10/28/13 Stop Date: 11/01/13 Status: Discontinued morphine Sulfate 2 mg, 1 mL, Route: IV, Drug form: INJ, Q2H, PRN Severe Pain, Start date: 4 14:47:00, Duration: 30 day, Stop date: 11/27/13 14:46:00 Notes: (Same as:MORPhine Sulfate) Start Date: 10/28/13 Stop Date: 11/01/13 Status: Discontinued morphine Sulfate 2 mg, 1 mL, Route: IVP, Drug form: INJ, Q15Min, Dosing Weight 122.727, kg, PRN C hest Pain, Start date: 10/30/13 12:08:00, Duration: 2 doses or times, Stop date: Limited # of times Notes: (Same as:MORPhine Sulfate) Start Date: 10/30/13 Stop Date: 11/01/13 Status: Discontinued naloxone 0.04 mg, Route: IVP, Q2MIN, Dosing Weight 122.727, kg, PRN Narcotic Reversal, St art date: 10/28/13 11:07:00, Duration: 8 doses or times, Stop date: Limited # of times Start Date: 10/28/13 Stop Date: 10/28/13 Status: Discontinued nitroglycerin SL Tab 0.4 mg, 1 tab, Route: SL, Drug form: TAB, Q5Min, Dosing Weight 122.727, kg, PRN Chest Pain, Start date: 10/30/13 12:08:00, Duration: 3 doses or times, Stop date : Limited # of times Notes: (Same as:Nitroquick, Nitrostat)"Do Not Crush" Sublingual tablet Start Date: 10/30/13 Stop Date: 11/01/13 Status: Discontinued Nitrostat 0.4 mg sublingual tablet 0.4 mg, 1 tab, Route: SL, Drug form: TAB, Q5Min, Dosing Weight 122.727, kg, PRN Chest Pain, Start date: 10/30/13 8:19:00, Duration: 3 doses or times, Stop date: Limited # of times Notes: (Same as:Nitroquick, Nitrostat)"Do Not Crush" Sublingual tablet Start Date: 10/30/13 Stop Date: 10/30/13 Status: Completed [place] 10/325 oral tablet 1 tab, Route: PO, Drug Form: TAB, Dosing Weight 122.727, kg, Q4H, PRN Pain, Star t date: 10/28/13 11:07:00, Duration: 30 day, Stop date: 11/27/13 11:06:00 Start Date: 10/28/13 Stop Date: 10/28/13 Status: Discontinued NS 1,000 mL 1,000 mL, Rate: 100 ml/hr, Infuse over: 10 hr, Route: IV, Dosing Weight 122.727 kg, Total Volume: 1,000, Start date: 10/28/13 14:57:00, Duration: 30 day, Stop d ate: 11/27/13 14:56:00 Start Date: 10/28/13 Stop Date: 11/01/13 Status: Discontinued Ofirmev 1,000 mg, Route: IV, Drug form: INJ, ONCE, Dosing Weight 122.727, kg, PRN Pain, for > or=50 kg, Start date: 10/28/13 11:07:00 Start Date: 10/28/13 Stop Date: 10/28/13 Status: Discontinued ondansetron 4 mg, Route: IVP, ONCE, Dosing Weight 122.727, kg, PRN Nausea & Vomiting, Start date: 10/28/13 11:07:00 Start Date: 10/28/13 Stop Date: 10/28/13 Status: Completed ondansetron 4 mg, 1 tab, Route: PO, Drug form: TAB, Q8H, Dosing Weight 122.727, kg, PRN Naus ea & Vomiting, Start date: 10/30/13 12:08:00, Duration: 30 day, Stop date: 11/29/13 12:07:00 Notes: (Same as: Zofran) Start Date: 10/30/13 Stop Date: 11/01/13 Status: Discontinued oxyCODONE 5 mg, Route: PO, Drug form: TAB, Q4H, Dosing Weight 122.727, kg, PRN Pain Score 4-6, Start date: 10/28/13 11:07:00, Duration: 30 day, Stop date: 11/27/13 11:06: 00 Start Date: 10/28/13 Stop Date: 10/28/13 Status: Discontinued pantoprazole 40 mg, Route: PO, Drug form: TAB, Daily, Dosing Weight 122.727, kg, Start date: 10/31/13 9:00:00, Duration: 30 day, Stop date: 11/29/13 9:00:00 Start Date: 10/31/13 Stop Date: 10/30/13 Status: Deleted pantoprazole 40 mg, 1 tab, Route: PO, Drug form: ECTAB, Before Dinner, Dosing Weight 122.727, kg, Start date: 10/28/13 16:30:00, Duration: 30 day, Stop date: 11/26/13 16:30: 00 Notes: Tablet should not be chewed or crushed.(Same as: Protonix) Start Date: 10/28/13 Stop Date: 11/01/13 Status: Discontinued Phenergan + Sodium Chloride 0.9% IV 50 mL 25 mg, 1 mL, Route: IVPB, Q4H, PRN Nausea & Vomiting, Start date: 10/28/13 14:49:00, Duration: 30 day, Stop date: 11/27/13 14:48:00 Notes: Do not give IV push. (Same as: Phenergan) Start Date: 10/28/13 Stop Date: 11/01/13 Status: Discontinued propylthiouracil 50 mg, 1 tab, Route: PO, Drug form: TAB, Q8H, Dosing Weight 122.727, kg, Start d ate: 10/28/13 16:00:00, Duration: 30 day, Stop date: 11/27/13 8:00:00 Notes: Propylthiouracil is associated with risk of serious liver damage. Patien t should be monitored for symptoms of liver injury. Start Date: 10/28/13 Stop Date: 11/01/13 Status: Discontinued Reglan 10 mg, Route: IVP, Drug form: INJ, ONCE, Dosing Weight 122.727, kg, Start date: 10/28/13 13:26:00, Stop date: 10/28/13 13:26:00 Start Date: 10/28/13 Stop Date: 10/28/13 Status: Completed Saline Flush 0.9% 5 ml, Route: IVP, Drug Form: INJ, Dosing Weight 122.727, kg, PRN, PRN Line Flush , Start date: 10/30/13 12:08:00, Duration: 30 day, Stop date: 11/29/13 12:07:00 Notes: preservative free. Start Date: 10/30/13 Stop Date: 11/01/13 Status: Discontinued Saline Flush 0.9% 5 ml, Route: IVP, Drug Form: INJ, Dosing Weight 122.727, kg, Q12H, Start date: 0 10/30/13 21:00:00, Duration: 30 day, Stop date: 11/29/13 9:00:00 Notes: preservative free. Start Date: 10/30/13 Stop Date: 11/01/13 Status: Discontinued simvastatin 40 mg, 1 tab, Route: PO, Drug form: TAB, Bedtime, Dosing Weight 122.727, kg, Sta rt date: 10/28/13 21:00:00, Duration: 30 day, Stop date: 11/26/13 21:00:00 Notes: (Same as: Zocor) Start Date: 10/28/13 Stop Date: 11/01/13 Status: Discontinued sodium chloride 20 mL, Route: IVP, Start date: 11/01/13 11:11:00, Duration: 30 day, Stop date: 0 12/01/13 11:10:00, PRN Line Flush Notes: preservative free. Start Date: 11/01/13 Stop Date: 11/01/13 Status: Discontinued sodium chloride 10 mL, Route: IVP, Start date: 11/01/13 11:10:00, Duration: 30 day, Stop date: 0 12/01/13 11:09:00, PRN Line Flush Notes: preservative free. Start Date: 11/01/13 Stop Date: 11/01/13 Status: Discontinued Sodium Chloride 0.9% IV 1,000 mL 1,000 mL, Rate: 50 ml/hr, Infuse over: 20 hr, Route: IV, Dosing Weight 122.727 k g, Total Volume: 1,000, Start date: 10/30/13 12:08:00, Duration: 6 hr, Stop date : 10/30/13 18:07:00 Start Date: 10/30/13 Stop Date: 10/30/13 Status: Completed Spiriva 18 mcg inhalation capsule 18 microgram, 1 inhalation, Route: INHALATION, Drug form: CAP, Daily, Dosing Italo ght 122.727, kg, Start date: 10/29/13 9:00:00, Duration: 30 day, Stop date: 11/17 08/02 9:00:00 Notes: (Same As: Spiriva). Start Date: 10/29/13 Stop Date: 11/01/13 Status: Discontinued Toprol-XL 50 mg oral tablet, extended release 50 mg, 1 tab, Route: PO, Drug form: ERTAB, Daily, Start date: 10/29/13 9:00:00, Duration: 30 day, Stop date: 11/27/13 9:00:00 Notes: (Same as: Toprol XL) May split tab, but do not crush. Start Date: 10/29/13 Stop Date: 11/01/13 Status: Discontinued Zofran 4 mg, 2 mL, Route: IVP, Drug form: INJ, Q8H, Dosing Weight 122.727, kg, PRN as n eeded for nausea/vomiting, Priority: STAT, Start date: 10/28/13 14:57:00, Durati on: 30 day, Stop date: 11/27/13 14:56:00 Notes: (Same as: Marinemacho) Start Date: 10/28/13 Stop Date: 11/01/13 Status: Discontinued Results ELECTROLYTES 1 2 3 Most recent to oldest [Reference Range]: 141 mEq/L (10/31/13 5:10 AM) 137 mEq/L (10/30/13 9:27 AM) 137 mEq/L (10/29/13 6:15 AM) Sodium Lvl [135-145 mEq/L] 4.1 mEq/L (10/31/13 5:10 AM) 4.0 mEq/L (10/30/13 9:27 AM) 4.2 mEq/L (10/29/13 6:15 AM) Potassium Lvl [3.5-5.1 mEq/L] 107 mEq/L (10/31/13 5:10 AM) 104 mEq/L (10/30/13 9:27 AM) 104 mEq/L (10/29/13 6:15 AM) Chloride Lvl [95-109 mEq/L] 27 mEq/L (10/31/13 5:10 AM) 28 mEq/L (10/30/13 9:27 AM) 27 mEq/L (10/29/13 6:15 AM) CO2 [24-32 mEq/L] 11.1 mEq/L (10/31/13 5:10 AM) 9.0 mEq/L *LOW* (10/30/13 9:27 AM) 10.2 mEq/L (10/29/13 6:15 AM) AGAP [10.0-20.0 mEq/L] CHEM PANEL 1 2 3 Most recent to oldest [Reference Range]: 1.1 mg/dL (10/31/13 5:10 AM) 1.1 mg/dL (10/30/13 9:27 AM) 1.1 mg/dL (10/29/13 6:15 AM) Creatinine Lvl [0.5-1.4 mg/dL] 72 mL/min/1.73m2 1 *NA* (10/31/13 5:10 AM) 72 mL/min/1.73m2 2 *NA* (10/30/13 9:27 AM) 72 mL/min/1.73m2 3 *NA* (10/29/13 6:15 AM) eGFR 16 mg/dL (10/31/13 5:10 AM) 18 mg/dL (10/30/13 9:27 AM) 19 mg/dL (10/29/13 6:15 AM) BUN [7-22 mg/dL] 16 (10/30/13 9:27 AM) B/C Ratio [6-25] 118 mg/dL 4 *HI* (10/31/13 5:10 AM) 181 mg/dL 5 *HI* (10/30/13 9:27 AM) 123 mg/dL 6 *HI* (10/29/13 6:15 AM) Glucose Lvl [70-99 mg/dL] 6.9 g/dL (10/30/13 9:27 AM) Total Protein [6.4-8.4 g/dL] 3.4 g/dL *LOW* (10/30/13 9:27 AM) Albumin Lvl [3.5-5.0 g/dL] 3.5 g/dL (10/30/13 9:27 AM) Globulin [2.0-4.0 g/dL] 1.0 (10/30/13 9:27 AM) A/G Ratio [0.7-1.6] 8.2 mg/dL *LOW* (10/31/13 5:10 AM) 8.3 mg/dL *LOW* (10/30/13 9:27 AM) 9.1 mg/dL (10/29/13 6:15 AM) Calcium Lvl [8.5-10.5 mg/dL] 27 unit/L (10/30/13 9:27 AM) ALT [0-65 unit/L] 22 unit/L (10/30/13 9:27 AM) AST [0-37 unit/L] 45 unit/L (10/30/13 9:27 AM) Alk Phos [39-136 unit/L] 0.8 mg/dL (10/30/13 9:27 AM) Bili Total [0.2-1.3 mg/dL] 1Result Comment: The eGFR is calculated using [...] values reflect the clinical guidelines of the [place] [employer]. 5Interpretive Data: Adult reference range values reflect the clinical guidelines of the [place] [employer]. 6Interpretive Data: Adult reference range values reflect the clinical guidelines of the [place] [employer]. CARDIAC ENZYMES 1 2 3 Most recent to oldest [Reference Range]: 97 unit/L (10/30/13 3:13 PM) 126 unit/L (10/30/13 8:19 AM) Total CK [12-191 unit/L] 1.2 ng/mL (10/30/13 3:13 PM) 1.4 ng/mL (10/30/13 8:19 AM) CK MB [0.5-3.6 ng/mL] 1.2 (10/30/13 3:13 PM) 1.1 (10/30/13 8:19 AM) CK MB Index [0.0-2.5] <0.02 ng/mL (10/30/13 3:13 PM) <0.02 ng/mL (10/30/13 8:19 AM) Troponin-I [0.00-0.40 ng/mL] HEMATOLOGY 1 2 3 Most recent to oldest [Reference Range]: 8.1 K/CMM (10/31/13 5:10 AM) 9.0 K/CMM (10/30/13 9:27 AM) 8.6 K/CMM (10/29/13 6:15 AM) WBC [3.7-10.4 K/CMM] 5.22 M/CMM (10/31/13 5:10 AM) 5.10 M/CMM (10/30/13 9:27 AM) 5.21 M/CMM (10/29/13 6:15 AM) RBC [4.70-6.10 M/CMM] 15.3 g/dL (10/31/13 5:10 AM) 15.1 g/dL (10/30/13 9:27 AM) 15.3 g/dL (10/29/13 6:15 AM) Hgb [14.0-18.0 g/dL] 45.4 % (10/31/13 5:10 AM) 44.3 % (10/30/13 9:27 AM) 45.8 % (10/29/13 6:15 AM) Hct [42.0-54.0 %] 87.0 fL (10/31/13 5:10 AM) 86.7 fL (10/30/13 9:27 AM) 87.9 fL (10/29/13 6:15 AM) MCV [80.0-94.0 fL] 29.2 pg (10/31/13 5:10 AM) 29.5 pg (10/30/13 9:27 AM) 29.3 pg (10/29/13 6:15 AM) MCH [27.0-31.0 pg] 33.6 g/dL (10/31/13 5:10 AM) 34.0 g/dL (10/30/13 9:27 AM) 33.3 g/dL (10/29/13 6:15 AM) MCHC [32.0-36.0 g/dL] 16.3 % *HI* (10/31/13 5:10 AM) 15.9 % *HI* (10/30/13 9:27 AM) 16.3 % *HI* (10/29/13 6:15 AM) RDW [11.5-14.5 %] 145 K/CMM (10/31/13 5:10 AM) 154 K/CMM (10/30/13 9:27 AM) 150 K/CMM (10/29/13 6:15 AM) Platelet [133-450 K/CMM] 8.0 fL (10/31/13 5:10 AM) 8.0 fL (10/30/13 9:27 AM) 8.1 fL (10/29/13 6:15 AM) MPV [7.4-10.4 fL] 70.1 % (10/31/13 5:10 AM) 74.3 % (10/30/13 9:27 AM) 80.0 % *HI* (10/29/13 6:15 AM) Segs [45.0-75.0 %] 18.7 % *LOW* (10/31/13 5:10 AM) 15.7 % *LOW* (10/30/13 9:27 AM) 11.8 % *LOW* (10/29/13 6:15 AM) Lymphocytes [20.0-40.0 %] 9.5 % (10/31/13 5:10 AM) 8.8 % (10/30/13 9:27 AM) 8.1 % (10/29/13 6:15 AM) Monocytes [2.0-12.0 %] 1.3 % (10/31/13 5:10 AM) 0.7 % (10/30/13 9:27 AM) 0.0 % (10/29/13 6:15 AM) Eosinophils [0.0-4.0 %] 0.4 % (10/31/13 5:10 AM) 0.5 % (10/30/13 9:27 AM) 0.1 % (10/29/13 6:15 AM) Basophils [0.0-1.0 %] 5.7 K/CMM (10/31/13 5:10 AM) 6.7 K/CMM (10/30/13 9:27 AM) 6.8 K/CMM (10/29/13 6:15 AM) Segs-Bands # [1.5-8.1 K/CMM] 1.5 K/CMM (10/31/13 5:10 AM) 1.4 K/CMM (10/30/13 9:27 AM) 1.0 K/CMM (10/29/13 6:15 AM) Lymphocytes # [1.0-5.5 K/CMM] 0.8 K/CMM (10/31/13 5:10 AM) 0.8 K/CMM (10/30/13 9:27 AM) 0.7 K/CMM (10/29/13 6:15 AM) Monocytes # [0.0-0.8 K/CMM] 0.1 K/CMM (10/31/13 5:10 AM) 0.1 K/CMM (10/30/13 9:27 AM) 0.0 K/CMM (10/29/13 6:15 AM) Eosinophils # [0.0-0.5 K/CMM] 0.0 K/CMM (10/31/13 5:10 AM) 0.0 K/CMM (10/30/13 9:27 AM) 0.0 K/CMM (10/29/13 6:15 AM) Basophils # [0.0-0.2 K/CMM] 13.1 seconds (10/30/13 9:27 AM) 15.0 seconds *HI* (10/26/13 1:30 PM) PT [12.0-14.7 seconds] 1.00 7 (10/30/13 9:27 AM) 1.19 8 *HI* (10/26/13 1:30 PM) INR [0.85-1.17] 28.6 seconds 9 (10/26/13 1:30 PM) PTT [22.9-35.8 seconds] 7Interpretive Data: RECOMMENDED RANGES FOR PROTIME INR: 2.0-3.0 for most medical and surgical thromboembolic states. 2.5-3.5 for artificial heart valves and recurrent embolism. INR SHOULD BE USED ONLY FOR PATIENTS ON STABLE ANTICOAGULANT THERAPY. 8Interpretive Data: RECOMMENDED RANGES FOR PROTIME INR: 2.0-3.0 for most medical and surgical thromboembolic states. 2.5-3.5 for artificial heart valves and recurrent embolism. INR SHOULD BE USED ONLY FOR PATIENTS ON STABLE ANTICOAGULANT THERAPY. 9Interpretive Data: Heparin Therapeutic Range: 57 - 92 Seconds Medications Administered During Your Visit No data [...] Days Yes, Reg Smoking Cessation Counseling Yes Assessment and Plan Extracted from: Title: Orthopedic Surgery Progress Author: Amauri Cadet Date: 11/01/13 Note Impression and Plan Appreciate cardiology and medicine input OK to DC from cardiology standpoint Continue current care Awaiting PT clearance for DC Dispo per medicine
--- OUTSIDE RECORDS SUMMARY | 2018-12-01 05:53 | XMS REPORT | Summary of Care ---
Author Organization Unknown Address Unknown Phone Unavailable Encounter TOM Quinn(NICOLE) [id number] Date(s): 02/22/14 - 02/28/14 [facility] [id number] [address] - [facility] Discharge Disposition: Home Physician Attending: Yash Shepherd MD Physician Admitting: Yash Shepherd MD Reason for Visit INTENSE MUSCLE PAIN, SPASM, CONCERN FOR FALLS AT HOME Vital Signs 1 2 3 Most recent to oldest [Reference Range]: 203.2 cm (02/23/14 1:24 AM) 203.2 cm (02/22/14 5:49 PM) Height 98.6 DegF (02/28/14 4:00 PM) 97.8 DegF (02/28/14 12:00 PM) 97 DegF (02/28/14 8:00 AM) Temperature Oral [96.4-99.1 DegF] 145 mmHg *HI* (02/28/14 4:00 PM) 165 mmHg *HI* (02/28/14 12:00 PM) 168 mmHg *HI* (02/28/14 8:00 AM) Systolic Blood Pressure [90-140 mmHg] 81 mmHg (02/28/14 4:00 PM) 83 mmHg (02/28/14 12:00 PM) 88 mmHg (02/28/14 8:00 AM) Diastolic Blood Pressure [60-90 mmHg] 18 BRMIN (02/28/14 4:00 PM) 20 BRMIN (02/28/14 12:00 PM) 16 BRMIN (02/28/14 8:00 AM) Respiratory Rate [14-20 BRMIN] 75 bpm (02/28/14 4:00 PM) 77 bpm (02/28/14 12:00 PM) 77 bpm (02/28/14 8:00 AM) Peripheral Pulse Rate [60-100 bpm] 125.028 kg (8/7/14 1:24 AM) 122.727 kg (02/22/14 5:49 PM) Weight 30.28 m2 (02/23/14 1:24 AM) 29.72 m2 (02/22/14 5:49 PM) Body Mass Index Problem List Condition [...] Severity Status CODEINE Active Medications acetaminophen-hydrocodone 325 mg-10 mg oral tablet 1 tab, Route: PO, Drug Form: TAB, Dosing Weight 122.727, kg, Q4H, PRN Pain Score 4-6, Start date: 02/23/14 0:14:00, Duration: 30 day, Stop date: 03/25/14 0:13:00 Notes: Do not exceed 4gm/day of acetaminophen. (Same as: [place] 325/10) Start Date: 02/23/14 Stop Date: 02/28/14 Status: Discontinued acetaminophen-hydrocodone 325 mg-10 mg oral tablet 1 tab, PO, Q4H, Pain Score 4-6, # 10 tab, 0 Refill(s) Start Date: 02/28/14 Status: Ordered albuterol-ipratropium 1 puff, Route: INHALER, Drug Form: AERO, QID, Start date: 02/23/14 13:00:00, Dur ation: 30 day, Stop date: 03/25/14 9:00:00 Start Date: 02/23/14 Stop Date: 02/28/14 Status: Discontinued aspirin 81 mg tablet, enteric coated 81 mg, 1 tab, Route: PO, Drug form: ECTAB, Daily, Dosing Weight 125.028, kg, Sta rt date: 02/23/14 9:00:00, Duration: 30 day, Stop date: 03/24/14 9:00:00 Notes: Do not crush or chew.(Same As: Ecotrin) Start Date: 02/23/14 Stop Date: 02/28/14 Status: Discontinued aspirin 81 mg tablet, enteric coated 81 mg=1 tab, PO, Daily Start Date: 02/22/14 Status: Ordered Benadryl 25 mg, 0.5 mL, Route: IVP, Drug form: INJ, ONCE, Dosing Weight 122.727, kg, Prio rity: STAT, Start date: 02/22/14 19:07:00, Stop date: 02/22/14 19:07:00 Notes: (Same as: Benadryl) Start Date: 02/22/14 Stop Date: 02/22/14 Status: Completed cholecalciferol 4,000 IntlUnit, 4 tab, Route: PO, Drug form: TAB, Daily, Dosing Weight 125.028, kg, Start date: 02/23/14 9:00:00, Duration: 30 day, Stop date: 03/24/14 9:00:00 Notes: Same as : Vitamin D3 Start Date: 02/23/14 Stop Date: 02/28/14 Status: Discontinued clopidogrel 75 mg, 1 tab, Route: PO, Drug form: TAB, Daily, Dosing Weight 125.028, kg, Start date: 02/23/14 9:00:00, Duration: 30 day, Stop date: 03/24/14 9:00:00 Notes: (Same As: Plavix) Start Date: 02/23/14 Stop Date: 02/28/14 Status: Discontinued clopidogrel 75 mg oral tablet 75 mg=1 tab, PO, Daily Start Date: 02/22/14 Status: Ordered Combivent inhalation aerosol with adapter 2 puff, Route: INHALATION, Drug Form: AERO/A, Dosing Weight 125.028, kg, QID, St art date: 02/23/14 9:00:00, Duration: 30 day, Stop date: 03/24/14 21:00:00 Start Date: 02/23/14 Stop Date: 02/23/14 Status: Deleted Coumadin 5 mg, 1 tab, Route: PO, Drug form: TAB, Daily, Dosing Weight 125.028, kg, Start date: 02/23/14 17:00:00, Duration: 30 day, Stop date: 03/24/14 17:00:00 Notes: Nurse to ensure documentation of patient education per anticoagulation po licy.Avoid large intake of vitamin-K containing foods diet.(Same As: Coumadin) Start Date: 02/23/14 Stop Date: 02/28/14 Status: Discontinued dexamethasone 8 mg, 2 mL, Route: IVP, Drug form: INJ, ONCE, Dosing Weight 122.727, kg, Priorit y: STAT, Start date: 02/22/14 19:06:00, Stop date: 02/22/14 19:06:00 Notes: Concentration: 4mg/ml Start Date: 02/22/14 Stop Date: 02/22/14 Status: Completed Dextrose 50% Syringe 12.5 gm, 25 mL, Route: IVP, Drug Form: INJ, Dosing Weight 125.028, kg, PRN, PRN Blood Glucose Results, Start date: 02/24/14 7:48:00, Duration: 30 day, Stop date : 03/26/14 7:47:00 Start Date: 02/24/14 Stop Date: 02/28/14 Status: Discontinued Dextrose 50% Syringe 25 gm, 50 mL, Route: IVP, Drug Form: INJ, Dosing Weight 125.028, kg, PRN, PRN Bl ood Glucose Results, Start date: 02/24/14 7:48:00, Duration: 30 day, Stop date: 03/26/14 7:47:00 Start Date: 02/24/14 Stop Date: 02/28/14 Status: Discontinued Dilaudid 1 mg, 1 mL, Route: IVP, Drug form: INJ, Q2H, Dosing Weight 122.727, kg, Priority : STAT, Start date: 02/22/14 21:23:00, Duration: 2 doses or times, Stop date: 23:23:00 Start Date: 02/22/14 Stop Date: 02/22/14 Status: Completed docusate 100 mg, 1 cap, Route: PO, Drug form: CAP, BID, Dosing Weight 122.727, kg, PRN Co nstipation, Start date: 02/23/14 0:14:00, Duration: 30 day, Stop date: 03/25/14 0:13:00 Notes: (Same as: Colace) (Do Not Crush) Start Date: 02/23/14 Stop Date: 02/28/14 Status: Discontinued enoxaparin 40 mg, Route: SUB-Q, Drug form: INJ, [id number], Dosing Weight 125.028, kg, Start date: 02/23/14 9:00:00, Duration: 30 day, Stop date: 03/24/14 9:00:00 Start Date: 02/23/14 Stop Date: 02/23/14 Status: Deleted glucagon 1 mg, Route: IM, Drug form: PDR/INJ, PRN, Dosing Weight 125.028, kg, PRN Blood G lucose Results, Start date: 02/24/14 7:48:00, Duration: 30 day, Stop date: 03/26 7:47:00 Start Date: 02/24/14 Stop Date: 02/28/14 Status: Discontinued heparin flush 500 unit, 5 mL, Route: IVP, Drug form: SOLN, Q30D, PRN Other -See Comment, Start date: 02/28/14 18:54:00, Duration: 30 day, Stop date: 03/30/14 18:53:00 Notes: (Same as: Heparin Lock Flush) Start Date: 02/28/14 Stop Date: 02/28/14 Status: Discontinued hydrochlorothiazide 12.5 mg oral capsule 12.5 mg, 1 cap, Route: PO, Drug form: CAP, Daily, Dosing Weight 125.028, kg, Sta rt date: 02/23/14 9:00:00, Duration: 30 day, Stop date: 03/24/14 9:00:00 Notes: (Same as: Microzide) With food. Start Date: 02/23/14 Stop Date: 02/28/14 Status: Discontinued hydromorphone 1 mg, 1 mL, Route: IV, Drug form: INJ, Q2H, Dosing Weight 125.028, kg, PRN as ne eded for pain, Start date: 02/23/14 4:07:00, Duration: 30 day, Stop date: 4:06:00 Start Date: 02/23/14 Stop Date: 02/28/14 Status: Discontinued insulin aspart 4 unit, 0.04 mL, Route: SUB-Q, Drug form: SOLN, TID-Before Meals, Dosing Weight 125.028, kg, PRN Blood Glucose Results, Start date: 02/24/14 7:48:00, Duration: 30 day, Stop date: 03/26/14 7:47:00 Notes: Roll in palms of hands gently; Do not shake vigorously. (Same as: NovoLO G)"single patient use only" Stable for 28 days at room temperature.Expires in _ ____ days from Date Start Date: 02/24/14 Stop Date: 02/28/14 Status: Discontinued insulin aspart 2 unit, 0.02 mL, Route: SUB-Q, Drug form: SOLN, TID-Before Meals, Dosing Weight 125.028, kg, PRN Blood Glucose Results, Start date: 02/24/14 7:48:00, Duration: 30 day, Stop date: 03/26/14 7:47:00 Notes: Roll in palms of hands gently; Do not shake vigorously. (Same as: NovoLO G)"single patient use only" Stable for 28 days at room temperature.Expires in _ ____ days from Date Start Date: 02/24/14 Stop Date: 02/28/14 Status: Discontinued insulin aspart 10 unit, 0.1 mL, Route: SUB-Q, Drug form: SOLN, TID-Before Meals, Dosing Weight 125.028, kg, PRN Blood Glucose Results, Start date: 02/24/14 7:48:00, Duration: 30 day, Stop date: 03/26/14 7:47:00 Notes: Roll in palms of hands gently; Do not shake vigorously. (Same as: NovoLO G)"single patient use only" Stable for 28 days at room temperature.Expires in _ ____ days from Date Start Date: 02/24/14 Stop Date: 02/28/14 Status: Discontinued insulin aspart 6 unit, 0.06 mL, Route: SUB-Q, Drug form: SOLN, TID-Before Meals, Dosing Weight 125.028, kg, PRN Blood Glucose Results, Start date: 02/24/14 7:48:00, Duration: 30 day, Stop date: 03/26/14 7:47:00 Notes: Roll in palms of hands gently; Do not shake vigorously. (Same as: NovoLO G)"single patient use only" Stable for 28 days at room temperature.Expires in _ ____ days from Date Start Date: 02/24/14 Stop Date: 02/28/14 Status: Discontinued insulin aspart 8 unit, 0.08 mL, Route: SUB-Q, Drug form: SOLN, TID-Before Meals, Dosing Weight 125.028, kg, PRN Blood Glucose Results, Start date: 02/24/14 7:48:00, Duration: 30 day, Stop date: 03/26/14 7:47:00 Notes: Roll in palms of hands gently; Do not shake vigorously. (Same as: NovoLO G)"single patient use only" Stable for 28 days at room temperature.Expires in _ ____ days from Date Start Date: 02/24/14 Stop Date: 02/28/14 Status: Discontinued levothyroxine 125 microgram, 1 tab, Route: PO, Drug form: TAB, Daily, Dosing Weight 125.028, k g, Start date: 02/28/14 9:00:00, Duration: 30 day, Stop date: 03/29/14 9:00:00 Notes: Take 1 hour before or 2 hours after meal; Enteral feeds may interefere wi th the absorption of this medication. (Same as:Levothroid) Start Date: 02/28/14 Stop Date: 02/28/14 Status: Discontinued levothyroxine 125 mcg (0.125 mg) oral tablet 125 microgram=1 tab, PO, Daily, # 30 tab, 0 Refill(s) Start Date: 02/28/14 Status: Ordered Lyrica 100 mg, 2 cap, Route: PO, Drug form: CAP, TID, Dosing Weight 125.028, kg, Start date: 02/23/14 9:00:00, Duration: 30 day, Stop date: 03/24/14 17:00:00 Notes: Same as Lyrica Start Date: 02/23/14 Stop Date: 02/28/14 Status: Discontinued methocarbamol 500 mg, 1 tab, Route: PO, Drug form: TAB, TID, Dosing Weight 125.028, kg, PRN Sp asm, Start date: 02/23/14 15:01:00, Duration: 30 day, Stop date: 03/25/14 15:00: 00 Notes: (Same as:Robaxin) Start Date: 02/23/14 Stop Date: 02/28/14 Status: Discontinued methocarbamol 500 mg oral tablet 500 mg=1 tab, PO, TID, Spasm, # 30 tab, 0 Refill(s) Start Date: 02/28/14 Status: Ordered methylPREDNISolone + Sodium Chloride 0.9% IV 250 mL 1 gm, Route: IV, Drug form: INJ, ONCE, Dosing Weight 125.028, kg, Start date: 15:00:00, Stop date: 02/23/14 15:00:00 Notes: (Same as:Solu-MEDROL, A-Methapred) Start Date: 02/23/14 Stop Date: 02/23/14 Status: Completed metoprolol tartrate 25 mg, 1 tab, Route: PO, Drug form: TAB, QPM, Dosing Weight 125.028, kg, Start d ate: 02/23/14 17:00:00, Duration: 30 day, Stop date: 03/24/14 17:00:00 Notes: (Same as: Lopressor) Start Date: 02/23/14 Stop Date: 02/28/14 Status: Discontinued metoprolol tartrate 50 mg, 1 tab, Route: PO, Drug form: TAB, QAM, Dosing Weight 125.028, kg, Start d ate: 02/23/14 9:00:00, Duration: 30 day, Stop date: 03/24/14 9:00:00 Notes: (Same as: Lopressor) Start Date: 02/23/14 Stop Date: 02/28/14 Status: Discontinued metoprolol tartrate 25 mg oral tablet 50 mg=2 tab, PO, QAM Start Date: 02/22/14 Status: Ordered metoprolol tartrate 25 mg oral tablet 25 mg=1 tab, PO, QPM Start Date: 02/22/14 Status: Ordered multivitamin 1 tab, Route: PO, Drug Form: TAB, Daily, Start date: 02/23/14 11:00:00, Duration : 30 day, Stop date: 03/25/14 9:00:00 Notes: (Same as:One Tab Daily, Tab-A-Eb + Beta Carotene) Give with food. Start Date: 02/23/14 Stop Date: 02/28/14 Status: Discontinued multivitamin 1 tab, Route: PO, Drug Form: TAB, Dosing Weight 125.028, kg, Daily, Start date: 02/23/14 9:00:00, Duration: 30 day, Stop date: 03/24/14 9:00:00 Start Date: 02/23/14 Stop Date: 02/23/14 Status: Deleted normal saline 0.9% IV 1,000 mL 1,000 mL, Rate: 100 ml/hr, Infuse over: 10 hr, Route: IV, Dosing Weight 125.028 kg, Total Volume: 1,000, Start date: 02/23/14 19:30:00, Duration: 30 day, Stop d ate: 03/25/14 19:29:00 Start Date: 02/23/14 Stop Date: 02/28/14 Status: Discontinued NS (Bolus) IV 1,000 mL, 1,000 ml/hr, Infuse Over: 1 hr, Route: IV, 1,000, Drug form: INJ, ONCE , Priority: STAT, Dosing Weight 122.727 kg, Start date: 02/22/14 19:05:00, Durat ion: 1 doses or times, Stop date: 02/22/14 19:05:00 Start Date: 02/22/14 Stop Date: 02/22/14 Status: Completed ondansetron 4 mg, 2 mL, Route: IVP, Drug form: INJ, Q8H, Dosing Weight 122.727, kg, PRN Naus ea & Vomiting, Start date: 02/23/14 0:14:00, Duration: 30 day, Stop date: 03/25/14 0:13:00 Notes: (Same as: Zofran) Start Date: 02/23/14 Stop Date: 02/28/14 Status: Discontinued pantoprazole 40 mg, 1 tab, Route: PO, Drug form: ECTAB, Daily, Dosing Weight 125.028, kg, Sta rt date: 02/23/14 9:00:00, Duration: 30 day, Stop date: 03/24/14 9:00:00 Notes: Tablet should not be chewed or crushed.(Same as: Protonix) Start Date: 02/23/14 Stop Date: 02/28/14 Status: Discontinued Pepcid 40 mg, 2 tab, Route: PO, Drug form: TAB, ONCE, Dosing Weight 122.727, kg, Start date: 02/22/14 19:06:00, Stop date: 02/22/14 19:06:00 Notes: (Same as: Pepcid) Start Date: 02/22/14 Stop Date: 02/22/14 Status: Completed potassium gluconate 550 mg, Route: PO, Drug form: TAB, Daily, Dosing Weight 125.028, kg, Start date: 02/23/14 9:00:00, Duration: 30 day, Stop date: 03/24/14 9:00:00 Start Date: 02/23/14 Stop Date: 02/23/14 Status: Deleted propylthiouracil 50 mg, 1 tab, Route: PO, Drug form: TAB, Daily, Dosing Weight 125.028, kg, Start date: 02/23/14 9:00:00, Duration: 30 day, Stop date: 03/24/14 9:00:00 Notes: Propylthiouracil is associated with risk of serious liver damage. Patien t should be monitored for symptoms of liver injury. Start Date: 02/23/14 Stop Date: 02/28/14 Status: Discontinued sodium chloride 10 mL, Route: IVP, Start date: 02/28/14 17:05:00, Duration: 30 day, Stop date: 0 03/30/14 17:04:00, PRN Line Flush Notes: preservative free. Start Date: 02/28/14 Stop Date: 02/28/14 Status: Deleted sodium chloride 10 mL, Route: IVP, Start date: 03/01/14 0:00:00, Duration: 30 day, Stop date: 16:00:00 Notes: preservative free. Start Date: 03/01/14 Stop Date: 02/28/14 Status: Deleted sodium chloride 20 mL, Route: IVP, Start date: 02/28/14 18:53:00, Duration: 30 day, Stop date: 0 03/30/14 18:52:00, PRN Other -See Comment Notes: preservative free. Start Date: 02/28/14 Stop Date: 02/28/14 Status: Discontinued sodium chloride 20 mL, Route: IVP, Start date: 02/28/14 17:06:00, Duration: 30 day, Stop date: 0 03/30/14 17:05:00, PRN Other -See Comment Notes: preservative free. Start Date: 02/28/14 Stop Date: 02/28/14 Status: Deleted sodium chloride 10 mL, Route: IVP, Start date: 02/28/14 18:53:00, Duration: 30 day, Stop date: 0 03/30/14 18:52:00, PRN Other -See Comment Notes: preservative free. Start Date: 02/28/14 Stop Date: 02/28/14 Status: Discontinued Spiriva 18 mcg inhalation capsule 18 microgram, 1 inhalation, Route: PO, Drug form: CAP, Daily, Dosing Weight 125. 028, kg, Start date: 02/23/14 9:00:00, Duration: 30 day, Stop date: 03/24/14 9:0 0:00 Notes: (Same As: Spiriva). Start Date: 02/23/14 Stop Date: 02/28/14 Status: Discontinued tamsulosin 0.4 mg, 1 cap, Route: PO, Drug form: CAP, Daily, Dosing Weight 125.028, kg, Star t date: 02/23/14 9:00:00, Duration: 30 day, Stop date: 03/24/14 9:00:00 Notes: (Same As: Flomax) "Do Not Crush" Start Date: 02/23/14 Stop Date: 02/28/14 Status: Discontinued tamsulosin 0.4 mg oral capsule 0.4 mg=1 cap, PO, Daily, 0 Refill(s) Start Date: 02/22/14 Status: Ordered temazepam 15 mg, 1 cap, Route: PO, Drug form: CAP, Bedtime, Dosing Weight 125.028, kg, PRN Sleep, Start date: 02/23/14 19:30:00, Duration: 30 day, Stop date: 03/25/14 19: 29:00 Notes: (Same As: Restoril) Start Date: 02/23/14 Stop Date: 02/28/14 Status: Discontinued warfarin 5 mg, 1 tab, Route: PO, Drug form: TAB, Daily, Dosing Weight 125.028, kg, Start date: 02/23/14 9:00:00, Duration: 30 day, Stop date: 03/24/14 9:00:00 Notes: Nurse to ensure documentation of patient education per anticoagulation po licy.Avoid large intake of vitamin-K containing foods diet.(Same As: Coumadin) Start Date: 02/23/14 Stop Date: 02/23/14 Status: Deleted warfarin 5 mg oral tablet 5 mg=1 tab, PO, Daily, 0 Refill(s) Start Date: 02/22/14 Status: Ordered Results ELECTROLYTES 1 2 3 Most recent to oldest [Reference Range]: 136 mEq/L (02/27/14 5:38 AM) 137 mEq/L (02/25/14 4:30 AM) 135 mEq/L (02/24/14 5:00 AM) Sodium Lvl [135-145 mEq/L] 3.7 mEq/L (02/27/14 5:38 AM) 3.8 mEq/L (02/25/14 4:30 AM) 4.1 mEq/L (02/24/14 5:00 AM) Potassium Lvl [3.5-5.1 mEq/L] 100 mEq/L (02/27/14 5:38 AM) 104 mEq/L (02/25/14 4:30 AM) 102 mEq/L (02/24/14 5:00 AM) Chloride Lvl [95-109 mEq/L] 30 mEq/L (02/27/14 5:38 AM) 27 mEq/L (02/25/14 4:30 AM) 27 mEq/L (02/24/14 5:00 AM) CO2 [24-32 mEq/L] 9.7 mEq/L *LOW* (02/27/14 5:38 AM) 9.8 mEq/L *LOW* (02/25/14 4:30 AM) 10.1 mEq/L (02/24/14 5:00 AM) AGAP [10.0-20.0 mEq/L] CHEM PANEL 1 2 3 Most recent to oldest [Reference Range]: 1.0 mg/dL (02/27/14 5:38 AM) 1.2 mg/dL (02/25/14 4:30 AM) 1.3 mg/dL (02/24/14 5:00 AM) Creatinine Lvl [0.5-1.4 mg/dL] 80 mL/min/1.73m2 1 *NA* (02/27/14 5:38 AM) 64 mL/min/1.73m2 2 *NA* (02/25/14 4:30 AM) 58 mL/min/1.73m2 3 *NA* (02/24/14 5:00 AM) eGFR 20 mg/dL (02/27/14 5:38 AM) 24 mg/dL *HI* (02/25/14 4:30 AM) 22 mg/dL (02/24/14 5:00 AM) BUN [7-22 mg/dL] 120 mg/dL 4 *HI* (02/27/14 5:38 AM) 152 mg/dL 5 *HI* (02/25/14 4:30 AM) 275 mg/dL 6 *HI* (02/24/14 5:00 AM) Glucose Lvl [70-99 mg/dL] 9.0 mg/dL (02/27/14 5:38 AM) 8.9 mg/dL (02/25/14 4:30 AM) 9.1 mg/dL (02/24/14 5:00 AM) Calcium Lvl [8.5-10.5 mg/dL] 2.1 mg/dL (02/22/14 8:10 PM) Magnesium Lvl [1.8-2.4 mg/dL] 1Result Comment: The eGFR is calculated [...] values reflect the clinical guidelines of the [place] [employer]. 5Interpretive Data: Adult reference range values reflect the clinical guidelines of the [place] [employer]. 6Interpretive Data: Adult reference range values reflect the clinical guidelines of the [place] [employer]. CARDIAC ENZYMES 1 2 3 Most recent to oldest [Reference Range]: 172 unit/L (02/24/14 5:19 AM) 392 unit/L *HI* (02/22/14 8:10 PM) Total CK [12-191 unit/L] <0.02 ng/mL (02/22/14 8:10 PM) Troponin-I [0.00-0.40 ng/mL] THYROID PANEL 1 2 3 Most recent to oldest [Reference Range]: 9.650 uIU/mL *HI* (02/27/14 5:28 AM) TSH [0.360-3.740 uIU/mL] HEMATOLOGY 1 2 3 Most recent to oldest [Reference Range]: 6.6 K/CMM (02/27/14 5:38 AM) 10.1 K/CMM (02/25/14 4:30 AM) 6.4 K/CMM (02/24/14 5:00 AM) WBC [3.7-10.4 K/CMM] 5.34 M/CMM (02/27/14 5:38 AM) 5.03 M/CMM (02/25/14 4:30 AM) 5.28 M/CMM (02/24/14 5:00 AM) RBC [4.70-6.10 M/CMM] 15.7 g/dL (02/27/14 5:38 AM) 14.7 g/dL (02/25/14 4:30 AM) 15.7 g/dL (02/24/14 5:00 AM) Hgb [14.0-18.0 g/dL] 46.8 % (02/27/14 5:38 AM) 44.3 % (02/25/14 4:30 AM) 46.5 % (02/24/14 5:00 AM) Hct [42.0-54.0 %] 87.6 fL (02/27/14 5:38 AM) 88.1 fL (02/25/14 4:30 AM) 88.1 fL (02/24/14 5:00 AM) MCV [80.0-94.0 fL] 29.3 pg (02/27/14 5:38 AM) 29.1 pg (02/25/14 4:30 AM) 29.7 pg (02/24/14 5:00 AM) MCH [27.0-31.0 pg] 33.5 g/dL (02/27/14 5:38 AM) 33.1 g/dL (02/25/14 4:30 AM) 33.7 g/dL (02/24/14 5:00 AM) MCHC [32.0-36.0 g/dL] 17.5 % *HI* (02/27/14 5:38 AM) 18.0 % *HI* (02/25/14 4:30 AM) 17.8 % *HI* (02/24/14 5:00 AM) RDW [11.5-14.5 %] 133 K/CMM (02/27/14 5:38 AM) 141 K/CMM (02/25/14 4:30 AM) 146 K/CMM (02/24/14 5:00 AM) Platelet [133-450 K/CMM] 7.6 fL (02/27/14 5:38 AM) 8.3 fL (02/25/14 4:30 AM) 8.2 fL (02/24/14 5:00 AM) MPV [7.4-10.4 fL] 68.1 % (02/27/14 5:38 AM) 77.9 % *HI* (02/25/14 4:30 AM) 85.9 % *HI* (02/24/14 5:00 AM) Segs [45.0-75.0 %] 19.4 % *LOW* (02/27/14 5:38 AM) 13.0 % *LOW* (02/25/14 4:30 AM) 11.3 % *LOW* (02/24/14 5:00 AM) Lymphocytes [20.0-40.0 %] 8.1 % (02/27/14 5:38 AM) 9.0 % (02/25/14 4:30 AM) 2.7 % (02/24/14 5:00 AM) Monocytes [2.0-12.0 %] 4.0 % (02/27/14 5:38 AM) 0.9 % (02/22/14 8:10 PM) Eosinophils [0.0-4.0 %] 0.4 % (02/27/14 5:38 AM) 0.1 % (02/25/14 4:30 AM) 0.1 % (02/24/14 5:00 AM) Basophils [0.0-1.0 %] 4.5 K/CMM (02/27/14 5:38 AM) 7.9 K/CMM (02/25/14 4:30 AM) 5.5 K/CMM (02/24/14 5:00 AM) Segs-Bands # [1.5-8.1 K/CMM] 1.3 K/CMM (02/27/14 5:38 AM) 1.3 K/CMM (02/25/14 4:30 AM) 0.7 K/CMM *LOW* (02/24/14 5:00 AM) Lymphocytes # [1.0-5.5 K/CMM] 0.5 K/CMM (02/27/14 5:38 AM) 0.9 K/CMM *HI* (02/25/14 4:30 AM) 0.2 K/CMM (02/24/14 5:00 AM) Monocytes # [0.0-0.8 K/CMM] 0.3 K/CMM (02/27/14 5:38 AM) Eosinophils # [0.0-0.5 K/CMM] 24.6 seconds *HI* (02/27/14 5:38 AM) 25.7 seconds *HI* (02/26/14 5:50 AM) 31.5 seconds *HI* (02/25/14 4:30 AM) PT [12.0-14.7 seconds] 2.27 7 *HI* (02/27/14 5:38 AM) 2.40 8 *HI* (02/26/14 5:50 AM) 3.13 9 *HI* (02/25/14 4:30 AM) INR [0.85-1.17] 31.7 seconds 10 (02/23/14 9:47 AM) PTT [22.9-35.8 seconds] 7Interpretive Data: RECOMMENDED RANGES [...] PATIENTS ON STABLE ANTICOAGULANT THERAPY. 9Interpretive Data: RECOMMENDED RANGES FOR PROTIME INR: 2.0-3.0 for most medical and surgical thromboembolic states. 2.5-3.5 for artificial heart valves and recurrent embolism. INR SHOULD BE USED ONLY FOR PATIENTS ON STABLE ANTICOAGULANT THERAPY. 10Interpretive Data: Heparin Therapeutic Range: 57 - [...] Yes Assessment and Plan Extracted from: Title: Clinical Document Author: Ashley Wolf Date: 02/28/14 [place] Internal Medicine Progress Note [facility] SUBJECTIVE No acute events. Pt denies TUTTLE, dizziness, dysphagia, neck stiffness, CP, SOB, hemoptysis, N/V/D/C, hematemesis, hematochezia, hematuria, dysuria, skin rash. Pt reports continued generalized pain, says he is unable to walk OBJECTIVE Vital Signs (last 24 hrs) Last Charted Minimum Maximum Temp97.5 (FEB 28 04:00)97.5 (FEB 28 04:00)97.8 (FEB 28 00:00) Heart Rate71 (FEB 28 04:00)71 (FEB 27:10)79 (FEB 28 00:00) Resp Rate 16 (FEB 28 04:00)16 (FEB 27 12:10)16 (FEB 27 12:10) SBPH 164 (FEB 28 04:00)132 (FEB 27 16:34)H 166 (FEB 27 20:00) DBP89 (FEB 28 04:00)80 (FEB 27 16:34)H 94 (FEB 28 00:00) Labs (Last four charted values) WBC 6.6(FEB 27)10.1(FEB 25)6.4(FEB 24)5.4(FEB 22) Hgb 15.7(FEB 27)14.7(FEB 25)15.7(FEB 24)16.4(FEB 22) Hct 46.8(FEB 27)44.3(FEB 25)46.5(FEB 24)48.5(FEB 22) Plt 133(FEB 27)141(FEB 25)146(FEB 24)143(FEB 22) Na 136(FEB 27)137(FEB 25)135(FEB 24)137(FEB 23) K 3.7(FEB 27)3.8(FEB 25)4.1(FEB 24)4.3(FEB 23) CO2 30(FEB 27)27(FEB 25)27(FEB 24)25(FEB 23) Cl 100(FEB 27)104(FEB 25)102(FEB 24)104(FEB 23) Cr 1.0(FEB 27)1.2(FEB 25)1.3(FEB 24)1.2(FEB 23) BUN 20(FEB 27)H 24(FEB 25)22(FEB 24)19(FEB 23) Glucose Random H 120(FEB 27)H 152(FEB 25)H 275(FEB 24)H 190(FEB 23) Mg 2.1(FEB 22) Ca 9.0(FEB 27)8.9(FEB 25)9.1(FEB 24)8.8(FEB 23) PT H 24.6(FEB 27)H 25.7(FEB 26)H 31.5(FEB 25)H 31.4(FEB 24) INR H 2.27(FEB 27)H 2.40(FEB 26)H 3.13(FEB 25)H 3.12(FEB 24) PTT 31.7(FEB 23) Troponin <0.02(FEB 22) Total CK 172(FEB 24)H 392(FEB 22) Scheduled Meds (15):albuterol-ipratropium, aspirin (aspirin 81 mg tablet, enteric coated), cholecalciferol, clopidogrel, hydrochlorothiazide (hydrochlorothiazide 12.5 mg oral capsule), levothyroxine, metoprolol (metoprolol tartrate), metoprolol (metoprolol tartrate), multivitamin, pantoprazole, pregabalin (Lyrica), propylthiouracil, tamsulosin, tiotropium (Spiriva 18 mcg inhalation capsule), warfarin (Coumadin) Unscheduled Meds: None PRN Meds (13):Dextrose 50% in Water IV (Dextrose 50% Syringe), Dextrose 50% in Water IV (Dextrose 50% Syringe), acetaminophen-hydrocodone (acetaminophen- hydrocodone 325 mg-10 mg oral tablet), docusate, glucagon, insulin aspart, insulin aspart, insulin aspart, insulin aspart, insulin aspart, methocarbamol, ondansetron, temazepam One Time Meds: None Continuous Infusions (1):Sodium Chloride 0.9% IV 1,000 mL (normal saline 0.9% IV 1,000 mL) Physical Exam Gen: Pt resting comfortably, A&Ox3, NAD HEENT: PERRLA, EOMI, normocephalic, atraumatic, no thyromegaly, no neck stiffness Chest: RRR, no M/R/G, CTAB, no rhonchi wheezes or rales Abd: Bowel sounds present in 4 quads, soft, ND, NTTP Ext: No cyanosis or edema Skin: No rash noted ASSESSMENT & PLAN 1. Muscle spasms. 2. Rhabdomyolysis. 3. Delayed allergic reaction due to medications. 4. Chronic inflammatory demyelinating polyneuropathy. 6. Chronic pulmonary disease. Initial plan was for pt to be d/c to SNF to continue PT/OT. However, after discussion with CM and SW today, they confirm that pt's insurance does not include SNF or rehab benefits. 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 Given pt's Hx of drug addiction and the fact that he is being d/c home, his IV Dilaudid was d/c this morning and he has been encouraged to use the PO [place] and other pain meds. I explained to pt that his insurance does not cover SNF or rehab and that he was still welcome to be d/c there, but would have to pay santo. Pt said that he would not. I explained that pt will be d/c home today with HH to continue PT/OT just like he has been here in the hospital. Pt became very angry and stated that I was d/c'ing him when he is unable to walk, is in extreme pain, and his hypothyroidism is not being treated. I explained that I cannot keep pt in the hospital for pain mgt, he will continue PT/OT at home just like here, and I have already started him on an initial dose of levothyroxine. 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 Pt picked up his phone and stated that he was calling a pvc monitor. I excused myself from the room at this time. I discussed all of this with Dr. Barajas, who agrees with plan to d/c today with HH. Pt will be d/c with Rx for PO [place], levothyroxine, and Robaxin.
--- OUTSIDE RECORDS SUMMARY | 2018-12-01 05:54 | XMS REPORT ---
Author Author [facility] Address Unknown Phone Unavailable Care Team Providers Care Endocrinology Teacher Name Role Phone MARBIN ECHEVARRIA Unavailable Unavailable Ankur FRAIRE Unavailable Unavailable Payers Payer Name Policy Type Policy Number Effective Date Expiration Date Problems This patient has no known problems. Allergies, Adverse Reactions, Alerts Allergy Name Allergy Type Status Severity Reaction(s) Onset Date Inactive Date Treating Clinician Comments codeine DA Active SV 2012-04-19 00:00:00 Medications This patient has no known medications. Encounters Start Date/Time End Date/Time Encounter Type Admission Type Attending Clinicians Care Facility Care Department Encounter ID 2018-11-25 11:40:00 2018-11-25 11:40:00 Outpatient [facility] 7527 Results Test Description Test Time Test Comments Text Results Atomic Results Result Comments CT ABDOMEN WOW 2018-08-24 10:36:00 [facility] [address] [place], [place] [address] Patient Name: SIVAN PETERSON MR #: [id number] : 1950 Age/Sex: 68/M Req #: [id number] Adm Physician: Ordered by: MARBIN ECHEVARRIA MD Report #: [id number] Location: [place] Room/Bed: Procedure: [id number] CT/CT ABDOMEN WOW Exam Date: 08/24/18 Exam Time: 1011 REPORT STATUS: Signed EXAM: CT Abdomen and Pelvis WITHOUT and WITH contrast IND ICATION: Indeterminate left renal mass on recent ultrasound examination. COMPARISON: Correlation with ultrasound kidneys dated 08/10/2018. TECHNIQUE: Abdomen and pelvis were scanned utilizing a multidetector helical scanner from the lung base to the pubic symphysis before and after administration of IV contrast. Coronal and sagittal reformations were obtained. Renal mass protocol was performed. Scan was performed pre-, nephrographic, and 4 minute delayed phase. IV CONTRAST: 100 cc Isovue-300 ORAL CONTRAST: Water RADIATION DOSE: Total DLP: 1693.48 mGy*cm Estimated effective dose: (DLP x 0.015 x size factor) mSv COMPLICATIONS: None FINDINGS: LINES and TUBES: None. LOWER THORAX: Irregular density in the right middle lobe anterolaterally and to lesser degree lingula, suggestive of pleural parenchymal scarring. HEPATOBILIARY: No focal hepatic lesions. No biliary ductal dilation. GALLBLADDER: No radio-opaque stones or sludge. No wall thickening. SPLEEN: No splenomegaly. PANCREAS: No focal masses or ductal dilatation. ADRENALS: No adrenal nodules KIDNEYS/URETERS: Kidneys enhance symmetrically. No hydronephrosis. No cystic or solid mass lesions, in particular, there is no mass lesion in the lower pole of the left kidney to correspond to finding of the ultrasound examination. There is however a normal variation of venous drainage of the left kidney, with venous branches draining the lower pole, extending to the left lower pole as seen on sagittal image 60. Coronal No stones. GI TRACT: No abnormal distention, wall thickening, or evidence of bowel obstruction. Scattered descending sigmoid colon diverticula without CT evidence of diverticulitis. Appendix is not visualized possibly out of field of view. 5.0 cm diverticulum off the second portion of the duodenum. PELVIC ORGANS/BLADDER: Unremarkable. LYMPH NODES: No lymphadenopathy. VESSELS: There is moderate atherosclerotic disease in the aorta and major arterial branches. PERITONEUM / RETROPERITONEUM: No free air or fluid. BONES: No suspicious lesions. SOFT TISSUES: Unremarkable. IMPRESSION: 1. No renal mass identified, particularly in the lower pole of the left kidney as suspected on prior ultrasound examination. 2. Colonic diverticulosis without diverticulitis. Signed by: Dr. Shankar Falcon M.D. on 08/24/2018 11:16 AM Dictated By: MULUGETA FALCON MD, MD 1116 Transcribed By: KERI on 08/24/18 1116 COPY TO: MARBIN ECHEVARRIA MD US RENAL RETROPERITONEAL COMP 2018-08-10 14:56:00 [place] [address] Patient Name: SIVAN PETERSON MR #: [id number] : 1950 Age/Sex: 68/M Req #: [id number] Adm Physician: Ordered by: MARBIN ECHEVARRIA MD Report #: [id number] Location: US Room/Bed: Procedure: [id number] US/US RENAL RETROPERITONEAL COMP Exam Date: 08/10/18 Exam Time: 1150 REPORT STATUS: Signed EXAMINATION: Renal ultrasound. CLINICAL H ISTORY :Hematuria COMPARISON: July 29 2016 TECHNIQUE: Grayscale and color Doppler evaluation of the kidneys and bladder was performed in transverse and longitudinal planes. DISCUSSION: RIGHT KIDNEY: The right kidney measures 12 cm in length and shows normal echogenicity. No hydronephrosis, shadowing calculi or solid mass lesions. LEFT KIDNEY: The left kidney measures 13.4 cm in length and shows normal echogenicity. No hydronephrosis. Left renal 2.4 cm hypoechoic lesion in the interpolar region is indeterminate. Does not appear simple and not present on prior CT of the abdomen and pelvis. BLADDER: Unremarkable. IMPRESSION: Left renal 2.4 cm indeterminate hypoechoic lesion. Recommend CT or MRI of the abdomen with and without contrast. Signed by: Dr. Erica Welch M.D. on 08/10/2018 3:00 PM Dictated By: ERICA WELCH MD 99 Transcribed By: KERI on 08/10/181499 COPY TO: MARBIN ECHEVARRIA MD CHEST SINGLE (PORTABLE) [place] [address] Patient Name: SIVAN PETERSON MR #: [id number] : 1950 Age/Sex: 67/M Req #: [id number] Adm Physician: ALEAH FRAIRE MD Ordered by: ROSA MANN MD Report #: [id number] Location: MED/SURG3 Room/Bed: [facility] Procedure: [id number] DX/CHEST SINGLE (PORTABLE) Exam Date: 06/08/17 Exam Time: 1650 REPORT STATUS: Signed PROCEDURE: A single AP view of the chest. COMPARISON: [facility], DX, CHEST XRAY LINE PLACEMENT, 06/01/2017, 17:08. INDICATIONS: LINE PLACEMENT FINDINGS: Lines/tubes: There is a right-sided PICC with the tip terminating near the cavoatrial junction. A left-sided subclavian chest port has been placed. There is no pneumothorax. The previously visualized right chest port has been removed. Lungs: The lungs are well inflated and clear. There is no evidence of pneumonia or pulmonary edema. Perihilar opacities likely represents atelectasis. Pleura: There is no pleural effusion or pneumothorax. Heart and mediastinum: The heart and the mediastinum are unremarkable. Bones: No acute bony abnormality. IMPRESSION: 1. No acute cardiopulmonary disease. 2. Lines as described above. Edison Dumont D.O. Dictated by: Edison Dumont D.O. on 06/08/2017 at 17:17 Electronically approved by: Edison Dumont D.O. on 06/08/2017 at 17:17 Dictated By: EDISON DUMONT DO 16 Transcribed By: CARTER on 06/08/171716 COPY TO: ROSA MANN MD SP LUMBAR AP LATERAL 2-3VWS [place] [address] Patient Name: SIVAN PETERSON MR #: [id number] : 1950 Age/Sex: 67/M Req #: [id number] Adm Physician: ALEAH FRAIRE MD Ordered by: ALEAH FRAIRE MD Report #: [id number] Location: MED/SURG3 Room/Bed: [facility] Procedure: [id number] DX/SP LUMBAR AP LATERAL 2-3VWS Exam Date: 06/06/17 Exam Time: 1620 REPORT STATUS: Signed Lumbar spine, complete. History: Pain. Comparison: None. Discussion: There are 5 lumbar type vertebral bodies. No displaced fracture or dislocation. Degenerative changes evidenced by anterior osteophytosis. The alignment of the lumbar spine is normal. The vertebral bodies and intervertebral disk spaces are within normal limits. There is no evidence of spondylolisthesis or spondylolysis. No evidence of lytic or sclerotic lesion. The paravertebral soft tissues are unremarkable. Atherosclerotic calcifications. IMPRESSION: No acute radiographic abnormality. Signed by: Dr. Negro Velasquez M.D. on 06/06/2017 4:34 PM Dictated By: NEGRO VELASQUEZ MD 1634 Transcribed By: KERI on 06/06/17 1634 COPY TO: ALEAH FRAIRE MD ABDOMEN-1VIEW (KUB) [place] [address] Patient Name: SIVAN PETERSON MR #: [id number] : 1950 Age/Sex: 67/M Req #: [id number] Adm Physician: ALEAH FRAIRE MD Ordered by: ALEAH FRAIRE MD Report #: [id number] Location: [facility] Room/Bed: [facility] Procedure: [id number] DX/ABDOMEN-1VIEW (KUB) Exam Date: 06/02/17 Exam Time: 0945 REPORT STATUS: Signed PROCEDURE: X-RAY ABDOMEN - KUB COMPARISON: CT abdomen and pelvis 05/29/2017. INDICATIONS: ACUTE TUTTLE, POLYNEUROPATHY FINDINGS: There is a non-obstructed bowel-gas pattern. There are no calcifications projected over the renal shadows, expected course of the ureters or bladder. There are no acute osseous abnormalities. The lung bases are clear. CONCLUSION: No acute radiographic abnormality. Dictated by: Negro Velasquez M.D. on 06/02/2017 at 10:11 Electronically approved by: Negro Velasquez M.D. on 06/02/2017 at 10:11 Dictated By: NEGRO VELASQUEZ MD 1011 Transcribed By: CARTER on 06/02/17 1011 COPY TO: ALEAH FRAIRE MD CHEST XRAY LINE PLACEMENT [facility] [address] [place] [address] Patient Name: SIVAN PETERSON MR #: [id number] : 1950 Age/Sex: 67/M Req #: [id number] Adm Physician: ALEAH FRAIRE MD Ordered by: ROSA MANN MD Report #: [id number] Location: [facility] Room/Bed: [facility] Procedure: [id number] DX/CHEST XRAY LINE PLACEMENT Exam Date: 06/01/17 Exam Time: 1720 REPORT STATUS: Signed PROCEDURE: A single AP view of the chest. COMPARISON: [facility], DX, CHEST SINGLE (PORTABLE), 05/26/2017, 15:41. INDICATIONS: PICC PLACEMENT FINDINGS: See impression. IMPRESSION: 1. interval placement of right-sided PIC line, which has its distal tip projecting in the mid SVC. Unchanged right Port-A-Cath, with distal tip projecting in the proximal SVC and partial looping in its midportion. ILR device projects over the left heart. 2. No consolidation or effusion. 3. Mild central pulmonary venous congestion. Viktor Welch M.D. Dictated by: Viktor Welch M.D. on 06/01/2017 at 17:59 Electronically approved by: Viktor Welch M.D. on 06/01/2017 at 17:59 Dictated By: VIKTOR WELCH MD 58 Transcribed By: CARTER on 06/01/171758 COPY TO: ROSA MANN MD CT ABDOMEN/PELVIS W [place] [id number] Patient Name: SIVAN PETERSON MR #: [id number] : 1950 Age/Sex: 67[id number] Req #: [id number] [facility] Physician: ALEAH FRAIRE MD Ordered by: ALEAH FRAIRE MD Report #: [id number] Location: [facility] Room/Bed: [facility] Procedure: [id number] CT/CT ABDOMEN/PELVIS W Exam Date: 05/29/17 Exam Time: 1900 REPORT STATUS: Signed CT Abdomen And Pelvis with Intravenous Contrast INDICATION: Diffuse abdominal pain TECHNIQUE: Thin collimation axial images obtained from the diaphragm to the level of the pubic symphysis following the uneventful administration of 100 cc of low osmolar, nonionic intravenous contrast. RADIATION DOSE: Total DLP: 886.3 mGy*cm Estimated effective dose: (DLP x 0.015 x size factor) mSv CTDIvol has been reviewed. It is below the limits set by the Radiation Protocol Committee (RPC). COMPARISON: None. ABDOMEN FINDINGS: Lung Bases: There is bibasilar atelectasis. No pleural effusions. Visualized portion of the mediastinum is normal.. Liver: The right lobe measures 18 cm in length. No evidence of mass.. Normal attenuation.. Gallbladder: Prese nt and appears normal. No biliary ductal dilatation. Pancreas: Diffuse fatty atrophy without mass or ductal dilatation. Spleen: Normal in size. No evidence of mass.. Adrenal Glands: No evidence for mass. Kidneys: Right: Normal enhancement. There is excreted contrast into normal appearing collecting system. No cortical mass. No hydronephrosis. Left: Normal enhancement. There is excreted contrast into a normal appearing collecting system.. No hydronephrosis. Lymph Nodes: No lymphadenopathy. Aorta: Diffusely calcified but not aneurysmally dilated. No free fluid or free air. PELVIS FINDINGS: Bowel: Small Bowel: Periampullary duodenal diverticula measuring up to 4.3 cm. The small bowel is normal in diameter with normal wall thickness. Large Bowel: Diverticulosis coli without associated inflammation. Mild to moderate burden of stool throughout the large bowel.. Appendix: Not visualized and may be absent. Bladder: Normal. No ureteral dilatation. The opacified portions of the ureters demonstrate no intrinsic or extra filling defects. A calcification within the prostatic urethra measures 11 mm in length and 5 mm in the axial plane. The prostate gland is not enlarged. The seminal vesicles are normal in morphology. No free fluid or fluid collection Bones: Mild degenerative changes of the spine con sistent with age. No focal osseous lesions. IMPRESSION: 1. Calcification within the prosthetic urethra. Please correlate with symptoms of diminished urine stream and pain with micturition. 2. No evidence of hydronephrosis or hydroureter. 3. Diverticulosis coli. No evidence for bowel obstruction or inflammation. Nonvisualization of the appendix is present. 4. Mild hepatomegaly. Bibasilar atelectasis. Signed by: Dr. Vj Dixon MD on 05/29/2017 7:39 PM Dictated By: VJ DIXON MD 38 Transcribed By: KERI on 05/29/171938 COPY TO: ALEAH FRAIRE MD ABDOMEN-[facility] ([place] [address] Patient Name: SIVAN PETERSON MR #: [id number] : 1950 Age/Sex: 67/M Req #: [id number] Adm Physician: ALEAH FRAIRE MD Ordered by: ALEAH FRAIRE MD Report #: [id number] Location: MED/SURG3 Room/Bed: [facility] Procedure: DX/ABDOMEN-1VIEW (KUB) Exam Date: 05/28/17 Exam Time: 1915 REPORT STATUS: Signed PROCEDURE: X-RAY ABDOMEN - KUB COMPARISON: None. INDICATIONS: polyneuropathy/infection FINDINGS: The bowel gas pattern shows no dilated, air-filled loops of bowel. No abnormal abdominal calcification, mass effect, or organomegaly. Regional skeletal structures are grossly intact. CONCLUSION: Nonobstructive bowel gas pattern.. Dictated by: Rosa Mattson M.D. on 06/03/2017 at 13:30 Electronically approved by: Rosa Mattson M.D. on 06/03/2017 at 13:30 Dictated By: ROSA MATTSON MD 1330 Transcribed By: CARTER on 06/03/17 1330 COPY TO: ALEAH FRAIRE MD MRI SPINE CERVICAL WOW [place] [address] Patient Name: SIVAN PETERSON MR #: [id number] : 1950 Age/Sex: 67/M Req #: [id number] [facility] Physician: ALEAH FRAIRE MD Ordered by: ZULEYMA GUALLPA MD Report #: [id number] Location: MED/SURG Room/Bed: [facility] Procedure: [id number] MRI/MRI SPINE CERVICAL WOW Exam Date: 05/27/17 Exam Time: 1200 REPORT STATUS: Signed Exam: Cervical spine MRI without and with IV contrast History: Headache, blurry vision, dizziness, fever, neck rigidity Comparison studies: Included cervical spine from cervical CTA of 10/26/[address] of 10/24/2016. Technique: Precontrast sagittal T2, T1, STIR, axial T2, axial T2*GRE. Post contrast axial and sagittal T1 FS. Intravenous contrast: None Findings: Alignment: Straightened cervical curvature with unchanged 7 mm retrolisthesis of C4 on C5. Cervicomedullary junction: No abnormalities. Patent foramen magnum. Soft tissues: Chronic postsurgical changes in the dorsal cervical soft tissues from C3-C4 through C6-C7.There is moderate symmetric atrophy of the dorsal paraspinal muscles. Spinal cord: Normal in size and signal from the foramen magnum through T1. No enhancing abnormalities. Vertebrae: No fractures, infection or neoplasm. Postsurgical changes: Anterior cervical discectomy and interbody fusion from C4 to T1. There is solid posterior lateral fusion on the left from C5 to C7 as demonstrated on the previous CTs. The facets on the right from C5 to C7 are partially fused. Canal is decompressed by laminectomies at C4-C5. Cannot further evaluate integrity of the surgical hardware on the basis of MRI. Degenerative changes: C2- C3: Mildly degenerated disc. Moderate left facet arthrosis. Patent canal and foramina. C3-C4: Mild canal stenosis due to a disc osteophyte complex and central disc protrusion. Moderate right and mild left foraminal stenosis due to uncovertebral and facet arthrosis. C4-C5: Retrolisthesis of C4 on C5 C5 with associated osteophyte complex and ossified posterior longitudinal ligament indent the thecal sac. Canal is decompressed by laminectomies. Moderate bilateral foraminal stenosis due to uncovertebral facet arthrosis. C5-C6: Patent canal. Mild bilateral foraminal stenosis due to uncovertebral facet arthrosis. C6-C7: Patent canal and foramina. C7-T1: No significant canal stenosis. Moderate right and mild left foraminal stenosis due to right foraminal disc osteophyte complex and uncovertebral arthrosis and facet arthrosis. Incidental findings: T2 hyperintense chronic ischemic changes in the sandrine. IMPRESSION: 1. No MRI evidence of leptomeningitis or discitis-osteomyelitis. 2. No changes from the previous cervical spine CT of 10/24/2016. 3. Postsurgical changes of C4-T1 fusion with decompressive laminectomies at C4-C5. 4. No significant canal stenosis. 5. Multilevel degenerative foraminal stenosis (moderate on the right at C3-C4, bilaterally at C4-C5 and on the right at C7-T1). Signed by: Dr. Rosa Jensen M.D. on 05/28/2017 7:27 AM Dictated By: ROSA JENSEN MD 6 Transcribed By: KERI on 05/28/17726 COPY TO: ZULEYMA GUALLPA MD IR CONSULT [place] [address] Patient Name: SIVAN PETERSON MR #: [id number] : 1950 Age/Sex: 67/M Req #: [id number] Adm Physician: ALEAH FRAIRE MD Ordered by: KEAR JAIMES MD Report #: [id number] Location: [place] [address] Room/Bed: [facility] Procedure: [id number] DX/IR CONSULT Exam Date: Exam Time: REPORT STATUS: Signed PROCEDURE: LUMBAR PUNCTURE COMPARISON: None. INDICATIONS: VIRAL MENINGITIS MEDICATION: None. EBL: 0 cc SPECIMEN: 13 cc spinal fluid TECHNIQUE: The procedure was explained to the patient in detail including complications. After consent was obtained, the patient was transferred to the fluoroscopy suite and asked to lie in the prone position. The skin in the lower back was prepped and draped in the usual sterile fashion. A 25G needle was used to infiltrate the skin and subcutaneous soft tissues with 1% lidocaine. Under fluoroscopic guidance, a 22 G 3.5" needle was advanced into the thecal sac at the L4-L5 level. Initial pink and clearing CSF fluid was obtained, which became colorless and clear, 13 cc were obtained, sent to the lab for studies. The patient tolerated the procedure well without evidence of immediate complication. CONCLUSION: Successful fluoroscopic guided lumbar puncture. Viktor Welch M.D. Dictated by: Viktor Welch M.D. on 06/16/2017 at 13:07 Electronically approved by: Viktor Welch M.D. on 06/16/2017 at 13:07 Dictated By: VIKTOR WELCH MD 130 Transcribed By: CARTER on 06/16/17 1307 COPY TO: KERA JAIMES MD MRI BRAIN WOW [place] [address] Patient Name: SIVAN PETERSON MR #: [id number] : 1950 Age/Sex: 67/M Req #: [id number] Adm Physician: ALEAH FRAIRE MD Ordered by: ZULEYMA GUALLPA MD Report #: [id number] Location: [facility] Room/Bed: [facility] Procedure: [id number] MRI/MRI BRAIN WOW Exam Date: 05/27/17 Exam Time: 1200 REPORT STATUS: Signed History: Headache Comparison studies: CT head 05/26/2017 Technique: Pre-contrast: Sagittal T2; axial T1-IR, MPGR, DWI, T2 FLAIR Post-contrast: axial and coronal T1. Intravenous contrast: 10 cc of Gadavist. Findings: Scalp: No abnormal signal. No masses. Bone marrow: Normal in signal intensity. Brain sulci: Appropriate for age. Ventricles: Normal in size . No hydrocephalus. Extra-axial: No masses, fluid collections or hemorrhage. Parenchyma: Scattered small T2/flair hyperintensities in the supratentorial white matter are small vessel ischemic changes. Small chronic lacunar infarct of the right stevens radiata. Encephalomalacia at the left occipital temporal region No masses, hemorrhage, acute or chronic vascular insults. No enhancing abnormalities. Morales prasellar region: No abnormalities. Craniocervical junction: No abnormalities. Patent foramen magnum. No Chiari one malformation.. Vessels: Normal flow- voids in the arteries and sinuses. Incidental findings: None IMPRESSION: 1. No acute intracranial abnormality. 2. Mild chronic microvascular ischemic changes of the white matter and diffuse volume loss. 3. Left occipital temporal region remote insult. Signed by: DR Brandyn Asif M.D. on 05/27/2017 1:54 PM Dictated By: BRANDYN GALVEZ MD 1354 Transcribed By: KERI on 05/27/17 1354 COPY TO: ZULEYMA GUALLPA MD FLUORO ASSIST NEURO/PAIN CASES [place] [address] Patient Name: SIVAN PETERSON MR #: [id number] : 1950 Age/Sex: 67/M Req #: [id number] [facility] Physician: ALEAH FRAIRE MD Ordered by: KERA JAIMES MD Report #: [id number] Location: [facility] Room/Bed: [facility] Procedure: [id number] DX/FLUORO ASSIST NEURO/PAIN CASES Exam Date: 05/27/17 Exam Time: 1722 REPORT STATUS: Signed PROCEDURE: LUMBAR PUNCTURE COMPARISON: None. INDICATIONS: VIRAL MENINGITIS MEDICATION: None. EBL: 0 cc SPECIMEN: 13 cc spinal fluid TECHNIQUE: The procedure was explained to the patient in detail including complications. After consent was obtained, the patient was transferred to the fluoroscopy suite and asked to lie in the prone position. The skin in the lower back was prepped and draped in the usual sterile fashion. A 25G needle was used to infiltrate the skin and subcutaneous soft tissues with 1% lidocaine. Under fluoroscopic guidance, a 22 G 3.5" needle was advanced into the thecal sac at the L4-L5 level. Initial pink and clearing CSF fluid was obtained, which became colorless and clear, 13 cc were obtained, sent to the lab for studies. The patient tolerated the procedure well without evidence of immediate complication. CONCLUSION: Successful fluoroscopic guided lumbar puncture. Viktor Welch M.D. Dictated by: Viktor Welch M.D. on 06/16/2017 at 13:07 Electronically approved by: Viktor Welch M.D. on 06/16/2017 at 13:07 Dictated By: VIKTOR WELCH MD 1307 Transcribed By: CARTER on 06/16/17 1307 COPY TO: KERA JAIMES MD CT BRAIN WO [place] [address] Patient Name: SIVAN PETERSON MR #: [id number] : 1950 Age/Sex: 67/M Req #: [id number] Adm Physician: Ordered by: ZULEYMA GUALLPA MD Report #: [id number] Location: ER Room/Bed: Procedure: [id number] CT/CT BRAIN WO Exam Date: 05/26/17 Exam Time: 1544 REPORT STATUS: Signed History:New onset of headaches Comparison studies:CT head 10/25/2016 Technique: Axial images were obtained from the skull base to the vertex. Coronal and sagittal images reconstructed from the axial data. Intravenous contrast: None Findings: Scalp/skull: No abnormalities. Extra- axial spaces: No masses. No fluid collections. Brain sulci: Mildly prominent. Ventricles: Mild compensatory dilatation. No hydrocephalus. Parenchyma: Scattered small hypodensities in the supratentorial white matter are small vessel ischemic changes. Encephalomalacia at the left occipital temporal region. No masses, hemorrhage or acute cortical vascular insults. Sellar/suprasellar region: No abnormalities. Craniocervical junction: Patent foramen magnum. No Chiari one malformation. Incidental findings: Atherosclerotic calcifications in the carotid siphons . Impression: No acute abnormalities. Stable from previous examination Chronic findings: 1. Mild generalized volume loss. 2. Mild supratentorial white matter small vessel ischemic changes. 3. Remote insult at the left occipital temporal region. Signed by: DR Brandyn Asif M.D. on 05/26/2017 4:07 PM Dictated By: BRANDYN GALVEZ MD 06 Transcribed By: KERI on 05/26/171606 COPY TO: ZULEYMA GUALLPA MD CHEST SINGLE (PORTABLE) [place] [address] Patient Name: SIVAN PETERSON MR #: [id number] : 1950 Age/Sex: 67/M Req #: [id number] Adm Physician: Ordered by: ZULEYMA GUALLPA MD Report #: [id number] Location: ER Room/Bed: Procedure: [id number] DX/CHEST SINGLE (PORTABLE) Exam Date: 05/26/17 Exam Time: 1544 REPORT STATUS: Signed PROCEDURE: A single AP view of the chest. COMPARISON: Patients [facility], , CHEST SINGLE (PORTABLE), 10/24/2016, 11:46. INDICATIONS: new onset of headaches FINDINGS: Lines/tubes: Stable right upper chest Port-A-Cath with distal tip projecting in the proximal SVC. A loop is noted in the midportion of the catheter, which is unchanged. Lungs: The lungs are well inflated and grossly clear. There is no evidence of pneumonia or pulmonary edema. Pleura: There is no pleural effusion or pneumothorax. Heart and mediastinum: The heart and the mediastinum are unremarkable. ILR device projects over the left heart Bones: No acute bony abnormality. IMPRESSION: 1. No acute cardiopulmonary abnormalities. Viktor Welch M.D. Dictated by: Viktor Welch M.D. on 05/26/2017 at 16:20 Electronically approved by: Viktor Welch M.D. on 05/26/2017 at 16:20 Dictated By: VIKTOR WELCH MD [id number] Transcribed By: CARTER on 05/26/17 1620 COPY TO: ZULEYMA GUALLPA MD
--- OUTSIDE RECORDS SUMMARY | 2018-12-01 05:54 | XMS REPORT | Summary of Care ---
Author Author [facility] Organization [facility] Address Unknown Phone Unavailable Encounter TOM Quinn(NICOLE) [id number] Date(s): 02/10/15 - 02/11/15 [facility] [address] [place] [address]- [phone] Discharge Diagnosis: Acute low back pain Discharge Disposition: Home Attending Physician: Luis Alberto Callahan MD Vital Signs 1 2 3 Most recent to oldest [Reference Range]: 203.2 cm (02/10/15 10:28 AM) Height 1 2 3 Most recent to oldest [Reference Range]: 98.0 DegF (02/10/15 9:25 PM) 97.6 DegF (02/10/15 5:03 PM) 97.5 DegF (02/10/15 2:34 PM) Temperature Oral [96.4-99.1 DegF] 1 2 3 Most recent to oldest [Reference Range]: 151/96 mmHg *HI* (02/10/15 9:25 PM) 135/80 mmHg (02/10/15 7:51 PM) 137/87 mmHg (02/10/15 5:03 PM) Blood Pressure [90-140/60-90 mmHg] 1 2 3 Most recent to oldest [Reference Range]: 18 BRMIN (02/10/15 9:25 PM) 18 BRMIN (02/10/15 7:51 PM) 20 BRMIN (02/10/15 7:07 PM) Respiratory Rate [14-20 BRMIN] 1 2 3 Most recent to oldest [Reference Range]: 72 bpm (02/10/15 9:25 PM) 71 bpm (02/10/15 7:51 PM) 94 bpm (02/10/15 7:07 PM) Peripheral Pulse Rate [60-100 bpm] 1 2 3 Most recent to oldest [Reference Range]: 114.545 kg (02/10/15 10:28 AM) Weight 1 2 3 Most recent to oldest [Reference Range]: 27.74 m2 (02/10/15 10:28 AM) Body Mass Index Problem List Condition Effective Dates Status Health Status Informant Acute CHF(Confirmed) Resolved CAD (coronary artery Resolved disease)(Confirmed) Cervical Active myelopathy(Confirmed ) Hypertension(Confirm Active ed) Neuropathy(Confirmed Active ) PE (pulmonary Resolved embolism)(Confirmed) SOBOE - Shortness of Active breath on exertion(Confirmed) Allergies, Adverse Reactions, Alerts Substance Reaction Severity Status CODEINE Active Medications Dilaudid 1 mg, Route: IVP, ONCE, Dosing Weight 114.545, kg, Priority: STAT, Start date: 0 02/10/15 15:06:00, Stop date: 02/10/15 15:06:00 Start Date: 02/10/15 Stop Date: 02/10/15 Status: Completed Dilaudid 1 mg, Route: IVP, ONCE, Dosing Weight 114.545, kg, Priority: STAT, Start date: 0 02/10/15 10:48:00, Stop date: 02/10/15 10:48:00 Start Date: 02/10/15 Stop Date: 02/10/15 Status: Completed [place] 10/325 oral tablet 1 tab, Route: PO, Drug Form: TAB, Dosing Weight 114.545, kg, ONCE, STAT, Start d ate: 02/10/15 19:27:00, Stop date: 02/10/15 19:27:00 Start Date: 02/10/15 Stop Date: 02/10/15 Status: Completed ondansetron 4 mg, Route: IVP, Drug form: INJ, ONCE, Dosing Weight 114.545, kg, Priority: STA T, Start date: 02/10/15 10:48:00, Stop date: 02/10/15 10:48:00 Start Date: 02/10/15 Stop Date: 02/10/15 Status: Completed Results ELECTROLYTES Most recent to 1 oldest [Reference Range]: Sodium Lvl [135-145 139 mEq/L mEq/L] (02/10/15 12:00 PM) Potassium Lvl 3.9 mEq/L [3.5-5.1 mEq/L] (02/10/15 12:00 PM) Chloride Lvl [95-109 107 mEq/L mEq/L] (02/10/15 12:00 PM) CO2 [24-32 mEq/L] 25 mEq/L (02/10/15:00 PM) AGAP [10.0-20.0 10.9 mEq/L mEq/L] (02/10/15 12:00 PM) CHEM PANEL Most recent to 1 oldest [Reference Range]: Creatinine Lvl 1.1 mg/dL [0.5-1.4 mg/dL] (02/10/15 12:00 PM) eGFR 71 mL/min/1.73m2 1 *NA* (02/10/15:00 PM) BUN [7-22 mg/dL] 24 mg/dL *HI* (02/10/15:00 PM) Glucose Lvl [70-99 88 mg/dL mg/dL] (02/10/15:00 PM) Calcium Lvl 8.8 mg/dL [8.5-10.5 mg/dL] (02/10/15:00 PM) 1Result Comment: The eGFR is calculated [...] be mul tiplied by the estimated BMI. URINE AND STOOL Most recent to 1 oldest [Reference Range]: UA Turbidity [Clear] Clear (02/10/15 12:00 PM) UA Color [Yellow] Yellow *NA* (02/10/15:00 PM) UA pH [5.0-8.0] 6.0 (02/10/15:00 PM) UA Spec Grav 1.018 [<=1.030] (02/10/15 12:00 PM) UA Glucose [Negative Negative mg/dL mg/dL] *NA* (02/10/15 12:00 PM) UA Blood [Negative] Negative (02/10/15 12:00 PM) UA Ketones [Negative Negative mg/dL mg/dL] *NA* (02/10/15 12:00 PM) UA Protein [Negative Negative mg/dL mg/dL] (02/10/15 12:00 PM) UA Urobilinogen <=1.0 mg/dL [0.1-1.0 mg/dL] *NA* (02/10/15 12:00 PM) UA Bili [Negative] Negative *NA* (02/10/15 12:00 PM) UA Leuk Est Negative [Negative] (02/10/15 12:00 PM) UA Nitrite Negative [Negative] (02/10/15 12:00 PM) UA WBC [0-5 /HPF] <1 /HPF (02/10/15 12:00 PM) UA RBC [0-2 /HPF] 3 /HPF *HI* (02/10/15 12:00 PM) UA Bacteria [None Occasional /HPF Seen /HPF] *NA* (02/10/15 12:00 PM) UA Sq Epi None Seen *NA* (02/10/15 12:00 PM) HEMATOLOGY Most recent to 1 oldest [Reference Range]: WBC [3.7-10.4 K/CMM] 6.0 K/CMM (02/10/15 12:00 PM) RBC [4.70-6.10 5.39 M/CMM M/CMM] (02/10/15 12:00 PM) Hgb [14.0-18.0 g/dL] 16.1 g/dL (02/10/15 12:00 PM) Hct [42.0-54.0 %] 47.6 % (02/10/15 12:00 PM) MCV [80.0-94.0 fL] 88.2 fL (02/10/15 12:00 PM) MCH [27.0-31.0 pg] 29.9 pg (02/10/15 12:00 PM) MCHC [32.0-36.0 33.9 g/dL g/dL] (02/10/15 12:00 PM) RDW [11.5-14.5 %] 17.1 % *HI* (02/10/15 12:00 PM) Platelet [133-450 136 K/CMM K/CMM] (02/10/15 12:00 PM) MPV [7.4-10.4 fL] 8.4 fL (02/10/15 12:00 PM) Segs [45.0-75.0 %] 68.0 % (02/10/15 12:00 PM) Lymphocytes 20.8 % [20.0-40.0 %] (02/10/15 12:00 PM) Monocytes [2.0-12.0 9.6 % %] (02/10/15 12:00 PM) Eosinophils [0.0-4.0 1.2 % %] (02/10/15 12:00 PM) Basophils [0.0-1.0 0.4 % %] (02/10/15 12:00 PM) Segs-Bands # 4.1 K/CMM [1.5-8.1 K/CMM] (02/10/15 12:00 PM) Lymphocytes # 1.3 K/CMM [1.0-5.5 K/CMM] (02/10/15 12:00 PM) Monocytes # [0.0-0.8 0.6 K/CMM K/CMM] (02/10/15 12:00 PM) Eosinophils # 0.1 K/CMM [0.0-0.5 K/CMM] (02/10/15 12:00 PM) PT [12.0-14.7 16.9 seconds seconds] *HI* (02/10/15 12:00 PM) INR [0.85-1.17] 1.36 *HI* (02/10/15 12:00 PM) PTT [22.9-35.8 28.4 seconds seconds] (02/10/15 12:00 PM) Immunizations Vaccine Date Refusal Reason influenza virus [...]
--- OUTSIDE RECORDS SUMMARY | 2018-12-01 05:54 | XMS REPORT | Summary of Care ---
Author Organization Unknown Address Unknown Phone Unavailable Encounter HQ Kai(NICOLE) [id number] Date(s): 11/21/14 - 11/21/14 [facility] [address] [place] [address]- [phone] Discharge Diagnosis: Hemarthrosis Discharge Disposition: Home Physician Attending: Juice Amaya MD Vital Signs 1 2 3 Most recent to oldest [Reference Range]: 203.2 cm (11/21/14 4:19 PM) Height 97.6 DegF (11/21/14 10:30 PM) 97.4 DegF (11/21/14 4:19 PM) Temperature Oral [96.4-99.1 DegF] 137/75 mmHg (11/21/14 10:30 PM) 134/76 mmHg (11/21/14 7:00 PM) 161/92 mmHg *HI* (11/21/14 4:19 PM) Blood Pressure [90-140/60-90 mmHg] 18 BRMIN (11/21/14 10:30 PM) 18 BRMIN (11/21/14 7:00 PM) 20 BRMIN (11/21/14 4:19 PM) Respiratory Rate [14-20 BRMIN] 78 bpm (11/21/14 4:19 PM) Peripheral Pulse Rate [60-100 bpm] 121.818 kg (11/21/14 4:19 PM) Weight 29.5 m2 (11/21/14 4:19 PM) Body Mass Index Problem List Condition [...] mg oral tablet 1 tab, PO, Q4H, PRN Pain, X 3 day, # 18 tab, 0 Refill(s) Start Date: 11/21/14 Stop Date: 11/24/14 Status: Ordered calcium chloride + Sodium Chloride 0.9% IV 100 mL 1,000 mg, 10 mL, Route: IVP, Drug form: INJ, ONCE, Dosing Weight 121.818, kg, Pr iority: STAT, Start date: 11/21/14 19:53:00, Stop date: 11/21/14 19:53:00 Notes: calcium CHLORIDEcalcium CHLORIDEcalcium CHLORIDE Start Date: 11/21/14 Stop Date: 11/21/14 Status: Completed morphine Sulfate 4 mg, 2 mL, Route: IVP, Drug form: INJ, ONCE, Dosing Weight 121.818, kg, Priorit y: STAT, Start date: 11/21/14 18:30:00, Stop date: 11/21/14 18:30:00 Notes: (Same as:MORPhine Sulfate) Start Date: 11/21/14 Stop Date: 11/21/14 Status: Completed [place] 10/325 oral tablet 1 tab, Route: PO, Drug Form: TAB, Dosing Weight 121.818, kg, ONCE, STAT, Start d ate: 11/21/14 17:47:00, Stop date: 11/21/14 17:47:00 Start Date: 11/21/14 Stop Date: 11/21/14 Status: Completed potassium chloride 10 mEq, 100 mL, Route: IVPB, Drug form: INJ, Q1H, Start date: 11/21/14 20:00:00, Duration: 4 doses or times, Stop date: 11/21/14 23:00:00 Notes: Infuse at a rate of 10 mEq/hr.(Same as: KCL) Start Date: 11/21/14 Stop Date: 11/21/14 Status: Deleted potassium chloride 40 mEq, Route: IVPB, ONCE, Dosing Weight 121.818, kg, Start date: 11/21/14 19:50 :00, Stop date: 11/21/14 19:50:00 Start Date: 11/21/14 Stop Date: 11/21/14 Status: Deleted potassium chloride 20 mEq oral tablet, extended release 40 mEq, 2 tab, Route: PO, Drug form: ERTAB, ONCE, Dosing Weight 121.818, kg, Selena ority: STAT, Start date: 11/21/14 21:15:00, Stop date: 11/21/14 21:15:00 Start Date: 11/21/14 Stop Date: 11/21/14 Status: Completed Zofran 4 mg, Route: IVP, Drug form: INJ, ONCE, Dosing Weight 121.818, kg, Priority: STA T, Start date: 11/21/14 18:30:00, Stop date: 11/21/14 18:30:00 Start Date: 11/21/14 Stop Date: 11/21/14 Status: Completed Zofran 4 mg, Route: IVP, Drug form: INJ, ONCE, Dosing Weight 121.818, kg, Priority: STA T, Start date: 11/21/14 21:35:00, Stop date: 11/21/14 21:35:00 Start Date: 11/21/14 Stop Date: 11/21/14 Status: Completed Zofran 4 mg oral tablet 4 mg=1 tab, PO, TID, X 5 day, # 15 tab, 0 Refill(s) Start Date: 11/21/14 Stop Date: 11/26/14 Status: Ordered Zofran ODT 4 mg, Route: PO, Drug form: TABDIS, ONCE, Dosing Weight 121.818, kg, Priority: S TAT, Start date: 11/21/14 18:09:00, Stop date: 11/21/14 18:09:00 Start Date: 11/21/14 Stop Date: 11/21/14 Status: Completed Results ELECTROLYTES Most recent to 1 oldest [Reference Range]: Sodium Lvl [135-145 142 mEq/L mEq/L] (11/21/14 6:39 PM) Potassium Lvl 3.0 mEq/L 1 [3.5-5.1 mEq/L] *CRIT* (11/21/14 6:39 PM) Chloride Lvl [95-109 116 mEq/L mEq/L] *HI* (11/21/14 6:39 PM) CO2 [24-32 mEq/L] 19 mEq/L *LOW* (11/21/14 6:39 PM) AGAP [10.0-20.0 10.0 mEq/L mEq/L] (11/21/14 6:39 PM) 1Result Comment: Critical Result(s) called to enedelia mane at 11/21/2014 19:36_ byAN_. Read back OK. CHEM PANEL Most recent to 1 oldest [Reference Range]: Creatinine Lvl 1.0 mg/dL [0.5-1.4 mg/dL] (11/21/14 6:39 PM) eGFR 80 mL/min/1.73m2 2 *NA* (11/21/14 6:39 PM) BUN [7-22 mg/dL] 15 mg/dL (11/21/14 6:39 PM) Glucose Lvl [70-99 66 mg/dL 3 mg/dL] *LOW* (11/21/14 6:39 PM) Calcium Lvl 6.7 mg/dL 4 [8.5-10.5 mg/dL] *CRIT* (11/21/14 6:39 PM) 2Result Comment: The eGFR is calculated using [...] be mul tiplied by the estimated BMI. 3Interpretive Data: Adult reference range values reflect the clinical guidelines of the [employer]. 4Result Comment: Critical Result(s) called to KORI MANE at 11/21/2014 19:48 by CV. Read back OK. CARDIAC ENZYMES Most recent to 1 oldest [Reference Range]: CK MB [0.5-3.6 3.7 ng/mL ng/mL] *HI* (11/21/14 6:39 PM) Troponin-I 0.02 ng/mL [0.00-0.40 ng/mL] (11/21/14 6:39 PM) HEMATOLOGY Most recent to 1 oldest [Reference Range]: WBC [3.7-10.4 K/CMM] 6.0 K/CMM (11/21/14 6:39 PM) RBC [4.70-6.10 5.15 M/CMM M/CMM] (11/21/14 6:39 PM) Hgb [14.0-18.0 g/dL] 15.5 g/dL (11/21/14 6:39 PM) Hct [42.0-54.0 %] 46.0 % (11/21/14 6:39 PM) MCV [80.0-94.0 fL] 89.4 fL (11/21/14:39 PM) MCH [27.0-31.0 pg] 30.2 pg (11/21/14:39 PM) MCHC [32.0-36.0 33.8 g/dL g/dL] (11/21/14 6:39 PM) RDW [11.5-14.5 %] 14.6 % *HI* (11/21/14 6:39 PM) Platelet [133-450 135 K/CMM K/CMM] (11/21/14 6:39 PM) MPV [7.4-10.4 fL] 9.1 fL (11/21/14 6:39 PM) Segs [45.0-75.0 %] 67.2 % (11/21/14 6:39 PM) Lymphocytes 20.2 % [20.0-40.0 %] (11/21/14 6:39 PM) Monocytes [2.0-12.0 11.0 % %] (11/21/14 6:39 PM) Eosinophils [0.0-4.0 1.2 % %] (11/21/14 6:39 PM) Basophils [0.0-1.0 0.4 % %] (11/21/14 6:39 PM) Segs-Bands # 4.0 K/CMM [1.5-8.1 K/CMM] (11/21/14 6:39 PM) Lymphocytes # 1.2 K/CMM [1.0-5.5 K/CMM] (11/21/14 6:39 PM) Monocytes # [0.0-0.8 0.7 K/CMM K/CMM] (11/21/14 6:39 PM) Eosinophils # 0.1 K/CMM [0.0-0.5 K/CMM] (11/21/14 6:39 PM) PT [12.0-14.7 23.8 seconds seconds] *HI* (11/21/14 6:39 PM) INR [0.85-1.17] 2.06 5 *HI* (11/21/14 6:39 PM) PTT [22.9-35.8 39.2 seconds 6 seconds] *HI* (11/21/14 6:39 PM) 5Interpretive Data: RECOMMENDED RANGES FOR PROTIME INR: 2.0-3.0 for most medical and surgical thromboembolic states. 2.5-3.5 for artificial heart valves and recurrent embolism. INR SHOULD BE USED ONLY FOR PATIENTS ON STABLE ANTICOAGULANT THERAPY. 6Interpretive Data: Heparin Therapeutic Range: 57 - 92 Seconds Immunizations Vaccine Date Refusal Reason influenza virus [...]
--- OUTSIDE RECORDS SUMMARY | 2018-12-01 05:54 | XMS REPORT | Summary of Care ---
Author Author [facility] Organization [facility] Address Unknown Phone Unavailable Encounter TOM Quinn(NICOLE) [id number] Date(s): 07/17/15 - 07/17/15 [facility] [address] [place] [address]- [phone] Discharge Diagnosis: Bite from dog Discharge Diagnosis: Acute foreign body of hand Discharge Disposition: Home Attending Physician: Max Santacruz MD Vital Signs Most recent to 1 2 oldest [Reference Range]: Height 182.88 cm (07/17/15 3:10 PM) Temperature Oral 97.2 DegF 97.3 DegF [96.4-99.1 DegF] (07/17/15 5:50 PM) (07/17/15 3:10 PM) Blood Pressure 145/71 mmHg 143/76 mmHg [90-140/60-90 mmHg] *HI* *HI* (07/17/15 5:50 PM) (07/17/15 3:10 PM) Respiratory Rate 20 BRMIN 20 BRMIN [14-20 BRMIN] (07/17/15 5:50 PM) (07/17/15 3:10 PM) Peripheral Pulse 87 bpm 99 bpm Rate [60-100 bpm] (07/17/15 5:50 PM) (07/17/15 3:10 PM) Weight 77.273 kg (07/17/15 3:10 PM) Body Mass Index 23.1 m2 (07/17/15 3:10 PM) Problem List Condition Effective Dates Status Health Status Informant Acute CHF(Confirmed) Resolved CAD (coronary artery Resolved disease)(Confirmed) Cervical Active myelopathy(Confirmed ) Hypertension(Confirm Active ed) Neuropathy(Confirmed Active ) PE (pulmonary Resolved embolism)(Confirmed) SOBOE - Shortness of Active breath on exertion(Confirmed) Allergies, Adverse Reactions, Alerts Substance Reaction Severity Status CODEINE Active Medications Augmentin 875 mg oral tablet 875 mg=1 tab, PO, Q12H, X 7 day, # 14 tab, 0 Refill(s) Start Date: 07/17/15 Stop Date: 07/24/15 Status: Ordered morphine Sulfate 4 mg, Route: IM, Drug form: INJ, ONCE, Dosing Weight 77.273, kg, Priority: STAT, Start date: 07/17/15 16:27:00, Stop date: 07/17/15 16:27:00 Start Date: 07/17/15 Stop Date: 07/17/15 Status: Discontinued morphine Sulfate 4 mg, 2 mL, Route: IM, Drug form: INJ, ONCE, Dosing Weight 77.273, kg, Priority: STAT, Start date: 07/17/15 16:27:00, Stop date: 07/17/15 16:27:00 Notes: (Same as:MORPhine Sulfate) Start Date: 07/17/15 Stop Date: 07/17/15 Status: Completed Results No data available for this section Immunizations Vaccine Date Refusal Reason diphtheria/pertussis, acel/tetanus adult 07/17/15 influenza virus vaccine, inactivated 04/07/13 pneumococcal 23-valent [...]
--- OUTSIDE RECORDS SUMMARY | 2018-12-01 05:54 | XMS REPORT | Summary of Care ---
Author Author [facility] Address Unknown Phone Unavailable Encounter TOM Quinn(NICOLE) [id number] Date(s): 02/13/15 - 03/14/15 [facility] Discharge Disposition: Home Attending Physician: Jessy Marcum MD Vital Signs No data available for [...]
--- OUTSIDE RECORDS SUMMARY | 2018-12-01 05:54 | XMS REPORT | Summary of Care ---
Author Author [facility] Organization [facility] Address Unknown Phone Unavailable Encounter TOM Quinn(NICOLE) [id number] Date(s): 04/23/15 - 04/23/15 [facility] [address] [place] [address]- [phone] Discharge Disposition: NT Attending Physician: Susie Sevilla DO Vital Signs No data available for this [...]
--- OUTSIDE RECORDS SUMMARY | 2018-12-01 05:54 | XMS REPORT | Summary of Care ---
Author Author [facility] Organization [facility] Address Unknown Phone Unavailable Encounter TOM Quinn(NICOLE) [id number] Date(s): 05/31/15 - 05/31/15 [facility] [address] [place] [address]- [phone] Discharge Disposition: Home Attending Physician: Charlie Hung DO Vital Signs No data available for [...]
--- OUTSIDE RECORDS SUMMARY | 2018-12-01 05:54 | XMS REPORT | Summary of Care ---
Author Author [facility] Organization [facility] Address Unknown Phone Unavailable Encounter TOM Quinn(NICOLE) [id number] Date(s): 05/24/15 - 05/24/15 [facility] [address] [place] [address]- Discharge Disposition: Home Attending Physician: Terrance Reyna MD Referring Physician: Steve Demarco MD Vital Signs Most recent to 1 oldest [Reference Range]: Height 203.2 cm (05/23/15 10:54 AM) Blood Pressure 117/72 mmHg [90-140/60-90 mmHg] (05/24/15 7:37 AM) Respiratory Rate 16 BRMIN [14-20 BRMIN] (05/24/15 7:37 AM) Weight 116.818 kg (05/23/15 10:54 AM) Body Mass Index 28.29 m2 (05/23/15 10:54 AM) Problem List Condition Effective Dates Status Health Status Informant Acute CHF(Confirmed) Resolved CAD (coronary artery Resolved disease)(Confirmed) Cervical Active myelopathy(Confirmed ) Hypertension(Confirm Active ed) Neuropathy(Confirmed Active ) PE (pulmonary Resolved embolism)(Confirmed) SOBOE - Shortness of Active breath on exertion(Confirmed) Allergies, Adverse Reactions, Alerts Substance Reaction Severity Status CODEINE Active Medications levothyroxine Daily, 0 Refill(s) Start Date: 05/23/15 Status: Ordered metFORMIN PO, 0 Refill(s) Start Date: 05/23/15 Status: Ordered Rapaflo PO, Daily, 0 Refill(s) Start Date: 05/23/15 Status: Ordered Results No data available for this section [...]
--- OUTSIDE RECORDS SUMMARY | 2018-12-01 05:54 | XMS REPORT | Summary of Care ---
Author Author [facility] Outpatient Imaging [facility] Outpatient [facility] Address Unknown Phone Unavailable Encounter TOM Quinn(NICOLE) [id number] Date(s): 11/02/15 - 11/02/15 [facility] Outpatient [address] [phone] Discharge Disposition: Home Attending Physician: Alan Reynoso MD Vital Signs No data available for [...]
--- OUTSIDE RECORDS SUMMARY | 2018-12-01 05:54 | XMS REPORT | Summary of Care ---
Author Author [facility] Organization [facility] Address Unknown Phone Unavailable Encounter TOM Quinn(NICOLE) [id number] Date(s): 07/25/16 - 07/25/16 [facility] [address] [place] [address]- Discharge Disposition: Home or Self Care Attending Physician: Ronnell Tena MD Vital Signs No data available for [...]
[2018-12-01 07:55] LABS: INR 0.94; PROTHROMBIN TIME 13.1 seconds (11.9-14.5)
[2018-12-01 07:56] LABS: PARTIAL THROMBOPLASTIN TIME 23.2 seconds (23.8-35.5)
[2018-12-01 09:35] VITALS: BP 130/80
--- NOTE | 2018-12-01 15:18 | Operative Report ---
DATE OF PROCEDURE: 12/01/2018 SURGEON: Steve Demarco MD PROCEDURE: Colonoscopy and polypectomy. INDICATIONS FOR COLONOSCOPY: Surveillance colonoscopy, personal history of colon polyps. MEDICATIONS: The patient was done under MAC, please see anesthesiologist's note. PROCEDURE IN DETAIL: With the patient in left lateral decubitus position, flexible fiberoptic Olympus colonoscope was inserted into the rectum with ease and advanced all the way to the cecum. It was then withdrawn slowly and mucosa overlying the cecum appeared to be within normal limits. Diverticular disease was noted to be scattered throughout, but it was more prominent in the left colon, particularly in the sigmoid colon. The ascending, transverse other than for diverticulosis appeared to be within normal limits. One polyp was hot biopsied from the descending colon. One polyp was snared and one polyp was hot biopsied from the sigmoid colon. Ten polyps were hot biopsied and one polyp was snared from the rectum. The scope was then retroflexed into the distal rectum and moderate-sized internal hemorrhoids were noted, none of which was actively bleeding. The scope was then straightened out, it was subsequently withdrawn. The patient tolerated procedure well. IMPRESSION: 1. Diverticulosis, more pronounced in the left colon, primarily in the sigmoid colon. 2. Descending colon polyp x1, hot biopsied. 3. Sigmoid colon polyps x2, 1 snared and 1 hot biopsied. 4. Rectal polyps x11, 10 hot biopsied and 1 snared. PLAN: Follow up histology. Initiate high-fiber, low-fat diet. Initiate high-fiber supplement. The patient might benefit from a followup colonoscopy in 2 years. A total of 14 polyps were removed. Steve Demarco MD [facility] [place] /[id number]
== END | disposition home or self-care (01) ==
LOC: OR 05:46
PROVIDERS: ATTEND Internal Medicine Gastroenterology
DX: K57.30 Diverticulosis of large intestine without perforation or abscess without bleeding (principal); K63.5 Polyp of colon; K62.1 Rectal polyp; K64.8 Other hemorrhoids; K29.60 Other gastritis without bleeding; K20.8 Other esophagitis; K21.9 Gastro-esophageal reflux disease without esophagitis; I69.351 Hemiplegia and hemiparesis following cerebral infarction affecting right dominant side; J44.9 Chronic obstructive pulmonary disease, unspecified; G47.33 Obstructive sleep apnea (adult) (pediatric); I25.2 Old myocardial infarction; I10 Essential (primary) hypertension; E78.5 Hyperlipidemia, unspecified; R20.2 Paresthesia of skin; E11.9 Type 2 diabetes mellitus without complications; Z88.6 Allergy status to analgesic agent; Z01.810 Encounter for preprocedural cardiovascular examination; Z01.812 Encounter for preprocedural laboratory examination; Z79.01 Long term (current) use of anticoagulants; Z79.84 Long term (current) use of oral hypoglycemic drugs; Z79.02 Long term (current) use of antithrombotics/antiplatelets; Z79.82 Long term (current) use of aspirin; Z95.5 Presence of coronary angioplasty implant and graft; Z87.891 Personal history of nicotine dependence
CPT/HCPCS: 36415 ×2; 45384; 45385; 82948; 85025; 85610; 85730; 93005; J1642; J2001; J2704; 45378

== ENCOUNTER → 2019-01-11 | Day surgery (SDC) | payer MEDICARE, OTHER ==
--- NOTE | 2019-01-07 11:15 | NUR ---
Spoke with Latosha Duke RN with Dr. Bansal's office. She stated she faxed EKG that was done 11 days ago. Latosha Duke RN stated per Dr. Bansal ok to access port-a-cath and draw blood lab work from port-a-cath on day of procedure.
--- NOTE | 2019-01-07 12:33 | Diagnostic Imaging Report ---
EXAM: CHEST 2 VIEWS, PA and lateral DATE: 01/07/2019 Time stamp on exam: 12:08 PM INDICATION: Preoperative for loop recorder removal COMPARISON: None FINDINGS: LINES/TUBES: Left subclavian Port-A-Cath with tip overlying the SVC. There is also a loop recorder overlies the left anterior chest. Amplatzer ASD device also present. LUNGS: No consolidations or edema. Chronic appearing interstitial changes. PLEURA: No effusions or pneumothorax. HEART AND MEDIASTINUM: Normal size and contour. BONES AND SOFT TISSUES: No acute findings. Degenerative changes of the spine. Partially visualized plate overlying the cervical spine and 2 clips over the tracheal air column. IMPRESSION: Chronic appearing interstitial changes with no acute thoracic abnormality. Signed by: Dr. Edison Muniz DO on 01/07/2019 12:30 PM
[2019-01-11] VITALS (11 sets, daily range): BP systolic 135–170; BP diastolic 70–114
[~2019-01-11] VITALS: Ht 203.2 cm; Wt 112.5 kg
[~2019-01-11] MED LIST changes: +ATORVASTATIN CA20 MG PO; +GAMUNEX-C20 GM/200 IV; -KETAMINE HCL INJ 50 MG/ML 10 ML VIAL ONE; +LIDOCAINE 1% W/EPINEPHRINE 20 ML VIAL ONE; -LIDOCAINE HCL 2% LOCAL INJ 5 ML SDV VIAL INJ ONE; -PROPOFOL IV EMULSION 10 MG/ML 50 ML VIAL ONE; +SODIUM CHLORIDE 0.9% 500ML 500 ML ONE
--- OUTSIDE RECORDS SUMMARY | 2019-01-11 06:17 | XMS REPORT | Continuity of Care Document ---
Author Author [facility] Interface Address Unknown Phone Unavailable Problems Problem Status Onset Date Classification Date Reported Comments Source LUMBAR RADICULOPATHY Active 11/12/2018 [facility] DISORDERS OF SACRUM, LUMBOSACRAL SPONDYL Active 09/29/2018 [facility] DISORDER OF SACRUM Active 08/13/2018 [facility] Spondylosis without myelopathy or radiculopathy, lumbosacral region 06/24/2018 01/05/2019 [facility] SPONDYLOSIS OF LUMBOSACRAL REGION WITHOU Active 06/08/2018 [facility] LUMBAR SPONDYLOSIS OF LUMBOSACRAL REGION Active 05/31/2018 [facility] 2 WEEKS FOLLOW UP Active 11/26/2017 [facility] CCL/PFO CLOSURE Active 11/17/2017 [facility] PFO Active 07/20/2017 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 Active 08/14/2016 [facility] SOB Active 07/25/2016 [facility] G89.4 - CHRONIC PAIN SYNDROME Active 03/04/2016 [facility] M25.512 - PAIN IN LEFT SHOULDER Active 10/29/[facility] Discharge Diagnosis: Bite from dog 07/17/2015 07/20/2015 [facility] Discharge Diagnosis: Acute foreign body of hand 07/17/2015 07/20/2015 [facility] BITES - DOG Active 07/17/2015 [facility] UNK Active 05/15/2015 [facility] R13.10 R10.13 Active 05/15/2015 [facility] CHEST PAIN Active 04/23/2015 [facility] Discharge Diagnosis: Acute low back pain 02/10/2015 02/14/2015 [facility] BACK PAIN Active 02/10/2015 [facility] Discharge Diagnosis: Back pain 02/04/2015 02/07/2015 [facility] Discharge Diagnosis: Muscle spasm 02/04/2015 02/07/2015 [facility] Discharge Diagnosis: Hemarthrosis 11/21/2014 11/24/2014 [facility] ELBOW INJURY Active 11/21/2014 [facility] MEDICATION REACTION Active 02/22/2014 [facility] INTENSE MUSCLE PAIN, SPASM, CONCERN FOR Active 02/22/2014 [facility] Discharge Diagnosis: Acute neck pain 11/20/2013 11/22/2013 [facility] NECK PAIN Active 11/20/2013 [facility] 723.0 Active 10/25/2013 [facility] 723.0-LAMINECTOMY Active 10/25/2013 [facility] FEVER, SEPSIS Active 10/02/2013 [facility] Acute CHF Resolved Problem 04/26/2015 [facility] [place] acid reflux Active Problem 03/02/2014 [facility] atrial fibrillation Resolved Problem 03/02/2014 [facility] COPD Active Problem 03/02/2014 [facility] heart attack Resolved Problem 03/02/2014 [facility] hypercholesteremia Active Problem 03/02/2014 [facility] hypertension Active Problem 03/02/2014 [facility] hyperthyroid Active Problem 03/02/2014 [facility] numbness,weakness of legs Active Problem 03/02/2014 [facility] stroke Resolved Problem 03/02/2014 [facility] PE (<span ID="[id number]">Confirmed</span>) Resolved Problem 03/17/2015 [facility] [place] PE (<span ID="[id number]">Confirmed</span>) Resolved Problem 04/26/2015 [facility] Acute CHF Resolved Problem 11/20/2017 [facility], [facility] [place] CAD (<span ID="[id number]">Confirmed</span>) Resolved Problem 11/20/2017 [facility], [facility] [place], [facility] Cervical myelopathy Active Problem 11/20/2017 [facility], [facility] [place], [facility] Hypertension Active Problem 11/20/2017 [facility], [facility] [place], [facility] Neuropathy Active Problem 11/20/2017 [facility] [place], [facility] PE (<span ID="[id number]">Confirmed</span>) Resolved Problem 11/20/2017 [facility], [facility] [place] SOBOE - Shortness of breath on exertion Active Problem 11/20/2017 [facility] [place], [facility] Acute CHF Resolved Problem 12/11/2017 [facility], [facility] [place] CAD (<span ID="[id number]">Confirmed</span>) Resolved Problem 12/11/2017 [facility], [facility] [place], [facility] Cervical myelopathy Active Problem 12/11/2017 [facility] [place], [facility] Hypertension Active Problem 12/11/2017 [facility] [place], [facility] Neuropathy Active Problem 12/11/2017 [facility] [place], [facility] PE (<span ID="[id number]">Confirmed</span>) Resolved Problem 12/11/2017 [facility], [facility] [place] SOBOE - Shortness of breath on exertion Active Problem 12/11/2017 [facility] [place], [facility] Acute CHF Resolved Problem 01/05/2019 [facility], [facility] CAD (<span ID="[id number]">Confirmed</span>) Resolved Problem 01/05/2019 [facility] [place], [facility] Stroke<sup>1</sup> Resolved Problem 01/05/2019 X2 2008,2009 [facility] Cervical myelopathy Active Problem 01/05/2019 [facility], [facility] [place], [facility] CIDP (<span ID="[id number]">Confirmed</span>) Active Problem 01/05/2019 [facility] COPD (<span ID="[id number]">Confirmed</span>) Active Problem 01/05/2019 [facility] Diabetes Active Problem 01/05/2019 [facility] GERD (<span ID="[id number]">Confirmed</span>) Active Problem 01/05/2019 [facility] Hypertension Active Problem 01/05/2019 [facility] [place], [facility] Hyperthyroidism Active Problem 01/05/2019 [facility] Enlarged prostate Active Problem 01/05/2019 [facility] Heart attack<sup>2, 3</sup> Resolved Problem 01/05/2019 [facility] Neuropathy Active Problem 01/05/2019 [facility] PE (<span ID="[id number]">Confirmed</span>) Resolved Problem 01/05/2019 [facility], [facility] [place], [facility] SOBOE - Shortness of breath on exertion Active Problem 01/05/2019 [facility] [place] TIA (<span ID="[id number]">Confirmed</span>) Resolved Problem 01/05/2019 [facility] Postlaminectomy syndrome, not elsewhere classified 01/05/2019 [facility] Hypertensive heart disease with heart failure 01/05/2019 [facility] Heart failure, unspecified 01/05/2019 [facility] Type 2 diabetes mellitus without complications 01/05/2019 [facility] Chronic obstructive pulmonary disease, unspecified 01/05/2019 [facility] Chronic inflammatory demyelinating polyneuritis 01/05/2019 [facility] Gastro-esophageal reflux disease without esophagitis 01/05/2019 [facility] Hypothyroidism, unspecified 01/05/2019 [facility] Atherosclerotic heart disease of craig coronary artery without angina pectoris 01/05/2019 [facility] Pure hypercholesterolemia, unspecified 01/05/2019 [facility] Personal history of nicotine dependence 01/05/2019 [facility] parts counterman use of anticoagulants 01/05/2019 [facility] parts counterman use of antithrombotics/antiplatelets 01/05/2019 [facility] custodial use of oral hypoglycemic drugs 01/05/2019 [facility] Other specific arthropathies, not elsewhere classified, other specified site 01/05/2019 [facility] Carpal tunnel syndrome, unspecified upper limb 01/05/2019 [facility] Presence of coronary angioplasty implant and graft 01/05/2019 [facility] Acquired absence of right finger 01/05/2019 [facility] parts counterman use of aspirin 01/05/2019 [facility] 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 01/05/2019 [facility] Personal history of transient ischemic attack , and cerebral infarction without residual deficits 01/05/2019 [facility] CERVICAL SPINAL STENOSIS Active [facility] FEVER NOS Active [facility] SEPTICEMIA NOS Active [facility] PAIN IN LIMB Active [facility] LOW BACK PAIN Active [facility] [place] DYSPHAGIA, UNSPECIFIED Active [facility] EPIGASTRIC PAIN Active [facility] PAIN Active [facility] SECONDARY POLYCYTHEMIA Active [facility] RADICULOPATHY, LUMBAR REGION Active [facility] Medications Medication Details Route Status Patient [...] Total Volume: 1,000, Start date: 09/02/18 13:38:00 ROVING TECHNICIAN, Duration: 30 day, Stop date: 10/02/18 13:37:00 CDT, 2.5, m2 No Longer Active 09/02/2018 [facility] heparin flush 500 unit, 5 mL, Route: IV, Drug form: INJ, ONCE, Start date: 06/17/18 15:43:00 ROVING TECHNICIAN, Stop date: 06/17/18 15:43:00 CSTNotes: (Same as: Heparin Lock Flush) Inactive 06/17/2018 [facility] Gamunex-C 10% injectable solution IV, q4wk, 0 Refill(s) Active 06/01/2018 [facility] Centrum Silver Men's PO, Daily, 0 Refill(s) Active 06/01/2018 [facility] atorvastatin 40 mg oral tablet 40 mg=1 tab, PO, Daily, 0 Refill(s) Active 06/01/2018 [facility] levothyroxine 100 mcg (0.1 mg) oral tablet 100 microgram=1 tab, PO, Daily, 0 Refill(s) Active 06/01/2018 [facility] clopidogrel 75 mg oral tablet 75 mg=1 tab, PO, Daily, # 90 tab, 0 Refill(s) Active 11/26/2017 [facility] clopidogrel 75 mg, 1 tab, Route: PO, Drug form: TAB, Daily, Dosing Weight 109.545, kg, Start date: 11/26/17 9:00:00 CDT, Duration: 30 day, Stop date: 12/25/17 9:00:00 CDTNotes: (Same As: Plavix) Inactive 11/26/2017 [facility] Aspirin 81 mg, 1 tab, Route: PO, Drug form: ECTAB, Daily, Dosing Weight 109.545, kg, Start date: 11/26/17 9:00:00 CDT, Duration: 30 day, Stop date: 12/25/17 9:00:00 CDTNotes: Do not crush or chew. (Same As: Ecotrin) Inactive 11/26/2017 [facility] Fentanyl 25 microgram, Route: IV, Drug form: ERFILM, ONCE, Dosing Weight 109.545, kg, Start date: 11/26/17 2:48:00 CDT, Stop date: 11/26/17 2:48:00 CDTNotes: (Same as: Duragesic) Check for product integrity. Ap ply to intact skin "Remove old patch before application of new patch" Inactive 11/26/2017 [facility] Acetaminophen 325 MG / Hydrocodone Bitartrate 5 MG Oral Tablet [[place] 5/325] 1 tab, Route: PO, Drug Form: TAB, Dosing Weight 109.545, kg, Q6H, PRN Pain Score 1-3, Start date: 11/25/17 19:21:00 CDT, Duration: 30 day, Stop date: 12/25/17 19:20:00 CDTNotes: (Same as: [place] 325/5) Do not exceed 4gm/day of acetaminophen. No Longer Active 11/26/2017 [facility] Fentanyl 50 microgram, 1 mL, Route: IV, Drug form: INJ, ONCE, Dosing Weight 109.545, kg, Start date: 11/25/17 19:21:00 CDT, Stop date: 11/25/17 19:21:00 CDTNotes: (Same as: Sublimaze) Preservative free. Inactive 11/26/2017 [facility] Fentanyl 50 microgram, Route: IV, ONCE, Dosing Weight 109.545, kg, Start date: 11/25/17 17:04:00 CDT, Stop date: 11/25/17 17:04:00 CDT Inactive 11/25/2017 [facility] Aspirin 81 MG Enteric Coated Tablet 81 mg, Route: PO, Drug form: ECTAB, ONCE, Dosing Weight 109.545, kg, Start date: 11/25/17 16:07:00 CDT, Stop date: 11/25/17 16:07:00 CDT Inactive 11/25/2017 [facility] Plavix 300 mg, Route: PO, Drug form: TAB, ONCE, Dosing Weight 109.545, kg, Start date: 11/25/17 16:07:00 CDT, Stop date: 11/25/17 16:07:00 CDT Inactive 11/25/2017 [facility] Sodium Chloride 0.9% IV 750 mL 750 mL, Rate: 75 ml/hr, Infuse over: 10 hr, Route: IV, Dosing Weight 109.545 kg, Total Volume: 750, Start date: 11/25/17 15:20:00 CDT, Duration: 10 hr, Stop date: 11/26/17 1:19:00 CDT, 2.49, m2 No Longer Active 11/25/2017 [facility] Amoxicillin 875 MG / Clavulanate 125 MG Oral Tablet [Augmentin 875-mg] 875 mg=1 tab, PO, Q12H, X 7 day, # 14 tab, 0 Refill(s) Active 07/17/2015 [facility] Morphine 4 mg, Route: IM, Drug form: INJ, ONCE, Dosing Weight 77.273, kg, Priority: STAT, Start date: 07/17/15 16:27:00, Stop date: 07/17/15 16:27:00 Inactive 07/17/2015 [facility] Thyroxine Daily, 0 Refill(s) Active 05/23/2015 [facility] Rapaflo PO, Daily, 0 Refill(s) Active 05/23/2015 [facility] Metformin PO, 0 Refill(s) Active 05/23/2015 [facility] Acetaminophen 325 MG / Hydrocodone Bitartrate 10 MG Oral Tablet [[place] 10/325] 1 tab, Route: PO, Drug Form: TAB, Dosing Weight 114.545, kg, ONCE, STAT, Start date: 02/10/15 19:27:00, Stop date: 02/10/15 19:27:00 Inactive 02/11/2015 [facility] Dilaudid 1 mg, Route: IVP, ONCE, Dosing Weight 114.545, kg, Priority: STAT, Start date: 02/10/15 15:06:00, Stop date: 02/10/15 15:06:00 Inactive 02/10/2015 [facility] Ondansetron 4 mg, Route: IVP, Drug form: INJ, ONCE, Dosing Weight 114.545, kg, Priority: STAT, Start date: 02/10/15 10:48:00, Stop date: 02/10/15 10:48:00 Inactive 02/10/2015 [facility] Dilaudid 1 mg, Route: IVP, ONCE, Dosing Weight 114.545, kg, Priority: STAT, Start date: 02/10/15 10:48:00, Stop date: 02/10/15 10:48:00 Inactive 02/10/2015 [facility] POLYETHYLENE GLYCOL 3350 142 MG/ML Oral Solution [Miralax] 17 gm, PO, Daily, X 15 day, # 255 gm, 0 Refill(s) Active 02/04/2015 [facility] Cyclobenzaprine hydrochloride 10 MG Oral Tablet [Flexeril] 10 mg, PO, TID, PRN Muscle Spasm, X 10 day, # 30 tab, 0 Refill(s) Active 02/04/2015 [facility] Ketorolac 30 mg, 1 mL, Route: IVP, Drug form: INJ, ONCE, Dosing Weight 114.545, kg, Priority: STAT, Start date: 02/04/15 14:08:00, Stop date: 02/04/15 14:08:00Notes: (Same as:Toradol) IV bolus must be given >15 seconds. Give IM administration slowly and deeply into the muscle. Not for use > 4 days MEDICATION WASTE Product Size: 30 mg Product Wasted: ___ mg Inactive 02/04/2015 [facility] Dilaudid 0.5 mg, Route: IVP, ONCE, Dosing Weight 114.545, kg, Priority: STAT, Start date: 02/04/15 11:35:00, Stop date: 02/04/15 11:35:00 Inactive 02/04/2015 [facility] Flexeril 10 mg, 1 tab, Route: PO, Drug form: TAB, ONCE, Dosing Weight 114.545, kg, Priority: STAT, Start date: 02/04/15 10:07:00, Stop date: 02/04/15 10:07:00Notes: (Same As: Flexeril) Inactive 02/04/2015 [facility] Acetaminophen 325 MG / Hydrocodone Bitartrate 5 MG Oral Tablet 1 tab, Route: PO, Drug Form: TAB, Dosing Weight 114.545, kg, ONCE, STAT, Start date: 02/04/15 10:06:00, Stop date: 02/04/15 10:06:00Notes: (Same as: [place] 325/5) Do not exceed 4gm/day of acetaminophen. Inactive 02/04/2015 [facility] Ondansetron 4 MG Oral Tablet [Zofran] 4 mg=1 tab, PO, TID, X 5 day, # 15 tab, 0 Refill(s) Active 11/22/2014 [facility] Acetaminophen 325 MG / Hydrocodone Bitartrate 10 MG Oral Tablet 1 tab, PO, Q4H, PRN Pain, X 3 day, # 18 tab, 0 Refill(s) Active 11/22/2014 [facility] Zofran 4 mg, Route: IVP, Drug form: INJ, ONCE, Dosing Weight 121.818, kg, Priority: STAT, Start date: 11/21/14 21:35:00, Stop date: 11/21/14 21:35:00 Inactive 11/22/2014 [facility] Potassium Chloride 20 MEQ Extended Release Tablet 40 mEq, 2 tab, Route: PO, Drug form: ERTAB, ONCE, Dosing Weight 121.818, kg, Priority: STAT, Start date: 11/21/14 21:15:00, Stop date: 11/21/14 21:15:00 Inactive 11/22/2014 [facility] potassium chloride 10 mEq, 100 mL, Route: IVPB, Drug form: INJ, Q1H, Start date: 11/21/14 20:00:00, Duration: 4 doses or times, Stop date: 11/21/14 23:00:00Notes: Infuse at a rate of 10 mEq/hr. (Same as: KCL) Inactive 11/22/2014 [facility] Calcium Chloride 1,000 mg, 10 mL, Route: IVP, Drug form: INJ, ONCE, Dosing Weight 121.818, kg, Priority: STAT, Start date: 11/21/14 19:53:00, Stop date: 11/21/14 19:53:00Notes: calcium CHLORIDE calcium CHLORIDE calcium CHLORIDE Inactive 11/22/2014 [facility] potassium chloride 40 mEq, Route: IVPB, ONCE, Dosing Weight 121.818, kg, Start date: 11/21/14 19:50:00, Stop date: 11/21/14 19:50:00 Inactive 11/22/2014 [facility] Zofran 4 mg, Route: IVP, Drug form: INJ, ONCE, Dosing Weight 121.818, kg, Priority: STAT, Start date: 11/21/14 18:30:00, Stop date: 11/21/14 18:30:00 Inactive 11/21/2014 [facility] Morphine 4 mg, 2 mL, Route: IVP, Drug form: INJ, ONCE, Dosing Weight 121.818, kg, Priority: STAT, Start date: 11/21/14 18:30:00, Stop date: 11/21/14 18:30:00Notes: (Same as:MORPhine Sulfate) Inactive 11/21/2014 [facility] Zofran ODT 4 mg, Route: PO, Drug form: TABDIS, ONCE, Dosing Weight 121.818, kg, Priority: STAT, Start date: 11/21/14 18:09:00, Stop date: 11/21/14 18:09:00 Inactive 11/21/2014 [facility] Acetaminophen 325 MG / Hydrocodone Bitartrate 10 MG Oral Tablet [[place] 10/325] 1 tab, Route: PO, Drug Form: TAB, Dosing Weight 121.818, kg, ONCE, STAT, Start date: 11/21/14 17:47:00, Stop date: 11/21/14 17:47:00 Inactive 11/21/2014 [facility] sodium chloride 10 mL, Route: IVP, Start date: 03/01/14 0:00:00, Duration: 30 day, Stop date: 03/30/14 16:00:00Notes: preservative free. No Longer Active 03/01/2014 [facility] heparin flush 500 unit, 5 mL, Route: IVP, Drug form: SOLN, Q30D, PRN Other -See Comment, Start date: 02/28/14 18:54:00, Duration: 30 day, Stop date: 03/30/14 18:53:00Notes: (Same as: Heparin Lock Flush) Inactive 02/28/2014 [facility] sodium chloride 20 mL, Route: IVP, Start date: 02/28/14 18:53:00, Duration: 30 day, Stop date: 03/30/14 18:52:00, PRN Other -See CommentNotes: preservative free. Inactive 02/28/2014 [facility] sodium chloride 20 mL, Route: IVP, Start date: 02/28/14 17:06:00, Duration: 30 day, Stop date: 03/30/14 17:05:00, PRN Other -See CommentNotes: preservative free. Inactive 02/28/2014 [facility] sodium chloride 10 mL, Route: IVP, Start date: 02/28/14 17:05:00, Duration: 30 day, Stop date: 03/30/14 17:04:00, PRN Line FlushNotes: preservative free. Inactive 02/28/2014 [facility] methocarbamol 500 mg oral tablet 500 mg=1 tab, PO, TID, Spasm, # 30 tab, 0 Refill(s) Active 02/28/2014 [facility] Acetaminophen 325 MG / Hydrocodone Bitartrate 10 MG Oral Tablet 1 tab, PO, Q4H, Pain Score 4-6, # 10 tab, 0 Refill(s) Active 02/28/2014 [facility] levothyroxine 125 mcg (0.125 mg) oral tablet 125 microgram=1 tab, PO, Daily, # 30 tab, 0 Refill(s) Active 02/28/2014 [facility] Thyroxine 125 microgram, 1 tab, Route: PO, Drug form: TAB, Daily, Dosing Weight 125.028, kg, Start date: 02/28/14 9:00:00, Duration: 30 day, Stop date: 03/29/14 9:00:00Notes: Take 1 hour before or 2 hours after meal; Enteral feeds may interefere with the absorption of this medication. (Same as:Levothroid) Inactive 02/28/2014 [facility] Insulin, Aspart, Human 4 unit, 0.04 [...] days from Date No Longer Active 02/24/2014 [facility] Glucagon 1 mg, Route: IM, Drug form: PDR/INJ, PRN, Dosing Weight 125.028, kg, PRN Blood Glucose Results, Start date: 02/24/14 7:48:00, Duration: 30 day, Stop date: 03/26/14 7:47:00 No Longer Active 02/24/2014 [facility] Dextrose 50% Syringe 12.5 gm, 25 mL, Route: IVP, Drug Form: INJ, Dosing Weight 125.028, kg, PRN, PRN Blood Glucose Results, Start date: 02/24/14 7:48:00, Duration: 30 day, Stop date: 03/26/14 7:47:00 No Longer Active 02/24/2014 [facility] Temazepam 15 mg, 1 cap, Route: PO, Drug form: CAP, Bedtime, Dosing Weight 125.028, kg, PRN Sleep, Start date: 02/23/14 19:30:00, Duration: 30 day, Stop date: 03/25/14 19:29:00Notes: (Same As: Restoril) No Longer Active 02/24/2014 [facility] normal saline 0.9% IV 1,000 mL 1,000 mL, Rate: 100 ml/hr, Infuse over: 10 hr, Route: IV, Dosing Weight 125.028 kg, Total Volume: 1,000, Start date: 02/23/14 19:30:00, Duration: 30 day, Stop date: 03/25/14 19:29:00 No Longer Active 02/24/2014 [facility] metoprolol tartrate 25 mg, 1 tab, Route: PO, Drug form: TAB, QPM, Dosing Weight 125.028, kg, Start date: 02/23/14 17:00:00, Duration: 30 day, Stop date: 03/24/14 17:00:00Notes: (Same as: Lopressor) No Longer Active 02/23/2014 [facility] Coumadin 5 mg, 1 tab, Route: PO, Drug form: TAB, Daily, Dosing Weight 125.028, kg, Start date: 02/23/14 17:00:00, Duration: 30 day, Stop date: 03/24/14 17:00:00Notes: Nurse to ensure documentation of patient edu cation per anticoagulation policy. Avoid large intake of vitamin-K containing foods diet. (Same As: Coumadin) No Longer Active 02/23/2014 [facility] Methocarbamol 500 mg, 1 tab, Route: PO, Drug form: TAB, TID, Dosing Weight 125.028, kg, PRN Spasm, Start date: 02/23/14 15:01:00, Duration: 30 day, Stop date: 03/25/14 15:00:00Notes: (Same as:Robaxin) No Longer Active 02/23/2014 [facility] Methylprednisolone 1 gm, Route: IV, Drug form: INJ, ONCE, Dosing Weight 125.028, kg, Start date: 02/23/14 15:00:00, Stop date: 02/23/14 15:00:00Notes: (Same as:Solu-MEDROL, A-Methapred) Inactive 02/23/2014 [facility] albuterol-ipratropium 1 puff, Route: INHALER, Drug Form: AERO, QID, Start date: 02/23/14 13:00:00, Duration: 30 day, Stop date: 03/25/14 9:00:00 No Longer Active 02/23/2014 [facility] multivitamin 1 tab, Route: PO, Drug Form: TAB, Daily, Start date: 02/23/14 11:00:00, Duration: 30 day, Stop date: 03/25/14 9:00:00Notes: (Same as:One Tab Daily, Tab-A-Eb + Beta Carotene) Give with food. No Longer Active 02/23/2014 [facility] metoprolol tartrate 50 mg, 1 tab, Route: PO, Drug form: TAB, QAM, Dosing Weight 125.028, kg, Start date: 02/23/14 9:00:00, Duration: 30 day, Stop date: 03/24/14 9:00:00Notes: (Same as: Lopressor) No Longer Active 02/23/2014 [facility] Hydrochlorothiazide 12.5 MG Oral Capsule 12.5 mg, 1 cap, Route: PO, Drug form: CAP, Daily, Dosing Weight 125.028, kg, Start date: 02/23/14 9:00:00, Duration: 30 day, Stop date: 03/24/14 9:00:00Notes: (Same as: Microzide) With food. No Longer Active 02/23/2014 [facility] clopidogrel 75 mg, 1 tab, Route: PO, Drug form: TAB, Daily, Dosing Weight 125.028, kg, Start date: 02/23/14 9:00:00, Duration: 30 day, Stop date: 03/24/14 9:00:00Notes: (Same As: Plavix) No Longer Active 02/23/2014 [facility] Cholecalciferol 4,000 IntlUnit, 4 tab, Route: PO, Drug form: TAB, Daily, Dosing Weight 125.028, kg, Start date: 02/23/14 9:00:00, Duration: 30 day, Stop date: 03/24/14 9:00:00Notes: Same as : Vitamin D3 No Longer Active 02/23/2014 [facility] Aspirin 81 MG Enteric Coated Tablet 81 mg, 1 tab, Route: PO, Drug form: ECTAB, Daily, Dosing Weight 125.028, kg, Start date: 02/23/14 9:00:00, Duration: 30 day, Stop date: 03/24/14 9:00:00Notes: Do not crush or chew. (Same As: Ecotrin) No Longer Active 02/23/2014 [facility] 200 ACTUAT Albuterol 0.09 MG/ACTUAT / Ipratropium [place] 0.018 MG/ACTUAT Metered Dose Inhaler [Combivent] 2 puff, Route: INHALATION, Drug Form: AERO/A, Dosing Weight 125.028, kg, QID, Start date: 02/23/14 9:00:00, Duration: 30 day, Stop date: 03/24/14 21:00:00 Inactive 02/23/2014 [facility] Enoxaparin 40 mg, Route: SUB-Q, Drug form: INJ, [id number], Dosing Weight 125.028, kg, Start date: 02/23/14 9:00:00, Duration: 30 day, Stop date: 03/24/14 9:00:00 Inactive 02/23/2014 [facility] Warfarin 5 mg, 1 tab, Route: PO, Drug form: TAB, Daily, Dosing Weight 125.028, kg, Start date: 02/23/14 9:00:00, Duration: 30 day, Stop date: 03/24/14 9:00:00Notes: Nurse to ensure documentation of patient education per anticoagulation policy. Avoid large intake of vitamin-K containing foods diet. (Same As: Coumadin) Inactive 02/23/2014 [facility] tiotropium 0.018 MG/ACTUAT Inhalant Powder [Spiriva] 18 microgram, 1 inhalation, Route: PO, Drug form: CAP, Daily, Dosing Weight 125.028, kg, Start date: 02/23/14 9:00:00, Duration: 30 day, Stop date: 03/24/14 9:00:00Notes: (Same As: Spiriva). No Longer Active 02/23/2014 [facility] tamsulosin 0.4 mg, 1 cap, Route: PO, Drug form: CAP, Daily, Dosing Weight 125.028, kg, Start date: 02/23/14 9:00:00, Duration: 30 day, Stop date: 03/24/14 9:00:00Notes: (Same As: Flomax) "Do Not Crush" No Longer Active 02/23/2014 [facility] Propylthiouracil 50 mg, 1 tab, Route: PO, Drug form: TAB, Daily, Dosing Weight 125.028, kg, Start date: 02/23/14 9:00:00, Duration: 30 day, Stop date: 03/24/14 9:00:00Notes: Propylthiouracil is associated with risk of serious liver damage. Patient should be monitored for symptoms of liver injury. No Longer Active 02/23/2014 [facility] Lyrica 100 mg, 2 cap, Route: PO, Drug form: CAP, TID, Dosing Weight 125.028, kg, Start date: 02/23/14 9:00:00, Duration: 30 day, Stop date: 03/24/14 17:00:00Notes: Same as Lyrica No Longer Active 02/23/2014 [facility] pantoprazole 40 mg, 1 tab, Route: PO, Drug form: ECTAB, Daily, Dosing Weight 125.028, kg, Start date: 02/23/14 9:00:00, Duration: 30 day, Stop date: 03/24/14 9:00:00Notes: Tablet should not be chewed or crushed. (Same as: Protonix) No Longer Active 02/23/2014 [facility] Potassium gluconate 550 mg, Route: PO, Drug form: TAB, Daily, Dosing Weight 125.028, kg, Start date: 02/23/14 9:00:00, Duration: 30 day, Stop date: 03/24/14 9:00:00 Inactive 02/23/2014 [facility] Ascorbic Acid / Biotin / Folic Acid / Niacin / pantothenate / pyridoxine / Riboflavin / Thiamine / Vitamin B 12 1 tab, Route: PO, Drug Form: TAB, Dosing Weight 125.028, kg, Daily, Start date: 02/23/14 9:00:00, Duration: 30 day, Stop date: 03/24/14 9:00:00 Inactive 02/23/2014 [facility] Hydromorphone 1 mg, 1 mL, Route: IV, Drug form: INJ, Q2H, Dosing Weight 125.028, kg, PRN as needed for pain, Start date: 02/23/14 4:07:00, Duration: 30 day, Stop date: 03/25/14 4:06:00 No Longer Active 02/23/2014 [facility] Docusate 100 mg, 1 cap, Route: PO, Drug form: CAP, BID, Dosing Weight 122.727, kg, PRN Constipation, Start date: 02/23/14 0:14:00, Duration: 30 day, Stop date: 03/25/14 0:13:00Notes: (Same as: Colace) (Do Not Crush) No Longer Active 02/23/2014 [facility] Acetaminophen 325 MG / Hydrocodone Bitartrate 10 MG Oral Tablet 1 tab, Route: PO, Drug Form: TAB, Dosing Weight 122.727, kg, Q4H, PRN Pain Score 4-6, Start date: 02/23/14 0:14:00, Duration: 30 day, Stop date: 03/25/14 0:13:00Notes: Do not exceed 4gm/day of acetaminophen. (Same as: [place] 325/10) No Longer Active 02/23/2014 [facility] Ondansetron 4 mg, 2 mL, Route: IVP, Drug form: INJ, Q8H, Dosing Weight 122.727, kg, PRN Nausea & Vomiting, Start date: 02/23/14 0:14:00, Duration: 30 day, Stop date: 03/25/14 0:13:00Notes: (Same as: Zofran) No Longer Active 02/23/2014 [facility] tamsulosin 0.4 mg oral capsule 0.4 mg=1 cap, PO, Daily, 0 Refill(s) Active 02/23/2014 [facility] warfarin 5 mg oral tablet 5 mg=1 tab, PO, Daily, 0 Refill(s) Active 02/23/2014 [facility] metoprolol tartrate 25 mg oral tablet 50 mg=2 tab, PO, QAM Active 02/23/2014 [facility] clopidogrel 75 mg oral tablet 75 mg=1 tab, PO, Daily Active 02/23/2014 [facility] Aspirin 81 MG Enteric Coated Tablet 81 mg=1 tab, PO, Daily Active 02/23/2014 [facility] Dilaudid 1 mg, 1 mL, Route: IVP, Drug form: INJ, Q2H, Dosing Weight 122.727, kg, Priority: STAT, Start date: 02/22/14 21:23:00, Duration: 2 doses or times, Stop date: 02/22/14 23:23:00 Inactive 02/23/2014 [facility] Benadryl 25 mg, 0.5 mL, Route: IVP, Drug form: INJ, ONCE, Dosing Weight 122.727, kg, Priority: STAT, Start date: 02/22/14 19:07:00, Stop date: 02/22/14 19:07:00Notes: (Same as: Benadryl) Inactive 02/23/2014 [facility] Dexamethasone 8 mg, 2 mL, Route: IVP, Drug form: INJ, ONCE, Dosing Weight 122.727, kg, Priority: STAT, Start date: 02/22/14 19:06:00, Stop date: 02/22/14 19:06:00Notes: Concentration: 4mg/ml Inactive 02/23/2014 [facility] Pepcid 40 mg, 2 tab, Route: PO, Drug form: TAB, ONCE, Dosing Weight 122.727, kg, Start date: 02/22/14 19:06:00, Stop date: 02/22/14 19:06:00Notes: (Same as: Pepcid) Inactive 02/23/2014 [facility] Sodium Chloride 0.154 MEQ/ML Injectable Solution 1,000 mL, 1,000 ml/hr, Infuse Over: 1 hr, Route: IV, 1,000, Drug form: INJ, ONCE, Priority: STAT, Dosing Weight 122.727 kg, Start date: 02/22/14 19:05:00, Duration: 1 doses or times, Stop date: 02/22/14 19:05:00 Inactive 02/23/2014 [facility] Dilaudid 0.5 mg, Route: IV, ONCE, Dosing Weight 120.455, kg, Start date: 11/20/13 18:49:00, Stop date: 11/20/13 18:49:00 Inactive 11/20/2013 [facility] heparin flush 500 unit, 5 mL, Route: IVP, Drug form: SOLN, Q30D, Start date: 11/01/13 12:00:00, Duration: 30 day, Stop date: 12/01/13 9:00:00Notes: (Same as: Heparin Lock Flush) Inactive 11/01/2013 [facility] sodium chloride 20 mL, Route: IVP, Start date: 11/01/13 11:11:00, Duration: 30 day, Stop date: 12/01/13 11:10:00, PRN Line FlushNotes: preservative free. Inactive 11/01/2013 [facility] sodium chloride 10 mL, Route: IVP, Start date: 11/01/13 11:10:00, Duration: 30 day, Stop date: 12/01/13 11:09:00, PRN Line FlushNotes: preservative free. Inactive 11/01/2013 [facility] clopidogrel 75 mg oral tablet 75 mg=1 tab, PO, Daily, # 60 tab, 1 Refill(s) Active 10/31/2013 [facility] pantoprazole 40 mg, Route: PO, Drug form: TAB, Daily, Dosing Weight 122.727, kg, Start date: 10/31/13 9:00:00, Duration: 30 day, Stop date: 11/29/13 9:00:00 No Longer Active 10/31/2013 [facility] clopidogrel 75 mg, 1 tab, Route: PO, Drug form: TAB, Daily, Dosing Weight 122.727, kg, Start date: 10/31/13 9:00:00, Duration: 30 day, Stop date: 11/29/13 9:00:00Notes: (Same As: Plavix) No Longer Active 10/31/2013 [facility] Saline Flush 0.9% 5 ml, Route: IVP, Drug Form: INJ, Dosing Weight 122.727, kg, Q12H, Start date: 10/30/13 21:00:00, Duration: 30 day, Stop date: 11/29/13 9:00:00Notes: preservative free. No Longer Active 10/31/2013 [facility] Sodium Chloride 0.154 MEQ/ML Injectable Solution 1,000 mL, Rate: 50 ml/hr, Infuse over: 20 hr, Route: IV, Dosing Weight 122.727 kg, Total Volume: 1,000, Start date: 10/30/13 12:08:00, Duration: 6 hr, Stop date: 10/30/13 18:07:00 Inactive 10/30/2013 [facility] Saline Flush 0.9% 5 ml, Route: IVP, Drug Form: INJ, Dosing Weight 122.727, kg, PRN, PRN Line Flush, Start date: 10/30/13 12:08:00, Duration: 30 day, Stop date: 11/29/13 12:07:00Notes: preservative free. No Longer Active 10/30/2013 [facility] Acetaminophen 650 mg, 2 tab, Route: PO, Drug form: TAB, Q4H, Dosing Weight 122.727, kg, PRN Headache 1-5, Start date: 10/30/13 12:08:00, Duration: 30 day, Stop date: 11/29/13 12:07:00Notes: Do not exceed 4 gm/day. (Same as: Tylenol) No Longer Active 10/30/2013 [facility] Ondansetron 4 mg, 1 tab, Route: PO, Drug form: TAB, Q8H, Dosing Weight 122.727, kg, PRN Nausea & Vomiting, Start date: 10/30/13 12:08:00, Duration: 30 day, Stop date: 11/29/13 12:07:00Notes: (Same as: Zofran) No Longer Active 10/30/2013 [facility] Morphine 2 mg, 1 mL, Route: IVP, Drug form: INJ, Q15Min, Dosing Weight 122.727, kg, PRN Chest Pain, Start date: 10/30/13 12:08:00, Duration: 2 doses or times, Stop date: Limited # of timesNotes: (Same as:MORP ainsley Sulfate) No Longer Active 10/30/2013 [facility] aspirin 325 mg tablet 325 mg, 1 tab, Route: PO, Drug form: TAB, ONCE, Dosing Weight 122.727, kg, Start date: 10/30/13 12:08:00, Stop date: 10/30/13 12:08:00Notes: Take with food. Inactive 10/30/2013 [facility] Nitroglycerin 0.4 mg, 1 tab, Route: SL, Drug form: TAB, Q5Min, Dosing Weight 122.727, kg, PRN Chest Pain, Start date: 10/30/13 12:08:00, Duration: 3 doses or times, Stop date: Limited # of timesNotes: (Same as:Nitroquick, Nitrostat) "Do Not Crush" Sublingual tablet No Longer Active 10/30/2013 [facility] Furosemide 40 MG Oral Tablet [Lasix] 40 mg, 1 tab, Route: PO, Drug form: TAB, Daily, Dosing Weight 122.727, kg, Start date: 10/30/13 9:00:00, Duration: 30 day, Stop date: 11/28/13 9:00:00Notes: (Same as: Lasix) May cause GI upset. Give with food or milk. No Longer Active 10/30/2013 [facility] Nitroglycerin 0.4 MG Sublingual Tablet [Nitrostat] 0.4 mg, 1 tab, Route: SL, Drug form: TAB, Q5Min, Dosing Weight 122.727, kg, PRN Chest Pain, Start date: 10/30/13 8:19:00, Duration: 3 doses or times, Stop date: Limited # of timesNotes: (Same as:Nitroquick, Nitrostat) "Do Not Crush" Sublingual tablet Inactive 10/30/2013 [facility] Lasix 40 mg, 4 mL, Route: IVP, Drug form: INJ, ONCE, Dosing Weight 122.727, kg, Start date: 10/29/13 16:46:00, Stop date: 10/29/13 16:46:00Notes: (Same as: Lasix) Inactive 10/29/2013 [facility] 24 HR Metoprolol Tartrate 50 MG Extended Release Tablet [Toprol] 50 mg, 1 tab, Route: PO, Drug form: ERTAB, Daily, Start date: 10/29/13 9:00:00, Duration: 30 day, Stop date: 11/27/13 9:00:00Notes: (Same as: Toprol XL) May split tab, but do not crush. No Longer Active 10/29/2013 [facility] tiotropium 0.018 MG/ACTUAT Inhalant Powder [Spiriva] 18 microgram, 1 inhalation, Route: INHALATION, Drug form: CAP, Daily, Dosing Weight 122.727, kg, Start date: 10/29/13 9:00:00, Duration: 30 day, Stop date: 11/27/13 9:00:00Notes: (Same As: Spiriva). No Longer Active 10/29/2013 [facility] Cyclobenzaprine hydrochloride 10 MG Oral Tablet [Flexeril] 10 mg, PO, TID, Muscle Spasm, # 60 tab, 2 Refill(s) Active 10/29/2013 [facility] Acetaminophen 325 MG / Hydrocodone Bitartrate 10 MG Oral Tablet 1 tab, PO, Q4H, Pain, # 60 tab, 2 Refill(s) Active 10/29/2013 [facility] Simvastatin 40 mg, 1 tab, Route: PO, Drug form: TAB, Bedtime, Dosing Weight 122.727, kg, Start date: 10/28/13 21:00:00, Duration: 30 day, Stop date: 11/26/13 21:00:00Notes: (Same as: Zocor) No Longer Active 10/29/2013 [facility] Docusate Sodium 100 MG Oral Capsule 100 mg, 1 cap, Route: PO, Drug form: CAP, BID, Dosing Weight 122.727, kg, Start date: 10/28/13 17:00:00, Duration: 30 day, Stop date: 11/27/13 9:00:00Notes: (Same as: Colace) (Do Not Crush) No Longer Active 10/28/2013 [facility] 200 ACTUAT Albuterol 0.09 MG/ACTUAT / Ipratropium [place] 0.018 MG/ACTUAT Metered Dose Inhaler [Combivent] 2 puff, Route: INHALATION, Drug Form: AERO, Dosing Weight 122.727, kg, QID, Start date: 10/28/13 17:00:00, Duration: 30 day, Stop date: 11/27/13 13:00:00Notes: Same as: Combivent Respimat No Longer Active 10/28/2013 [facility] Lyrica 100 mg, 2 cap, Route: PO, Drug form: CAP, TID, Dosing Weight 122.727, kg, Start date: 10/28/13 17:00:00, Duration: 30 day, Stop date: 11/27/13 13:00:00Notes: Same as Lyrica No Longer Active 10/28/2013 [facility] pantoprazole 40 mg, 1 tab, Route: PO, Drug form: ECTAB, Before Dinner, Dosing Weight 122.727, kg, Start date: 10/28/13 16:30:00, Duration: 30 day, Stop date: 11/26/13 16:30:00Notes: Tablet should not be chewed or crushed. (Same as: Protonix) No Longer Active 10/28/2013 [facility] ceFAZolin + Sodium Chloride 0.9% IV 100 mL 1 gm, Route: IVPB, [id number], Start date: 10/28/13 16:00:00, Duration: 2 doses or times, Stop date: 10/29/13 0:00:00Notes: (Same As: Ancef Kefzol) No Longer Active 10/28/2013 [facility] Propylthiouracil 50 mg, 1 tab, Route: PO, Drug form: TAB, Q8H, Dosing Weight 122.727, kg, Start date: 10/28/13 16:00:00, Duration: 30 day, Stop date: 11/27/13 8:00:00Notes: Propylthiouracil is associated with risk of serious liver damage. Patient should be monitored for symptoms of liver injury. No Longer Active 10/28/2013 [facility] Clonidine Hydrochloride 0.1 MG Oral Tablet 0.1 mg, 1 tab, Route: PO, Drug form: TAB, Q8H, Dosing Weight 122.727, kg, PRN Other -See Comment, Start date: 10/28/13 14:58:00, Duration: 30 day, Stop date: 11/27/13 14:57:00, SBP >160Notes: (Same As: Catapres) No Longer Active 10/28/2013 [facility] Zofran 4 mg, 2 mL, Route: IVP, Drug form: INJ, Q8H, Dosing Weight 122.727, kg, PRN as needed for nausea/vomiting, Priority: STAT, Start date: 10/28/13 14:57:00, Duration: 30 day, Stop date: 11/27/13 14:56:00Notes: (Same as: Zofran) No Longer Active 10/28/2013 [facility] NS 1,000 mL 1,000 mL, Rate: 100 ml/hr, Infuse over: 10 hr, Route: IV, Dosing Weight 122.727 kg, Total Volume: 1,000, Start date: 10/28/13 14:57:00, Duration: 30 day, Stop date: 11/27/13 14:56:00 No Longer Active 10/28/2013 [facility] Phenergan + Sodium Chloride 0.9% IV 50 mL 25 mg, 1 mL, Route: IVPB, Q4H, PRN Nausea & Vomiting, Start date: 10/28/13 14:49:00, Duration: 30 day, Stop date: 11/27/13 14:48:00Notes: Do not give IV push. (Same as: Phenergan) No Longer Active 10/28/2013 [facility] acetaminophen-hydrocodone 325 mg-10 mg oral tablet 2 tab, Route: PO, Drug Form: TAB, Q4H, PRN Pain, Start date: 10/28/13 14:49:00, Duration: 30 day, Stop date: 11/27/13 14:48:00Notes: Do not exceed 4gm/day of acetaminophen. (Same as: [place] 325/10) No Longer Active 10/28/2013 [facility] acetaminophen-hydrocodone 325 mg-10 mg oral tablet 1 tab, Route: PO, Drug Form: TAB, Q4H, PRN Pain, Start date: 10/28/13 14:48:00, Duration: 30 day, Stop date: 11/27/13 14:47:00Notes: Do not exceed 4gm/day of acetaminophen. (Same as: [place] 325/10) No Longer Active 10/28/2013 [facility] morphine Sulfate 4 mg, 2 mL, Route: IV, Drug form: INJ, Q2H, PRN Severe Pain, Start date: 10/28/13 14:48:00, Duration: 30 day, Stop date: 11/27/13 14:47:00Notes: (Same as:MORPhine Sulfate) No Longer Active 10/28/2013 [facility] morphine Sulfate 2 mg, 1 mL, Route: IV, Drug form: INJ, Q2H, PRN Severe Pain, Start date: 10/28/13 14:47:00, Duration: 30 day, Stop date: 11/27/13 14:46:00Notes: (Same as:MORPhine Sulfate) No Longer Active 10/28/2013 [facility] Reglan 10 mg, Route: IVP, Drug form: INJ, ONCE, Dosing Weight 122.727, kg, Start date: 10/28/13 13:26:00, Stop date: 10/28/13 13:26:00 Inactive 10/28/2013 [facility] Acetaminophen 325 MG / Hydrocodone Bitartrate 10 MG Oral Tablet [[place] 10/325] 1 tab, Route: PO, Drug Form: TAB, Dosing Weight 122.727, kg, Q4H, PRN Pain, Start date: 10/28/13 11:07:00, Duration: 30 day, Stop date: 11/27/13 11:06:00 Inactive 10/28/2013 [facility] Ofirmev 1,000 mg, Route: IV, Drug form: INJ, ONCE, Dosing Weight 122.727, kg, PRN Pain, for > or=50 kg, Start date: 10/28/13 11:07:00 Inactive 10/28/2013 [facility] Ondansetron 4 mg, Route: IVP, ONCE, Dosing Weight 122.727, kg, PRN Nausea & Vomiting, Start date: 10/28/13 11:07:00 Inactive 10/28/2013 [facility] Hydromorphone 0.5 mg, Route: IVP, Q5Min, Dosing Weight 122.727, kg, PRN Pain Score 7-10, Start date: 10/28/13 11:07:00, Duration: 4 doses or times, Stop date: Limited # of times Inactive 10/28/2013 [facility] Oxycodone 5 mg, Route: PO, Drug form: TAB, Q4H, Dosing Weight 122.727, kg, PRN Pain Score 4-6, Start date: 10/28/13 11:07:00, Duration: 30 day, Stop date: 11/27/13 11:06:00 Inactive 10/28/2013 [facility] Naloxone 0.04 mg, Route: IVP, Q2MIN, Dosing Weight 122.727, kg, PRN Narcotic Reversal, Start date: 10/28/13 11:07:00, Duration: 8 doses or times, Stop date: Limited # of times Inactive 10/28/2013 [facility] Meperidine 12.5 mg, Route: IVP, Q30Min, Dosing Weight 122.727, kg, PRN Other -See Comment, For shivering, Start date: 10/28/13 11:07:00, Duration: 2 doses or times, Stop date: Limited # of times Inactive 10/28/2013 [facility] Flumazenil 0.2 mg, Route: IVP, PRN, Dosing Weight 122.727, kg, PRN Benzodiazepine Reversal, Initial dose, Start date: 10/28/13 11:07:00, Duration: 30 day, Stop date: 11/27/13 11:06:00 Inactive 10/28/2013 [facility] Fentanyl 25 microgram, Route: IVP, Q5Min, Dosing Weight 122.727, kg, PRN Pain Score 4-6, Start date: 10/28/13 11:07:00, Duration: 4 doses or times, Stop date: Limited # of times Inactive 10/28/2013 [facility] Ancef 2 gm, 100 mL, Route: IVPB, Drug form: INJ, ONCE, Dosing Weight 122.727, kg, Start date: 10/28/13 8:57:00, Stop date: 10/28/13 8:57:00Notes: Same as: Ancef Inactive 10/28/2013 [facility] Lactated Ringers IV 500 mL 500 mL, Rate: 25 ml/hr, Infuse over: 20 hr, Route: IV, Dosing Weight 122.727 kg, Total Volume: 500, Start date: 10/28/13 8:49:00, Duration: 1 day, Stop date: 10/29/13 8:48:00 No Longer Active 10/28/2013 [facility] Calcium Chloride 0.0014 MEQ/ML / Potassium Chloride 0.004 MEQ/ML / Sodium Chloride 0.103 MEQ/ML / Sodium Lactate 0.028 MEQ/ML Injectable Solution 500 mL, Rate: 25 ml/hr, Infuse over: 20 hr, Route: IV, Dosing Weight 122.727 kg, Total Volume: 500, Start date: 10/28/13 7:31:00, Duration: 1 day, Stop date: 10/29/13 7:30:00 Inactive 10/28/2013 [facility] Aspirin Low Dose 81 mg oral tablet =1 tab, PO, Daily, 0 Refill(s) Active 10/26/2013 [facility] hydrochlorothiazide 12.5 mg oral tablet 12.5 mg=1 tab, PO, Daily, # 30 tab, 0 Refill(s) Active 10/26/2013 [facility] sodium chloride 20 mL, Route: IVP, Start date: 10/05/13 13:05:00, Duration: 30 day, Stop date: 11/04/13 13:04:00, PRN Line Flushpreservative free. Inactive 10/05/2013 [facility] heparin flush 500 unit, 5 mL, Route: IVP, Drug form: SOLN, Q30D, PRN Line Flush, Start date: 10/05/13 13:05:00, Duration: 30 day, Stop date: 11/04/13 13:04:00(Same as: Heparin Lock Flush) Inactive 10/05/2013 [facility] sodium chloride 10 mL, Route: IVP, Start date: 10/05/13 13:04:00, Duration: 30 day, Stop date: 11/04/13 13:03:00, PRN Line Flushpreservative free. Inactive 10/05/2013 [facility] NS 1,000 mL 1,000 mL, Rate: 100 ml/hr, Infuse over: 10 hr, Route: IV, Dosing Weight 125.142 kg, Total Volume: 1,000, Start date: 10/04/13 16:54:00, Duration: 30 day, Stop date: 11/03/13 16:53:00 No Longer Active 10/04/2013 [facility] Ambien 5 mg, 1 tab, Route: PO, Drug form: TAB, Bedtime, Dosing Weight 125.142, kg, PRN Insomnia, Start date: 10/04/13 7:31:00, Duration: 30 day, Stop date: 11/03/13 7:30:00(Same As: Ambien) No Longer Active 10/04/2013 [facility] Protonix 40 mg, 1 tab, Route: PO, Drug form: ECTAB, Before Breakfast, Start date: 10/04/13 7:30:00, Duration: 30 day, Stop date: 11/02/13 7:30:00Tablet should not be chewed or crushed. (Same as: Protonix) No Longer Active 10/04/2013 [facility] Azithromycin 500 mg, Route: IVPB, [id number], Dosing Weight 127.273, kg, Priority: Routine, Start date: 10/04/13 2:00:00, Duration: 30 day, Stop date: 11/02/13 2:00:00(Same As: Zithromax IV) No Longer Active 10/04/2013 [facility] Ceftriaxone 1 gm, Route: IVPB, [id number], Dosing Weight 127.273, kg, Priority: Routine, Start date: 10/04/13 1:00:00, Duration: 30 day, Stop date: 11/02/13 1:00:00(Same As: Rocephin). Use with 100ml NS mini-bag PLUS and infuse over 30 min No Longer Active 10/04/2013 [facility] Simvastatin 20 mg, 1 tab, Route: PO, Drug form: TAB, Bedtime, Dosing Weight 125.142, kg, Start date: 10/03/13 21:00:00, Duration: 30 day, Stop date: 11/01/13 21:00:00(Same as: Zocor) No Longer Active 10/04/2013 [facility] metoprolol tartrate 25 mg, 1 tab, Route: PO, Drug form: TAB, Q12H, Dosing Weight 125.142, kg, Start date: 10/03/13 9:00:00, Duration: 30 day, Stop date: 11/01/13 21:00:00(Same as: Lopressor) No Longer Active 10/03/2013 [facility] Lyrica 100 mg, 2 cap, Route: PO, Drug form: CAP, TID, Dosing Weight 125.142, kg, Start date: 10/03/13 9:00:00, Duration: 30 day, Stop date: 11/01/13 21:00:00Same as Lyrica No Longer Active 10/03/2013 [facility] Lisinopril 5 mg, 1 tab, Route: PO, Drug form: TAB, BID, Dosing Weight 125.142, kg, Start date: 10/03/13 9:00:00, Duration: 30 day, Stop date: 11/01/13 17:00:00(Same as: Prinivil, Zestril) No Longer Active 10/03/2013 [facility] Docusate Sodium 100 MG Oral Capsule 100 mg, 1 cap, Route: PO, Drug form: CAP, BID, Dosing Weight 125.142, kg, Start date: 10/03/13 9:00:00, Duration: 30 day, Stop date: 11/01/13 17:00:00(Same as: Colace) (Do Not Crush) No Longer Active 10/03/2013 [facility] 200 ACTUAT Albuterol 0.09 MG/ACTUAT / Ipratropium [place] 0.018 MG/ACTUAT Metered Dose Inhaler [Combivent] 1 puff, Route: INHALATION, Drug Form: AERO, Dosing Weight 125.142, kg, QID, Start date: 10/03/13 9:00:00, Duration: 30 day, Stop date: 11/01/13 21:00:00Same as: Combivent Respimat No Longer Active 10/03/2013 [facility] pantoprazole 40 mg, Route: IVP, Drug form: INJ, Daily, Dosing Weight 125.142, kg, Priority: Routine, Start date: 10/03/13 9:00:00, Duration: 30 day, Stop date: 11/01/13 9:00:00For IV push reconstitute with 10 ml 0.9% sodium chloride and push over 2 minutes. (Same as: Protonix) Inactive 10/03/2013 [facility] Propylthiouracil 50 mg, 1 tab, Route: PO, Drug form: TAB, Q8H, Dosing Weight 125.142, kg, Start date: 10/03/13 8:00:00, Duration: 30 day, Stop date: 11/02/13 0:00:00Propylthiouracil is associated with risk of serious liver damage. Patient should be monitored for symptoms of liver injury. No Longer Active 10/03/2013 [facility] Lovenox 40 mg, 0.4 mL, Route: SUB-Q, Drug form: INJ, Q24H, Dosing Weight 125.142, kg, Start date: 10/03/13 7:00:00, Duration: 30 day, Stop date: 11/01/13 7:00:00(Same as: Lovenox) No Longer Active 10/03/2013 [facility] Aspirin 325 MG Enteric Coated Tablet 325 mg, 1 tab, Route: PO, Drug form: ECTAB, Q24H, Dosing Weight 125.142, kg, Start date: 10/03/13 5:00:00, Duration: 30 day, Stop date: 11/01/13 5:00:00(Do Not Crush) Do not crush or chew. No Longer Active 10/03/2013 [facility] Morphine 4 mg, 2 mL, Route: IVP, Drug form: INJ, Q4H, Dosing Weight 125.142, kg, PRN Pain Score 7-10, Start date: 10/03/13 4:42:00, Duration: 30 day, Stop date: 11/02/13 4:41:00(Same as:MORPhine Sulfate) No Longer Active 10/03/2013 [facility] Simvastatin 20 mg, 1 tab, Route: PO, Drug form: TAB, ONCE, Dosing Weight 125.142, kg, Start date: 10/03/13 4:37:00, Stop date: 10/03/13 4:37:00(Same as: Zocor) Inactive 10/03/2013 [facility] Ativan 1 mg, 0.5 mL, Route: IV, Drug form: INJ, Q4H, Dosing Weight 125.142, kg, PRN as needed for anxiety, Start date: 10/03/13 4:33:00, Duration: 30 day, Stop date: 11/02/13 4:32:00(Same as: Ativan) No Longer Active 10/03/2013 [facility] Morphine 4 mg, 2 mL, Route: IV, Drug form: INJ, Q3H, Dosing Weight 125.142, kg, PRN Pain Score 7-10, Start date: 10/03/13 4:33:00, Duration: 30 day, Stop date: 11/02/13 4:32:00(Same as:MORPhine Sulfate) Inactive 10/03/2013 [facility] Acetaminophen 325 MG / Hydrocodone Bitartrate 7.5 MG Oral Tablet [[place] 7.5/325] 1 tab, Route: PO, Drug Form: TAB, Dosing Weight 125.142, kg, Q4H, PRN Pain Score 4-6, Start date: 10/03/13 4:32:00, Duration: 30 day, Stop date: 11/02/13 4:31:00Same as [place] 325-7.5mg Do not exceed 4gm/day of acetaminophen. No Longer Active 10/03/2013 [facility] Zofran 4 mg, 2 mL, Route: IV, Drug form: INJ, Q4H, Dosing Weight 125.142, kg, PRN as needed for nausea/vomiting, Start date: 10/03/13 4:32:00, Duration: 30 day, Stop date: 11/02/13 4:31:00(Same as: Zofran) No Longer Active 10/03/2013 [facility] Acetaminophen 650 mg, 2 tab, Route: PO, Drug form: TAB, Q6H, Dosing Weight 125.142, kg, PRN Pain, Start date: 10/03/13 4:32:00, Duration: 30 day, Stop date: 11/02/13 4:31:00Do not exceed 4 gm/day. (Same as: Tylenol) No Longer Active 10/03/2013 [facility] Saline Flush 0.9% 5 ml, Route: IVP, Drug Form: INJ, Dosing Weight 127.273, kg, PRN, PRN Line Flush, Start date: 10/03/13 2:34:00, Duration: 30 day, Stop date: 11/02/13 2:33:00Same as: BD Posiflush Sterile No Longer Active 10/03/2013 [facility] Sodium Chloride 0.154 MEQ/ML Injectable Solution 1,000 mL, Rate: 90 ml/hr, Infuse over: 11.1 hr, Route: IV, Dosing Weight 127.273 kg, Total Volume: 1,000, Start date: 10/03/13 2:34:00, Duration: 30 day, Stop date: 11/02/13 2:33:00 Inactive 10/03/2013 [facility] Albuterol 0.83 MG/ML Inhalant Solution 2.49 mg, 3 mL, Route: NEB, Drug form: SOLN, PRN, Dosing Weight 127.273, kg, PRN Respiratory Protocol, Start date: 10/03/13 2:34:00, Duration: 30 day, Stop date: 11/02/13 2:33:00SEE RT DOCUMENTATION (Same as: Proventil) No Longer Active 10/03/2013 [facility] Ondansetron 4 mg, 2 mL, Route: IVP, Drug form: INJ, Q6H, Dosing Weight 127.273, kg, PRN Nausea & Vomiting, Start date: 10/03/13 2:34:00, Duration: 30 day, Stop date: 11/02/13 2:33:00(Same as: Zofran) No Longer Active 10/03/2013 [facility] Guaifenesin 200 mg, 10 mL, Route: PO, Drug form: LIQ, Q4H, Dosing Weight 127.273, kg, PRN Cough, Start date: 10/03/13 2:34:00, Duration: 30 day, Stop date: 11/02/13 2:33:00(Same as: Robitussin) No Longer Active 10/03/2013 [facility] Ativan 1 mg, Route: IVP, Drug form: INJ, ONCE, Dosing Weight 127.273, kg, PRN Anxiety, Start date: 10/03/13 1:16:00 Inactive 10/03/2013 [facility] Morphine 2 mg, Route: IVP, ONCE, Dosing Weight 127.273, kg, Start date: 10/03/13 1:16:00, Stop date: 10/03/13 1:16:00 Inactive 10/03/2013 [facility] Azithromycin 500 mg, Route: IVPB, ONCE, Dosing Weight 127.273, kg, Priority: STAT, Start date: 10/02/13 23:43:00, Stop date: 10/02/13 23:43:00 No Longer Active 10/03/2013 [facility] Lyrica 100 mg, 2 cap, Route: PO, Drug form: CAP, ONCE, Dosing Weight 127.273, kg, Start date: 10/02/13 23:42:00, Stop date: 10/02/13 23:42:00Same as Lyrica No Longer Active 10/03/2013 [facility] Morphine 2 mg, Route: IVP, Drug form: INJ, ONCE, Dosing Weight 127.273, kg, Priority: STAT, Start date: 10/02/13 23:18:00, Stop date: 10/02/13 23:18:00 Inactive 10/03/2013 [facility] Ceftriaxone 1 gm, Route: IVPB, ONCE, Dosing Weight 127.273, kg, Priority: STAT, Start date: 10/02/13 22:30:00, Stop date: 10/02/13 22:30:00(Same As: Rocephin). Use with 100ml NS mini-bag PLUS and infuse over 30 min No Longer Active 10/03/2013 [facility] Morphine 4 mg, Route: IVP, Drug form: INJ, ONCE, Dosing Weight 127.273, kg, Priority: STAT, Start date: 10/02/13 20:58:00, Stop date: 10/02/13 20:58:00 Inactive 10/03/2013 [facility] Tylenol 650 mg, 2 tab, Route: PO, Drug form: TAB, ONCE, Dosing Weight 127.273, kg, Priority: STAT, Start date: 10/02/13 19:01:00, Stop date: 10/02/13 19:01:00Do not exceed 4 gm/day. (Same as: Tylenol) Inactive 10/03/2013 [facility] Zofran 4 mg, 2 mL, Route: IVP, Drug form: INJ, ONCE, Dosing Weight 127.273, kg, Priority: STAT, Start date: 10/02/13 19:01:00, Stop date: 10/02/13 19:01:00(Same as: Zofran) No Longer Active 10/03/2013 [facility] Sodium Chloride 0.9% (Bolus) IV 500 mL 500 mL, Rate: 500 ml/hr, Infuse over: 1 hr, Route: IV, Dosing Weight 127.273 kg, Total Volume: 500, Priority: STAT, Start date: 10/02/13 19:01:00, Duration: 1 doses or times, Stop date: 10/02/13 20:00:00, Bolus DoseBolus Dose Inactive 10/03/2013 [facility] Ondansetron 4 mg, Route: IVP, ONCE, Dosing Weight 127.273, kg, Priority: STAT, Start date: 10/02/13 18:54:00, Stop date: 10/02/13 18:54:00 Inactive 10/02/2013 [facility] Saline Flush 0.9% 5 mL, Route: IVP, Drug Form: INJ, Dosing Weight 127.273, kg, PRN, PRN Line Flush, Start date: 10/02/13 18:54:00, Duration: 30 day, Stop date: 11/01/13 18:53:00Same as: BD Posiflush Sterile No Longer Active 10/02/2013 [facility] Allergies, Adverse Reactions, Alerts Substance Category Reaction Severity Reaction type Status Date Reported Comments Source CODEINE Assertion nausea, vomitting,fever Drug allergy Active [facility] Immunizations Immunization Date Given Site Status Last Updated Comments Source diphtheria/pertussis, acel/tetanus adult 07/17/2015 Right deltoid completed Coataltag[place], [facility] [place] diphtheria/pertussis, acel/tetanus adult 07/17/2015 Right deltoid completed [facility], [facility] [place] diphtheria/pertussis, acel/tetanus adult 07/17/2015 Right deltoid completed [place] [facility], [facility] [place] influenza virus vaccine, inactivated 04/07/2013 Right Deltoid completed Owo [facility] [place], [facility] [place] influenza virus vaccine, inactivated 04/07/2013 Right Deltoid completed Owo [facility] [place], [facility] [place] influenza virus vaccine, inactivated 04/07/2013 Right Deltoid completed Owo [facility] [place], [facility] [place], [facility] pneumococcal 23-valent vaccine 03/24/2008 Left Arm completed Hernandez [facility], [facility] [place], [facility] [place] pneumococcal 23-valent vaccine 03/24/2008 Left Arm completed Hernandez [facility] [place], [facility] [place] pneumococcal 23-valent vaccine 03/24/2008 Left Arm completed Hernandez [facility] [place], [facility] [place] Results Order Name Results [...] should be multiplied by the estimated BMI. [facility] CHEM PANEL Creatinine Lvl 0.95 mg/dL 0.50 - 1.40 11/26/2017 [facility] CHEM PANEL Glucose Lvl 159 mg/dL 70 - 99 11/26/2017 [facility] CHEM PANEL BUN 18 mg/dL 7 - 22 11/26/2017 [facility] CHEM PANEL CO2 27 meq/L 24 - 32 11/26/2017 [facility] CHEM PANEL Calcium Lvl 8.6 mg/dL 8.5 - 10.5 11/26/2017 [facility] CHEM PANEL Chloride Lvl 109 meq/L 95 - 109 11/26/2017 [facility] CHEM PANEL Potassium Lvl 4.2 meq/L 3.5 - 5.1 11/26/2017 [facility] CHEM PANEL Sodium Lvl 141 meq/L 135 - 145 11/26/2017 [facility] CHEM PANEL AGAP 9.2 meq/L 10.0 - 20.0 11/26/2017 [facility] HEMATOLOGY Hgb 11.1 g/dL 14.0 - 18.0 11/26/2017 [facility] Chest 2 views DX Chest 2 views [...] Ck Miller MD 11/26/17 09:[address] [facility] CHEM PANEL Magnesium Lvl 2.0 mg/dL 1.8 - 2.4 11/25/2017 [facility] CHEM PANEL eGFR 89 mL/min/1.73m2 11/25/2017 Result [...] should be multiplied by the estimated BMI. [facility] CHEM PANEL Sodium Lvl 142 meq/L 135 - 145 11/25/2017 [facility] CHEM PANEL Creatinine Lvl 0.89 mg/dL 0.50 - 1.40 11/25/2017 [facility] CHEM PANEL Potassium Lvl 3.8 meq/L 3.5 - 5.1 11/25/2017 [facility] CHEM PANEL Chloride Lvl 107 meq/L 95 - 109 11/25/2017 [facility] CHEM PANEL Calcium Lvl 9.5 mg/dL 8.5 - 10.5 11/25/2017 [facility] CHEM PANEL CO2 26 meq/L 24 - 32 11/25/2017 [facility] CHEM PANEL BUN 16 mg/dL 7 - 22 11/25/2017 [facility] CHEM PANEL Glucose Lvl 95 mg/dL 70 - 99 11/25/2017 [facility] CHEM PANEL AGAP 12.8 meq/L 10.0 - 20.0 11/25/2017 [facility] CHEM PANEL Phosphorus 4.0 mg/dL 2.5 - 4.5 11/25/2017 [facility] HEMATOLOGY INR 1.11 0.85 - 1.17 11/25/2017 [facility] HEMATOLOGY PT 14.3 s 12.0 - 14.7 11/25/2017 [facility] HEMATOLOGY PTT 25.9 s 22.9 - 35.8 11/25/2017 [facility] HEMATOLOGY MPV 8.2 fL 7.4 - 10.4 11/25/2017 [facility] HEMATOLOGY Platelet 134 K/CMM 133 - 450 11/25/2017 [facility] HEMATOLOGY RBC 4.19 M/CMM 4.70 - 6.10 11/25/2017 [facility] HEMATOLOGY WBC 4.4 K/CMM 3.7 - 10.4 11/25/2017 [facility] HEMATOLOGY Hgb 12.3 g/dL 14.0 - 18.0 11/25/2017 [facility] HEMATOLOGY MCHC 33.6 g/dL 32.0 - 36.0 11/25/2017 [facility] HEMATOLOGY RDW 15.1 % 11.5 - 14.5 11/25/2017 [facility] HEMATOLOGY Hct 36.5 % 42.0 - 54.0 11/25/2017 [facility] HEMATOLOGY MCH 29.2 pg 27.0 - 31.0 11/25/2017 [facility] HEMATOLOGY MCV 87.1 fL 80.0 - 94.0 11/25/2017 [facility] HEMATOLOGY Segs-Bands # 2.6 K/CMM 1.5 - 8.1 11/25/2017 [facility] HEMATOLOGY Basophils 0.4 % 0.0 - 1.0 11/25/2017 [facility] HEMATOLOGY Eosinophils 1.9 % 0.0 - 4.0 11/25/2017 [facility] HEMATOLOGY Monocytes 8.4 % 2.0 - 12.0 11/25/2017 [facility] HEMATOLOGY Eosinophils # 0.1 K/CMM 0.0 - 0.5 11/25/2017 [facility] HEMATOLOGY Monocytes # 0.4 K/CMM 0.0 - 0.8 11/25/2017 [facility] HEMATOLOGY Lymphocytes # 1.3 K/CMM 1.0 - 5.5 11/25/2017 [facility] HEMATOLOGY Lymphocytes 29.2 % 20.0 - 40.0 11/25/2017 [facility] HEMATOLOGY Segs 60.1 % 45.0 - 75.0 11/25/2017 [facility] Shoulder wo contrast MRI Shoulder wo contrast [...] retraction. Thank you referring your patient to [facility] and [facility]. SL: [id number] 11/02/2015 - - Read by: Dereje Bowers MD Dictated Date/time: 11/02/15 16:01 Electronically Signed by: Dereje Bowers MD 11/02/15 16:11 FINAL REPORT [facility] Hand 3 views DX Hand 3 views [...] Dave Adams MD 07/17/15 16:50 FINAL REPORT [facility] Hip 2 views DX Hip 2 [...] Sher Guardado MD 05/31/15 15:19 FINAL REPORT [facility] Spine lumbar wo contrast MRI Spine [...] Vineet Naqvi MD 02/10/15 19:18 FINAL REPORT [facility] Spine Thoracic wo contrast MRI Spine [...] Vineet Naqvi MD 02/10/15 18:35 FINAL REPORT [facility] ELECTROLYTES AGAP 10.9 meq/L 10.0 - 20.0 02/10/2015 [facility] ELECTROLYTES eGFR 71 mL/min/1.73m2 02/10/2015 Result [...] should be multiplied by the estimated BMI. [facility] ELECTROLYTES Calcium Lvl 8.8 mg/dL 8.5 - 10.5 02/10/2015 [facility] ELECTROLYTES CO2 25 meq/L 24 - 32 02/10/2015 [facility] ELECTROLYTES Chloride Lvl 107 meq/L 95 - 109 02/10/2015 [facility] ELECTROLYTES Glucose Lvl 88 mg/dL 70 - 99 02/10/2015 [facility] ELECTROLYTES BUN 24 mg/dL 7 - 22 02/10/2015 [facility] ELECTROLYTES Sodium Lvl 139 meq/L 135 - 145 02/10/2015 [facility] ELECTROLYTES Creatinine Lvl 1.1 mg/dL 0.5 - 1.4 02/10/2015 [facility] ELECTROLYTES Potassium Lvl 3.9 meq/L 3.5 - 5.1 02/10/2015 [facility] PTT 28.4 s 22.9 - 35.8 02/10/2015 [facility] INR 1.36 0.85 - 1.17 02/10/2015 [facility] PT 16.9 s 12.0 - 14.7 02/10/2015 [facility] Hgb 16.1 g/dL 14.0 - 18.0 02/10/2015 [facility] Hct 47.6 % 42.0 - 54.0 02/10/2015 [facility] RDW 17.1 % 11.5 - 14.5 02/10/2015 [facility] MCH 29.9 pg 27.0 - 31.0 02/10/2015 [facility] MCHC 33.9 g/dL 32.0 - 36.0 02/10/2015 [facility] MCV 88.2 fL 80.0 - 94.0 02/10/2015 [facility] WBC 6.0 K/CMM 3.7 - 10.4 02/10/2015 [facility] RBC 5.39 M/CMM 4.70 - 6.10 02/10/2015 [facility] HEMATOLOGY Platelet 136 K/CMM 133 - 450 02/10/2015 [facility] HEMATOLOGY MPV 8.4 fL 7.4 - 10.4 02/10/2015 [facility] HEMATOLOGY Eosinophils # 0.1 K/CMM 0.0 - 0.5 02/10/2015 [facility] HEMATOLOGY Lymphocytes # 1.3 K/CMM 1.0 - 5.5 02/10/2015 [facility] HEMATOLOGY Basophils 0.4 % 0.0 - 1.0 02/10/2015 [facility] HEMATOLOGY Segs-Bands # 4.1 K/CMM 1.5 - 8.1 02/10/2015 [facility] HEMATOLOGY Monocytes # 0.6 K/CMM 0.0 - 0.8 02/10/2015 [facility] HEMATOLOGY Segs 68.0 % 45.0 - 75.0 02/10/2015 [facility] HEMATOLOGY Lymphocytes 20.8 % 20.0 - 40.0 02/10/2015 [facility] HEMATOLOGY Monocytes 9.6 % 2.0 - 12.0 02/10/2015 [facility] HEMATOLOGY Eosinophils 1.2 % 0.0 - 4.0 02/10/2015 [facility] URINE AND STOOL UA Urobilinogen <=1.0 [...] Yellow *NA* (02/10/15 12:00 PM) Yellow 02/10/2015 [facility] URINE AND STOOL UA Spec Grav 1.018 <=1.030 02/10/2015 [facility] URINE AND STOOL UA Turbidity Clear (02/10/15 12:00 PM) Clear 02/10/2015 [facility] URINE AND STOOL UA pH 6.0 5.0 - 8.0 02/10/2015 [facility] URINE AND STOOL UA Glucose Negative mg/dL Negative mg/dL 02/10/2015 [facility] URINE AND STOOL UA Protein Negative mg/dL Negative mg/dL 02/10/2015 [facility] CARDIAC ENZYMES Total CK 88 unit/L 12 - 191 02/04/2015 [facility] CARDIAC ENZYMES CK MB 1.5 ng/mL 0.5 - 3.6 02/04/2015 [facility] CARDIAC ENZYMES Troponin-I null 0.00 - 0.40 02/04/2015 [facility] CARDIAC ENZYMES CK MB Index 1.7 0.0 - 2.5 02/04/2015 [facility] CHEM PANEL Magnesium Lvl 2.0 mg/dL 1.8 - 2.4 02/04/2015 [facility] CHEM PANEL Phosphorus 2.4 mg/dL 2.5 - 4.5 02/04/2015 [facility] CHEM PANEL Amylase Lvl 55 unit/L 25 - 115 02/04/2015 [facility] CHEM PANEL Lipase Lvl 120 unit/L 73 - 393 02/04/2015 [facility] ELECTROLYTES Chloride Lvl 105 meq/L 95 - 109 02/04/2015 [facility] ELECTROLYTES Sodium Lvl 140 meq/L 135 - 145 02/04/2015 [facility] ELECTROLYTES Potassium Lvl 3.9 meq/L 3.5 - 5.1 02/04/2015 [facility] ELECTROLYTES eGFR 64 mL/min/1.73m2 02/04/2015 Result [...] should be multiplied by the estimated BMI. [facility] ELECTROLYTES Creatinine Lvl 1.2 mg/dL 0.5 - 1.4 02/04/2015 [facility] ELECTROLYTES CO2 25 meq/L 24 - 32 02/04/2015 [facility] ELECTROLYTES Bili Total 1.4 mg/dL 0.2 - 1.3 02/04/2015 [facility] ELECTROLYTES Alk Phos 58 unit/L 39 - 136 02/04/2015 [facility] ELECTROLYTES ALT 36 unit/L 0 - 65 02/04/2015 [facility] ELECTROLYTES AST 23 unit/L 0 - 37 02/04/2015 [facility] ELECTROLYTES BUN 21 mg/dL 7 - 22 02/04/2015 [facility] ELECTROLYTES Glucose Lvl 109 mg/dL 70 - 99 02/04/2015 [facility] ELECTROLYTES A/G Ratio 0.9 0.7 - 1.6 02/04/2015 [facility] ELECTROLYTES Albumin Lvl 3.5 g/dL 3.5 - 5.0 02/04/2015 [facility] ELECTROLYTES Total Protein 7.5 g/dL 6.4 - 8.4 02/04/2015 [facility] ELECTROLYTES Calcium Lvl 8.9 mg/dL 8.5 - 10.5 02/04/2015 [facility] ELECTROLYTES B/C Ratio 18 6 - 25 02/04/2015 [facility] ELECTROLYTES AGAP 13.9 meq/L 10.0 - 20.0 02/04/2015 [facility] ELECTROLYTES Globulin 4.0 g/dL 2.0 - 4.0 02/04/2015 [facility] HEMATOLOGY MPV 8.2 fL 7.4 - 10.4 02/04/2015 [facility] Platelet 128 K/CMM 133 - 450 02/04/2015 [facility] RDW 16.8 % 11.5 - 14.5 02/04/2015 [facility] MCHC 33.7 g/dL 32.0 - 36.0 02/04/2015 [facility] HEMATOLOGY Hgb 16.1 g/dL 14.0 - 18.0 02/04/2015 [facility] MCH 29.4 pg 27.0 - 31.0 02/04/2015 [facility] MCV 87.4 fL 80.0 - 94.0 02/04/2015 [facility] HEMATOLOGY Hct 47.8 % 42.0 - 54.0 02/04/2015 [facility] WBC 5.4 K/CMM 3.7 - 10.4 02/04/2015 [facility] HEMATOLOGY RBC 5.47 M/CMM 4.70 - 6.10 02/04/2015 [facility] HEMATOLOGY PTT 35.4 s 22.9 - 35.8 02/04/2015 [facility] HEMATOLOGY PT 19.9 s 12.0 - 14.7 02/04/2015 [facility] HEMATOLOGY INR 1.66 0.85 - 1.17 02/04/2015 [facility] HEMATOLOGY Eosinophils # 0.1 K/CMM 0.0 - 0.5 02/04/2015 [facility] HEMATOLOGY Segs-Bands # 3.5 K/CMM 1.5 - 8.1 02/04/2015 [facility] HEMATOLOGY Lymphocytes # 1.4 K/CMM 1.0 - 5.5 02/04/2015 [facility] HEMATOLOGY Eosinophils 1.4 % 0.0 - 4.0 02/04/2015 [facility] HEMATOLOGY Basophils 0.4 % 0.0 - 1.0 02/04/2015 [facility] HEMATOLOGY Monocytes # 0.5 K/CMM 0.0 - 0.8 02/04/2015 [facility] HEMATOLOGY Segs 63.8 % 45.0 - 75.0 02/04/2015 [facility] HEMATOLOGY Lymphocytes 25.4 % 20.0 - 40.0 02/04/2015 [facility] HEMATOLOGY Monocytes 9.0 % 2.0 - 12.0 02/04/2015 [facility] URINE AND STOOL UA Leuk Est Negative (02/04/15 10:24 AM) Negative 02/04/2015 [facility] URINE AND STOOL UA Nitrite Negative (02/04/15 10:24 AM) Negative 02/04/2015 [facility] URINE AND STOOL UA Urobilinogen 0.2 EU/dL 0.1 - 1.0 02/04/2015 [facility] URINE AND STOOL UA Sq Epi None Seen (02/04/15 10:24 AM) Few 02/04/2015 [facility] URINE AND STOOL UA Ketones Negative *NA* (02/04/15 10:24 AM) Negative 02/04/2015 [facility] URINE AND STOOL UA Bili Negative *NA* (02/04/15 10:24 AM) Negative 02/04/2015 [facility] URINE AND STOOL UA Blood Trace *ABN* (02/04/15 10:24 AM) Negative 02/04/2015 [facility] URINE AND STOOL UA Color Yellow *NA* (02/04/15 10:24 AM) Yellow 02/04/2015 [facility] URINE AND STOOL UA Spec Grav 1.010 <=1.030 02/04/2015 [facility] URINE AND STOOL UA Glucose Negative (02/04/15 10:24 AM) Negative 02/04/2015 [facility] URINE AND STOOL UA pH 6.5 5.0 - 8.0 02/04/2015 [facility] URINE AND STOOL UA Protein Negative (02/04/15 10:24 AM) Negative 02/04/2015 [facility] URINE AND STOOL UA Turbidity Clear (02/04/15 10:24 AM) Clear 02/04/2015 [facility] URINE AND STOOL UA WBC null 0 - 5 02/04/2015 [facility] URINE AND STOOL UA RBC 3 /HPF 0 - 2 02/04/2015 [facility] Spine lumbar 2 or 3 views [...] Tony Barrett MD 02/04/15 14:15 FINAL REPORT [facility] ED Abdomen/Pelvis IV contrast only CT [...] Dickson Yanez MD 02/04/15 13:03 FINAL REPORT [facility] CARDIAC ENZYMES Troponin-I 0.02 ng/mL 0.00 - 0.40 11/21/2014 [facility] CARDIAC ENZYMES CK MB 3.7 ng/mL 0.5 - 3.6 11/21/2014 [facility] ELECTROLYTES Sodium Lvl 142 meq/L 135 - 145 11/21/2014 [facility] ELECTROLYTES Chloride Lvl 116 meq/L 95 - 109 11/21/2014 [facility] ELECTROLYTES Potassium Lvl 3.0 meq/L 3.5 - 5.1 11/21/2014 1Result Comment: Critical Result(s) called to enedelia mane at 11/21/2014 19:36_ byAN_. Read back OK. [facility] ELECTROLYTES eGFR 80 mL/min/1.73m2 11/21/2014 2Result [...] should be multiplied by the estimated BMI. [facility] ELECTROLYTES BUN 15 mg/dL 7 - 22 11/21/2014 [facility] ELECTROLYTES Creatinine Lvl 1.0 mg/dL 0.5 - 1.4 11/21/2014 [facility] ELECTROLYTES CO2 19 meq/L 24 - 32 11/21/2014 [facility] ELECTROLYTES Calcium Lvl 6.7 mg/dL 8.5 - 10.5 11/21/2014 4Result Comment: Critical Result(s) called to KORI MANE at 11/21/2014 19:48 by CV. Read back OK. [facility] ELECTROLYTES AGAP 10.0 meq/L 10.0 - 20.0 11/21/2014 [facility] ELECTROLYTES Glucose Lvl 66 mg/dL 70 - 99 11/21/2014 3Interpretive Data: Adult reference range values reflect the clinical guidelines of the [place] [employer]. [facility] HEMATOLOGY Lymphocytes 20.2 % 20.0 - 40.0 11/21/2014 [facility] HEMATOLOGY Segs 67.2 % 45.0 - 75.0 11/21/2014 [facility] HEMATOLOGY Basophils 0.4 % 0.0 - 1.0 11/21/2014 [facility] HEMATOLOGY Eosinophils 1.2 % 0.0 - 4.0 11/21/2014 [facility] HEMATOLOGY Monocytes 11.0 % 2.0 - 12.0 11/21/2014 [facility] HEMATOLOGY Lymphocytes # 1.2 K/CMM 1.0 - 5.5 11/21/2014 [facility] Segs-Bands # 4.0 K/CMM 1.5 - 8.1 11/21/2014 [facility] Eosinophils # 0.1 K/CMM 0.0 - 0.5 11/21/2014 [facility] Monocytes # 0.7 K/CMM 0.0 - 0.8 11/21/2014 [facility] INR 2.06 0.85 - 1.17 11/21/2014 5Interpretive Data: RECOMMENDED RANGES FOR PROTIME INR: 2.0-3.0 for most medical and surgical thromboembolic states. 2.5-3.5 for artificial heart valves and recurrent embolism. INR SHOULD BE USED ONLY FOR PATIENTS ON STABLE ANTICOAGULANT THERAPY. [facility] PT 23.8 s 12.0 - 14.7 11/21/2014 [facility] PTT 39.2 s 22.9 - 35.8 11/21/2014 6Interpretive Data: Heparin Therapeutic Range: 57 - 92 Seconds [facility] RBC 5.15 M/CMM 4.70 - 6.10 11/21/2014 [facility] Hgb 15.5 g/dL 14.0 - 18.0 11/21/2014 [facility] Hct 46.0 % 42.0 - 54.0 11/21/2014 [facility] WBC 6.0 K/CMM 3.7 - 10.4 11/21/2014 [facility] MCH 30.2 pg 27.0 - 31.0 11/21/2014 [facility] MCHC 33.8 g/dL 32.0 - 36.0 11/21/2014 [facility] MCV 89.4 fL 80.0 - 94.0 11/21/2014 [facility] Platelet 135 K/CMM 133 - 450 11/21/2014 [facility] MPV 9.1 fL 7.4 - 10.4 11/21/2014 [facility] RDW 14.6 % 11.5 - 14.5 11/21/2014 [facility] Elbow 3 views DX Elbow 3 [...] Mello Madrigal MD 11/21/14 18:42 FINAL REPORT [facility] Chest 1view DX Chest 1view DX [...] Mello Madrigal MD 11/21/14 18:46 FINAL REPORT [facility] ELECTROLYTES AGAP 9.7 meq/L 10.0 - 20.0 02/27/2014 [facility] ELECTROLYTES eGFR 80 mL/min/1.73m2 02/27/2014 1Result [...] should be multiplied by the estimated BMI. [facility] ELECTROLYTES BUN 20 mg/dL 7 - 22 02/27/2014 [facility] ELECTROLYTES Creatinine Lvl 1.0 mg/dL 0.5 - 1.4 02/27/2014 [facility] ELECTROLYTES Sodium Lvl 136 meq/L 135 - 145 02/27/2014 [facility] ELECTROLYTES Potassium Lvl 3.7 meq/L 3.5 - 5.1 02/27/2014 [facility] ELECTROLYTES CO2 30 meq/L 24 - 32 02/27/2014 [facility] ELECTROLYTES Chloride Lvl 100 meq/L 95 - 109 02/27/2014 [facility] ELECTROLYTES Calcium Lvl 9.0 mg/dL 8.5 - 10.5 02/27/2014 [facility] ELECTROLYTES Glucose Lvl 120 mg/dL 70 - 99 02/27/2014 4Interpretive Data: Adult reference range values reflect the clinical guidelines of the [place] [employer]. [facility] HEMATOLOGY Platelet 133 K/CMM 133 - 450 02/27/2014 [facility] MPV 7.6 fL 7.4 - 10.4 02/27/2014 [facility] RDW 17.5 % 11.5 - 14.5 02/27/2014 [facility] RBC 5.34 M/CMM 4.70 - 6.10 02/27/2014 [facility] Hgb 15.7 g/dL 14.0 - 18.0 02/27/2014 [facility] [facility] WBC 6.6 K/CMM 3.7 - 10.4 02/27/2014 [facility] MCV 87.6 fL 80.0 - 94.0 02/27/2014 [facility] MCH 29.3 pg 27.0 - 31.0 02/27/2014 [facility] Hct 46.8 % 42.0 - 54.0 02/27/2014 [facility] MCHC 33.5 g/dL 32.0 - 36.0 02/27/2014 [facility] INR 2.27 0.85 - 1.17 02/27/2014 7Interpretive Data: RECOMMENDED RANGES FOR PROTIME INR: 2.0-3.0 for most medical and surgical thromboembolic states. 2.5-3.5 for artificial heart valves and recurrent embolism. INR SHOULD BE USED ONLY FOR PATIENTS ON STABLE ANTICOAGULANT THERAPY. [facility] PT 24.6 s 12.0 - 14.7 02/27/2014 [facility] Monocytes # 0.5 K/CMM 0.0 - 0.8 02/27/2014 [facility] Eosinophils # 0.3 K/CMM 0.0 - 0.5 02/27/2014 [facility] Eosinophils 4.0 % 0.0 - 4.0 02/27/2014 [facility] Lymphocytes # 1.3 K/CMM 1.0 - 5.5 02/27/2014 [facility] Monocytes 8.1 % 2.0 - 12.0 02/27/2014 [facility] Segs 68.1 % 45.0 - 75.0 02/27/2014 [facility] Lymphocytes 19.4 % 20.0 - 40.0 02/27/2014 [facility] HEMATOLOGY Segs-Bands # 4.5 K/CMM 1.5 - 8.1 02/27/2014 [facility] HEMATOLOGY Basophils 0.4 % 0.0 - 1.0 02/27/2014 [facility] THYROID PANEL TSH 9.650 uIU/mL 0.360 - 3.740 02/27/2014 [facility] HEMATOLOGY PT 25.7 s 12.0 - 14.7 02/26/2014 [facility] HEMATOLOGY INR 2.40 0.85 - 1.17 02/26/2014 8Interpretive Data: RECOMMENDED RANGES FOR PROTIME INR: 2.0-3.0 for most medical and surgical thromboembolic states. 2.5-3.5 for artificial heart valves and recurrent embolism. INR SHOULD BE USED ONLY FOR PATIENTS ON STABLE ANTICOAGULANT THERAPY. [facility] CHEM PANEL eGFR 64 mL/min/1.73m2 02/25/2014 [...] should be multiplied by the estimated BMI. [facility] CHEM PANEL Potassium Lvl 3.8 meq/L 3.5 - 5.1 02/25/2014 [facility] CHEM PANEL Glucose Lvl 152 mg/dL 70 - 99 02/25/2014 5Interpretive Data: Adult reference range values reflect the clinical guidelines of the [place] [employer]. [facility] CHEM PANEL BUN 24 mg/dL 7 - 22 02/25/2014 [facility] CHEM PANEL Creatinine Lvl 1.2 mg/dL 0.5 - 1.4 02/25/2014 [facility] CHEM PANEL Sodium Lvl 137 meq/L 135 - 145 02/25/2014 [facility] CHEM PANEL Chloride Lvl 104 meq/L 95 - 109 02/25/2014 [facility] CHEM PANEL CO2 27 meq/L 24 - 32 02/25/2014 [facility] CHEM PANEL AGAP 9.8 meq/L 10.0 - 20.0 02/25/2014 [facility] CHEM PANEL Calcium Lvl 8.9 mg/dL 8.5 - 10.5 02/25/2014 [facility] INR 3.13 0.85 - 1.17 02/25/2014 9Interpretive Data: RECOMMENDED RANGES FOR PROTIME INR: 2.0-3.0 for most medical and surgical thromboembolic states. 2.5-3.5 for artificial heart valves and recurrent embolism. INR SHOULD BE USED ONLY FOR PATIENTS ON STABLE ANTICOAGULANT THERAPY. [facility] PT 31.5 s 12.0 - 14.7 02/25/2014 [facility] Lymphocytes 13.0 % 20.0 - 40.0 02/25/2014 [facility] Monocytes 9.0 % 2.0 - 12.0 02/25/2014 [facility] Segs 77.9 % 45.0 - 75.0 02/25/2014 [facility] Lymphocytes # 1.3 K/CMM 1.0 - 5.5 02/25/2014 [facility] Basophils 0.1 % 0.0 - 1.0 02/25/2014 [facility] Segs-Bands # 7.9 K/CMM 1.5 - 8.1 02/25/2014 [facility] Monocytes # 0.9 K/CMM 0.0 - 0.8 02/25/2014 [facility] WBC 10.1 K/CMM 3.7 - 10.4 02/25/2014 [facility] RBC 5.03 M/CMM 4.70 - 6.10 02/25/2014 [facility] Hgb 14.7 g/dL 14.0 - 18.0 02/25/2014 [facility] MCH 29.1 pg 27.0 - 31.0 02/25/2014 [facility] MCV 88.1 fL 80.0 - 94.0 02/25/2014 [facility] Hct 44.3 % 42.0 - 54.0 02/25/2014 [facility] RDW 18.0 % 11.5 - 14.5 02/25/2014 [facility] MCHC 33.1 g/dL 32.0 - 36.0 02/25/2014 [facility] Platelet 141 K/CMM 133 - 450 02/25/2014 [facility] HEMATOLOGY MPV 8.3 fL 7.4 - 10.4 02/25/2014 [facility] CARDIAC ENZYMES Total CK 172 unit/L 12 - 191 02/24/2014 [facility] CHEM PANEL eGFR 58 mL/min/1.73m2 02/24/2014 [...] should be multiplied by the estimated BMI. [facility] CHEM PANEL CO2 27 meq/L 24 - 32 02/24/2014 [facility] CHEM PANEL Calcium Lvl 9.1 mg/dL 8.5 - 10.5 02/24/2014 [facility] CHEM PANEL Glucose Lvl 275 mg/dL 70 - 99 02/24/2014 6Interpretive Data: Adult reference range values reflect the clinical guidelines of the [place] [employer]. [facility] CHEM PANEL BUN 22 mg/dL 7 - 22 02/24/2014 [facility] CHEM PANEL Creatinine Lvl 1.3 mg/dL 0.5 - 1.4 02/24/2014 [facility] CHEM PANEL Potassium Lvl 4.1 meq/L 3.5 - 5.1 02/24/2014 [facility] CHEM PANEL Sodium Lvl 135 meq/L 135 - 145 02/24/2014 [facility] CHEM PANEL Chloride Lvl 102 meq/L 95 - 109 02/24/2014 [facility] CHEM PANEL AGAP 10.1 meq/L 10.0 - 20.0 02/24/2014 [facility] HEMATOLOGY Hct 46.5 % 42.0 - 54.0 02/24/2014 [facility] HEMATOLOGY MCH 29.7 pg 27.0 - 31.0 02/24/2014 [facility] HEMATOLOGY MCV 88.1 fL 80.0 - 94.0 02/24/2014 [facility] HEMATOLOGY RDW 17.8 % 11.5 - 14.5 02/24/2014 [facility] MCHC 33.7 g/dL 32.0 - 36.0 02/24/2014 [facility] HEMATOLOGY WBC 6.4 K/CMM 3.7 - 10.4 02/24/2014 [facility] Hgb 15.7 g/dL 14.0 - 18.0 02/24/2014 [facility] RBC 5.28 M/CMM 4.70 - 6.10 02/24/2014 [facility] HEMATOLOGY Platelet 146 K/CMM 133 - 450 02/24/2014 [facility] MPV 8.2 fL 7.4 - 10.4 02/24/2014 [facility] HEMATOLOGY Segs 85.9 % 45.0 - 75.0 02/24/2014 [facility] Monocytes 2.7 % 2.0 - 12.0 02/24/2014 [facility] Monocytes # 0.2 K/CMM 0.0 - 0.8 02/24/2014 [facility] Lymphocytes # 0.7 K/CMM 1.0 - 5.5 02/24/2014 [facility] Lymphocytes 11.3 % 20.0 - 40.0 02/24/2014 [facility] Basophils 0.1 % 0.0 - 1.0 02/24/2014 [facility] Segs-Bands # 5.5 K/CMM 1.5 - 8.1 02/24/2014 [facility] PTT 31.7 s 22.9 - 35.8 02/23/2014 10Interpretive Data: Heparin Therapeutic Range: 57 - 92 Seconds [facility] CARDIAC ENZYMES Total CK 392 unit/L 12 - 191 02/23/2014 [facility] CARDIAC ENZYMES Troponin-I null 0.00 - 0.40 02/23/2014 [facility] CHEM PANEL Magnesium Lvl 2.1 mg/dL 1.8 - 2.4 02/23/2014 [facility] HEMATOLOGY Eosinophils 0.9 % 0.0 - 4.0 02/23/2014 [facility] Chest 2 views Chest 2 views CHEST, TWO VIEWS HISTORY: Chest pain. COMPARISON: 10/02/2013 FINDINGS: Port-A-Cath remains in place. The lungs are clear. No pleural effusion. No pneumothorax. Heart size normal. No acute osseous abnormality. SL: 14 02/22/2014 - - Read by: Dereje Bowers MD Dictated Date/time: 08/06/14 20:13 Electronically Signed by: Dereje Bowers MD 02/22/14 20:13 FINAL REPORT [facility] CHEM PANEL eGFR 64 mL/min/1.73m2 11/20/2013 1Result [...] values reflect the clinical guidelines of the [place] [employer]. [facility] CHEM PANEL Calcium Lvl 8.8 mg/dL 8.5 - 10.5 11/20/2013 [facility] CHEM PANEL Bili Total 0.8 mg/dL 0.2 - 1.3 11/20/2013 [facility] CHEM PANEL Globulin 3.8 g/dL 2.0 - 4.0 11/20/2013 [facility] CHEM PANEL B/C Ratio 12 6 - 25 11/20/2013 [facility] CHEM PANEL AGAP 12.5 meq/L 10.0 - 20.0 11/20/2013 [facility] CHEM PANEL A/G Ratio 1.0 0.7 - 1.6 11/20/2013 [facility] HEMATOLOGY Sed Rate 17 mm/h 0 - 15 11/20/2013 [facility] HEMATOLOGY Basophils # 0.0 K/CMM 0.0 - 0.2 11/20/2013 [facility] HEMATOLOGY Eosinophils # 0.1 K/CMM 0.0 - 0.5 11/20/2013 [facility] HEMATOLOGY Segs-Bands # 3.7 K/CMM 1.5 - 8.1 11/20/2013 [facility] Lymphocytes # 1.6 K/CMM 1.0 - 5.5 11/20/2013 [facility] Monocytes # 0.5 K/CMM 0.0 - 0.8 11/20/2013 [facility] Eosinophils 2.0 % 0.0 - 4.0 11/20/2013 [facility] Basophils 0.4 % 0.0 - 1.0 11/20/2013 [facility] Monocytes 9.2 % 2.0 - 12.0 11/20/2013 [facility] Lymphocytes 26.9 % 20.0 - 40.0 11/20/2013 [facility] Segs 61.5 % 45.0 - 75.0 11/20/2013 [facility] RDW 16.7 % 11.5 - 14.5 11/20/2013 [facility] Platelet 175 K/CMM 133 - 450 11/20/2013 [facility] MCHC 33.6 g/dL 32.0 - 36.0 11/20/2013 [facility] MPV 8.2 fL 7.4 - 10.4 11/20/2013 [facility] RBC 5.25 M/CMM 4.70 - 6.10 11/20/2013 [facility] WBC 6.0 K/CMM 3.7 - 10.4 11/20/2013 [facility] MCV 85.5 fL 80.0 - 94.0 11/20/2013 [facility] HEMATOLOGY Hct 44.9 % 42.0 - 54.0 11/20/2013 [facility] HEMATOLOGY Hgb 15.1 g/dL 14.0 - 18.0 11/20/2013 [facility] HEMATOLOGY MCH 28.7 pg 27.0 - 31.0 11/20/2013 [facility] IMMUNOLOGY C-REACTIVE PROTEIN 7.6 mg/L <=2.9 mg/L 11/20/2013 [facility] CHEM PANEL eGFR 72 mL/min/1.73m2 10/31/2013 1Result [...] should be multiplied by the estimated BMI. [facility] CHEM PANEL BUN 16 mg/dL 7 - 22 10/31/2013 [facility] CHEM PANEL Creatinine Lvl 1.1 mg/dL 0.5 - 1.4 10/31/2013 [facility] CHEM PANEL Sodium Lvl 141 meq/L 135 - 145 10/31/2013 [facility] CHEM PANEL Glucose Lvl 118 mg/dL 70 - 99 10/31/2013 4Interpretive Data: Adult reference range values reflect the clinical guidelines of the [place] [employer]. [facility] CHEM PANEL AGAP 11.1 meq/L 10.0 - 20.0 10/31/2013 [facility] CHEM PANEL Calcium Lvl 8.2 mg/dL 8.5 - 10.5 10/31/2013 [facility] CHEM PANEL Chloride Lvl 107 meq/L 95 - 109 10/31/2013 [facility] CHEM PANEL Potassium Lvl 4.1 meq/L 3.5 - 5.1 10/31/2013 [facility] CHEM PANEL CO2 27 meq/L 24 - 32 10/31/2013 [facility] HEMATOLOGY Eosinophils 1.3 % 0.0 - 4.0 10/31/2013 [facility] HEMATOLOGY Basophils 0.4 % 0.0 - 1.0 10/31/2013 [facility] HEMATOLOGY Monocytes 9.5 % 2.0 - 12.0 10/31/2013 [facility] HEMATOLOGY Segs 70.1 % 45.0 - 75.0 10/31/2013 [facility] HEMATOLOGY Lymphocytes 18.7 % 20.0 - 40.0 10/31/2013 [facility] HEMATOLOGY Lymphocytes # 1.5 K/CMM 1.0 - 5.5 10/31/2013 [facility] HEMATOLOGY Basophils # 0.0 K/CMM 0.0 - 0.2 10/31/2013 [facility] HEMATOLOGY Monocytes # 0.8 K/CMM 0.0 - 0.8 10/31/2013 [facility] HEMATOLOGY Eosinophils # 0.1 K/CMM 0.0 - 0.5 10/31/2013 [facility] HEMATOLOGY Segs-Bands # 5.7 K/CMM 1.5 - 8.1 10/31/2013 [facility] HEMATOLOGY Hct 45.4 % 42.0 - 54.0 10/31/2013 [facility] HEMATOLOGY MCV 87.0 fL 80.0 - 94.0 10/31/2013 [facility] HEMATOLOGY Hgb 15.3 g/dL 14.0 - 18.0 10/31/2013 [facility] HEMATOLOGY WBC 8.1 K/CMM 3.7 - 10.4 10/31/2013 [facility] HEMATOLOGY RBC 5.22 M/CMM 4.70 - 6.10 10/31/2013 [facility] HEMATOLOGY Platelet 145 K/CMM 133 - 450 10/31/2013 [facility] MPV 8.0 fL 7.4 - 10.4 10/31/2013 [facility] HEMATOLOGY RDW 16.3 % 11.5 - 14.5 10/31/2013 [facility] HEMATOLOGY MCH 29.2 pg 27.0 - 31.0 10/31/2013 [facility] MCHC 33.6 g/dL 32.0 - 36.0 10/31/2013 [facility] CARDIAC ENZYMES Troponin-I null 0.00 - 0.40 10/30/2013 [facility] CARDIAC ENZYMES CK MB Index 1.2 0.0 - 2.5 10/30/2013 [facility] CARDIAC ENZYMES CK MB 1.2 ng/mL 0.5 - 3.6 10/30/2013 [facility] CARDIAC ENZYMES Total CK 97 unit/L 12 - 191 10/30/2013 [facility] CHEM PANEL Globulin 3.5 g/dL 2.0 - 4.0 10/30/2013 [facility] CHEM PANEL A/G Ratio 1.0 0.7 - 1.6 10/30/2013 [facility] CHEM PANEL AGAP 9.0 meq/L 10.0 - 20.0 10/30/2013 [facility] CHEM PANEL B/C Ratio 16 6 - 25 10/30/2013 [facility] CHEM PANEL ALT 27 unit/L 0 - 65 10/30/2013 [facility] CHEM PANEL Albumin Lvl 3.4 g/dL 3.5 - 5.0 10/30/2013 [facility] CHEM PANEL AST 22 unit/L 0 - 37 10/30/2013 [facility] CHEM PANEL Bili Total 0.8 mg/dL 0.2 - 1.3 10/30/2013 [facility] CHEM PANEL Total Protein 6.9 g/dL 6.4 - 8.4 10/30/2013 [facility] CHEM PANEL CO2 28 meq/L 24 - 32 10/30/2013 [facility] CHEM PANEL Calcium Lvl 8.3 mg/dL 8.5 - 10.5 10/30/2013 [facility] CHEM PANEL Potassium Lvl 4.0 meq/L 3.5 - 5.1 10/30/2013 [facility] CHEM PANEL Chloride Lvl 104 meq/L 95 - 109 10/30/2013 [facility] CHEM PANEL Creatinine Lvl 1.1 mg/dL 0.5 - 1.4 10/30/2013 [facility] CHEM PANEL Sodium Lvl 137 meq/L 135 - 145 10/30/2013 [facility] CHEM PANEL Alk Phos 45 unit/L 39 - 136 10/30/2013 [facility] CHEM PANEL Glucose Lvl 181 mg/dL 70 - 99 10/30/2013 5Interpretive Data: Adult reference range values reflect the clinical guidelines of the [place] [employer]. [facility] CHEM PANEL BUN 18 mg/dL 7 - 22 10/30/2013 [facility] CHEM PANEL eGFR 72 mL/min/1.73m2 10/30/2013 2Result [...] should be multiplied by the estimated BMI. [facility] HEMATOLOGY Basophils # 0.0 K/CMM 0.0 - 0.2 10/30/2013 [facility] Lymphocytes # 1.4 K/CMM 1.0 - 5.5 10/30/2013 [facility] HEMATOLOGY Eosinophils # 0.1 K/CMM 0.0 - 0.5 10/30/2013 [facility] Monocytes # 0.8 K/CMM 0.0 - 0.8 10/30/2013 [facility] Lymphocytes 15.7 % 20.0 - 40.0 10/30/2013 [facility] Monocytes 8.8 % 2.0 - 12.0 10/30/2013 [facility] Segs-Bands # 6.7 K/CMM 1.5 - 8.1 10/30/2013 [facility] Eosinophils 0.7 % 0.0 - 4.0 10/30/2013 [facility] Basophils 0.5 % 0.0 - 1.0 10/30/2013 [facility] Segs 74.3 % 45.0 - 75.0 10/30/2013 [facility] INR 1.00 0.85 - 1.17 10/30/2013 7Interpretive Data: RECOMMENDED RANGES FOR PROTIME INR: 2.0-3.0 for most medical and surgical thromboembolic states. 2.5-3.5 for artificial heart valves and recurrent embolism. INR SHOULD BE USED ONLY FOR PATIENTS ON STABLE ANTICOAGULANT THERAPY. [facility] PT 13.1 s 12.0 - 14.7 10/30/2013 [facility] WBC 9.0 K/CMM 3.7 - 10.4 10/30/2013 [facility] RBC 5.10 M/CMM 4.70 - 6.10 10/30/2013 [facility] Hgb 15.1 g/dL 14.0 - 18.0 10/30/2013 [facility] RDW 15.9 % 11.5 - 14.5 10/30/2013 [facility] Platelet 154 K/CMM 133 - 450 10/30/2013 [facility] MCV 86.7 fL 80.0 - 94.0 10/30/2013 [facility] MCH 29.5 pg 27.0 - 31.0 10/30/2013 [facility] Hct 44.3 % 42.0 - 54.0 10/30/2013 [facility] MPV 8.0 fL 7.4 - 10.4 10/30/2013 [facility] MCHC 34.0 g/dL 32.0 - 36.0 10/30/2013 [facility] CARDIAC ENZYMES Troponin-I null 0.00 - 0.40 10/30/2013 [facility] CARDIAC ENZYMES CK MB 1.4 ng/mL 0.5 - 3.6 10/30/2013 [facility] CARDIAC ENZYMES Total CK 126 unit/L 12 - 191 10/30/2013 [facility] CARDIAC ENZYMES CK MB Index 1.1 0.0 - 2.5 10/30/2013 [facility] Chest w contrast CT Chest w [...] Ronald Amador MD 10/29/13 16:22 FINAL REPORT [facility] ELECTROLYTES AGAP 10.2 meq/L 10.0 - 20.0 10/29/2013 [facility] ELECTROLYTES eGFR 72 mL/min/1.73m2 10/29/2013 3Result [...] should be multiplied by the estimated BMI. [facility] ELECTROLYTES Calcium Lvl 9.1 mg/dL 8.5 - 10.5 10/29/2013 [facility] ELECTROLYTES CO2 27 meq/L 24 - 32 10/29/2013 [facility] ELECTROLYTES Creatinine Lvl 1.1 mg/dL 0.5 - 1.4 10/29/2013 [facility] ELECTROLYTES Chloride Lvl 104 meq/L 95 - 109 10/29/2013 [facility] ELECTROLYTES Potassium Lvl 4.2 meq/L 3.5 - 5.1 10/29/2013 [facility] ELECTROLYTES Glucose Lvl 123 mg/dL 70 - 99 10/29/2013 6Interpretive Data: Adult reference range values reflect the clinical guidelines of the [place] [employer]. [facility] ELECTROLYTES Sodium Lvl 137 meq/L 135 - 145 10/29/2013 [facility] ELECTROLYTES BUN 19 mg/dL 7 - 22 10/29/2013 [facility] Basophils 0.1 % 0.0 - 1.0 10/29/2013 [facility] Monocytes 8.1 % 2.0 - 12.0 10/29/2013 [facility] HEMATOLOGY Segs-Bands # 6.8 K/CMM 1.5 - 8.1 10/29/2013 [facility] Lymphocytes # 1.0 K/CMM 1.0 - 5.5 10/29/2013 [facility] HEMATOLOGY Monocytes # 0.7 K/CMM 0.0 - 0.8 10/29/2013 [facility] HEMATOLOGY Eosinophils # 0.0 K/CMM 0.0 - 0.5 10/29/2013 [facility] Basophils # 0.0 K/CMM 0.0 - 0.2 10/29/2013 [facility] Lymphocytes 11.8 % 20.0 - 40.0 10/29/2013 [facility] HEMATOLOGY Eosinophils 0.0 % 0.0 - 4.0 10/29/2013 [facility] HEMATOLOGY Segs 80.0 % 45.0 - 75.0 10/29/2013 [facility] Hgb 15.3 g/dL 14.0 - 18.0 10/29/2013 [facility] Hct 45.8 % 42.0 - 54.0 10/29/2013 [facility] MCV 87.9 fL 80.0 - 94.0 10/29/2013 [facility] MCHC 33.3 g/dL 32.0 - 36.0 10/29/2013 [facility] Platelet 150 K/CMM 133 - 450 10/29/2013 [facility] MCH 29.3 pg 27.0 - 31.0 10/29/2013 [facility] RDW 16.3 % 11.5 - 14.5 10/29/2013 [facility] MPV 8.1 fL 7.4 - 10.4 10/29/2013 [facility] RBC 5.21 M/CMM 4.70 - 6.10 10/29/2013 [facility] WBC 8.6 K/CMM 3.7 - 10.4 10/29/2013 [facility] INR 1.19 0.85 - 1.17 10/26/2013 8Interpretive Data: RECOMMENDED RANGES FOR PROTIME INR: 2.0-3.0 for most medical and surgical thromboembolic states. 2.5-3.5 for artificial heart valves and recurrent embolism. INR SHOULD BE USED ONLY FOR PATIENTS ON STABLE ANTICOAGULANT THERAPY. [facility] PT 15.0 s 12.0 - 14.7 10/26/2013 [facility] PTT 28.6 s 22.9 - 35.8 10/26/2013 9Interpretive Data: Heparin Therapeutic Range: 57 - 92 Seconds [facility] CHEM PANEL eGFR 80 mL/min/1.73m2 10/05/2013 [...] should be multiplied by the estimated BMI. [facility] CHEM PANEL Calcium Lvl 8.6 mg/dL 8.5 - 10.5 10/05/2013 [facility] CHEM PANEL CO2 27 meq/L 24 - 32 10/05/2013 [facility] CHEM PANEL Creatinine Lvl 1.0 mg/dL 0.5 - 1.4 10/05/2013 [facility] CHEM PANEL Chloride Lvl 109 meq/L 95 - 109 10/05/2013 [facility] CHEM PANEL BUN 12 mg/dL 7 - 22 10/05/2013 [facility] CHEM PANEL Glucose Lvl 115 mg/dL 70 - 99 10/05/2013 4Interpretive Data: Adult reference range values reflect the clinical guidelines of the [place] [employer]. [facility] CHEM PANEL Potassium Lvl 3.5 meq/L 3.5 - 5.1 10/05/2013 [facility] CHEM PANEL Sodium Lvl 141 meq/L 135 - 145 10/05/2013 [facility] CHEM PANEL AGAP 8.5 meq/L 10.0 - 20.0 10/05/2013 [facility] HEMATOLOGY Eosinophils # 0.1 K/CMM 0.0 - 0.5 10/05/2013 [facility] HEMATOLOGY Basophils # 0.0 K/CMM 0.0 - 0.2 10/05/2013 [facility] HEMATOLOGY Monocytes # 0.4 K/CMM 0.0 - 0.8 10/05/2013 [facility] HEMATOLOGY Lymphocytes # 1.0 K/CMM 1.0 - 5.5 10/05/2013 [facility] HEMATOLOGY Segs-Bands # 2.3 K/CMM 1.5 - 8.1 10/05/2013 [facility] HEMATOLOGY Basophils 0.7 % 0.0 - 1.0 10/05/2013 [facility] HEMATOLOGY Eosinophils 3.8 % 0.0 - 4.0 10/05/2013 [facility] HEMATOLOGY Segs 60.1 % 45.0 - 75.0 10/05/2013 [facility] HEMATOLOGY Monocytes 10.7 % 2.0 - 12.0 10/05/2013 [facility] HEMATOLOGY Lymphocytes 24.7 % 20.0 - 40.0 10/05/2013 [facility] HEMATOLOGY MPV 8.4 fL 7.4 - 10.4 10/05/2013 [facility] HEMATOLOGY Platelet 145 K/CMM 133 - 450 10/05/2013 [facility] HEMATOLOGY RDW 16.1 % 11.5 - 14.5 10/05/2013 [facility] HEMATOLOGY Hct 42.0 % 42.0 - 54.0 10/05/2013 [facility] MCH 29.1 pg 27.0 - 31.0 10/05/2013 [facility] MCV 88.4 fL 80.0 - 94.0 10/05/2013 [facility] HEMATOLOGY WBC X 10x3 3.9 K/CMM 3.7 - 10.4 10/05/2013 [facility] Hgb 13.8 g/dL 14.0 - 18.0 10/05/2013 [facility] RBC X 10x6 4.75 M/CMM 4.70 - 6.10 10/05/2013 [facility] MCHC 32.9 g/dL 32.0 - 36.0 10/05/2013 [facility] CHEM PANEL Phosphorus 2.3 mg/dL 2.5 - 4.5 10/04/2013 [facility] CHEM PANEL Magnesium Lvl 2.1 mg/dL 1.8 - 2.4 10/04/2013 [facility] HEMATOLOGY Sed Rate 20 mm/h 0 - 15 10/03/2013 [facility] CHEM PANEL A/G Ratio 1.1 0.7 - 1.6 10/03/2013 [facility] CHEM PANEL B/C Ratio 15 6 - 25 10/03/2013 [facility] CHEM PANEL Globulin 3.1 g/dL 2.0 - 4.0 10/03/2013 [facility] CHEM PANEL AGAP 12.6 meq/L 10.0 - 20.0 10/03/2013 [facility] CHEM PANEL eGFR 58 mL/min/1.73m2 10/03/2013 [...] should be multiplied by the estimated BMI. [facility] CHEM PANEL Albumin Lvl 3.4 g/dL 3.5 - 5.0 10/03/2013 [facility] CHEM PANEL Total Protein 6.5 g/dL 6.4 - 8.4 10/03/2013 [facility] CHEM PANEL Bili Total 1.5 mg/dL 0.2 - 1.3 10/03/2013 [facility] CHEM PANEL ASPARTATE TRANSAMINASE 27 unit/L 0 - 37 10/03/2013 [facility] CHEM PANEL ALANINE AMINOTRANSFERASE 29 unit/L 0 - 65 10/03/2013 [facility] CHEM PANEL Alk Phos 43 unit/L 39 - 136 10/03/2013 [facility] CHEM PANEL Potassium Lvl 3.6 meq/L 3.5 - 5.1 10/03/2013 [facility] CHEM PANEL Chloride Lvl 105 meq/L 95 - 109 10/03/2013 [facility] CHEM PANEL CO2 24 meq/L 24 - 32 10/03/2013 [facility] CHEM PANEL BUN 19 mg/dL 7 - 22 10/03/2013 [facility] CHEM PANEL Glucose Lvl 134 mg/dL 70 - 99 10/03/2013 5Interpretive Data: Adult reference range values reflect the clinical guidelines of the [place] [employer]. [facility] CHEM PANEL Sodium Lvl 138 meq/L 135 - 145 10/03/2013 [facility] CHEM PANEL Creatinine Lvl 1.3 mg/dL 0.5 - 1.4 10/03/2013 [facility] CHEM PANEL Calcium Lvl 7.6 mg/dL 8.5 - 10.5 10/03/2013 [facility] HEMATOLOGY Hct 44.2 % 42.0 - 54.0 10/03/2013 [facility] MCV 88.5 fL 80.0 - 94.0 10/03/2013 [facility] HEMATOLOGY MPV 8.2 fL 7.4 - 10.4 10/03/2013 [facility] Platelet 132 K/CMM 133 - 450 10/03/2013 [facility] HEMATOLOGY RDW 16.1 % 11.5 - 14.5 10/03/2013 [facility] MCHC 33.4 g/dL 32.0 - 36.0 10/03/2013 [facility] MCH 29.6 pg 27.0 - 31.0 10/03/2013 [facility] Hgb 14.8 g/dL 14.0 - 18.0 10/03/2013 [facility] HEMATOLOGY WBC X 10x3 8.6 K/CMM 3.7 - 10.4 10/03/2013 [facility] HEMATOLOGY RBC X 10x6 4.99 M/CMM 4.70 - 6.10 10/03/2013 [facility] HEMATOLOGY Eosinophils 0.0 % 0.0 - 4.0 10/03/2013 [facility] HEMATOLOGY Monocytes 9.2 % 2.0 - 12.0 10/03/2013 [facility] HEMATOLOGY Segs 82.8 % 45.0 - 75.0 10/03/2013 [facility] HEMATOLOGY Lymphocytes 7.9 % 20.0 - 40.0 10/03/2013 [facility] HEMATOLOGY Eosinophils # 0.0 K/CMM 0.0 - 0.5 10/03/2013 [facility] HEMATOLOGY Basophils # 0.0 K/CMM 0.0 - 0.2 10/03/2013 [facility] HEMATOLOGY Monocytes # 0.8 K/CMM 0.0 - 0.8 10/03/2013 [facility] HEMATOLOGY Lymphocytes # 0.7 K/CMM 1.0 - 5.5 10/03/2013 [facility] HEMATOLOGY Segs-Bands # 7.2 K/CMM 1.5 - 8.1 10/03/2013 [facility] Basophils 0.1 % 0.0 - 1.0 10/03/2013 [facility] LIPIDS Trig 147 mg/dL <=149 mg/dL 10/03/2013 [facility] LIPIDS CHD Risk 3.93 4.00 - 7.30 10/03/2013 [facility] LIPIDS HDL 27 mg/dL >=61 mg/dL 10/03/2013 [facility] LIPIDS Chol 106 mg/dL <=199 mg/dL 10/03/2013 [facility] LIPIDS VLDL 29 10/03/2013 [facility] LIPIDS LDL (Calculated) 50 mg/dL <=99 mg/dL 10/03/2013 [facility] VIRAL - SEROLOGY Influ B Negative 9 (10/03/2013 02:45:12 /[place]) Negative 10/03/2013 9Interpretive Data: Influenza A&B Antigen: Due to the low sensitivity of this test a negative result does not exclude influenza virus infection. A diagnosis of influenza should be considered based on a patient's clinical presentation and empiric antiviral treatment should be considered, if indicated. If more conclusive testing is desired, follow-up confirmatory testing with either viral culture or PCR is warranted. [facility] VIRAL - SEROLOGY Influ A Negative (10/03/2013 02:45:12 /[place]) Negative 10/03/2013 [facility] URINE AND STOOL UA Blood Small *ABN* (10/02/2013 23:15:00 /[place]) Negative 10/03/2013 [facility] URINE AND STOOL UA Bili Negative *NA* (10/02/2013 23:15:00 /[place]) Negative 10/03/2013 [facility] URINE AND STOOL UA Ketones Negative mg/dL Negative mg/dL 10/03/2013 [facility] URINE AND STOOL UA Mucus Few /LPF None Seen /LPF 10/03/2013 [facility] URINE AND STOOL UA Sq Epi None Seen 10/03/2013 [facility] URINE AND STOOL UA RBC 10 /HPF 0 - 2 10/03/2013 [facility] URINE AND STOOL UA WBC null 0 - 5 10/03/2013 [facility] URINE AND STOOL UA Nitrite Negative (10/02/2013 23:15:00 /[place]) Negative 10/03/2013 [facility] URINE AND STOOL UA Leuk Est Negative (10/02/2013 23:15:00 /[place]) Negative 10/03/2013 [facility] URINE AND STOOL UA Urobilinogen <=1.0 mg/dL 0.1 - 1.0 10/03/2013 [facility] URINE AND STOOL UA Glucose Negative mg/dL Negative mg/dL 10/03/2013 [facility] URINE AND STOOL UA pH 5.0 5.0 - 8.0 10/03/2013 [facility] URINE AND STOOL UA Protein Negative mg/dL Negative mg/dL 10/03/2013 [facility] URINE AND STOOL UA Turbidity Clear (10/02/2013 23:15:00 /[place]) Clear 10/03/2013 [facility] URINE AND STOOL UA Spec Grav 1.014 <=1.030 10/03/2013 [facility] URINE AND STOOL UA Color Yellow *NA* (10/02/2013 23:15:00 /[place]) Yellow 10/03/2013 [facility] CARDIAC ENZYMES CK MB 0.7 ng/mL 0.5 - 3.6 10/03/2013 [facility] CARDIAC ENZYMES Troponin-I null 0.00 - 0.40 10/03/2013 [facility] CARDIAC ENZYMES Total CK 188 unit/L 12 - 191 10/03/2013 [facility] CARDIAC ENZYMES CK-MB INDEX 0.4 0.0 - 2.5 10/03/2013 [facility] CHEM PANEL Lactic Acid Lvl 1.4 mMol/L 0.5 - 2.2 10/03/2013 [facility] CHEM PANEL eGFR 64 mL/min/1.73m2 10/03/2013 [...] by the estimated BMI. [facility] CHEM PANEL Globulin 3.9 g/dL 2.0 - 4.0 10/03/2013 [facility] CHEM PANEL Albumin Lvl 3.7 g/dL 3.5 - 5.0 10/03/2013 [facility] CHEM PANEL ALANINE AMINOTRANSFERASE 34 unit/L 0 - 65 10/03/2013 [facility] CHEM PANEL Alk Phos 54 unit/L 39 - 136 10/03/2013 [facility] CHEM PANEL A/G Ratio 0.9 0.7 - 1.6 10/03/2013 [facility] CHEM PANEL Bili Total 1.2 mg/dL 0.2 - 1.3 10/03/2013 [facility] CHEM PANEL ASPARTATE TRANSAMINASE 32 unit/L 0 - 37 10/03/2013 [facility] CHEM PANEL CO2 25 meq/L 24 - 32 10/03/2013 [facility] CHEM PANEL Calcium Lvl 8.5 mg/dL 8.5 - 10.5 10/03/2013 [facility] CHEM PANEL AGAP 12.0 meq/L 10.0 - 20.0 10/03/2013 [facility] CHEM PANEL Chloride Lvl 106 meq/L 95 - 109 10/03/2013 [facility] CHEM PANEL Potassium Lvl 4.0 meq/L 3.5 - 5.1 10/03/2013 [facility] CHEM PANEL Sodium Lvl 139 meq/L 135 - 145 10/03/2013 [facility] CHEM PANEL Total Protein 7.6 g/dL 6.4 - 8.4 10/03/2013 [facility] CHEM PANEL B/C Ratio 19 6 - 25 10/03/2013 [facility] CHEM PANEL BUN 23 mg/dL 7 - 22 10/03/2013 [facility] CHEM PANEL Glucose Lvl 106 mg/dL 70 - 99 10/03/2013 6Interpretive Data: Adult reference range values reflect the clinical guidelines of the [place] [employer]. [facility] CHEM PANEL Creatinine Lvl 1.2 mg/dL 0.5 - 1.4 10/03/2013 [facility] HEMATOLOGY RBC X 10x6 5.63 M/CMM 4.70 - 6.10 10/03/2013 [facility] WBC X 10x3 11.5 K/CMM 3.7 - 10.4 10/03/2013 [facility] MCHC 33.7 g/dL 32.0 - 36.0 10/03/2013 [facility] RDW 15.8 % 11.5 - 14.5 10/03/2013 [facility] MCH 29.2 pg 27.0 - 31.0 10/03/2013 [facility] MCV 86.7 fL 80.0 - 94.0 10/03/2013 [facility] Hct 48.8 % 42.0 - 54.0 10/03/2013 [facility] MPV 8.6 fL 7.4 - 10.4 10/03/2013 [facility] Platelet 170 K/CMM 133 - 450 10/03/2013 [facility] Hgb 16.4 g/dL 14.0 - 18.0 10/03/2013 [facility] aPTT 32.7 s 22.9 - 35.8 10/03/2013 8Interpretive Data: Heparin Therapeutic Range: 57 - 92 Seconds [facility] PROTIME 20.3 s 12.0 - 14.7 10/03/2013 [facility] INR 1.77 0.85 - 1.17 10/03/2013 7Interpretive Data: RECOMMENDED RANGES FOR PROTIME INR: 2.0-3.0 for most medical and surgical thromboembolic states. 2.5-3.5 for artificial heart valves and recurrent embolism. INR SHOULD BE USED ONLY FOR PATIENTS ON STABLE ANTICOAGULANT THERAPY. [facility] Segs-Bands # 9.9 K/CMM 1.5 - 8.1 10/03/2013 [facility] Monocytes # 0.5 K/CMM 0.0 - 0.8 10/03/2013 [facility] Lymphocytes # 1.2 K/CMM 1.0 - 5.5 10/03/2013 [facility] Segs 63.0 % 45.0 - 75.0 10/03/2013 [facility] Polychrom Slight (10/02/2013 19:50:00 [facility]) None Seen 10/03/2013 [facility] HEMATOLOGY Plt Morph Normal (10/02/2013 19:50:00 [facility]/[place]) 10/03/2013 [facility] HEMATOLOGY Monocytes 4.0 % 2.0 - 12.0 10/03/2013 [facility] HEMATOLOGY Bands 23.0 % 0.0 - 11.0 10/03/2013 [facility] HEMATOLOGY Lymphocytes 8.0 % 20.0 - 40.0 10/03/2013 [facility] HEMATOLOGY Atypical Lymphs 2.0 % <=0.0 % 10/03/2013 [facility] HEMATOLOGY RBC Morph See Note (10/02/2013 19:50:00 /[place]) 10/03/2013 [facility] Vital Signs Vital Sign Value Date [...] [facility] Heart Rate 60 09/02/2018 [facility] Respitory Rate 15 09/02/2018 [facility] Systolic (mm Hg) 128 09/02/2018 [facility] Diastolic (mm Hg) 63 09/02/2018 [facility] Heart Rate 63 09/02/2018 [facility] Respitory Rate 14 09/02/2018 [facility] Systolic (mm Hg) 130 09/02/2018 [facility] Diastolic (mm Hg) 60 09/02/2018 [facility] Heart Rate 65 09/02/2018 [facility] Respitory Rate 15 09/02/2018 [facility] Systolic (mm Hg) 132 09/02/2018 [facility] Diastolic (mm Hg) 68 09/02/2018 [facility] Height 203.2 cm 08/18/2018 [facility] Weight 110.909 08/18/2018 [facility] BMI Calculated 26.86 08/18/2018 [facility] Systolic (mm Hg) 143 06/17/2018 [facility] Diastolic (mm Hg) 80 06/17/2018 [facility] Respitory Rate 16 06/17/2018 [facility] Systolic (mm Hg) 132 06/17/2018 [facility] Diastolic (mm Hg) 79 06/17/2018 [facility] Respitory Rate 16 06/17/2018 [facility] Systolic (mm Hg) 114 06/17/2018 [facility] Diastolic (mm Hg) 61 06/17/2018 [facility] Respitory Rate 16 06/17/2018 [facility] BMI Calculated 26.86 06/09/2018 [facility] Weight 110.909 06/09/2018 [facility] Height 203.2 cm 06/09/2018 [facility] Respitory Rate 21 06/03/2018 [facility] Systolic (mm Hg) 149 06/03/2018 [facility] Diastolic (mm Hg) 87 06/03/2018 [facility] Systolic (mm Hg) 151 06/03/2018 [facility] Diastolic (mm Hg) 85 06/03/2018 [facility] Respitory Rate 14 06/03/2018 [facility] Systolic (mm Hg) 145 06/03/2018 [facility] Diastolic (mm Hg) 71 06/03/2018 [facility] Respitory Rate 12 06/03/2018 [facility] BMI Calculated 26.86 06/01/2018 [facility] Weight 110.909 06/01/2018 [facility] Height 203.2 cm 06/01/2018 [facility] Height 203.2 cm 12/08/2017 [facility] BMI Calculated 26.59 12/08/2017 [facility] Weight 109.773 12/08/2017 [facility] Systolic (mm Hg) 124 12/08/2017 [facility] Diastolic (mm Hg) 70 12/08/2017 [facility] Respitory Rate 18 12/08/2017 [facility] Heart Rate 78 12/08/2017 [facility] Temperature Oral (F) 97.5 F 12/08/2017 [facility] Systolic (mm Hg) 118 11/26/2017 [facility] Diastolic (mm Hg) 57 11/26/2017 [facility] Systolic (mm Hg) 100 11/26/2017 [facility] Diastolic (mm Hg) 50 11/26/2017 [facility] Systolic (mm Hg) 111 11/26/2017 [facility] Diastolic (mm Hg) 55 11/26/2017 [facility] Temperature Oral (F) 98 F 11/25/2017 [facility] Weight 109.545 11/25/2017 [facility] BMI Calculated 26.53 11/25/2017 [facility] Height 203.2 cm 11/25/2017 [facility] BMI Calculated 27.3 11/02/2017 [facility] Height 203.2 cm 11/02/2017 [facility] Weight 112.727 11/02/2017 [facility] Heart Rate 70 11/02/2017 [facility] Respitory Rate 18 11/02/2017 [facility] Systolic (mm Hg) 116 11/02/2017 [facility] Diastolic (mm Hg) 71 11/02/2017 [facility] Systolic (mm Hg) 145 07/17/2015 [facility] Diastolic (mm Hg) 71 07/17/2015 [facility] Temperature Oral (F) 97.2 F 07/17/2015 [facility] Respitory Rate 20 07/17/2015 [facility] Heart Rate 87 07/17/2015 [facility] Weight 77.273 07/17/2015 [facility] Systolic (mm Hg) 143 07/17/2015 [facility] Diastolic (mm Hg) 76 07/17/2015 [facility] Temperature Oral (F) 97.3 F 07/17/2015 [facility] Heart Rate 99 07/17/2015 [facility] Respitory Rate 20 07/17/2015 [facility] Height 182.88 cm 07/17/2015 [facility] BMI Calculated 23.1 07/17/2015 [facility] Systolic (mm Hg) 117 05/24/2015 [facility] Diastolic (mm Hg) 72 05/24/2015 [facility] Respitory Rate 16 05/24/2015 [facility] Height 203.2 cm 05/23/2015 [facility] Weight 116.818 05/23/2015 [facility] BMI Calculated 28.29 05/23/2015 [facility] Heart Rate 72 02/11/2015 [facility] Temperature Oral (F) 98.0 F 02/11/2015 [facility] Respitory Rate 18 02/11/2015 [facility] Systolic (mm Hg) 151 02/11/2015 [facility] Diastolic (mm Hg) 96 02/11/2015 [facility] Heart Rate 71 02/11/2015 [facility] Systolic (mm Hg) 135 02/11/2015 [facility] Diastolic (mm Hg) 80 02/11/2015 [facility] Respitory Rate 18 02/11/2015 [facility] Respitory Rate 20 02/11/2015 [facility] Heart Rate 94 02/11/2015 [facility] Temperature Oral (F) 97.6 F 02/10/2015 [facility] Systolic (mm Hg) 137 02/10/2015 [facility] Diastolic (mm Hg) 87 02/10/2015 [facility] Temperature Oral (F) 97.5 F 02/10/2015 [facility] Height 203.2 cm 02/10/2015 [facility] BMI Calculated 27.74 02/10/2015 [facility] Weight 114.545 02/10/2015 [facility] Systolic (mm Hg) 139 02/04/2015 [facility] Diastolic (mm Hg) 79 02/04/2015 [facility] Heart Rate 81 02/04/2015 [facility] Temperature Oral (F) 97.8 F 02/04/2015 [facility] Respitory Rate 18 02/04/2015 [facility] Respitory Rate 18 02/04/2015 [facility] Systolic (mm Hg) 137 02/04/2015 [facility] Diastolic (mm Hg) 85 02/04/2015 [facility] Heart Rate 66 02/04/2015 [facility] Temperature Oral (F) 97.8 F 02/04/2015 [facility] Temperature Oral (F) 97.8 F 02/04/2015 [facility] Heart Rate 75 02/04/2015 [facility] Respitory Rate 18 02/04/2015 [facility] Diastolic (mm Hg) 93 02/04/2015 [facility] Systolic (mm Hg) 170 02/04/2015 [facility] Weight 114.545 02/04/2015 [facility] BMI Calculated 27.74 02/04/2015 [facility] Height 203.2 cm 02/04/2015 [facility] Temperature Oral (F) 97.6 F 11/22/2014 [facility] Systolic (mm Hg) 137 11/22/2014 [facility] Diastolic (mm Hg) 75 11/22/2014 [facility] Respitory Rate 18 11/22/2014 [facility] Systolic (mm Hg) 134 11/22/2014 [facility] Diastolic (mm Hg) 76 11/22/2014 [facility] Respitory Rate 18 11/22/2014 [facility] Height 203.2 cm 11/21/2014 [facility] Weight 121.818 11/21/2014 [facility] BMI Calculated 29.5 11/21/2014 [facility] Temperature Oral (F) 97.4 F 11/21/2014 [facility] Heart Rate 78 11/21/2014 [facility] Respitory Rate 20 11/21/2014 [facility] Systolic (mm Hg) 161 11/21/2014 [facility] Diastolic (mm Hg) 92 11/21/2014 [facility] Diastolic (mm Hg) 81 02/28/2014 [facility] Temperature Oral (F) 98.6 F 02/28/2014 [facility] Respitory Rate 18 02/28/2014 [facility] Heart Rate 75 02/28/2014 [facility] Systolic (mm Hg) 145 02/28/2014 [facility] Respitory Rate 20 02/28/2014 [facility] Diastolic (mm Hg) 83 02/28/2014 [facility] Systolic (mm Hg) 165 02/28/2014 [facility] Heart Rate 77 02/28/2014 [facility] Temperature Oral (F) 97.8 F 02/28/2014 [facility] Systolic (mm Hg) 168 02/28/2014 [facility] Respitory Rate 16 02/28/2014 [facility] Diastolic (mm Hg) 88 02/28/2014 [facility] Heart Rate 77 02/28/2014 [facility] Temperature Oral (F) 97 F 02/28/2014 [facility] BMI Calculated 30.28 02/23/2014 [facility] Height 203.2 cm 02/23/2014 [facility] Weight 125.028 02/23/2014 [facility] BMI Calculated 29.72 02/22/2014 [facility] Weight 122.727 02/22/2014 [facility] Height 203.2 cm 02/22/2014 [facility] Respitory Rate 20 11/21/2013 [facility] Systolic (mm Hg) 146 11/21/2013 [facility] Diastolic (mm Hg) 83 11/21/2013 [facility] Temperature Oral (F) 97.8 F 11/21/2013 [facility] Heart Rate 76 11/21/2013 [facility] Respitory Rate 24 11/21/2013 [facility] Diastolic (mm Hg) 85 11/21/2013 [facility] Systolic (mm Hg) 147 11/21/2013 [facility] Temperature Oral (F) 97.5 F 11/21/2013 [facility] Heart Rate 84 11/21/2013 [facility] BMI Calculated 29.17 11/20/2013 [facility] Weight 120.455 11/20/2013 [facility] Height 203.2 cm 11/20/2013 [facility] Respitory Rate 20 11/20/2013 [facility] Temperature Oral (F) 97.8 F 11/20/2013 [facility] Heart Rate 89 11/20/2013 [facility] Systolic (mm Hg) 145 11/20/2013 [facility] Diastolic (mm Hg) 91 11/20/2013 [facility] Temperature Oral (F) 97.6 F 11/01/2013 [facility] Systolic (mm Hg) 124 11/01/2013 [facility] Diastolic (mm Hg) 73 11/01/2013 [facility] Heart Rate 81 11/01/2013 [facility] Respitory Rate 20 11/01/2013 [facility] Systolic (mm Hg) 125 11/01/2013 [facility] Diastolic (mm Hg) 76 11/01/2013 [facility] Temperature Oral (F) 97.6 F 11/01/2013 [facility]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
--- OUTSIDE RECORDS SUMMARY | 2019-01-11 06:18 | XMS REPORT | Summary of Care ---
Author Author [facility] Organization [facility] Address Unknown Phone Unavailable Encounter TOM Quinn(NICOLE) [id number] Date(s): 06/03/18 - 06/03/[address] [facility] Spine [address] [address]- [phone] Encounter Diagnosis Spondylosis without myelopathy or radiculopathy, lumbosacral region (Final) - 06/07/18 Postlaminectomy syndrome, not elsewhere classified (Final) - Hypertensive heart disease with heart failure (Final) - Heart failure, unspecified (Final) - Type 2 diabetes mellitus without complications (Final) - Chronic obstructive pulmonary disease, unspecified (Final) - Chronic inflammatory demyelinating polyneuritis (Final) - Gastro-esophageal reflux disease without esophagitis (Final) - Hypothyroidism, unspecified (Final) - Atherosclerotic heart disease of [place] coronary artery without angina pectoris (Final) - Pure hypercholesterolemia, unspecified (Final) - Personal history of nicotine dependence (Final) - regional intermodal truck driver (current) use of anticoagulants (Final) - [facility] (current) use of antithrombotics/antiplatelets (Final) - 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] TIA (transient Resolved ischemic attack)(Confirmed) 1X2 2008,2009 33673 3X2 Allergies, Adverse Reactions, Alerts Substance Reaction Severity Status CODEINE nausea, vomitting,fever Active Medications atorvastatin 40 mg oral tablet 40 mg=1 tab, PO, Daily, 0 Refill(s) Start Date: 06/01/18 Status: Ordered Centrum Silver Men's PO, Daily, 0 Refill(s) Start Date: 06/01/18 Status: Ordered Gamunex-C 10% injectable solution IV, q4wk, 0 Refill(s) Start Date: 06/01/18 Status: Ordered levothyroxine 100 mcg (0.1 mg) oral tablet 100 microgram=1 tab, PO, Daily, 0 Refill(s) Start Date: 06/01/18 Status: Ordered Results No data available for [...] Clinical Document Author: Ted Erwin MD Date: 06/03/18 LUMBAR MEDIAL BRANCH BLOCK UNDER FLUOROSCOPY PROCEDURE: 1) Bilateral L3/4, L4/5, and L5/S1 medial branch block 2) Fluoroscopic needle guidance REASON FOR PROCEDURE: Lumbar facet arthropathy and pain; Lumbosacral spondylosis without myelopathy PHYSICIAN: Ted Erwin MD MEDICATIONS INJECTED: 1 mL of 0.5% marcaine at each level LOCAL ANESTHETIC INJECTED: 4 mL of 1% lidocaine per site ESTIMATED BLOOD LOSS: None COMPLICATIONS: None TECHNIQUE: Time-out was taken to identify the correct patient, procedure and side prior to starting the procedure. Lying in a prone position, the patient was prepped and draped in the usual sterile fashion using DuraPrep and a fenestrated drape. Each site was identified under fluoroscopy. Local anesthetic was given by raising a wheal and going down to the hub of a 27-gauge 1.25-inch needle. The 25-gauge 3.5-inch Quincke needle was advanced to the anatomic location of each medial branch at the junction of the superior articular process and transverse process utilizing intermittent fluoroscopy. Medication was then injected slowly. The procedure was completed without complications and was tolerated well. The patient was monitored after the procedure. The patient (or responsible libertarian) was given post-procedure and discharge instructions to follow at home. The patient was discharged in stable condition. A follow-up appointment was made. Note: The patient has been instructed to call us in 2-3 hours to inform us what percentage of pain relief was obtained after the facet nerve blocks from today. The patient was also instructed to do the activities that would normally worsen the pain.
--- OUTSIDE RECORDS SUMMARY | 2019-01-11 06:18 | XMS REPORT | Summary of Care ---
Author Author [facility] Organization [facility] Address Unknown Phone Unavailable Encounter TOM Quinn(NICOLE) [id number] Date(s): 06/17/18 - 06/17/18 [facility] Orth[facility] Spine [address] [address]- [phone] Encounter Diagnosis Spondylosis without myelopathy or radiculopathy, lumbosacral region (Final) - 06/23/18 Postlaminectomy syndrome, not elsewhere classified (Final) - Other specific arthropathies, not elsewhere classified, other specified site (Final) - Type 2 diabetes mellitus without complications (Final) - Hypothyroidism, unspecified (Final) - Atherosclerotic heart disease of [place] coronary artery without angina pectoris (Final) - Hypertensive heart disease with heart failure (Final) - Heart failure, unspecified (Final) - Chronic obstructive pulmonary disease, unspecified (Final) - Pure hypercholesterolemia, unspecified (Final) - Gastro-esophageal reflux disease without esophagitis (Final) - Carpal tunnel syndrome, unspecified upper limb (Final) - Chronic inflammatory demyelinating polyneuritis (Final) - Presence of coronary angioplasty implant and graft (Final) - Acquired absence of right finger(s) (Final) - Personal history of nicotine dependence (Final) - penitentiary (current) use of aspirin (Final) - penitentiary (current) use of antithrombotics/antiplatelets (Final) - intermodal dispatcher (current) use of anticoagulants (Final) - Other retirement (current) drug therapy (Final) - Personal history of transient ischemic attack (TIA), and cerebral infarction wit hout residual deficits (Final) - 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 (Final) - Discharge Disposition: Home or Self Care Attending Physician: Ted Erwin MD Referring Physician: Ted Erwin MD Vital Signs 1 2 3 Most recent to oldest [Reference Range]: 203.2 cm (06/09/18 12:36 PM) Height 143/80 mmHg *HI* (06/17/18 5:23 PM) 132/79 mmHg (06/17/18 5:12 PM) 114/61 mmHg (06/17/18 4:59 PM) Blood Pressure [90-140/60-90 mmHg] 16 BRMIN (06/17/18 5:23 PM) 16 BRMIN (06/17/18 5:12 PM) 16 BRMIN (06/17/18 4:59 PM) Respiratory Rate [14-20 BRMIN] 110.909 kg (06/09/18 12:36 PM) Weight 26.86 m2 (06/09/18 12:36 PM) Body Mass Index Problem List [...] TIA (transient Resolved ischemic attack)(Confirmed) 1X2 2008,2010 37652 3X2 Allergies, Adverse Reactions, Alerts Substance Reaction Severity Status CODEINE nausea, vomitting,fever Active Medications heparin flush 500 unit, 5 mL, Route: IV, Drug form: INJ, ONCE, Start date: 06/17/18 15:43:[address], Stop date: 06/17/18 15:43:00 REGISTERED NURSE CARDIAC TELEMETRY Notes: (Same as: Heparin Lock Flush) Start Date: 06/17/18 Stop Date: 06/17/18 Status: Completed Results No data available for [...] Clinical Document Author: Ted Erwin MD Date: 06/17/18 LUMBAR MEDIAL BRANCH RADIOFREQUENCY ABLATION UNDER FLUOROSCOPY PROCEDURE: 1) Right L3-4, L4-5, L5-S1 medial branch radiofrequency ablation 2) Fluoroscopic needle guidance OPERATIVE DIAGNOSIS: Lumbar facet arthropathy and pain; Lumbosacral spondylosis w/o myelopathy PHYSICIAN: Ted Erwin MD MEDICATIONS INJECTED: Before the ablation, 1 mL of 1% lidocaine was injected at each level. After the ablation, 0.5 mL of Kennalog was injected at the ablation site and up to 2 mL of 1% lidocaine was injected as the needles were removed. LOCAL ANESTHETIC INJECTED: 5 mL of 1% lidocaine per site ESTIMATED [...] going down to the hub of a 27- gauge 1.25-inch needle. A 17G radiofrequency needle was introduced to the anatomic location of the medial branch at the junction of the superior articular process and transverse process utilizing intermittent fluoroscopy. Motor stimulation up to 2 volts was done to confirm no ablation of the ventral ramus at each level. 1 mL of 1% lidocaine was then injected slowly at each level. After waiting 30-60 seconds, ablation was performed utilizing a radiofrequency generator at 80 degrees C for 150 seconds. After the ablation, the above injectate was given at each level. The procedure was completed without complications and was tolerated well. The patient was monitored after the procedure. The patient (or responsible constitution party) was given post-procedure and discharge instructions to follow at home. The patient was discharged in stable condition. A follow-up appointment was made.
--- NOTE | 2019-01-11 08:13 | NUR ---
0715-Pt draped for ILR explant procedure 0721-Lidocaine w/epi administered by Dr. Bansal 0729-Device out 0734-Incision sutured by Dr. Bansal 0737-Dermabond applied 0745-Dressing applied
--- NOTE | 2019-01-11 14:53 | Operative Report ---
DATE OF PROCEDURE: SURGEON: Car Bansal MD PROCEDURE: Removal of implantable loop recorder. INDICATIONS: 1. Syncope. 2. Paroxysmal atrial fibrillation. COMPLICATIONS: None. ANESTHESIA: Lidocaine. TECHNIQUE: The patient was draped and prepped in the usual manner. The area over the existing loop recorder was anesthetized with lidocaine. A 15 blade scalpel was used to open the pocket. The loop recorder was removed with pickups. The pocket was closed with 2-0 Vicryl and there were no complications. CONCLUSION: Successful removal of implantable loop recorder. Car Bansal MD DSH/MODL /[id number]
== END | disposition home or self-care (01) ==
LOC: CATH LAB 06:01
PROVIDERS: ATTEND Internal Medicine Cardiovascular Disease
DX: I48.0 Paroxysmal atrial fibrillation (principal); R55 Syncope and collapse; R09.89 Other specified symptoms and signs involving the circulatory and respiratory systems; Z79.01 Long term (current) use of anticoagulants; Z88.5 Allergy status to narcotic agent; I25.10 Atherosclerotic heart disease of native coronary artery without angina pectoris; I10 Essential (primary) hypertension; I25.2 Old myocardial infarction; Z86.73 Personal history of transient ischemic attack (TIA), and cerebral infarction without residual deficits; Z95.5 Presence of coronary angioplasty implant and graft; Z72.0 Tobacco use; Z01.811 Encounter for preprocedural respiratory examination
CPT/HCPCS: 33286; 71046; J7040; 33284

== ENCOUNTER → 2021-09-02 | Day surgery (SDC) | payer MEDICARE, OTHER ==
[~2021-09-02] MED LIST changes: +CALTRATE 600-D1 EACH PO; +HEPARIN 500 UNITS/5ML MDV INJ SCH; -LIDOCAINE 1% W/EPINEPHRINE 20 ML VIAL ONE; +LIDOCAINE HCL 2% LOCAL INJ 5 ML SDV VIAL INJ ONE; +MIDAZOLAM HCL 2 MG/2 ML VIAL ONE; +ONDANSETRON HCL INJ 2MG/ML 2ML 2 MG/ML VIAL ONE; +POVIDONE IODINE 0.05% 0.05 % ML PO ONE; +PROPOFOL IV EMULSION 10 MG/ML 20 ML VIAL ONE; -SODIUM CHLORIDE 0.9% 500ML 500 ML ONE; +[UNRECOGNIZED DRUG - OTHER] PO
[2021-09-02 10:32] LABS: BASOPHILS % 0.4 % (0.0-1.0); EOSINOPHILS % 0.7 % (0.0-6.0); HEMATOCRIT 43.1 % (38.2-49.6); HEMOGLOBIN 13.8 g/dL (14.0-18.0); LYMPHOCYTES # (AUTO) 1.1 (1.0-3.2); LYMPHOCYTES % 20.2 % (18.0-39.1); MEAN CORPUSCULAR HEMOGLOBIN 29.2 pg (28-32); MEAN CORPUSCULAR VOLUME 91.1 fL (81-99); MONOCYTES # (AUTO) 0.5 (0.2-0.8); NEUTROPHILS # (AUTO) 3.9 (2.1-6.9); NEUTROPHILS % 69.5 % (38.7-80.0); PLATELET COUNT 161 x10e3/uL (140-360); RED BLOOD COUNT 4.73 x10e6/uL (4.3-5.7); RED CELL DISTRIBUTION WIDTH 15.9 % (11.7-14.4)
[2021-09-02 12:52] VITALS: BP 116/64
== END | disposition home or self-care (01) ==
LOC: OR 09:34
PROVIDERS: ATTEND Internal Medicine Gastroenterology
DX: K29.60 Other gastritis without bleeding (principal); D12.3 Benign neoplasm of transverse colon; K31.7 Polyp of stomach and duodenum; K20.90 Esophagitis, unspecified without bleeding; K21.9 Gastro-esophageal reflux disease without esophagitis; K59.09 Other constipation; K57.30 Diverticulosis of large intestine without perforation or abscess without bleeding; Z71.3 Dietary counseling and surveillance; G47.33 Obstructive sleep apnea (adult) (pediatric); J44.9 Chronic obstructive pulmonary disease, unspecified; E11.9 Type 2 diabetes mellitus without complications; I10 Essential (primary) hypertension; E78.5 Hyperlipidemia, unspecified; I25.10 Atherosclerotic heart disease of native coronary artery without angina pectoris; I48.91 Unspecified atrial fibrillation; I25.2 Old myocardial infarction; E03.9 Hypothyroidism, unspecified; M06.9 Rheumatoid arthritis, unspecified; M19.90 Unspecified osteoarthritis, unspecified site; Z88.6 Allergy status to analgesic agent; Z01.812 Encounter for preprocedural laboratory examination; Z20.822 Contact with and (suspected) exposure to COVID-19; Z79.84 Long term (current) use of oral hypoglycemic drugs; Z79.82 Long term (current) use of aspirin; Z79.02 Long term (current) use of antithrombotics/antiplatelets; Z79.899 Other long term (current) drug therapy; Z68.28 Body mass index [BMI] 28.0-28.9, adult; Z86.73 Personal history of transient ischemic attack (TIA), and cerebral infarction without residual deficits; Z95.5 Presence of coronary angioplasty implant and graft; Z89.029 Acquired absence of unspecified finger(s); Z93.0 Tracheostomy status; Z95.818 Presence of other cardiac implants and grafts; Z86.16 Personal history of COVID-19
CPT/HCPCS: 36415; 43239; 43450; 45385; 82948; 85025; J2001; J2250; J2405; J2704; U0002; 45378; 45384